=== PATIENT | female | born 2000 | race American Indian/Alaskan Native ===

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

== ENCOUNTER 2019-05-01 10:31 | Emergency (ER) | payer MEDICAID, OTHER ==
[2019-05-01 11:38] VITALS: BP 140/84
--- NOTE | 2019-05-01 11:38 | Event Note ---
ED Screening Note Date of service: 05/01/19 Time: 11:34 ED Screening Note: This is a 19 y.o. F. that presents to the ER with cough, chest pain, and congestion for 2-3 weeks. PMH asthma, ESRD Taken allergy and cold medication with no improvement of symptoms. LMP 03/25/2019, nexherve This initial assessment/diagnostic orders/clinical plan/treatment(s) is/are subject to change based on patients health status, clinical progression and re- assessment by fellow clinical providers in the ED. Further treatment and workup at subsequent clinical providers discretion. Patient/guardian urged not to elope from the ED as their condition may be serious if not clinically assessed and managed. Initial orders include: CXR
--- NOTE | 2019-05-01 12:23 | Emergency Department Report ---
- General Chief Complaint: Upper Respiratory Infection Stated Complaint: COUGHING/CHEST PAIN Time Seen by Provider: 05/01/19 11:34 Source: patient Mode of arrival: Ambulatory Limitations: No Limitations - History of Present Illness Initial Comments: 19-year-old female presents to ED with cough 2-3 weeks. Mother denies fever. States cough sounds productive. No relief with OTC meds. Reports patient has history of chronic kidney disease, seizures, MR. Complaint: cough -: week(s) (3) Severity: moderate Consistency: constant Improves With: nothing Worsens With: nothing Associated Symptoms: myalgias, cough, chest pain (with cough). denies: fever, chills, nausea, vomiting Treatments Prior to Arrival: "cold medicine" - Related Data Previous Rx's Medication Instructions Recorded Last Taken Type levETIRAcetam [Keppra TAB] 500 mg PO BID #60 tablet 06/09/17 Unknown Rx Benzonatate [Tessalon Perles] 100 mg PO Q8HR PRN #20 capsule 05/01/19 Unknown Rx Naproxen [Naprosyn] 500 mg PO BID #20 tablet 05/01/19 Unknown Rx predniSONE [Deltasone] 50 mg PO QDAY #5 tab 05/01/19 Unknown Rx Allergies Allergy/AdvReac Type Severity Reaction Status Date / Time No Known Allergies Allergy Verified 06/09/17 09:39 ED Review of Systems ROS: Stated complaint: COUGHING/CHEST PAIN Other details as noted in HPI Comment: All other systems reviewed and negative Constitutional: denies: chills, fever Respiratory: cough. denies: shortness of breath Musculoskeletal: myalgia ED Past Medical Hx - Past Medical History Previous Medical History?: Yes Hx Renal Disease: Yes (CKD) Hx Seizures: Yes Hx Asthma: Yes - Surgical History Past Surgical History?: No - Social History Smoking Status: Never Smoker Substance Use Type: None - Medications Home Medications: Home Medications Medication Instructions Recorded Confirmed Last Taken Type levETIRAcetam [Keppra TAB] 500 mg PO BID #60 tablet 06/09/17 Unknown Rx Benzonatate [Tessalon Perles] 100 mg PO Q8HR PRN #20 capsule 05/01/19 Unknown Rx Naproxen [Naprosyn] 500 mg PO BID #20 tablet 05/01/19 Unknown Rx predniSONE [Deltasone] 50 mg PO QDAY #5 tab 05/01/19 Unknown Rx ED Physical Exam - General Limitations: No Limitations General appearance: alert, in no apparent distress - Head Head exam: Present: atraumatic, normocephalic - Eye Eye exam: Present: normal appearance - ENT ENT exam: Present: mucous membranes moist - Neck Neck exam: Present: normal inspection - Respiratory Respiratory exam: Present: normal lung sounds bilaterally. Absent: respiratory distress - Cardiovascular Cardiovascular Exam: Present: regular rate, normal rhythm - GI/Abdominal GI/Abdominal exam: Absent: distended - Extremities Exam Extremities exam: Present: normal inspection - Neurological Exam Neurological exam: Present: alert, oriented X3 - Psychiatric Psychiatric exam: Present: normal affect, normal mood - Skin Skin exam: Present: warm, dry, intact ED Course Vital Signs 05/01/19 11:35 Temperature 98.4 F Pulse Rate 83 Respiratory 20 Rate Blood Pressure 140/84 O2 Sat by Pulse 98 Oximetry Critical care attestation.: If time is entered above; I have spent that time in minutes in the direct care of this critically ill patient, excluding procedure time. ED Disposition Clinical Impression: Acute bronchitis Disposition: DC-01 TO HOME OR SELFCARE Is pt being admited?: No Condition: Stable Instructions: Acute Bronchitis (ED) Referrals: ANDREW ARORA MD [Primary Care Provider] - 3-5 Days PRIMARY CAREMD [Referring] - 3-5 Days Time of Disposition: 13:17
--- NOTE | 2019-05-01 12:55 | XRay Report ---
CHEST 2 VIEWS INDICATION / CLINICAL INFORMATION: Cough. COMPARISON: None available. FINDINGS: SUPPORT DEVICES: None. HEART / MEDIASTINUM: The heart size and pulmonary vasculature are normal. LUNGS / PLEURA: No significant pulmonary or pleural abnormality. No pneumothorax. ADDITIONAL FINDINGS: No significant additional findings. IMPRESSION: No acute findings. Signer Name: Sebastian Harris MD Signed: 05/01/2019 12:50 PM Workstation Name: [id number]
== END 2019-05-01 13:39 | disposition home or self-care (01) ==
LOC: ED 10:31
DX: J20.9 Acute bronchitis, unspecified (principal); N18.9 Chronic kidney disease, unspecified; J45.909 Unspecified asthma, uncomplicated; Z79.899 Other long term (current) drug therapy
CPT/HCPCS: 71046

== ENCOUNTER 2020-01-25 21:35 | Emergency (ER) | payer MEDICAID ==
[2020-01-25 22:21] LABS: Bilirubin,Urine NEG (Negative); Blood,Urine NEG (Negative); Color,Urine Yellow (Yellow); Mucus,Urine FEW /HPF; Protein,Urine <15 mg/dL mg/dL (Negative)
[2020-01-25 22:24] LABS: HCG Qualitative,Urine Negative (Negative)
[2020-01-25 22:37] LABS: Basophils # (Auto) 0.1 K/mm3 (0.0-0.1); Basophils % (Auto) 0.5 % (0.0-1.8); Eosinophils % (Auto) 0.4 % (0.0-4.3); Hematocrit 42.3 % (30.3-42.9); Lymphocytes # (Auto) 2.6 K/mm3 (1.2-5.4); Lymphocytes % (Auto) 23.5 % (13.4-35.0); Mean Corpuscular HGB Conc 33 % (30-34); Mean Corpuscular Volume 87 fl (79-97); Monocytes # (Auto) 0.9 K/mm3 (0.0-0.8); Monocytes % (Auto) 8.3 % (0.0-7.3); Platelet Count 299 K/mm3 (140-440); Red Blood Count 4.89 M/mm3 (3.65-5.03); Red Cell Distribution Width 13.5 % (13.2-15.2)
[2020-01-25 22:49] LABS: Alanine Aminotransferase 16 units/L (7-56); Albumin 3.9 g/dL (3.9-5); BUN/Creatinine Ratio 9; Blood Urea Nitrogen 11 mg/dL (7-17); Calcium 9.1 mg/dL (8.4-10.2); Hemolysis Index 29
[2020-01-25] MEDS ORDERED: ONDANSETRON 4 MG/2 ML INJ IV ONE (23:18)
[2020-01-25] MEDS ORDERED: FAMOTIDINE 20 MG/2 ML INJ IV ONE (23:18)
[2020-01-25] MEDS ORDERED: DICYCLOMINE 20 MG/2 ML INJ IM ONE (23:19)
--- NOTE | 2020-01-26 00:58 | Ultrasound Report ---
LIMITED RUQ ABDOMINAL ULTRASOUND INDICATION: RUQ Pain. COMPARISON: No relevant prior imaging study available. FINDINGS: Pancreas: Visualized portions show no significant abnormality. Abdominal Aorta: Distal aorta is not well-seen. The remaining aorta appears normal in size. IVC: No s ignificant abnormality. Liver: The liver measures 15.2 cm in length. No significant abnormality. Normal hepatopedal blood fl ow in the main portal vein. Gallbladder: A single small gallstone was reportedly seen in the gallbladder neck, poorly demonstrate d on this exam. There is also no gallbladder wall thickening or distention. No pericholecystic fluid. The patient did reportedly have pain in the right upper quadrant during the exam. Bile ducts: No significant abnormality. Common bile duct measures 2 mm. Right kidney: No significant abnormality visualized.. Free fluid: None. Additional Findings: None. IMPRESSION: 1. Gallbladder findings as outlined above, not overly convincing for cholecystitis. Signer Name: Alok Navarro MD Signed: 01/26/2020 12:54 AM Workstation Name: [id number]
[2020-01-26] MEDS ORDERED: ONDANSETRON 4 MG ODT TAB PO ONE (01:48)
[2020-01-26] MEDS ORDERED: KETOROLAC 30 MG/1 ML INJ IV ONE (01:48)
--- NOTE | 2020-01-26 01:50 | Emergency Department Report ---
<KHALIDAJEANAANDREIA Hendrix - Last Filed: 01/26/20 02:18> ED N/V/D HPI - General Chief complaint: Nausea/Vomiting/Diarrhea Stated complaint: VOMITING Source: patient Mode of arrival: Ambulatory Limitations: No Limitations - History of Present Illness Initial comments: Patient is a nulliparous 19-year-old -Cymro female with history of bipolar disorder who presents to the ED with complaint of acute onset persistent nausea and vomiting and right upper quadrant abdominal pain that radiates to the epigastric area for the last 2 weeks worse in the last 2 days. Patient states that she has been taking cwrp-lum-crhxtll medications with no relief. Patient states that the pain and nausea and vomiting get worse with any meal intake. Patient denies vaginal bleeding, vaginal discharge, fever, chills, dysuria, urinary frequency and urgency, hematemesis, hematochezia, diarrhea, chest pain or shortness of breath, cough, sore throat, change in vision or syncope. MD complaint: nausea, vomiting, abdominal pain -: Sudden, week(s) (2) Description of Vomiting: food contents Associated Abdominal Pain: Yes (RUQ) Location: RUQ Radiation: none Severity: severe Pain Scale: 7 Quality: cramping, sharp Consistency: constant Improves with: none Worsens with: eating Associated Symptoms: denies other symptoms, loss of appetite, malaise, nausea /vomiting. denies: myalgias, chest pain, cough, diaphoresis, fever/chills, headaches, rash, dysuria, shortness of breath, syncope, weakness - Related Data Previous Rx's Medication Instructions Recorded Last Taken Type levETIRAcetam [Keppra TAB] 500 mg PO BID #60 tablet 06/09/17 Unknown Rx Benzonatate [Tessalon Perles] 100 mg PO Q8HR PRN #20 capsule 05/01/19 Unknown Rx Naproxen [Naprosyn] 500 mg PO BID #20 tablet 05/01/19 Unknown Rx predniSONE [Deltasone] 50 mg PO QDAY #5 tab 05/01/19 Unknown Rx Dicyclomine [Bentyl] 20 mg PO Q6H PRN #30 tablet 01/26/20 Unknown Rx Famotidine [Pepcid] 20 mg PO Q12H #30 tablet 01/26/20 Unknown Rx Ondansetron [Zofran Odt] 4 mg PO Q6HR PRN #20 tab.rapdis 01/26/20 Unknown Rx Allergies Allergy/AdvReac Type Severity Reaction Status Date / Time No Known Allergies Allergy Verified 06/09/17 09:39 ED Review of Systems Constitutional: denies: chills, fever Eyes: denies: eye pain, eye discharge, vision change ENT: denies: ear pain, throat pain Respiratory: denies: cough, shortness of breath, wheezing Cardiovascular: denies: chest pain, palpitations Endocrine: no symptoms reported Gastrointestinal: abdominal pain, nausea, vomiting. denies: diarrhea Genitourinary: denies: urgency, dysuria, discharge Musculoskeletal: denies: back pain, joint swelling, arthralgia Skin: denies: rash, lesions Neurological: denies: headache, weakness, paresthesias Psychiatric: denies: anxiety, depression Hematological/Lymphatic: denies: easy bleeding, easy bruising ED Past Medical Hx - Past Medical History Previous Medical History?: Yes Hx Renal Disease: Yes (CKD) Hx Seizures: Yes Hx Asthma: Yes - Surgical History Past Surgical History?: No - Social History Smoking Status: Never Smoker Substance Use Type: None - Medications Home Medications: Home Medications Medication Instructions Recorded Confirmed Last Taken Type levETIRAcetam [Keppra TAB] 500 mg PO BID #60 tablet 06/09/17 Unknown Rx Benzonatate [Tessalon Perles] 100 mg PO Q8HR PRN #20 capsule 05/01/19 Unknown Rx Naproxen [Naprosyn] 500 mg PO BID #20 tablet 05/01/19 Unknown Rx predniSONE [Deltasone] 50 mg PO QDAY #5 tab 05/01/19 Unknown Rx Dicyclomine [Bentyl] 20 mg PO Q6H PRN #30 tablet 01/26/20 Unknown Rx Famotidine [Pepcid] 20 mg PO Q12H #30 tablet 01/26/20 Unknown Rx Ondansetron [Zofran Odt] 4 mg PO Q6HR PRN #20 tab.rapdis 01/26/20 Unknown Rx ED Physical Exam - General Limitations: No Limitations General appearance: alert, in no apparent distress - Head Head exam: Present: atraumatic, normocephalic, normal inspection - Eye Eye exam: Present: normal appearance, PERRL, EOMI Pupils: Present: normal accommodation - ENT ENT exam: Present: normal exam, normal orophraynx, mucous membranes moist, TM's normal bilaterally, normal external ear exam - Neck Neck exam: Present: normal inspection, full ROM - Respiratory Respiratory exam: Present: normal lung sounds bilaterally. Absent: respiratory distress, wheezes, rales, chest wall tenderness, accessory muscle use, prolonged expiratory - Cardiovascular Cardiovascular Exam: Present: regular rate, normal rhythm, normal heart sounds. Absent: systolic murmur, diastolic murmur, rubs, gallop - GI/Abdominal GI/Abdominal exam: Present: soft, tenderness (Palpable right upper quadrant tenderness with positive Rainey sign), normal bowel sounds. Absent: rebound, hyperactive bowel sounds, hypoactive bowel sounds, mass - Extremities Exam Extremities exam: Present: normal inspection, full ROM, normal capillary refill - Back Exam Back exam: Present: normal inspection, full ROM. Absent: tenderness, CVA tenderness (R), muscle spasm - Neurological Exam Neurological exam: Present: alert, oriented X3, CN II-XII intact, normal gait, reflexes normal - Psychiatric Psychiatric exam: Present: normal affect, normal mood - Skin Skin exam: Present: warm, dry, intact, normal color. Absent: rash ED Medical Decision Making - Lab Data Result diagrams: 01/25/20 22:14 01/25/20 22:14 - Radiology Data Radiology results: report reviewed, image reviewed Findings [address] [address] Ultrasound Report Signed Patient: LYNN CHANDLER MR#: [id number] : 2000 Acct:[id number] Age/Sex: 19 / F ADM Date: 01/25/20 Loc: ED Attending Dr: Ordering Physician: MATA TABARES Date of Service: 01/25/20 Procedure(s): US abdomen limited Accession Number(s): [id number] cc: MATA TABARES LIMITED RUQ ABDOMINAL ULTRASOUND INDICATION: RUQ Pain. COMPARISON: No relevant prior imaging study available. FINDINGS: Pancreas: Visualized portions show no significant abnormality. Abdominal Aorta: Distal aorta is not well-seen. The remaining aorta appears normal in size. IVC: No significant abnormality. Liver: The liver measures 15.2 cm in length. No significant abnormality. Normal hepatopedal blood flow in the main portal vein. Gallbladder: A single small gallstone was reportedly seen in the gallbladder neck, poorly demonstrated on this exam. There is also no gallbladder wall thickening or distention. No pericholecystic fluid. The patient did reportedly have pain in the right upper quadrant during the exam. Bile ducts: No significant abnormality. Common bile duct measures 2 mm. Right kidney: No significant abnormality visualized.. Free fluid: None. Additional Findings: None. IMPRESSION: 1. Gallbladder findings as outlined above, not overly convincing for cholecystitis. Signer Name: Alok Navarro MD Signed: 01/26/2020 12:54 AM Workstation Name: [id number] Transcribed By: DEE Dictated By: Alok Navarro MD Electronically Authenticated By: Alok Navarro MD Signed Date/Time: 01/26/2053 DD/ TD/TT: - Medical Decision Making This is a nulliparous 19-year-old -Cymro female with history of bipola r disorder who presents to the ED with complaint of acute onset persistent nausea and vomiting and right upper quadrant abdominal pain that radiates to the epigastric area for the last 2 weeks worse in the last 2 days. Patient states that she has been taking anlw-npy-oekuxrb medications with no relief. Patient states that the pain and nausea and vomiting get worse with any meal intake. In the ED, patient is alert and oriented x3 and is not in distress. Patient was treated for pain and nausea and vomiting and also given antacids. Lab test results were reviewed and are all nonactionable including urinalysis. Gallbladder ultrasound shows a single small gallstone was reportedly seen in the gallbladder neck, poorly demonstrated on this exam. There is also no gallbladder wall thickening or distention. No pericholecystic fluid. The common bile ducts show no significant abnormality. Common bile duct measures 2 mm. On reevaluation, patient's pain is well controlled with medications. Patient has not had any nausea or vomiting in the ED after being treated for the same. Patient was discharged home on pain medications, antacids and antiemetics and patient was advised to follow-up with the general surgeon on-call Dr. Bui in the next 2 to 3 days for reevaluation and possible cholecystectomy. Patient was otherwise advised to return to the ED immediately if symptoms get worse. - Differential Diagnosis GERD; Gastroenteritis; Gastritis; Cholelithiasis; UTI; Cholecystitis ED Disposition Disposition: DC-01 TO HOME OR SELFCARE Is pt being admited?: No Does the pt Need Aspirin: No Condition: Stable Instructions: Cholelithiasis (ED), Acute Nausea and Vomiting (ED), Abdominal Pain (ED) Additional Instructions: Your lab test results are unremarkable but the ultrasound of the gallbladder shows gallstones in the gallbladder. Therefore take medication for pain, as well as medicine for nausea and vomiting and follow-up with the general surgeon on-call Dr. Bui in her office in 3 to 5 days for reevaluation. Contact Dr. Bui's office first thing in the morning on Sunday, January 26, 2020 to schedule a follow-up appointment for a possible removal of your gallbladder. Otherwise follow-up with your primary care physician in 5 to 7 days for reevaluation or return to the ED immediately if symptoms get worse. Prescriptions: Dicyclomine [Bentyl] 20 mg PO Q6H PRN #30 tablet PRN Reason: Pain , Severe (7-10) Famotidine [Pepcid] 20 mg PO Q12H #30 tablet Ondansetron [Zofran Odt] 4 mg PO Q6HR PRN #20 tab.rapdis PRN Reason: Nausea Referrals: PRIMARY CARE,MD [Primary Care Provider] - 3-5 Days Time of Disposition: 01:52 Print Language: HUNGARIAN <NAYANA BARROSO - Last Filed: 01/26/20 05:32> ED Review of Systems ROS: Stated complaint: VOMITING Other details as noted in HPI ED Course Vital Signs 01/25/20 01/26/20 01/26/20 21:40 02:05 02:07 Temperature 98.4 F 98.1 F Pulse Rate 98 H 86 Respiratory 18 20 18 Rate Blood Pressure 145/86 Blood Pressure 135/85 [Left] O2 Sat by Pulse 98 100 Oximetry ED Medical Decision Making - Lab Data Result diagrams: 01/25/20 22:14 01/25/20 22:14 Critical care attestation.: If time is entered above; I have spent that time in minutes in the direct care of this critically ill patient, excluding procedure time.
== END 2020-01-26 02:19 | disposition home or self-care (01) ==
LOC: ED 21:35
DX: R11.2 Nausea with vomiting, unspecified (principal); R10.11 Right upper quadrant pain; N18.9 Chronic kidney disease, unspecified; G40.909 Epilepsy, unspecified, not intractable, without status epilepticus; J45.909 Unspecified asthma, uncomplicated; Z79.899 Other long term (current) drug therapy
CPT/HCPCS: 36415; 76705; 80053; 81001; 81025; 85025; 96372; 96374; 96375; 99284; J0500; J1885; J2405; Q0162

== ENCOUNTER 2020-02-20 14:29 | Day surgery (SDC) | payer MEDICAID ==
[2020-02-17 09:55] LABS: Hematocrit 46.9 % (30.3-42.9); Hemoglobin 15.8 gm/dl (10.1-14.3); Mean Corpuscular HGB Conc 34 % (30-34); Mean Corpuscular Volume 86 fl (79-97); Platelet Count 318 K/mm3 (140-440); Red Blood Count 5.44 M/mm3 (3.65-5.03); Red Cell Distribution Width 13.8 % (13.2-15.2)
[2020-02-17 10:28] LABS: BUN/Creatinine Ratio 14; Blood Urea Nitrogen 17 mg/dL (7-17); Calcium 9.6 mg/dL (8.4-10.2); Hemolysis Index 56
--- NOTE | 2020-02-19 17:18 | Short Stay Summary ---
Short Stay Documentation Date of service: 02/20/20 - History H&P: obtained from office - Allergies and Medications Current Medications: Allergies No Known Allergies Allergy (Verified 06/09/17 09:39) Home Medications Medication Instructions Recorded Confirmed Last Taken Type levETIRAcetam [Keppra TAB] 500 mg PO BID #60 tablet 06/09/17 02/11/20 Unknown Rx Ondansetron [Zofran Odt] 4 mg PO Q6HR PRN #20 tab.rapdis 01/26/20 02/11/20 Unknown Rx Lisdexamfetamine Dimesylate 40 mg PO DAILY 02/07/20 02/07/20 Unknown History [Vyvanse] lisinopriL [Zestril TAB] 5 mg PO DAILY 02/07/20 02/07/20 Unknown History Albuterol Sulfate [Proventil Hfa] 2 puff IH PRN PRN 02/11/20 02/11/20 Unknown History - Physical exam General appearance: no acute distress Lungs: Normal air movement Neurological: Normal speech - Brief post op/procedure progress note Date of procedure: 02/20/20 (dictation:[id number]) Pre-op diagnosis: symptomatic cholelithiasis with obstruction Post-op diagnosis: same Procedure: lap km IVF 700cc EBL min Anesthesia: GETA Findings: mildly dilated GB. Intrahepatic Surgeon: DHAVAL DELVALLE Appliances Sample Maker: MARICHUY CASTAÑEDA Estimated blood loss: minimal Pathology: list (gallbladder) Specimen disposition: to lab Condition: stable - Hospital course Hospital course: uneventful - Disposition Condition at discharge: Stable Disposition: DC-01 TO HOME OR SELFCARE Short Stay Discharge Plan Activity: advance as tolerated Diet: regular Wound: open to air, keep clean and dry Special Instructions: no heavy lifting Additional Instructions: Post Operative Instructions Activity: no heavy lifting for next 1 week. May shower tomorrow. Pat dry the wound or wounds. Keep incision sites clean and dry After surgery, start with a light diet. Consider starting with liquids. If you do well, you can advance to a regular diet as you feel comfortable. Apply an ice pack to the wound or wounds for 10-20 minutes at a time. Do this at least 4-5 times a day. You can do it more if he would like. Pain Medication Schedule for the first 2 days after surgery: Gabapentin 300mg twice a day Tylenol 500mg four times a day (every 6 hours) After the first 2 days, then take alternating doses of ibuprofen and Tylenol as needed for pain. Take 600 mg of ibuprofen every 6 hours as needed. Take 500 mg of Tylenol every 6 hours as needed. You should alternate these 2 medicines. Make sure you take the ibuprofen with food. It is very important that you use the prescription narcotic pain medicine (hydrocodone) only for very severe pain. Do not take the narcotic medicine before you try using all the medications listed above. We will call you in a couple of days to see how youre doing. If you have any questions or concerns, always feel free to call the clinic ([phone]) at any time. WOUND:OPEN TO AIR, KEEP CLEAN AND DRY. REMOVED SCOPOLAMINE PATCH BEHIND RIGHT EAR IN 24-72 HOURS=USE GLOVES AND WASH HANDS. Follow up with: PRIMARY MD WILL [Primary Care Provider] - 7 Days DHAVAL DELVALLE MD [Staff Physician] - 14 Days Forms: Outpatient Surgery DC Inst. Prescriptions: Gabapentin 300 mg PO BID #4 capsule HYDROcodone/APAP 5-325 [Minong 5-325 mg TAB] 1 each PO Q6HR PRN #15 tablet PRN Reason: Pain , Severe (7-10)
--- NOTE | 2020-02-20 09:31 | Anesthesia Day of Surgery ---
Anesthesia Day of Surgery - Day of Surgery Patient Examined: Yes Patient H&P Reviewed: Yes Patient is NPO: Yes
--- NOTE | 2020-02-20 09:31 | Anesthesia Consultation ---
Anesthesia Consult and Med Hx Date of service: 02/20/20 - Airway Anesthetic Teeth Evaluation: Good ROM Head & Neck: Adequate Mental/Hyoid Distance: Adequate Mallampati Class: Class II Intubation Access Assessment: Probably Good - Pulmonary Exam CTA: Yes - Cardiac Exam Cardiac Exam: RRR - Pre-Operative Health Status ASA Pre-Surgery Classification: ASA3 Proposed Anesthetic Plan: General - Pulmonary Hx Asthma: Yes (last inhaler use 2 months ago) Hx Respiratory Symptoms: No Hx Sleep Apnea: No (PALMER PRE SCREEN LOW RISK) - Cardiovascular System Hx Hypertension: Yes Hx Heart Attack/AMI: No - Central Nervous System Hx Seizures: Yes (multiple petite mal seizures daily. Took keppra this morning) Hx Psychiatric Problems: Yes (depression, anxiety, bipolar d/o, ADHD) - Gastrointestinal Hx Gastroesophageal Reflux Disease: Yes - Endocrine Hx Renal Disease: Yes (last nephrology visit 07/2019, reports good renal function at that time. ) Hx End Stage Renal Disease: No Hx Liver Disease: No Hx Non-Insulin Dependent Diabetes: Yes (diet controlled) Hx Thyroid Disease: No - Other Systems Hx Obesity: Yes (BMI 34) - Additional Comments Anesthesia Medical History Comments: No prior GA. No FHx anesthetic complications.
--- NOTE | 2020-02-20 14:11 | Operative Report ---
PREOPERATIVE DIAGNOSIS: Symptomatic cholelithiasis with obstruction of the cystic duct. POSTOPERATIVE DIAGNOSIS: Symptomatic cholelithiasis with obstruction of the cystic duct. PROCEDURE: Laparoscopic cholecystectomy. ATTENDING PHYSICIAN: Stan Varela MD LOCKER ROOM SUPERVISOR: Dr. Bui ANESTHESIA: General. ESTIMATED BLOOD LOSS: Minimal. FLUIDS: 700 mL. FINDINGS: Mildly distended gallbladder that was intrahepatic. SPECIMENS: Gallbladder. DRAINS: None. COMPLICATIONS: None. DISPOSITION: Stable, transferred to Recovery Room. INDICATIONS: This is a 19-year-old female who presents to the office after having been seen in the Emergency Department for severe abdominal pain. The patient was found to have a dilated gallbladder by ultrasound with a stone in the neck of the gallbladder. The patient continued to have symptoms of pain and nausea. The patient is assessed to be in need for cholecystectomy. Procedure, risks, benefits were explained to the patient. Risks include but were not limited to infection, bleeding, pain, injury to surrounding structures, possible need for further procedures in the future. The patient understood and consented. OPERATIVE NOTE: The patient was brought to the operating room and placed on the table in supine position. After adequate general anesthesia was established, the patient was prepped and draped in the usual sterile fashion. SCDs were in place. Antibiotics have been given. Time-out was called. I placed a Veress needle in left upper quadrant at Capps's point. I was able to insufflate on the first attempt. Using Optiview technique, we placed a 5 mm port on the right side of the abdomen. We entered the peritoneal cavity safely. Examining the area underneath the Veress needle, there was no injury to the underlying structures. Veress needle was removed. We then proceeded to place the 12 mm port at the umbilicus. Area was anesthetized. Curvilinear incision was made. 2-0 PDS closing suture was placed with a Geo-Flash needle and then the port was inserted under direct vision. Two more 5 mm ports were placed along the right subcostal margin. We elevated the gallbladder. It was difficult to elevate due to the fact that was intrahepatic and slightly enlarged. We did a partial top down approach to help in mobilizing the gallbladder a little bit more. We dissected out the cystic duct. We could clearly see the cystic duct. It was obviously heading into the gallbladder. We could also see the common duct. The cystic duct was very short. Once we dissected out the cystic duct, we had a very small critical view, but as I could clearly see the common duct, we felt comfortable proceeding with dividing the cystic duct. Two clips were placed distally, 1 proximally. We usually will put 3, but as the cystic duct was so short, we felt this was the safest amount to put so as not to impinge upon the common duct. Cystic duct was divided sharply. Using the Harmonic scalpel, we removed the gallbladder from the bed. Cystic artery was divided with the Harmonic scalpel. During the top down approach, we had a small rent in the liver bed. Therefore, once the gallbladder was removed, we had a small amount of blood staining in the bed. We closely examined this area. We saw no evidence of any active bleeding. It appeared to be blunted and trickle down from the small rent. As a precaution, I placed Surgicel in the bed. Specimen was placed in EndoCatch bag. We desufflated the abdomen per the virus protocol and then removed the 12 mm port and the EndoCatch bag. The stay suture that we had placed was used to close the fascia. We had a good seal. The remaining ports were removed. Abdomen already been desufflated. Additional local was injected, 4-0 Monocryl subcuticular stitches were placed. Skin was cleaned and dried. Dermabond was placed. I examined the gallbladder on the back table. We clearly had divided the cystic duct. There were no other ductal structures. Everything looked very good. JOB# [id number] AMADOR/SIOBHAN QURESHI
[2020-02-20] MEDS: HYDROmorphone 1 MG/1 ML INJ IV PRN ×2 (14:15→14:35)
[~2020-02-20 14:29] MED LIST: ACETAMINOPHEN 500 MG TAB PO SCH; BUPIVACAINE/PF (0.5%) 5 MG/1 ML 30 ML VIAL INFILTRATI ONE; CELECOXIB 200 MG CAP PO NR; GABAPENTIN 300 MG CAP PO SCH; GLYCOPYRROLATE 0.4 MG/2 ML INJ ONE; HYDROmorphone 1 MG/1 ML INJ ONE; LACTATED RINGERS 1,000 ML IV SCH; LIDOCAINE 1%/EPINEPHRINE 1:100,000 VIAL (20 ML) INFILTRATI ONE; LIDOCAINE MPF (2%) 20 MG/1 ML VIAL 5 ML ONE; MIDAZOLAM 2 MG/2 ML INJ IV NR; NEOSTIGMINE 10MG/10 ML INJ MDV ONE; ONDANSETRON 4 MG/2 ML INJ ONE; ROCURONIUM 50 MG/5 ML INJ IV ONE; SCOPOLAMINE TRANSDERMAL PATCH 72 HR TD NR; SUCCINYLCHOLINE CHLORIDE 200 MG/10 ML INJ MDV ONE; WATER FOR IRRIG STERILE 1,500 ML BOTTLE IR ONE; ceFAZolin/Water 2 GM/20 ML 2 GM/20 ML SYRINGE IV NR; dexAMETHasone 20 MG/5 ML VIAL ONE; propofoL 200 MG/20 ML VIAL IV ONE
[2020-02-20 15:20] VITALS: BP 127/74
[2020-02-20] MEDS ORDERED: SCOPOLAMINE TRANSDERMAL PATCH 72 HR TD ONE (15:46)
--- NOTE | 2020-02-20 19:19 | Post Anesthesia Evaluation ---
- Post Anesthesia Evaluation Patient Participated: Yes Airway Patent: Yes Stable Respiratory Function: Yes Nausea/Vomiting: No Temp > 96.8F: Yes Pain Manageable: Yes Adequeate Hydration: Yes Anesthesia Complications: No
== END 2020-02-20 16:15 | disposition home or self-care (01) ==
LOC: OR 14:29
PROVIDERS: ATTEND Surgery
DX: K80.21 Calculus of gallbladder without cholecystitis with obstruction (principal); Z11.59 Encounter for screening for other viral diseases; I10 Essential (primary) hypertension; J45.909 Unspecified asthma, uncomplicated; K21.9 Gastro-esophageal reflux disease without esophagitis; E66.9 Obesity, unspecified; E11.9 Type 2 diabetes mellitus without complications; F31.9 Bipolar disorder, unspecified; F41.9 Anxiety disorder, unspecified; Z79.899 Other long term (current) drug therapy; Z68.34 Body mass index [BMI] 34.0-34.9, adult; Z98.890 Other specified postprocedural states; Z86.2 Personal history of diseases of the blood and blood-forming organs and certain disorders involving the immune mechanism
CPT/HCPCS: 36415; 47562; 80048; 82962; 84703; 85027; 88304; J0330; J0690; J1100; J1170; J2250; J2405; J2704; J2710; J7120; U0003

== ENCOUNTER 2020-06-30 20:42 | Emergency (ER) | payer MEDICAID ==
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
[2020-07-01] MEDS ORDERED: BUTALB/ACETAMINOPHEN/CAFFEINE TAB PO ONE (03:51)
[2020-07-01] MEDS ORDERED: ONDANSETRON 4 MG ODT TAB PO ONE (03:52)
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
[2020-07-01 04:46] VITALS: BP 127/82
== END 2020-07-01 05:15 | disposition home or self-care (01) ==
LOC: ED 20:42
DX: S00.03XA Contusion of scalp, initial encounter (principal); G44.319 Acute post-traumatic headache, not intractable; F07.81 Postconcussional syndrome; I10 Essential (primary) hypertension; E11.9 Type 2 diabetes mellitus without complications; K21.9 Gastro-esophageal reflux disease without esophagitis; J45.909 Unspecified asthma, uncomplicated; R56.9 Unspecified convulsions; Z79.899 Other long term (current) drug therapy; Z87.448 Personal history of other diseases of urinary system; W20.8XXA Other cause of strike by thrown, projected or falling object, initial encounter; Y93.89 Activity, other specified; Y92.89 Other specified places as the place of occurrence of the external cause; Y99.8 Other external cause status
CPT/HCPCS: 70450; 72125; Q0162

== ENCOUNTER 2020-08-21 15:25 | Emergency (ER) | payer MEDICAID ==
[2020-08-21 16:27] LABS: Basophils % (Auto) 0.4 % (0.0-1.8); Eosinophils # (Auto) 0.1 K/mm3 (0.0-0.4); Eosinophils % (Auto) 0.7 % (0.0-4.3); Hematocrit 44.3 % (30.3-42.9); Hemoglobin 15.1 gm/dl (10.1-14.3); Lymphocytes # (Auto) 2.8 K/mm3 (1.2-5.4); Lymphocytes % (Auto) 27.7 % (13.4-35.0); Mean Corpuscular HGB Conc 34 % (30-34); Mean Corpuscular Volume 87 fl (79-97); Monocytes # (Auto) 0.8 K/mm3 (0.0-0.8); Platelet Count 354 K/mm3 (140-440); Red Cell Distribution Width 13.5 % (13.2-15.2)
[2020-08-21 16:28] LABS: Bilirubin,Urine NEG (Negative); Blood,Urine SM (Negative); Color,Urine Yellow (Yellow); Mucus,Urine FEW /HPF; Protein,Urine <15 mg/dL mg/dL (Negative); Urobilinogen,Urine < 2.0 mg/dL (<2.0)
--- NOTE | 2020-08-21 17:09 | XRay Report ---
CHEST 2 VIEWS INDICATION / CLINICAL INFORMATION: cough. COMPARISON: 06/10/2020 FINDINGS: SUPPORT DEVICES: None. HEART / MEDIASTINUM: No significant abnormality. LUNGS / PLEURA: No significant pulmonary or pleural abnormality. No pneumothorax. ADDITIONAL FINDINGS: No significant additional findings. IMPRESSION: No significant abnormality or interval change from 06/10/2020 Signer Name: Salas Bhatt MD FACR Signed: 08/21/2020 5:05 PM Workstation Name: [id number]
[2020-08-21 17:50] LABS: Alanine Aminotransferase 18 units/L (7-56); BUN/Creatinine Ratio 8; Blood Urea Nitrogen 9 mg/dL (7-17); Calcium 9.7 mg/dL (8.4-10.2); Hemolysis Index 114
--- NOTE | 2020-08-21 18:17 | Emergency Department Report ---
<SP LUDWIG - Last Filed: 08/21/20 18:51> ED Abdominal Pain HPI - General Chief Complaint: Abdominal Pain Stated Complaint: VOMITING/COUGH Time Seen by Provider: 08/21/20 17:52 Source: patient Mode of arrival: Ambulatory Limitations: No Limitations - History of Present Illness Initial Comments: The patient was evaluated in the emergency department for symptoms described in the history of present illness. He/she was evaluated in the context of the global COVID-19 pandemic, which necessitated consideration that the patient might be at risk for infection with the virus that causes COVID-19. Institutional protocols and algorithms that pertain to the evaluation of patients at risk for COVID-19 are in a state of rapid change based on information released by regulatory bodies including the CDC and federal and state organizations. These policies and algorithms were followed during the patient's care in the emergency department. Please note that these policies, procedures and recommendations changed on a rapid basis. 20-year-old -[place] female presents to the emergency room complaining of cough, abdominal pain nausea and vomiting since yesterday. Patient reports that she has been able to drink tammie eric. Patient reports nausea vomiting denies any diarrhea no constipation. She reports that her pain is from the periumbilicus. Her last menstrual period was 08/10/2020. She denies any dysuria no vaginal bleeding no vaginal discharge. MD Complaint: abdominal pain - Related Data Home Medications Medication Instructions Recorded Confirmed Last Taken Lisdexamfetamine Dimesylate 40 mg PO DAILY 02/07/20 02/20/20 02/20/20 07:00 [Vyvanse] lisinopriL [Zestril TAB] 5 mg PO DAILY 02/07/20 02/20/20 02/20/20 07:00 Albuterol Sulfate [Proventil Hfa] 2 puff IH PRN PRN 02/11/20 02/20/20 12/18/19 08:00 Previous Rx's Medication Instructions Recorded Last Taken Type levETIRAcetam [Keppra TAB] 500 mg PO BID #60 tablet 06/09/17 02/20/20 07:00 Rx Gabapentin 300 mg PO BID #4 capsule 02/20/20 Unknown Rx HYDROcodone/APAP 5-325 [[place] 1 each PO Q6HR PRN #15 tablet 02/20/20 Unknown Rx 5-325 mg TAB] Butalb/Acetamin/Caff 50-325-40 1 - 2 tab PO Q6HR PRN #15 tab 07/01/20 Unknown Rx [Fioricet 50-325-40] Ondansetron [Zofran Odt] 4 mg PO Q6HR PRN #15 tab.rapdis 07/01/20 Unknown Rx Dicyclomine [Bentyl] 20 mg PO Q6H PRN #20 tablet 08/21/20 Unknown Rx Famotidine [Pepcid] 20 mg PO BID #30 tablet 08/21/20 Unknown Rx Ondansetron [Zofran Odt] 4 mg PO Q6HR PRN #20 tab.rapdis 08/21/20 Unknown Rx Allergies Allergy/AdvReac Type Severity Reaction Status Date / Time No Known Allergies Allergy Verified 08/21/20 15:47 ED Past Medical Hx - Past Medical History Hx Hypertension: Yes Hx Heart Attack/AMI: No Hx Diabetes: No Hx GERD: Yes Hx Liver Disease: No Hx Renal Disease: Yes Hx Sickle Cell Disease: No Hx Seizures: Yes Hx Asthma: Yes Hx Tuberculosis: No Hx HIV: No - Surgical History Hx Cholecystectomy: Yes - Social History Smoking Status: Never Smoker Substance Use Type: None - Medications Home Medications: Home Medications Medication Instructions Recorded Confirmed Last Taken Type levETIRAcetam [Keppra TAB] 500 mg PO BID #60 tablet 06/09/17 02/20/20 02/20/20 07:00 Rx Lisdexamfetamine Dimesylate 40 mg PO DAILY 02/07/20 02/20/20 02/20/20 07:00 History [Vyvanse] lisinopriL [Zestril TAB] 5 mg PO DAILY 02/07/20 02/20/20 02/20/20 07:00 History Albuterol Sulfate [Proventil Hfa] 2 puff IH PRN PRN 02/11/20 02/20/20 12/18/19 08:00 History Gabapentin 300 mg PO BID #4 capsule 02/20/20 Unknown Rx HYDROcodone/APAP 5-325 [[place] 1 each PO Q6HR PRN #15 tablet 02/20/20 Unknown Rx 5-325 mg TAB] Butalb/Acetamin/Caff 50-325-40 1 - 2 tab PO Q6HR PRN #15 tab 07/01/20 Unknown Rx [Fioricet 50-325-40] Ondansetron [Zofran Odt] 4 mg PO Q6HR PRN #15 tab.rapdis 07/01/20 Unknown Rx Dicyclomine [Bentyl] 20 mg PO Q6H PRN #20 tablet 08/21/20 Unknown Rx Famotidine [Pepcid] 20 mg PO BID #30 tablet 08/21/20 Unknown Rx Ondansetron [Zofran Odt] 4 mg PO Q6HR PRN #20 tab.rapdis 08/21/20 Unknown Rx ED Physical Exam - General Limitations: No Limitations General appearance: alert, in no apparent distress - Head Head exam: Present: atraumatic, normocephalic - Eye Eye exam: Present: normal appearance - ENT ENT exam: Present: mucous membranes moist - Neck Neck exam: Present: normal inspection - Respiratory Respiratory exam: Present: normal lung sounds bilaterally. Absent: respiratory distress - Cardiovascular Cardiovascular Exam: Present: regular rate - GI/Abdominal GI/Abdominal exam: Present: soft, tenderness (Periumbilicus). Absent: distended, guarding - Neurological Exam Neurological exam: Present: alert, oriented X3, normal gait - Psychiatric Psychiatric exam: Present: normal affect, normal mood - Skin Skin exam: Present: warm, dry, intact, normal color. Absent: rash ED Medical Decision Making - Lab Data Result diagrams: 08/21/20 15:59 08/21/20 15:59 - Radiology Data Radiology results: report reviewed [facility] [address] [place] [address] XRay Report Signed Patient: LYNN CHANDLER MR#: [id number] : 2000 Acct:[id number] Age/Sex: 20 / F ADM Date: 08/21/20 Loc: ED Attending Dr: Ordering Physician: WALDEMAR GABRIEL Date of Service: 08/21/20 Procedure(s): XR chest routine 2V Accession Number(s): [id number] cc: WALDEMAR GABRIEL Fluoro Time In Minutes: CHEST 2 VIEWS INDICATION / CLINICAL INFORMATION: cough. COMPARISON: 06/10/2020 FINDINGS: SUPPORT DEVICES: None. HEART / MEDIASTINUM: No significant abnormality. LUNGS / PLEURA: No significant pulmonary or pleural abnormality. No pneumothorax. ADDITIONAL FINDINGS: No significant additional findings. IMPRESSION: No significant abnormality or interval change from 06/10/2020 Signer Name: Salas Bhatt MD FACR Signed: 08/21/2020 5:05 PM Workstation Name: [id number] Transcribed By: MS Dictated By: Salas Bhatt MD Electronically Authenticated By: Salas Bhatt MD Signed Date/Time: 08/21/201704 DD/ 03 TD/TT: - Medical Decision Making 20-year-old -Syrian female presents to the emergency room complaining of cough, abdominal pain nausea and vomiting since yesterday. Patient reports that she has been able to drink tammie eric. Patient reports nausea vomiting denies any diarrhea no constipation. She reports that her pain is from the periumbilicus. Her last menstrual period was 08/10/2020. She denies any dysuria no vaginal bleeding no vaginal discharge. Labs are stable. CT with contrast has been ordered. ED Disposition Clinical Impression: Nausea and vomiting in adult patient, Viral gastroenteritis, Abdominal pain in female Disposition: - TO HOME OR SELFCARE Condition: Stable Instructions: Abdominal Pain (ED), Viral Gastroenteritis, Adult, [id number], Nausea and Vomiting, Adult, [id number], Viral Illness, Adult, Abdominal Pain, Adult Additional Instructions: All lab test results were reviewed and are all nonactionable. Abdomen pelvis CT scan without contrast showed no acute abnormalities. Therefore maintain a clear liquid diet for 12 to 24 hours, take medications as prescribed, drink plenty of fluids and follow-up with your primary care physician in 5 to 7 days for reevaluation. Return to the ED immediately if symptoms get worse. Prescriptions: Dicyclomine [Bentyl] 20 mg PO Q6H PRN #20 tablet PRN Reason: Abdominal pain Famotidine [Pepcid] 20 mg PO BID #30 tablet Ondansetron [Zofran Odt] 4 mg PO Q6HR PRN #20 tab.rapdis PRN Reason: nausea amd vomiting Referrals: [facility] [Outside] - 7-10 days Print Language: IRISH <ANDREIA TORRES - Last Filed: 08/21/20 23:17> ED Review of Systems ROS: Stated complaint: VOMITING/COUGH Other details as noted in HPI ED Course Vital Signs 08/21/20 15:51 Temperature 98.1 F Pulse Rate 98 H Respiratory 18 Rate Blood Pressure 129/87 O2 Sat by Pulse 99 Oximetry ED Medical Decision Making - Lab Data Result diagrams: 08/21/20 15:59 08/21/20 15:59 - Radiology Data Findings [facility] [address] [place] [address] Cat Scan Report Signed Patient: LYNN CHANDLER MR#: [id number] : 2000 Acct:[id number] Age/Sex: 20 / F ADM Date: 08/21/20 Loc: ED Attending Dr: Ordering Physician: MATA CHANG Date of Service: 08/21/20 Procedure(s): CT abdomen pelvis wo con Accession Number(s): [id number] cc: MATA CHANG CT ABDOMEN AND PELVIS WITHOUT CONTRAST INDICATION / CLINICAL INFORMATION: Periumbilicus pain and tenderness. TECHNIQUE: Axial CT images were obtained through the abdomen and pelvis without IV contrast. All CT scans at this location are performed using CT dose reduction for ALARA by means of automated exposure control. COMPARISON: None available. FINDINGS: LOWER CHEST: No significant abnormality. LIVER: No significant abnormality. GALLBLADDER: Surgically absent. BILE DUCTS: No significant abnormality. PANCREAS: No significant abnormality. SPLEEN: No significant abnormality. ADRENALS: No significant abnormality. RIGHT KIDNEY and URETER: No significant abnormality. LEFT KIDNEY and URETER: No significant abnormality. STOMACH and SMALL BOWEL: No significant abnormality. COLON: No significant abnormality. APPENDIX: No significant abnormality. PERITONEUM: No free fluid. No free air. No fluid collection. LYMPH NODES: No significant adenopathy. AORTA and ARTERIES: No significant abnormality. IVC and VEINS: No significant abnormality. URINARY BLADDER: No significant abnormality. REPRODUCTIVE ORGANS: No significant abnormality. ADDITIONAL FINDINGS: None. SKELETAL SYSTEM: No significant abnormality. IMPRESSION: 1. No acute process identified within the abdomen or pelvis to account for patient's abdominal pain Signer Name: Lisset Sanchez MD Signed: 08/21/2020 10:42 PM Workstation Name: [id number] Transcribed By: [facility] Dictated By: Lisset Sanchez MD Electronically Authenticated By: Lisset Sanchez MD Signed Date/Time: 08/21/202241 DD/ 37 TD/TT: - Medical Decision Making I assumed care of the patient from Ms. Waldemar Gabriel PA-C at shift change at 2200 hours. Patient had presented to the ED with acute onset persistent abdominal pain in the upper umbilical area with nausea and vomiting for 2 days. Lab test results were reviewed and are all nonactionable. Abdomen pelvis CT scan without contrast showed no acute abnormalities in the abdomen or pelvis. Patient was treated for pain in the ED and also given antiemetics and antacids. On reevaluation, patient's pain is well controlled medications. Patient is hemodynamically stable and was discharged home on medications for pain and antiemetics and antacids. Patient symptoms are likely due to viral gastroenteritis. Patient was advised to maintain a clear liquid diet for 12 to 24 hours, and take medications as prescribed and follow-up with her primary care physician in 5 to 7 days for reevaluation or return to the ED immediately if s ymptoms get worse. - Differential Diagnosis Gastroenteritis; GERD; UTI; appendicitis; ovarian cyst; pancreatitis Critical care attestation.: If time is entered above; I have spent that time in minutes in the direct care of this critically ill patient, excluding procedure time. ED Disposition Is pt being admited?: No Does the pt Need Aspirin: No Time of Disposition: 23:16
[2020-08-21] MEDS ORDERED: ONDANSETRON 4 MG/2 ML INJ IV ONE (20:39)
[2020-08-21] MEDS ORDERED: KETOROLAC 30 MG/1 ML INJ IV ONE (20:39)
[2020-08-21] MEDS ORDERED: SODIUM CHLORIDE 0.9% 1000 ML 1,000 ML IV ONE (20:40)
[2020-08-21] MEDS ORDERED: ONDANSETRON 4 MG ODT TAB PO ONE (22:37)
[2020-08-21] MEDS ORDERED: KETOROLAC 30 MG/1 ML INJ IM ONE (22:37)
[2020-08-21] MEDS ORDERED: FAMOTIDINE 20 MG TAB PO ONE (22:37)
--- NOTE | 2020-08-21 22:46 | Cat Scan Report ---
CT ABDOMEN AND PELVIS WITHOUT CONTRAST INDICATION / CLINICAL INFORMATION: Periumbilicus pain and tenderness. TECHNIQUE: Axial CT images were obtained through the abdomen and pelvis without IV contrast. All CT scans at [facility] are performed using CT dose reduction for ALARA by means of automated exposure control. COMPARISON: None available. FINDINGS: LOWER CHEST: No significant abnormality. LIVER: No significant abnormality. GALLBLADDER: Surgically absent. BILE DUCTS: No significant abnormality. PANCREAS: No significant abnormality. SPLEEN: No significant abnormality. ADRENALS: No significant abnormality. RIGHT KIDNEY and URETER: No significant abnormality. LEFT KIDNEY and URETER: No significant abnormality. STOMACH and SMALL BOWEL: No significant abnormality. COLON: No significant abnormality. APPENDIX: No significant abnormality. PERITONEUM: No free fluid. No free air. No fluid collection. LYMPH NODES: No significant adenopathy. AORTA and ARTERIES: No significant abnormality. IVC and VEINS: No significant abnormality. URINARY BLADDER: No significant abnormality. REPRODUCTIVE ORGANS: No significant abnormality. ADDITIONAL FINDINGS: None. SKELETAL SYSTEM: No significant abnormality. IMPRESSION: 1. No acute process identified within the abdomen or pelvis to account for patient's abdominal pain Signer Name: Lisset Sanchez MD Signed: 08/21/2020 10:42 PM Workstation Name: [id number]
[2020-08-22 00:44] VITALS: BP 126/82
== END 2020-08-21 23:44 | disposition home or self-care (01) ==
LOC: ED 15:25
DX: A08.4 Viral intestinal infection, unspecified (principal); R10.9 Unspecified abdominal pain; R11.2 Nausea with vomiting, unspecified; I10 Essential (primary) hypertension; K21.9 Gastro-esophageal reflux disease without esophagitis; R56.9 Unspecified convulsions; J45.909 Unspecified asthma, uncomplicated; Z90.49 Acquired absence of other specified parts of digestive tract; Z79.899 Other long term (current) drug therapy
CPT/HCPCS: 36415; 71046; 74176; 80053; 81001; 84703; 85025; Q0162

== ENCOUNTER 2020-10-14 06:01 | Emergency (ER) | payer MEDICAID ==
[2020-10-14 06:18] VITALS: BP 130/92
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
== END 2020-10-14 08:00 | disposition home or self-care (01) ==
LOC: ED 06:01
DX: S90.32XA Contusion of left foot, initial encounter (principal); I10 Essential (primary) hypertension; K21.9 Gastro-esophageal reflux disease without esophagitis; G40.909 Epilepsy, unspecified, not intractable, without status epilepticus; J45.909 Unspecified asthma, uncomplicated; Z90.49 Acquired absence of other specified parts of digestive tract; Z79.899 Other long term (current) drug therapy
CPT/HCPCS: 99283

== ENCOUNTER 2020-11-16 19:54 | Emergency (ER) | payer MEDICAID ==
--- NOTE | 2020-11-16 20:01 | Emergency Department Report ---
ED ENT HPI - General Stated complaint: THROAT PAIN/HARD TO SWALLOW Time Seen by Provider: 11/16/20 19:57 - History of Present Illness Initial comments: 20-year-old male female resents emerged department complaining of a 2 to 3-day history of progressively worsening of the odynophagia with some some dysphagia. Reports some fever sensations as well. No hemoptysis, hematemesis hematochezia. Symptoms are worse with eating and drinking and excessive talking. She reports no chest pain, no palpitations, no nausea, no no vomiting, no possibility for . MD complaint: sore throat -: days(s) (3) Location: throat Severity: moderate Quality: aching, dull Consistency: constant Worsens with: swallowing Associated Symptoms: sore throat, rhinorrhea. denies: discharge from ear - Related Data Home Medications Medication Instructions Recorded Confirmed Last Taken Lisdexamfetamine Dimesylate 40 mg PO DAILY 02/07/20 02/20/20 02/20/20 07:00 [Vyvanse] lisinopriL [Zestril TAB] 5 mg PO DAILY 02/07/20 02/20/20 02/20/20 07:00 Albuterol Sulfate [Proventil Hfa] 2 puff IH PRN PRN 02/11/20 02/20/20 12/18/19 08:00 Previous Rx's Medication Instructions Recorded Last Taken Type levETIRAcetam [Keppra TAB] 500 mg PO BID #60 tablet 06/09/17 02/20/20 07:00 Rx Gabapentin 300 mg PO BID #4 capsule 02/20/20 Unknown Rx HYDROcodone/APAP 5-325 [[place] 1 each PO Q6HR PRN #15 tablet 02/20/20 Unknown Rx 5-325 mg TAB] Butalb/Acetamin/Caff 50-325-40 1 - 2 tab PO Q6HR PRN #15 tab 07/01/20 Unknown Rx [Fioricet 50-325-40] Ondansetron [Zofran Odt] 4 mg PO Q6HR PRN #15 tab.rapdis 07/01/20 Unknown Rx Dicyclomine [Bentyl] 20 mg PO Q6H PRN #20 tablet 08/21/20 Unknown Rx Famotidine [Pepcid] 20 mg PO BID #30 tablet 08/21/20 Unknown Rx Ondansetron [Zofran Odt] 4 mg PO Q6HR PRN #20 tab.rapdis 08/21/20 Unknown Rx Naproxen [Naprosyn] 500 mg PO BID #20 tablet 10/14/20 Unknown Rx Amoxicillin [Amoxicillin 400 MG/5 500 mg PO Q8H #200 bottle 11/16/20 Unknown Rx ML] Lidocaine Viscous 2% 5 ml MM Q3H PRN #120 udc 11/16/20 Unknown Rx Allergies Allergy/AdvReac Type Severity Reaction Status Date / Time No Known Allergies Allergy Verified 08/21/20 15:47 ED Dental HPI - General Stated complaint: THROAT PAIN/HARD TO SWALLOW Time Seen by Provider: 11/16/20 19:57 - Related Data Home Medications Medication Instructions Recorded Confirmed Last Taken Lisdexamfetamine Dimesylate 40 mg PO DAILY 02/07/20 02/20/20 02/20/20 07:00 [Vyvanse] lisinopriL [Zestril TAB] 5 mg PO DAILY 02/07/20 02/20/20 02/20/20 07:00 Albuterol Sulfate [Proventil Hfa] 2 puff IH PRN PRN 02/11/20 02/20/20 12/18/19 08:00 Previous Rx's Medication Instructions Recorded Last Taken Type levETIRAcetam [Keppra TAB] 500 mg PO BID #60 tablet 06/09/17 02/20/20 07:00 Rx Gabapentin 300 mg PO BID #4 capsule 02/20/20 Unknown Rx HYDROcodone/APAP 5-325 [[place] 1 each PO Q6HR PRN #15 tablet 02/20/20 Unknown Rx 5-325 mg TAB] Butalb/Acetamin/Caff 50-325-40 1 - 2 tab PO Q6HR PRN #15 tab 07/01/20 Unknown Rx [Fioricet 50-325-40] Ondansetron [Zofran Odt] 4 mg PO Q6HR PRN #15 tab.rapdis 07/01/20 Unknown Rx Dicyclomine [Bentyl] 20 mg PO Q6H PRN #20 tablet 08/21/20 Unknown Rx Famotidine [Pepcid] 20 mg PO BID #30 tablet 08/21/20 Unknown Rx Ondansetron [Zofran Odt] 4 mg PO Q6HR PRN #20 tab.rapdis 08/21/20 Unknown Rx Naproxen [Naprosyn] 500 mg PO BID #20 tablet 10/14/20 Unknown Rx Amoxicillin [Amoxicillin 400 MG/5 500 mg PO Q8H #200 bottle 11/16/20 Unknown Rx ML] Lidocaine Viscous 2% 5 ml MM Q3H PRN #120 udc 11/16/20 Unknown Rx Allergies Allergy/AdvReac Type Severity Reaction Status Date / Time No Known Allergies Allergy Verified 08/21/20 15:47 ED Review of Systems ROS: Stated complaint: THROAT PAIN/HARD TO SWALLOW Other details as noted in HPI Comment: All other systems reviewed and negative ED Past Medical Hx - Past Medical History Hx Hypertension: Yes Hx Heart Attack/AMI: No Hx Diabetes: No Hx GERD: Yes Hx Liver Disease: No Hx Renal Disease: Yes (no dialysis) Hx Sickle Cell Disease: No Hx Seizures: Yes Hx Asthma: Yes Hx Tuberculosis: No Hx HIV: No - Surgical History Hx Cholecystectomy: Yes - Social History Smoking Status: Never Smoker Substance Use Type: None - Medications Home Medications: Home Medications Medication Instructions Recorded Confirmed Last Taken Type levETIRAcetam [Keppra TAB] 500 mg PO BID #60 tablet 06/09/17 02/20/20 02/20/20 07:00 Rx Lisdexamfetamine Dimesylate 40 mg PO DAILY 02/07/20 02/20/20 02/20/20 07:00 History [Vyvanse] lisinopriL [Zestril TAB] 5 mg PO DAILY 02/07/20 02/20/20 02/20/20 07:00 History Albuterol Sulfate [Proventil Hfa] 2 puff IH PRN PRN 02/11/20 02/20/20 12/18/19 08:00 History Gabapentin 300 mg PO BID #4 capsule 02/20/20 Unknown Rx HYDROcodone/APAP 5-325 [[place] 1 each PO Q6HR PRN #15 tablet 02/20/20 Unknown Rx 5-325 mg TAB] Butalb/Acetamin/Caff 50-325-40 1 - 2 tab PO Q6HR PRN #15 tab 07/01/20 Unknown Rx [Fioricet 50-325-40] Ondansetron [Zofran Odt] 4 mg PO Q6HR PRN #15 tab.rapdis 07/01/20 Unknown Rx Dicyclomine [Bentyl] 20 mg PO Q6H PRN #20 tablet 08/21/20 Unknown Rx Famotidine [Pepcid] 20 mg PO BID #30 tablet 08/21/20 Unknown Rx Ondansetron [Zofran Odt] 4 mg PO Q6HR PRN #20 tab.rapdis 08/21/20 Unknown Rx Naproxen [Naprosyn] 500 mg PO BID #20 tablet 10/14/20 Unknown Rx Amoxicillin [Amoxicillin 400 MG/5 500 mg PO Q8H #200 bottle 11/16/20 Unknown Rx ML] Lidocaine Viscous 2% 5 ml MM Q3H PRN #120 udc 11/16/20 Unknown Rx ED Physical Exam - General General appearance: alert, in no apparent distress - Head Head exam: Present: atraumatic, normocephalic - Eye Eye exam: Present: normal appearance - ENT ENT exam: Present: mucous membranes moist, TM's normal bilaterally, normal external ear exam, other (Pharynx is is erythematous with some exudate to the right side. Airway is patent tongue uvula is mid is midline. Nasal congestion bilaterally left is worse than right with some yellowish-green nasal discharge noted.) - Neck Neck exam: Present: normal inspection - Respiratory Respiratory exam: Present: normal lung sounds bilaterally. Absent: respiratory distress - Cardiovascular Cardiovascular Exam: Present: regular rate, normal rhythm. Absent: systolic murmur, diastolic murmur, rubs, gallop - GI/Abdominal GI/Abdominal exam: Present: soft, normal bowel sounds - Extremities Exam Extremities exam: Present: normal inspection - Back Exam Back exam: Present: normal inspection - Neurological Exam Neurological exam: Present: alert, oriented X3 - Psychiatric Psychiatric exam: Present: normal affect, normal mood - Skin Skin exam: Present: warm, dry, intact, normal color. Absent: rash ED Medical Decision Making - Medical Decision Making 20-year-old -[place] female with no history of any compromised nontoxic appearance patient is euvolemic with no trismus no airway compromise unable to tolerate p.o. given history and examination low suspicion for this presentation being caused by peritonsillar abscess, Denis, bacterial tracheitis, acute HIV, epiglottitis, retropharyngeal abscess. Critical care attestation.: If time is entered above; I have spent that time in minutes in the direct care of this critically ill patient, excluding procedure time. ED Disposition Clinical Impression: Pharyngitis Disposition: DC-01 TO HOME OR SELFCARE Is pt being admited?: No Does the pt Need Aspirin: No Condition: Stable Instructions: Pharyngitis, Sore Throat, [id number], Sore Throat Referrals: CM GARICA MD [Staff Physician] - 3-5 Days
== END 2020-11-16 21:23 | disposition home or self-care (01) ==
LOC: ED 19:54
DX: J02.9 Acute pharyngitis, unspecified (principal); I10 Essential (primary) hypertension; K21.9 Gastro-esophageal reflux disease without esophagitis; R56.9 Unspecified convulsions; J45.909 Unspecified asthma, uncomplicated; Z90.49 Acquired absence of other specified parts of digestive tract; Z79.2 Long term (current) use of antibiotics; Z79.899 Other long term (current) drug therapy
CPT/HCPCS: 99282

== ENCOUNTER 2020-12-21 08:46 | Emergency (ER) | payer MEDICAID ==
[2020-12-21] MEDS ORDERED: BUTALB/ACETAMINOPHEN/CAFFEINE TAB PO ONE (09:33)
[2020-12-21] MEDS ORDERED: PROMETHAZINE 25 MG TAB PO ONE (09:35)
--- NOTE | 2020-12-21 09:36 | Emergency Department Report ---
ED General Adult HPI - General Chief complaint: Headache Stated complaint: MIGRAINE/NAUSEA Time Seen by Provider: 12/21/20 09:32 Source: patient Mode of arrival: Ambulatory Limitations: No Limitations - History of Present Illness Initial comments: 20-year-old female with history of diabetes and asthma presents with chief complaint of headache. According to the patient she has noticed that she has had headaches nearly every day for the past 4 weeks. She states they are located in the temporal region bilaterally and occasionally radiate to the foreh ead. She denies any head injury, loss of consciousness, vomiting, sinus congestion or drainage, does have some mild photophobia and nausea. Denies fever, neck stiffness. She states that she has had similar headaches in the past however they have not been this frequent. Denies any other associated symptoms or complaints. Pain is moderate, no alleviating or exacerbating factors. - Related Data Home Medications Medication Instructions Recorded Confirmed Last Taken Lisdexamfetamine Dimesylate 40 mg PO DAILY 02/07/20 02/20/20 02/20/20 07:00 [Vyvanse] lisinopriL [Zestril TAB] 5 mg PO DAILY 02/07/20 02/20/20 02/20/20 07:00 Albuterol Sulfate [Proventil Hfa] 2 puff IH PRN PRN 02/11/20 02/20/20 12/18/19 08:00 Previous Rx's Medication Instructions Recorded Last Taken Type levETIRAcetam [Keppra TAB] 500 mg PO BID #60 tablet 06/09/17 02/20/20 07:00 Rx Gabapentin 300 mg PO BID #4 capsule 02/20/20 Unknown Rx Dicyclomine [Bentyl] 20 mg PO Q6H PRN #20 tablet 08/21/20 Unknown Rx Famotidine [Pepcid] 20 mg PO BID #30 tablet 08/21/20 Unknown Rx Insulin Glargine [Lantus VIAL] 40 units SUB-Q QHS #10 ml 12/01/20 Unknown Rx Insulin Regular, Human [HumuLIN R] 0 unit SQ AC #1 vial 12/01/20 Unknown Rx Blood Sugar Diagnostic [Freestyle 1 each MC QID #100 strip 12/21/20 Unknown Rx Lite Test Strip] Butalb/Acetamin/Caff 50-325-40 1 - 2 tab PO Q6HR PRN #15 tab 12/21/20 Unknown Rx [Fioricet 50-325-40] Ondansetron [Zofran ODT TAB] 4 mg PO Q6HR PRN #12 tab.rapdis 12/21/20 Unknown Rx Allergies Allergy/AdvReac Type Severity Reaction Status Date / Time No Known Allergies Allergy Verified 12/21/20 08:50 ED Review of Systems ROS: Stated complaint: MIGRAINE/NAUSEA Other details as noted in HPI Comment: All other systems reviewed and negative ED Past Medical Hx - Past Medical History Hx Hypertension: Yes Hx Heart Attack/AMI: No Hx Diabetes: Yes Hx GERD: Yes Hx Liver Disease: No Hx Renal Disease: Yes (no dialysis) Hx Sickle Cell Disease: No Hx Seizures: Yes Hx Asthma: Yes Hx Tuberculosis: No Hx HIV: No - Surgical History Hx Cholecystectomy: Yes - Social History Smoking Status: Never Smoker Substance Use Type: None - Medications Home Medications: Home Medications Medication Instructions Recorded Confirmed Last Taken Type levETIRAcetam [Keppra TAB] 500 mg PO BID #60 tablet 06/09/17 02/20/20 02/20/20 07:00 Rx Lisdexamfetamine Dimesylate 40 mg PO DAILY 02/07/20 02/20/20 02/20/20 07:00 History [Vyvanse] lisinopriL [Zestril TAB] 5 mg PO DAILY 02/07/20 02/20/20 02/20/20 07:00 History Albuterol Sulfate [Proventil Hfa] 2 puff IH PRN PRN 02/11/20 02/20/20 12/18/19 08:00 History Gabapentin 300 mg PO BID #4 capsule 02/20/20 Unknown Rx Dicyclomine [Bentyl] 20 mg PO Q6H PRN #20 tablet 08/21/20 Unknown Rx Famotidine [Pepcid] 20 mg PO BID #30 tablet 08/21/20 Unknown Rx Insulin Glargine [Lantus VIAL] 40 units SUB-Q QHS #10 ml 12/01/20 Unknown Rx Insulin Regular, Human [HumuLIN R] 0 unit SQ AC #1 vial 12/01/20 Unknown Rx Blood Sugar Diagnostic [Freestyle 1 each MC QID #100 strip 12/21/20 Unknown Rx Lite Test Strip] Butalb/Acetamin/Caff 50-325-40 1 - 2 tab PO Q6HR PRN #15 tab 12/21/20 Unknown Rx [Fioricet 50-325-40] Ondansetron [Zofran ODT TAB] 4 mg PO Q6HR PRN #12 tab.rapdis 12/21/20 Unknown Rx ED Physical Exam - General Limitations: No Limitations General appearance: alert, in no apparent distress - Head Head exam: Present: atraumatic, normocephalic - Eye Eye exam: Present: normal appearance - ENT ENT exam: Present: mucous membranes moist - Neck Neck exam: Present: normal inspection - Respiratory Respiratory exam: Present: normal lung sounds bilaterally. Absent: respiratory distress - Cardiovascular Cardiovascular Exam: Present: regular rate, normal rhythm. Absent: systolic murmur, diastolic murmur, rubs, gallop - GI/Abdominal GI/Abdominal exam: Present: soft, normal bowel sounds - Extremities Exam Extremities exam: Present: normal inspection - Back Exam Back exam: Present: normal inspection - Neurological Exam Neurological exam: Present: alert, oriented X3, CN II-XII intact, normal gait, reflexes normal. Absent: motor sensory deficit - Psychiatric Psychiatric exam: Present: normal affect, normal mood - Skin Skin exam: Present: warm, dry, intact, normal color. Absent: rash ED Course Vital Signs 12/21/20 08:50 Temperature 98.2 F Pulse Rate 97 H Respiratory 20 Rate Blood Pressure 132/82 O2 Sat by Pulse 98 Oximetry ED Medical Decision Making - Lab Data Result diagrams: 12/21/20 11:23 12/21/20 11:23 - Medical Decision Making Patient presenting with on and off headaches for the past 4 weeks becoming more frequent. Reports prior history of similar headaches but never this often. On my exam patient nontoxic, no distress, completely normal neurologic exam. Differential diagnoses includes tension headache, migraine, mass/hemorrhage considered much less likely. We will give Fioricet and Phenergan and then kumar ssess. She also notes that her glucose has been elevated at home and her meter does not seem to be working properly. We will check basic labs. Patient states she also needs a new prescription for testing strips and a monitor to monitor her glucose at home. Labs here show hyperglycemia but no dwayne ctrolyte change, no ketoacidosis.. She takes Lantus every day at bedtime. Advised to continue this, write readings down at home for the next few days and then follow-up with primary care for further change. Headache improved with Fioricet. Will prescribe same for home, referred to neurology outpatient. Not feel that CT imaging is necessary today given normal neurologic exam. - Differential Diagnosis Tension headache, migraine, mass/hemorrhage considered less likely Critical care attestation.: If time is entered above; I have spent that time in minutes in the direct care of this critically ill patient, excluding procedure time. ED Disposition Clinical Impression: Hyperglycemia Headache Qualifiers: Headache type: unspecified Headache chronicity pattern: acute headache Intractability: not intractable Qualified Code(s): R51.9 - Headache, unspecified Disposition: TO HOME OR SELFCARE Is pt being admited?: No Condition: Good Instructions: Tension Headache, Adult Prescriptions: Butalb/Acetamin/Caff 50-325-40 [Fioricet 50-325-40] 1 - 2 tab PO Q6HR PRN #15 tab PRN Reason: Headache Blood Sugar Diagnostic [Freestyle Lite Test Strip] 1 each MC QID #100 strip Ondansetron [Zofran ODT TAB] 4 mg PO Q6HR PRN #12 tab.rapdis PRN Reason: Nausea Referrals: AMRIT WILLIAMSON MD [Referring] - 3-5 Days Time of Disposition: 11:02
[2020-12-21 11:42] LABS: Basophils % (Auto) 0.4 % (0.0-1.8); Eosinophils % (Auto) 0.4 % (0.0-4.3); Hematocrit 41.7 % (30.3-42.9); Hemoglobin 13.9 gm/dl (10.1-14.3); Lymphocytes # (Auto) 2.6 K/mm3 (1.2-5.4); Lymphocytes % (Auto) 36.1 % (13.4-35.0); Mean Corpuscular HGB Conc 33 % (30-34); Mean Corpuscular Volume 86 fl (79-97); Monocytes # (Auto) 0.5 K/mm3 (0.0-0.8); Monocytes % (Auto) 7.1 % (0.0-7.3); Platelet Count 238 K/mm3 (140-440); Red Blood Count 4.82 M/mm3 (3.65-5.03); Red Cell Distribution Width 14.4 % (13.2-15.2)
[2020-12-21 12:01] LABS: BUN/Creatinine Ratio 11; Blood Urea Nitrogen 11 mg/dL (7-17); Calcium 8.9 mg/dL (8.4-10.2); Hemolysis Index 42
[2020-12-21 12:44] VITALS: BP 135/83
== END 2020-12-21 12:44 | disposition home or self-care (01) ==
LOC: ED 08:46
DX: E11.65 Type 2 diabetes mellitus with hyperglycemia (principal); R51.9 Headache, unspecified; I10 Essential (primary) hypertension; K21.9 Gastro-esophageal reflux disease without esophagitis; J45.909 Unspecified asthma, uncomplicated; G40.909 Epilepsy, unspecified, not intractable, without status epilepticus; Z90.49 Acquired absence of other specified parts of digestive tract; Z79.899 Other long term (current) drug therapy
CPT/HCPCS: 36415; 80048; 82962; 84703; 85025; 99283; Q0169

== ENCOUNTER 2021-01-08 16:27 | Emergency (ER) | payer MEDICAID ==
--- NOTE | 2021-01-08 17:07 | Event Note ---
ED Screening Note Date of service: 01/08/21 Time: 17:05 ED Screening Note: Pt c/o sudden onset od N/V x last night Also admits to lower abdominal pain x 2weeks, suddenly worsening x last night hx of cholescystectomy, DM, renal dz, HTN denies hematemesis/coffeeground emesis or diarrhea This initial assessment/diagnostic orders/clinical plan/treatment(s) is/are subject to change based on patients health status, clinical progression and re- assessment by fellow clinical providers in the ED. Further treatment and workup at subsequent clinical providers discretion. Patient/guardian urged not to elope from the ED as their condition may be serious if not clinically assessed and managed. Initial orders include: labs
[2021-01-08 18:07] LABS: Basophils % (Auto) 0.2 % (0.0-1.8); Eosinophils # (Auto) 0.1 K/mm3 (0.0-0.4); Eosinophils % (Auto) 0.5 % (0.0-4.3); Hematocrit 43.6 % (30.3-42.9); Hemoglobin 15.1 gm/dl (10.1-14.3); Lymphocytes # (Auto) 3.3 K/mm3 (1.2-5.4); Lymphocytes % (Auto) 34.9 % (13.4-35.0); Mean Corpuscular HGB Conc 35 % (30-34); Mean Corpuscular Volume 88 fl (79-97); Monocytes # (Auto) 0.5 K/mm3 (0.0-0.8); Monocytes % (Auto) 5.4 % (0.0-7.3); Platelet Count 275 K/mm3 (140-440); Red Blood Count 4.97 M/mm3 (3.65-5.03); Red Cell Distribution Width 13.8 % (13.2-15.2)
[2021-01-08 18:09] LABS: Alanine Aminotransferase 31 units/L (7-56); Albumin 3.9 g/dL (3.9-5); BUN/Creatinine Ratio 11; Blood Urea Nitrogen 10 mg/dL (7-17); Calcium 9.3 mg/dL (8.4-10.2); Hemolysis Index 17
[2021-01-08 18:33] LABS: Bilirubin,Urine NEG (Negative); Blood,Urine NEG (Negative); Color,Urine Yellow (Yellow); Mucus,Urine FEW /HPF; Protein,Urine <15 mg/dL mg/dL (Negative); Urobilinogen,Urine < 2.0 mg/dL (<2.0)
--- NOTE | 2021-01-08 20:27 | Emergency Department Report ---
ED General Adult HPI - General Chief complaint: Nausea/Vomiting/Diarrhea Stated complaint: CRAMPS Time Seen by Provider: 01/08/21 17:04 Source: patient Mode of arrival: Ambulatory Limitations: No Limitations - History of Present Illness Initial comments: Patient is a 20-year-old female presents emergency room with complaints of intermittent nausea vomiting for 3 weeks. Patient states she typically experiences it after she eats or when she eats too much. She states that she has generalized abdominal cramping. She denies any fever, diarrhea, urinary symptoms, abnormal vaginal discharge, hematochezia, hematemesis, melena. She is still having normal bowel movements. Past medical history of CKD, IDDM, seizures, asthma, GERD. - Related Data Home Medications Medication Instructions Recorded Confirmed Last Taken Lisdexamfetamine Dimesylate 40 mg PO DAILY 02/07/20 02/20/20 02/20/20 07:00 [Vyvanse] lisinopriL [Zestril TAB] 5 mg PO DAILY 02/07/20 02/20/20 02/20/20 07:00 Albuterol Sulfate [Proventil Hfa] 2 puff IH PRN PRN 02/11/20 02/20/20 12/18/19 08:00 Previous Rx's Medication Instructions Recorded Last Taken Type levETIRAcetam [Keppra TAB] 500 mg PO BID #60 tablet 06/09/17 02/20/20 07:00 Rx Gabapentin 300 mg PO BID #4 capsule 02/20/20 Unknown Rx Dicyclomine [Bentyl] 20 mg PO Q6H PRN #20 tablet 08/21/20 Unknown Rx Famotidine [Pepcid] 20 mg PO BID #30 tablet 08/21/20 Unknown Rx Insulin Glargine [Lantus VIAL] 40 units SUB-Q QHS #10 ml 12/01/20 Unknown Rx Insulin Regular, Human [HumuLIN R] 0 unit SQ AC #1 vial 12/01/20 Unknown Rx Blood Sugar Diagnostic [Freestyle 1 each MC QID #100 strip 12/21/20 Unknown Rx Lite Test Strip] Butalb/Acetamin/Caff 50-325-40 1 - 2 tab PO Q6HR PRN #15 tab 12/21/20 Unknown Rx [Fioricet 50-325-40] Ondansetron [Zofran ODT TAB] 4 mg PO Q6HR PRN #12 tab.rapdis 12/21/20 Unknown Rx Famotidine [Pepcid] 40 mg PO QHS #14 tablet 01/08/21 Unknown Rx Ondansetron [Zofran Odt] 4 mg PO Q8HR PRN #12 tab.rapdis 01/08/21 Unknown Rx Sucralfate [Carafate] 1 gm PO ACHS 7 Days #21 tablet 01/08/21 Unknown Rx Allergies Allergy/AdvReac Type Severity Reaction Status Date / Time No Known Allergies Allergy Verified 12/21/20 08:50 ED Review of Systems ROS: Stated complaint: CRAMPS Other details as noted in HPI Comment: All other systems reviewed and negative ED Past Medical Hx - Past Medical History Previous Medical History?: Yes Hx Hypertension: Yes Hx Heart Attack/AMI: No Hx Diabetes: Yes Hx GERD: Yes Hx Liver Disease: No Hx Renal Disease: Yes (no dialysis) Hx Sickle Cell Disease: No Hx Seizures: Yes Hx Asthma: Yes Hx Tuberculosis: No Hx HIV: No - Surgical History Past Surgical History?: Yes Hx Cholecystectomy: Yes - Social History Smoking Status: Never Smoker Substance Use Type: None - Medications Home Medications: Home Medications Medication Instructions Recorded Confirmed Last Taken Type levETIRAcetam [Keppra TAB] 500 mg PO BID #60 tablet 06/09/17 02/20/20 02/20/20 07:00 Rx Lisdexamfetamine Dimesylate 40 mg PO DAILY 02/07/20 02/20/20 02/20/20 07:00 History [Vyvanse] lisinopriL [Zestril TAB] 5 mg PO DAILY 02/07/20 02/20/20 02/20/20 07:00 History Albuterol Sulfate [Proventil Hfa] 2 puff IH PRN PRN 02/11/20 02/20/20 12/18/19 08:00 History Gabapentin 300 mg PO BID #4 capsule 02/20/20 Unknown Rx Dicyclomine [Bentyl] 20 mg PO Q6H PRN #20 tablet 08/21/20 Unknown Rx Famotidine [Pepcid] 20 mg PO BID #30 tablet 08/21/20 Unknown Rx Insulin Glargine [Lantus VIAL] 40 units SUB-Q QHS #10 ml 12/01/20 Unknown Rx Insulin Regular, Human [HumuLIN R] 0 unit SQ AC #1 vial 12/01/20 Unknown Rx Blood Sugar Diagnostic [Freestyle 1 each MC QID #100 strip 12/21/20 Unknown Rx Lite Test Strip] Butalb/Acetamin/Caff 50-325-40 1 - 2 tab PO Q6HR PRN #15 tab 12/21/20 Unknown Rx [Fioricet 50-325-40] Ondansetron [Zofran ODT TAB] 4 mg PO Q6HR PRN #12 tab.rapdis 12/21/20 Unknown Rx Famotidine [Pepcid] 40 mg PO QHS #14 tablet 01/08/21 Unknown Rx Ondansetron [Zofran Odt] 4 mg PO Q8HR PRN #12 tab.rapdis 01/08/21 Unknown Rx Sucralfate [Carafate] 1 gm PO ACHS 7 Days #21 tablet 01/08/21 Unknown Rx ED Physical Exam - General Limitations: No Limitations General appearance: alert, in no apparent distress - Head Head exam: Present: atraumatic, normocephalic - Eye Eye exam: Present: normal appearance - ENT ENT exam: Present: mucous membranes moist - Respiratory Respiratory exam: Present: normal lung sounds bilaterally. Absent: respiratory distress, wheezes, rales, rhonchi, stridor, chest wall tenderness, accessory muscle use, decreased breath sounds, prolonged expiratory - Cardiovascular Cardiovascular Exam: Present: regular rate, normal rhythm, normal heart sounds. Absent: systolic murmur, diastolic murmur, rubs, gallop - GI/Abdominal GI/Abdominal exam: Present: soft, normal bowel sounds. Absent: distended, tenderness, guarding, rebound, rigid - Neurological Exam Neurological exam: Present: alert, oriented X3 - Psychiatric Psychiatric exam: Present: normal affect, normal mood - Skin Skin exam: Present: warm, dry, intact ED Course Vital Signs 01/08/21 01/08/21 16:48 21:29 Temperature 98.3 F Pulse Rate 104 H 98 H Respiratory 18 18 Rate Blood Pressure 120/76 Blood Pressure 123/81 [Left] O2 Sat by Pulse 96 99 Oximetry ED Medical Decision Making - Lab Data Result diagrams: 01/08/21 17:15 01/08/21 17:15 Lab Results 01/08/21 01/08/21 01/08/21 Range/Units 16:52 17:15 17:15 WBC 9.5 (4.5-11.0) K/mm3 RBC 4.97 (3.65-5.03) M/mm3 Hgb 15.1 H (10.1-14.3) gm/dl Hct 43.6 H (30.3-42.9) % MCV 88 (79-97) fl MCH 30 (28-32) pg MCHC 35 H (30-34) % RDW 13.8 (13.2-15.2) % Plt Count 275 (140-440) K/mm3 Lymph % (Auto) 34.9 (13.4-35.0) % [place] % (Auto) 5.4 (0.0-7.3) % Eos % (Auto) 0.5 (0.0-4.3) % Baso % (Auto) 0.2 (0.0-1.8) % Lymph # (Auto) 3.3 (1.2-5.4) K/mm3 [place] # (Auto) 0.5 (0.0-0.8) K/mm3 Eos # (Auto) 0.1 (0.0-0.4) K/mm3 Baso # (Auto) 0.0 (0.0-0.1) K/mm3 Seg Neutrophils % 59.0 (40.0-70.0) % Seg Neutrophils # 5.6 (1.8-7.7) K/mm3 Sodium 136 L (137-145) mmol/L Potassium 3.9 (3.6-5.0) mmol/L Chloride 101.1 (98-107) mmol/L Carbon Dioxide 26 (22-30) mmol/L Anion Gap 13 mmol/L BUN 10 (7-17) mg/dL Creatinine 0.9 (0.6-1.2) mg/dL Estimated GFR > 60 ml/min BUN/Creatinine Ratio 11 % Glucose 179 H (65-100) mg/dL POC Glucose 186 H (70-105) mg/dL Calcium 9.3 (8.4-10.2) mg/dL Total Bilirubin < 0.20 (0.1-1.2) mg/dL AST 19 (5-40) units/L ALT 31 (7-56) units/L Alkaline Phosphatase 104 (35-129) units/L Total Protein 6.7 (6.3-8.2) g/dL Albumin 3.9 (3.9-5) g/dL Albumin/Globulin Ratio 1.4 % Lipase 38 (13-60) units/L HCG, Quant (0-4) mIU/mL Urine Color (Yellow) Urine Turbidity (Clear) Urine pH (5.0-7.0) Ur Specific Only (1.003-1.030) Urine Protein (Negative) mg/dL Urine Glucose (UA) (Negative) mg/dL Urine Ketones (Negative) mg/dL Urine Blood (Negative) Urine Nitrite (Negative) Urine Bilirubin (Negative) Urine Urobilinogen (<2.0) mg/dL Ur Leukocyte Esterase (Negative) Urine WBC (Auto) (0.0-6.0) /HPF Urine RBC (Auto) (0.0-6.0) /HPF U Epithel Cells (Auto) (0-13.0) /HPF Urine Mucus /HPF 01/08/21 01/08/21 Range/Units 17:15 Unknown WBC (4.5-11.0) K/mm3 RBC (3.65-5.03) M/mm3 Hgb (10.1-14.3) gm/dl Hct (30.3-42.9) % MCV (79-97) fl MCH (28-32) pg MCHC (30-34) % RDW (13.2-15.2) % Plt Count (140-440) K/mm3 Lymph % (Auto) (13.4-35.0) % [place] % (Auto) (0.0-7.3) % Eos % (Auto) (0.0-4.3) % Baso % (Auto) (0.0-1.8) % Lymph # (Auto) (1.2-5.4) K/mm3 [place] # (Auto) (0.0-0.8) K/mm3 Eos # (Auto) (0.0-0.4) K/mm3 Baso # (Auto) (0.0-0.1) K/mm3 Seg Neutrophils % (40.0-70.0) % Seg Neutrophils # (1.8-7.7) K/mm3 Sodium (137-145) mmol/L Potassium (3.6-5.0) mmol/L Chloride (98-107) mmol/L Carbon Dioxide (22-30) mmol/L Anion Gap mmol/L BUN (7-17) mg/dL Creatinine (0.6-1.2) mg/dL Estimated GFR ml/min BUN/Creatinine Ratio % Glucose (65-100) mg/dL POC Glucose (70-105) mg/dL Calcium (8.4-10.2) mg/dL Total Bilirubin (0.1-1.2) mg/dL AST (5-40) units/L ALT (7-56) units/L Alkaline Phosphatase (35-129) units/L Total Protein (6.3-8.2) g/dL Albumin (3.9-5) g/dL Albumin/Globulin Ratio % Lipase (13-60) units/L HCG, Quant < 2 (0-4) mIU/mL Urine Color Yellow (Yellow) Urine Turbidity Clear (Clear) Urine pH 6.0 (5.0-7.0) Ur Specific Only 1.014 (1.003-1.030) Urine Protein <15 mg/dl (Negative) mg/dL Urine Glucose (UA) 150 (Negative) mg/dL Urine Ketones Neg (Negative) mg/dL Urine Blood Neg (Negative) Urine Nitrite Neg (Negative) Urine Bilirubin Neg (Negative) Urine Urobilinogen < 2.0 (<2.0) mg/dL Ur Leukocyte Esterase Tr (Negative) Urine WBC (Auto) 3.0 (0.0-6.0) /HPF Urine RBC (Auto) 2.0 (0.0-6.0) /HPF U Epithel Cells (Auto) 4.0 (0-13.0) /HPF Urine Mucus Few /HPF Vital Signs 01/08/21 01/08/21 16:48 21:29 Temperature 98.3 F Pulse Rate 104 H 98 H Respiratory 18 18 Rate Blood Pressure 120/76 Blood Pressure 123/81 [Left] O2 Sat by Pulse 96 99 Oximetry - Medical Decision Making Patient is a 20-year-old female presents emergency room with complaints of intermittent nausea vomiting for 3 weeks. Patient states she typically experiences it after she eats or when she eats too much. She states that she has generalized abdominal cramping. She denies any fever, diarrhea, urinary symptoms, abnormal vaginal discharge, hematochezia, hematemesis, melena. She is still having normal bowel movements. Past medical history of CKD, IDDM, seizures, asthma, GERD. Initial vitals with mildly elevated blood pressure which improved upon repeat. No significant abdominal tenderness on exam, no guarding, no rebound, no rigidity, normal bowel sounds, no peritoneal signs. Labs with mildly elevated glucose, she has history of diabetes and uses insulin, otherwise labs are stable. No leukocytosis. Symptoms appear most consistent with peptic ulcer disease versus GERD. Discussed the importance of GI follow-up with patient. Discussed primary care follow-up. Discussed the importance of being reexamined within the next 3 days. Discussed very strict return precautions in detail with patient. Patient given prescription for Zofran, Pepcid, Carafate. Advised patient Please take medication as prescribed. Increase your water intake. Follow-up with your primary care doctor. Follow-up with a GI doctor. You need to be reexamined within the next 3 days. Return to emergency room immediately for any new or worsening symptoms including but not limited to worsening pain, unable to tolerate by mouth intake, blood or pus in your stool or vomit, unable to have a bowel movement or pass gas, etc. Critical care attestation.: If time is entered above; I have spent that time in minutes in the direct care of this critically ill patient, excluding procedure time. ED Disposition Clinical Impression: Postprandial vomiting, Abdominal cramping Disposition: DC-01 TO HOME OR SELFCARE Is pt being admited?: No Does the pt Need Aspirin: No Condition: Stable Instructions: Peptic Ulcer, [id number], Food Choices for Gastroesophageal Reflux Disease, Adult, Nausea and Vomiting, Adult, [id number] Additional Instructions: Please take medication as prescribed. Increase your water intake. Follow-up with your primary care doctor. Follow-up with a GI doctor. You need to be reexamined within the next 3 days. Return to emergency room immediately for any new or worsening symptoms including but not limited to worsening pain, unable to tolerate by mouth intake, blood or pus in your stool or vomit, unable to have a bowel movement or pass gas, etc. Prescriptions: Famotidine [Pepcid] 40 mg PO QHS #14 tablet Sucralfate [Carafate] 1 gm PO ACHS 7 Days #21 tablet Ondansetron [Zofran Odt] 4 mg PO Q8HR PRN #12 tab.rapdis PRN Reason: nausea/vomiting Referrals: LONDON RODRIGUEZ MD [Primary Care Provider] - 2-3 Days [facility] [Provider Group] - 2-3 Days Time of Disposition: 20:30 Print Language: MAORI
[2021-01-08 21:30] VITALS: BP 123/81
== END 2021-01-08 21:30 | disposition home or self-care (01) ==
LOC: ED 16:27
DX: R11.10 Vomiting, unspecified (principal); R10.9 Unspecified abdominal pain; I10 Essential (primary) hypertension; E11.9 Type 2 diabetes mellitus without complications; K21.9 Gastro-esophageal reflux disease without esophagitis; R56.9 Unspecified convulsions; J45.909 Unspecified asthma, uncomplicated; Z90.49 Acquired absence of other specified parts of digestive tract; Z79.4 Long term (current) use of insulin; Z79.899 Other long term (current) drug therapy
CPT/HCPCS: 36415; 80053; 81001; 82962; 83690; 84702; 85025

== ENCOUNTER 2021-01-12 15:23 | Emergency (ER) | payer MEDICAID ==
[2021-01-12 15:38] VITALS: BP 132/93
[2021-01-12 15:59] LABS: Bacteria,Urine 1+ /HPF (Negative); Bilirubin,Urine NEG (Negative); Blood,Urine NEG (Negative); Color,Urine Yellow (Yellow); Mucus,Urine FEW /HPF; Protein,Urine <15 mg/dL mg/dL (Negative); Urobilinogen,Urine < 2.0 mg/dL (<2.0)
[2021-01-12 16:49] LABS: Basophils % (Auto) 0.2 % (0.0-1.8); Eosinophils % (Auto) 0.4 % (0.0-4.3); Hematocrit 45.4 % (30.3-42.9); Hemoglobin 15.3 gm/dl (10.1-14.3); Lymphocytes # (Auto) 2.2 K/mm3 (1.2-5.4); Lymphocytes % (Auto) 25.5 % (13.4-35.0); Mean Corpuscular HGB Conc 34 % (30-34); Mean Corpuscular Volume 89 fl (79-97); Monocytes # (Auto) 0.5 K/mm3 (0.0-0.8); Monocytes % (Auto) 5.4 % (0.0-7.3); Platelet Count 236 K/mm3 (140-440); Red Blood Count 5.09 M/mm3 (3.65-5.03); Red Cell Distribution Width 13.6 % (13.2-15.2)
--- NOTE | 2021-01-12 16:52 | Event Note ---
ED Screening Note Date of service: 01/12/21 Time: 16:49 ED Screening Note: 20 y/o female pt w/ hx of cholecystectomy, chronic kidney disease, diabetes, and intellectual disability (per mother) presents to the emergency department with complaints of abdominal painf for five days. Pt was evaluated in the ED last week and treated symptomatically for suspected peptic ulcer disease. She was evaluated by her PCP earlier today, who sent her to the emergency department for further evaluation. Tachycardic in triage. General: Awake, appropriately interactive, no acute distress. Neck: Supple. Full range of motion intact. Cardiovascular: Normal peripheral perfusion. Pulmonary: No respiratory distress. Patient is speaking normally without use of accessory muscles. Abdomen: Diffuse abdominal tenderness, most pronounced along the right lower quadrant. No guarding, rigidity, or rebound. Skin: No apparent rashes or lesions. Neurological: No facial asymmetry. Speech is clear. Follows commands. Patient is alert and oriented. Musculoskeletal: Moves all four extremities spontaneously with normal range of motion. Psych: Cooperative. Appropriate mood and affect. Spoke with Dr. Castellanos, primary care provider, who examined the patient in his office earlier today. On his examination, the patient's abdomen was reportedly very distended and she was only able to tolerate superficial palpation along the right lower quadrant. He states he has gotten to know this patient well in his practice and she has never complained of pain like this before. Concern for appendicitis prompted him to send her to the emergency department for further evaluation, to include CT scan of the abdomen/pelvis. I have greeted and performed a focused rapid initial assessment of this patient. A comprehensive ED assessment and evaluation of the patient, analysis of all test results, and completion of the medical decision-making process will be conducted by additional ED providers. This initial assessment/diagnostic orders/clinical plan/treatment(s) is/are subject to change based on patients health status, clinical progression and re-assessment. Further treatment and workup at subsequent clinical provider's discretion. Patient/guardian urged not to elope from the ED as their condition may be serious if not clinically assessed and managed.
[2021-01-12 17:12] LABS: Alanine Aminotransferase 16 units/L (7-56); Albumin 4.3 g/dL (3.9-5); BUN/Creatinine Ratio 11; Blood Urea Nitrogen 11 mg/dL (7-17); Calcium 9.5 mg/dL (8.4-10.2); Hemolysis Index 19
[2021-01-12] MEDS ORDERED: MORPHINE 4 MG/1 ML INJ IV ONE (19:42)
[2021-01-12] MEDS ORDERED: ONDANSETRON 4 MG/2 ML INJ IV ONE (19:42)
[2021-01-12] MEDS ORDERED: SODIUM CHLORIDE 0.9% 1000 ML 1,000 ML IV ONE (19:42)
--- NOTE | 2021-01-12 21:22 | Emergency Department Report ---
ED General Adult HPI - General Chief complaint: Abdominal Pain Stated complaint: ABD PAIN Time Seen by Provider: 01/12/21 19:42 Source: patient, family Mode of arrival: Ambulatory Limitations: No Limitations - History of Present Illness Initial comments: 20 y/o female pt w/ hx of cholecystectomy, chronic kidney disease, diabetes, and intellectual disability (per mother) presents to the emergency department with complaints of abdominal pain with associated nausea, vomiting, and diarrhea for five days. Pt was evaluated in the ED last week and treated symptomatically for suspected peptic ulcer disease. She was evaluated by her PCP earlier today, who sent her to the emergency department for further evaluation. Mother states patient has had recurrent abdominal pain throughout her lifetime, but she has never experienced pain like this until last week. Denies fever, chills, nausea, vomiting, diarrhea, constipation, rectal bleeding, vaginal bleeding, vaginal discharge. Denies all other complaints at this time. Severity scale (0 -10): 4 - Related Data Home Medications Medication Instructions Recorded Confirmed Last Taken Lisdexamfetamine Dimesylate 40 mg PO DAILY 02/07/20 02/20/20 02/20/20 07:00 [Vyvanse] lisinopriL [Zestril TAB] 5 mg PO DAILY 02/07/20 02/20/20 02/20/20 07:00 Albuterol Sulfate [Proventil Hfa] 2 puff IH PRN PRN 02/11/20 02/20/20 12/18/19 08:00 Previous Rx's Medication Instructions Recorded Last Taken Type levETIRAcetam [Keppra TAB] 500 mg PO BID #60 tablet 06/09/17 02/20/20 07:00 Rx Gabapentin 300 mg PO BID #4 capsule 02/20/20 Unknown Rx Dicyclomine [Bentyl] 20 mg PO Q6H PRN #20 tablet 08/21/20 Unknown Rx Famotidine [Pepcid] 20 mg PO BID #30 tablet 08/21/20 Unknown Rx Insulin Glargine [Lantus VIAL] 40 units SUB-Q QHS #10 ml 12/01/20 Unknown Rx Insulin Regular, Human [HumuLIN R] 0 unit SQ AC #1 vial 12/01/20 Unknown Rx Blood Sugar Diagnostic [Freestyle 1 each MC QID #100 strip 12/21/20 Unknown Rx Lite Test Strip] Butalb/Acetamin/Caff 50-325-40 1 - 2 tab PO Q6HR PRN #15 tab 12/21/20 Unknown Rx [Fioricet 50-325-40] Ondansetron [Zofran ODT TAB] 4 mg PO Q6HR PRN #12 tab.rapdis 12/21/20 Unknown Rx Famotidine [Pepcid] 40 mg PO QHS #14 tablet 01/08/21 Unknown Rx Ondansetron [Zofran Odt] 4 mg PO Q8HR PRN #12 tab.rapdis 01/08/21 Unknown Rx Sucralfate [Carafate] 1 gm PO ACHS 7 Days #21 tablet 01/08/21 Unknown Rx Dicyclomine [Bentyl] 20 mg PO QID #30 bottle 01/12/21 Unknown Rx Metoclopramide [Reglan] 10 mg PO TID #30 tab 01/12/21 Unknown Rx Sulfamethoxazole/Trimethoprim 1 each PO BID 5 Days tablet 01/12/21 Unknown Rx [Bactrim DS TAB] Allergies Allergy/AdvReac Type Severity Reaction Status Date / Time No Known Allergies Allergy Verified 01/12/21 15:37 ED Review of Systems ROS: Stated complaint: ABD PAIN Other details as noted in HPI Other: GENERAL: Negative for fever, chills, weight change, anorexia, fatigue. ENT: Negative for ear pain, difficulty hearing, sore throat, nasal congestion, epistaxis. CARDIOVASCULAR: Negative for chest pain, palpitations, lower extremity swelling. PULMONARY: Negative for cough, dyspnea, wheezing, orthopnea, cyanosis. GASTROINTESTINAL: Positive for abdominal pain, nausea, vomiting, diarrhea. MUSCULOSKELETAL: Negative for joint pain, joint swelling, myalgias, back pain, neck pain. NEUROLOGICAL: Negative for headache, seizure, syncope, paresthesias, weakness. INTEGUMENTARY: Negative for erythema, rash, diaphoresis, laceration, ecchymosis. HEMATOLOGICAL: Negative for hemoptysis, hematemesis, hematochezia, hematuria. PSYCHIATRIC: Negative for hallucinations, suicidal ideation, homicidal ideation, anxiety, depression. ED Past Medical Hx - Past Medical History Hx Hypertension: Yes Hx Heart Attack/AMI: No Hx Diabetes: Yes Hx GERD: Yes Hx Liver Disease: No Hx Renal Disease: Yes (no dialysis) Hx Sickle Cell Disease: No Hx Seizures: Yes Hx Asthma: Yes Hx Tuberculosis: No Hx HIV: No - Surgical History Hx Cholecystectomy: Yes - Social History Smoking Status: Never Smoker Substance Use Type: None - Medications Home Medications: Home Medications Medication Instructions Recorded Confirmed Last Taken Type levETIRAcetam [Keppra TAB] 500 mg PO BID #60 tablet 06/09/17 02/20/20 02/20/20 07:00 Rx Lisdexamfetamine Dimesylate 40 mg PO DAILY 02/07/20 02/20/20 02/20/20 07:00 History [Vyvanse] lisinopriL [Zestril TAB] 5 mg PO DAILY 02/07/20 02/20/20 02/20/20 07:00 History Albuterol Sulfate [Proventil Hfa] 2 puff IH PRN PRN 02/11/20 02/20/20 12/18/19 08:00 History Gabapentin 300 mg PO BID #4 capsule 02/20/20 Unknown Rx Dicyclomine [Bentyl] 20 mg PO Q6H PRN #20 tablet 08/21/20 Unknown Rx Famotidine [Pepcid] 20 mg PO BID #30 tablet 08/21/20 Unknown Rx Insulin Glargine [Lantus VIAL] 40 units SUB-Q QHS #10 ml 12/01/20 Unknown Rx Insulin Regular, Human [HumuLIN R] 0 unit SQ AC #1 vial 12/01/20 Unknown Rx Blood Sugar Diagnostic [Freestyle 1 each MC QID #100 strip 12/21/20 Unknown Rx Lite Test Strip] Butalb/Acetamin/Caff 50-325-40 1 - 2 tab PO Q6HR PRN #15 tab 12/21/20 Unknown Rx [Fioricet 50-325-40] Ondansetron [Zofran ODT TAB] 4 mg PO Q6HR PRN #12 tab.rapdis 12/21/20 Unknown Rx Famotidine [Pepcid] 40 mg PO QHS #14 tablet 01/08/21 Unknown Rx Ondansetron [Zofran Odt] 4 mg PO Q8HR PRN #12 tab.rapdis 01/08/21 Unknown Rx Sucralfate [Carafate] 1 gm PO ACHS 7 Days #21 tablet 01/08/21 Unknown Rx Dicyclomine [Bentyl] 20 mg PO QID #30 bottle 01/12/21 Unknown Rx Metoclopramide [Reglan] 10 mg PO TID #30 tab 01/12/21 Unknown Rx Sulfamethoxazole/Trimethoprim 1 each PO BID 5 Days tablet 01/12/21 Unknown Rx [Bactrim DS TAB] ED Physical Exam - General Limitations: No Limitations - Other Other exam information: General: Awake and alert. No acute distress. Head: Atraumatic, normocephalic. Eyes: EOMI. Pupils are equal and round. Normal sclera and conjunctiva. ENT: Oral mucosa is moist. Normal pharyngeal exam. Neck: Supple. No lymphadenopathy. Pulmonary: No respiratory distress. Clear to auscultation bilaterally. Cardiac: Tachycardic. Pulses are palpable and equal bilaterally. No lower extremity cyanosis or edema. Skin: Warm and dry. No rashes. Abdomen: Diffuse abdominal tenderness, most pronounced along the right lower quadrant. No guarding, rigidity, or rebound. Bowel sounds present. Back: Normal alignment. No CVA tenderness. Extremities: Symmetrical. Full range of motion intact. Neurological: Alert and oriented, appropriately interactive, no focal deficits. Psych: Cooperative. Appropriate mood and affect. Speech is evenly metered. Th oughts are logically construed. ED Course Vital Signs 01/12/21 15:35 Temperature 99.1 F Pulse Rate 113 H Respiratory 20 Rate Blood Pressure 132/93 O2 Sat by Pulse 100 Oximetry ED Medical Decision Making - Lab Data Result diagrams: 01/12/21 16:04 01/12/21 16:04 - Radiology Data [facility] [address] [place] [address] Cat Scan Report Signed Patient: LYNN CHANDLER MR#: [id number] : 2000 Acct:[id number] Age/Sex: 20 / F ADM Date: 01/12/21 Loc: ED Attending Dr: Ordering Physician: MATA HUERTA Date of Service: 01/12/21 Procedure(s): CT abdomen pelvis w con Accession Number(s): [id number] cc: MATA HUERTA CT ABDOMEN AND PELVIS WITH CONTRAST INDICATION / CLINICAL INFORMATION: RLQ abdominal pain. TECHNIQUE: Axial CT images were obtained through the abdomen and pelvis after IV contrast. All CT scans at this location are performed using CT dose reduction for ALARA by means of automated exposure control. COMPARISON: 11/29/2020 FINDINGS: LOWER CHEST: No significant abnormality. LIVER: No significant abnormality. GALLBLADDER: Prior cholecystectomy BILE DUCTS: No significant abnormality. PANCREAS: No significant abnormality. SPLEEN: No significant abnormality. ADRENALS: No significant abnormality. RIGHT KIDNEY / URETER: No significant abnormality. LEFT KIDNEY / URETER: No significant abnormality. STOMACH / SMALL BOWEL: Interval development of fluid-filled distention of small bowel loops. Additionally there is mild mural thickening involving small bowel loops predominantly within the central and right lower quadrant abdomen. There is minimal perienteric fat stranding. No definite evidence of mechanical bowel obstruction. COLON: Mild diverticulosis without diverticulitis. APPENDIX: No significant abnormality. PERITONEUM: No free fluid. No free air. No fluid collection. LYMPH NODES: No significant adenopathy. AORTA / ARTERIES: No significant abnormality. IVC / VEINS: No significant abnormality. URINARY BLADDER: No significant abnormality. REPRODUCTIVE ORGANS: Physiologic changes are noted of the uterus with left cor pus luteal cyst measuring 1.9 cm. ADDITIONAL FINDINGS: None. SKELETAL SYSTEM: Unchanged from prior exam. No aggressive osseous lesions. IMPRESSION: 1. Interval development of mild fluid-filled distention of small bowel loops with mural thickening predominantly in the mid and right lower quadrant abdomen, likely represents mild enteritis. 2. The appendix is unremarkable. 3. Mild physiologic changes are noted of the uterus and ovaries. Signer Name: Steven Troncoso MD Signed: 01/12/2021 9:24 PM Workstation Name: [id number] Transcribed By: Dictated By: STEVEN TRONCOSO Electronically Authenticated By: STEVEN TRONCOSO Signed Date/Time: 01/12/212123 DD/DT: - Medical Decision Making Differential diagnosis including but not limited to: appendicitis, cholecystitis, cholelithiasis, pyelonephritis, nephrolithiasis, urinary tract infection, bowel obstruction, bowel perforation, volvulus, , ovarian cyst/torsion, diabetic ketoacidosis Case was discussed with Dr. Castellanos, primary care provider, who examined the patient in his office earlier today. On his examination, the patient's abdomen was reportedly only able to tolerate superficial palpation along the right lower quadrant. He states he has gotten to know this patient well in his practice and she has never complained of pain like this before. Concern for appendicitis prompted him to send her to the emergency department for further evaluation. On re-evaluation, patient is stable and symptoms have improved. Tachycardia resolved after IV fluids and analgesia. Repeat abdominal exam is benign. No further vomiting in the emergency department. Labs show mild hypomagnesemia, likely attributable to patient's reported history of diarrhea. test is negative. Urinalysis shows (+) leukocyte esterase/WBC and 1+ bacteria in the setting of increased urinary frequency; will begin short course of Bactrim for uncomplicated UTI. CT of the abdomen/pelvis shows mild fluid-filled distention of small bowel loops and mural thickening, predominantly in the middle/right lower quadrant; which correlates clinically with patient's abdominal tenderness. Findings suggestive of mild enteritis. Left ovarian cyst incidentally noted. Appendix is normal. No clinical indication for further diagnostic work- up/surgical intervention. Patient will be discharged home with antiemetics, antispasmodics, and antibiotics. Emphasized the importance of following up with primary care provider this week regarding these findings. Patient and mother expressed understanding and are agreeable to plan of care. Strict return precautions provided. Repeat exam is unremarkable and benign. History, exam, diagnostic testing, and current condition do not suggest worrisome pathology to warrant further testing, continued ED treatment, admission, or surgical evaluation at this point. Given the low probability of a significant medical illness, it would be more likely to result in harm than benefit to perform further testing at this stage. Discussed findings, presumptive diagnosis, need for follow-up and specific signs/symptoms that should prompt immediate return to the emergency department. Instructions we re explained in detail to the patient in addition to giving written discharge information. Patient expressed understanding and was given the opportunity to ask questions, all of which were satisfactorily answered prior to discharge home. Critical care attestation.: If time is entered above; I have spent that time in minutes in the direct care of this critically ill patient, excluding procedure time. ED Disposition Clinical Impression: Left ovarian cyst, Nonspecific abdominal pain Urinary tract infection Qualifiers: Urinary tract infection type: acute cystitis Hematuria presence: without hematuria Qualified Code(s): N30.00 - Acute cystitis without hematuria Disposition: TO HOME OR SELFCARE Is pt being admited?: No Does the pt Need Aspirin: No Condition: Stable Instructions: Abdominal Pain, Adult, Urinary Tract Infection, Adult, Abdominal Pain (ED) Additional Instructions: Take Tylenol every 4 hours and Motrin every 8 hours as needed for pain. Take Reglan as directed for nausea/vomiting. Take Bentyl as directed for intestinal cramps. Take Bactrim with food as directed. Increase your dietary intake of probiotic rich foods while taking this medicine. Rest. Drink plenty of fluids. Gradually advance diet slowly as tolerated. Follow-up with Dr. Castellanos, primary care provider, this week. Call tomorrow to schedule an appointment. Return to the emergency department immediately for new or worsening symptoms. Prescriptions: Sulfamethoxazole/Trimethoprim [Bactrim DS TAB] 1 each PO BID 5 Days tablet Dicyclomine [Bentyl] 20 mg PO QID #30 bottle Metoclopramide [Reglan] 10 mg PO TID #30 tab Referrals: LONDON CASTELLANOS MD [Staff Physician] - 3-5 Days Time of Disposition: 21:47
--- NOTE | 2021-01-12 21:28 | Cat Scan Report ---
CT ABDOMEN AND PELVIS WITH CONTRAST INDICATION / CLINICAL INFORMATION: RLQ abdominal pain. TECHNIQUE: Axial CT images were obtained through the abdomen and pelvis after IV contrast. All CT scans at this location are performed using CT dose reduction for ALARA by means of automated exposure control. COMPARISON: 11/29/2020 FINDINGS: LOWER CHEST: No significant abnormality. LIVER: No significant abnormality. GALLBLADDER: Prior cholecystectomy BILE DUCTS: No significant abnormality. PANCREAS: No significant abnormality. SPLEEN: No significant abnormality. ADRENALS: No significant abnormality. RIGHT KIDNEY / URETER: No significant abnormality. LEFT KIDNEY / URETER: No significant abnormality. STOMACH / SMALL BOWEL: Interval development of fluid-filled distention of small bowel loops. Addition ally there is mild mural thickening involving small bowel loops predominantly within the central and right lower quadrant abdomen. There is minimal perienteric fat stranding. No definite evidence of mec hanical bowel obstruction. COLON: Mild diverticulosis without diverticulitis. APPENDIX: No significant abnormality. PERITONEUM: No free fluid. No free air. No fluid collection. LYMPH NODES: No significant adenopathy. AORTA / ARTERIES: No significant abnormality. IVC / VEINS: No significant abnormality. URINARY BLADDER: No significant abnormality. REPRODUCTIVE ORGANS: Physiologic changes are noted of the uterus with left corpus luteal cyst measuri ng 1.9 cm. ADDITIONAL FINDINGS: None. SKELETAL SYSTEM: Unchanged from prior exam. No aggressive osseous lesions. IMPRESSION: 1. Interval development of mild fluid-filled distention of small bowel loops with mural thickening pr edominantly in the mid and right lower quadrant abdomen, likely represents mild enteritis. 2. The appendix is unremarkable. 3. Mild physiologic changes are noted of the uterus and ovaries. Signer Name: Steven De Souza MD Signed: 01/12/2021 9:24 PM Workstation Name: [id number]
== END 2021-01-12 22:57 | disposition home or self-care (01) ==
LOC: ED 15:23
DX: N39.0 Urinary tract infection, site not specified (principal); N83.202 Unspecified ovarian cyst, left side; R10.9 Unspecified abdominal pain; I12.9 Hypertensive chronic kidney disease with stage 1 through stage 4 chronic kidney disease, or unspecified chronic kidney disease; E11.22 Type 2 diabetes mellitus with diabetic chronic kidney disease; N18.9 Chronic kidney disease, unspecified; K21.9 Gastro-esophageal reflux disease without esophagitis; J45.909 Unspecified asthma, uncomplicated; Z79.899 Other long term (current) drug therapy; Z90.49 Acquired absence of other specified parts of digestive tract; Z86.69 Personal history of other diseases of the nervous system and sense organs
CPT/HCPCS: 36415; 74177; 80053; 81001; 83690; 83735; 84703; 85025; 96361; 96374; 96375; 99284; J2270; J2405; J7030; Q9967

== ENCOUNTER 2021-05-01 13:38 | Inpatient (IN) | payer MEDICAID ==
--- NOTE | 2021-05-01 15:27 | XRay Report ---
XR chest routine 2V INDICATION / CLINICAL INFORMATION: cough, tachy, SOB, PUI. COMPARISON: 08/21/2020 FINDINGS: SUPPORT DEVICES: None. HEART /PULMONARY VASCULATURE: No significant abnormality. LUNGS / PLEURA: No significant pulmonary or pleural abnormality. No pneumothorax. ADDITIONAL FINDINGS: No significant additional findings. IMPRESSION: 1. No acute findings. Signer Name: Mario Keen MD Signed: 05/01/2021 3:23 PM Workstation Name: [id number]
--- NOTE | 2021-05-01 15:28 | Event Note ---
ED Screening Note Date of service: 05/01/21 Time: 15:26 ED Screening Note: 21-year-old female with past medical history of type 2 diabetes, hypertension and asthma presents to the ER today with complaints of cold-like symptoms. She reports cough, shortness of breath, headache body aches and mild sore throat. Patient states that her symptoms started last week Monday. She states that she went to [facility] last Monday. They did a Covid 19 test and it was negative. She states that they checked her sugar but she did not have a chest x-ray done. Patient states that she still does not feel any better, is requesting another COVID-19 test be done. Patient blood pressure noted to be elevated in triage, she admits that she has not taken her blood pressure medication today. This initial assessment/diagnostic orders/clinical plan/treatment(s) is/are subject to change based on patients health status, clinical progression and re- assessment by fellow clinical providers in the ED. Further treatment and workup at subsequent clinical providers discretion. Patient/guardian urged not to elope from the ED as their condition may be serious if not clinically assessed and managed. Initial orders include: Labs including chest x-ray
--- NOTE | 2021-05-01 15:35 | Emergency Department Report ---
<ASAD MARTÍNEZ - Last Filed: 05/01/21 18:41> ED General Adult HPI - General Chief complaint: Dyspnea/Respdistress Stated complaint: COVID SX/HEADACHES/BODYACHES/VOMIT Time Seen by Provider: 05/01/21 15:33 Source: patient Mode of arrival: Ambulatory Limitations: No Limitations - History of Present Illness Initial comments: 21-year-old female with past medical history of type 2 diabetes, hypertension and asthma presents to the ER today with complaints of cold-like symptoms. She reports cough, shortness of breath, headache body aches and mild sore throat. Patient states that her symptoms started last week Monday. She states that she went to [facility] last Monday. They did a Covid 19 test and it was negative. She states that they checked her sugar but she did not have a chest x-ray done. Patient states that she still does not feel any better, is requesting another COVID-19 test be done. Patient blood pressure noted to be elevated in triage, she admits that she has not taken her blood pressure medication today. Patient denies any hemoptysis, leg pain/swelling, recent long travel, history of DVT/PE/cancer, but does admit to being on control. She reports her blood sugar is running about 200 at home and states she is compliant with her insulin Worsens with: movement - Related Data Home Medications Medication Instructions Recorded Confirmed Last Taken Lisdexamfetamine Dimesylate 40 mg PO DAILY 02/07/20 02/20/20 02/20/20 07:00 [Vyvanse] lisinopriL [Zestril TAB] 5 mg PO DAILY 02/07/20 02/20/20 02/20/20 07:00 Albuterol Sulfate [Proventil Hfa] 2 puff IH PRN PRN 02/11/20 02/20/20 12/18/19 08:00 Previous Rx's Medication Instructions Recorded Last Taken Type levETIRAcetam [Keppra TAB] 500 mg PO BID #60 tablet 06/09/17 02/20/20 07:00 Rx Gabapentin 300 mg PO BID #4 capsule 02/20/20 Unknown Rx Dicyclomine [Bentyl] 20 mg PO Q6H PRN #20 tablet 08/21/20 Unknown Rx Famotidine [Pepcid] 20 mg PO BID #30 tablet 08/21/20 Unknown Rx Insulin Glargine [Lantus VIAL] 40 units SUB-Q QHS #10 ml 12/01/20 Unknown Rx Insulin Regular, Human [HumuLIN R] 0 unit SQ AC #1 vial 12/01/20 Unknown Rx Blood Sugar Diagnostic [Freestyle 1 each MC QID #100 strip 12/21/20 Unknown Rx Lite Test Strip] Butalb/Acetamin/Caff 50-325-40 1 - 2 tab PO Q6HR PRN #15 tab 12/21/20 Unknown Rx [Fioricet 50-325-40] Ondansetron [Zofran ODT TAB] 4 mg PO Q6HR PRN #12 tab.rapdis 12/21/20 Unknown Rx Famotidine [Pepcid] 40 mg PO QHS #14 tablet 01/08/21 Unknown Rx Ondansetron [Zofran Odt] 4 mg PO Q8HR PRN #12 tab.rapdis 01/08/21 Unknown Rx Sucralfate [Carafate] 1 gm PO ACHS 7 Days #21 tablet 01/08/21 Unknown Rx Dicyclomine [Bentyl] 20 mg PO QID #30 bottle 01/12/21 Unknown Rx Metoclopramide [Reglan] 10 mg PO TID #30 tab 01/12/21 Unknown Rx Sulfamethoxazole/Trimethoprim 1 each PO BID 5 Days tablet 01/12/21 Unknown Rx [Bactrim DS TAB] Allergies Allergy/AdvReac Type Severity Reaction Status Date / Time No Known Allergies Allergy Verified 01/12/21 15:37 ED Review of Systems Constitutional: chills, fever, malaise, weakness ENT: throat pain Respiratory: cough, shortness of breath, SOB with exertion Cardiovascular: chest pain. denies: palpitations, edema, syncope Gastrointestinal: nausea. denies: abdominal pain, vomiting Musculoskeletal: denies: back pain Skin: denies: rash, lesions Neurological: denies: headache ED Past Medical Hx - Past Medical History Previous Medical History?: Yes Hx Hypertension: Yes Hx Heart Attack/AMI: No Hx Diabetes: Yes Hx GERD: Yes Hx Liver Disease: No Hx Renal Disease: Yes (no dialysis) Hx Sickle Cell Disease: No Hx Seizures: Yes Hx Asthma: Yes Hx Tuberculosis: No Hx HIV: No - Surgical History Past Surgical History?: Yes Hx Cholecystectomy: Yes - Social History Smoking Status: Never Smoker Substance Use Type: None - Medications Home Medications: Home Medications Medication Instructions Recorded Confirmed Last Taken Type levETIRAcetam [Keppra TAB] 500 mg PO BID #60 tablet 06/09/17 02/20/20 02/20/20 07:00 Rx Lisdexamfetamine Dimesylate 40 mg PO DAILY 02/07/20 02/20/20 02/20/20 07:00 History [Vyvanse] lisinopriL [Zestril TAB] 5 mg PO DAILY 02/07/20 02/20/20 02/20/20 07:00 History Albuterol Sulfate [Proventil Hfa] 2 puff IH PRN PRN 02/11/20 02/20/20 12/18/19 08:00 History Gabapentin 300 mg PO BID #4 capsule 02/20/20 Unknown Rx Dicyclomine [Bentyl] 20 mg PO Q6H PRN #20 tablet 08/21/20 Unknown Rx Famotidine [Pepcid] 20 mg PO BID #30 tablet 08/21/20 Unknown Rx Insulin Glargine [Lantus VIAL] 40 units SUB-Q QHS #10 ml 12/01/20 Unknown Rx Insulin Regular, Human [HumuLIN R] 0 unit SQ AC #1 vial 12/01/20 Unknown Rx Blood Sugar Diagnostic [Freestyle 1 each MC QID #100 strip 12/21/20 Unknown Rx Lite Test Strip] Butalb/Acetamin/Caff 50-325-40 1 - 2 tab PO Q6HR PRN #15 tab 12/21/20 Unknown Rx [Fioricet 50-325-40] Ondansetron [Zofran ODT TAB] 4 mg PO Q6HR PRN #12 tab.rapdis 12/21/20 Unknown Rx Famotidine [Pepcid] 40 mg PO QHS #14 tablet 01/08/21 Unknown Rx Ondansetron [Zofran Odt] 4 mg PO Q8HR PRN #12 tab.rapdis 01/08/21 Unknown Rx Sucralfate [Carafate] 1 gm PO ACHS 7 Days #21 tablet 01/08/21 Unknown Rx Dicyclomine [Bentyl] 20 mg PO QID #30 bottle 01/12/21 Unknown Rx Metoclopramide [Reglan] 10 mg PO TID #30 tab 01/12/21 Unknown Rx Sulfamethoxazole/Trimethoprim 1 each PO BID 5 Days tablet 01/12/21 Unknown Rx [Bactrim DS TAB] ED Physical Exam - General Limitations: No Limitations General appearance: alert, in no apparent distress, obese - Head Head exam: Present: atraumatic, normocephalic - Eye Eye exam: Present: normal appearance. Absent: scleral icterus - ENT ENT exam: Present: normal exam, normal orophraynx - Neck Neck exam: Present: normal inspection - Respiratory Respiratory exam: Present: normal lung sounds bilaterally. Absent: respiratory distress - Cardiovascular Cardiovascular Exam: Present: normal rhythm, tachycardia. Absent: systolic murmur, diastolic murmur, rubs, gallop - GI/Abdominal GI/Abdominal exam: Present: soft. Absent: distended, tenderness - Neurological Exam Neurological exam: Present: alert, oriented X3, normal gait - Psychiatric Psychiatric exam: Present: normal affect, normal mood - Skin Skin exam: Present: warm, dry, intact, normal color. Absent: rash, cyanosis, diaphoretic ED Medical Decision Making - Lab Data Result diagrams: 05/01/21 15:31 05/01/21 15:31 Lab Results 05/01/21 05/01/21 05/01/21 Range/Units 15:31 15:31 15:31 WBC 6.2 (4.5-11.0) K/mm3 RBC 5.84 H (3.65-5.03) M/mm3 Hgb 17.5 H (10.1-14.3) gm/dl Hct 51.3 H (30.3-42.9) % MCV 88 (79-97) fl MCH 30 (28-32) pg MCHC 34 (30-34) % RDW 13.3 (13.2-15.2) % Plt Count 221 (140-440) K/mm3 Lymph % (Auto) 30.4 (13.4-35.0) % [place] % (Auto) 9.9 H (0.0-7.3) % Eos % (Auto) 0.0 (0.0-4.3) % Baso % (Auto) 1.6 (0.0-1.8) % Lymph # (Auto) 1.9 (1.2-5.4) K/mm3 [place] # (Auto) 0.6 (0.0-0.8) K/mm3 Eos # (Auto) 0.0 (0.0-0.4) K/mm3 Baso # (Auto) 0.1 (0.0-0.1) K/mm3 Seg Neutrophils % 58.1 (40.0-70.0) % Seg Neutrophils # 3.6 (1.8-7.7) K/mm3 D-Dimer (0-234) ng/mlDDU VBG pH (7.320-7.420) Sodium 132 L (137-145) mmol/L Potassium 4.4 (3.6-5.0) mmol/L Chloride 93.4 L (98-107) mmol/L Carbon Dioxide 16 L (22-30) mmol/L Anion Gap 27 mmol/L BUN 14 (7-17) mg/dL Creatinine 1.2 (0.6-1.2) mg/dL Estimated GFR > 60 ml/min BUN/Creatinine Ratio 12 % Glucose 459 H (65-100) mg/dL Calcium 9.6 (8.4-10.2) mg/dL Total Bilirubin 0.20 (0.1-1.2) mg/dL AST 29 (5-40) units/L ALT 23 (7-56) units/L Alkaline Phosphatase 134 H (35-129) units/L Total Protein 7.5 (6.3-8.2) g/dL Albumin 4.4 (3.9-5) g/dL Albumin/Globulin Ratio 1.4 % HCG, Qual Negative (Negative) Urine Color (Yellow) Urine Turbidity (Clear) Urine pH (5.0-7.0) Ur Specific [place] (1.003-1.030) Urine Protein (Negative) mg/dL Urine Glucose (UA) (Negative) mg/dL Urine Ketones (Negative) mg/dL Urine Blood (Negative) Urine Nitrite (Negative) Urine Bilirubin (Negative) Urine Urobilinogen (<2.0) mg/dL Ur Leukocyte Esterase (Negative) Urine WBC (Auto) (0.0-6.0) /HPF Urine RBC (Auto) (0.0-6.0) /HPF U Epithel Cells (Auto) (0-13.0) /HPF 05/01/21 05/01/21 05/01/21 Range/Units 16:51 16:52 18:19 WBC (4.5-11.0) K/mm3 RBC (3.65-5.03) M/mm3 Hgb (10.1-14.3) gm/dl Hct (30.3-42.9) % MCV (79-97) fl MCH (28-32) pg MCHC (30-34) % RDW (13.2-15.2) % Plt Count (140-440) K/mm3 Lymph % (Auto) (13.4-35.0) % [place] % (Auto) (0.0-7.3) % Eos % (Auto) (0.0-4.3) % Baso % (Auto) (0.0-1.8) % Lymph # (Auto) (1.2-5.4) K/mm3 [place] # (Auto) (0.0-0.8) K/mm3 Eos # (Auto) (0.0-0.4) K/mm3 Baso # (Auto) (0.0-0.1) K/mm3 Seg Neutrophils % (40.0-70.0) % Seg Neutrophils # (1.8-7.7) K/mm3 D-Dimer < 135.00 (0-234) ng/mlDDU VBG pH 7.310 L (7.320-7.420) Sodium (137-145) mmol/L Potassium (3.6-5.0) mmol/L Chloride (98-107) mmol/L Carbon Dioxide (22-30) mmol/L Anion Gap mmol/L BUN (7-17) mg/dL Creatinine (0.6-1.2) mg/dL Estimated GFR ml/min BUN/Creatinine Ratio % Glucose (65-100) mg/dL Calcium (8.4-10.2) mg/dL Total Bilirubin (0.1-1.2) mg/dL AST (5-40) units/L ALT (7-56) units/L Alkaline Phosphatase (35-129) units/L Total Protein (6.3-8.2) g/dL Albumin (3.9-5) g/dL Albumin/Globulin Ratio % HCG, Qual (Negative) Urine Color Straw (Yellow) Urine Turbidity Clear (Clear) Urine pH 5.0 (5.0-7.0) Ur Specific [place] 1.025 (1.003-1.030) Urine Protein <15 mg/dl (Negative) mg/dL Urine Glucose (UA) >=500 (Negative) mg/dL Urine Ketones 20 (Negative) mg/dL Urine Blood Lg (Negative) Urine Nitrite Neg (Negative) Urine Bilirubin Neg (Negative) Urine Urobilinogen < 2.0 (<2.0) mg/dL Ur Leukocyte Esterase Neg (Negative) Urine WBC (Auto) 10.0 H (0.0-6.0) /HPF Urine RBC (Auto) 5.0 (0.0-6.0) /HPF U Epithel Cells (Auto) 1.0 (0-13.0) /HPF - Radiology Data Radiology results: report reviewed XR chest routine 2V INDICATION / CLINICAL INFORMATION: cough, tachy, SOB, PUI. COMPARISON: 08/21/2020 FINDINGS: SUPPORT DEVICES: None. HEART /PULMONARY VASCULATURE: No significant abnormality. LUNGS / PLEURA: No significant pulmonary or pleural abnormality. No pneumothorax. ADDITIONAL FINDINGS: No significant additional findings. IMPRESSION: 1. No acute findings. - Medical Decision Making 21-year-old female with past medical history of type 2 diabetes, hypertension and asthma presents to the ER today with complaints of cold-like symptoms. She reports cough, shortness of breath, headache body aches and mild sore throat. Patient states that her symptoms started last week Monday. She states that she went to [facility] last Monday. They did a Covid 19 test and it was negative. She states that they checked her sugar but she did not have a chest x-ray done. Patient states that she still does not feel any better, is requesting another COVID-19 test be done. Patient blood pressure noted to be elevated in triage, she admits that she has not taken her blood pressure medication today. Patient denies any hemoptysis, leg pain/swelling, recent long travel, history of DVT/PE/cancer, but does admit to being on control. She reports her blood sugar is running about 200 at home and states she is compliant with her insulin No white count noted on CBC. Glucose noted to be 459 with a anion gap of 27. Venous pH ordered along with 11 units IV insulin and 2 L of fluids. Ambulatory pulse ox performed by this provider and noted to drop to 72% on room air x 2 with patient feeling extremely short of breath. Dimer is negative. Chest x-ray is negative. UA shows 10 WBCs. Venous pH mildly decreased at 7.31. Discussed patient with Dr. Andino, hospital medicine-agrees with admission for hypoxia and mild DKA. ED Disposition Clinical Impression: Hypoxia, DKA (diabetic ketoacidoses), Dyspnea Disposition: ADMITTED INPATIENT Is pt being admited?: Yes Does the pt Need Aspirin: No Condition: Serious Instructions: Diabetic Ketoacidosis (ED) Referrals: PRIMARY CARE, [Primary Care Provider] - 3-5 Days <CRISSY HERNANDES - Last Filed: 05/01/21 18:57> ED Review of Systems ROS: Stated complaint: COVID SX/HEADACHES/BODYACHES/VOMIT Other details as noted in HPI ED Course Vital Signs 05/01/21 05/01/21 14:23 18:45 Temperature 97.5 F L 98.3 F Pulse Rate 117 H 111 H Respiratory 20 18 Rate Blood Pressure 173/113 138/94 [Right] O2 Sat by Pulse 100 98 Oximetry ED Medical Decision Making - Lab Data Result diagrams: 05/01/21 15:31 05/01/21 15:31 - Medical Decision Making I saw the patient in conjunction with MATA Medeiros. The patient presents with some cold-like symptoms. She is not vaccinated against COVID-19 although she did have a recent negative Covid test. We appear to be dealing with 2 different issues. Patient has a blood sugar of about 460 with an elevated anion gap of 27. There is some mild venous acidosis of about 7.1. The patient may be in early DKA. She is being treated with IV insulin and IV fluid, but is not yet on an insulin drip. Secondly, the patient was found to have increased work of breathing with any exertion. Asad personally tested the patient walking around with a pulse oximeter and she went down into the 70s after walking for only about 20 to 30 seconds. The patient goes back up when at rest. Chest x-ray did not show any pneumonia. D-dimer level is negative and the patient denies any risk factors for thromboembolic disease. However, the patient is not oxygen dependent at home and therefore the patient will require admission for this hypoxia. I also saw this patient walking in the emergency department and she does have increased work of breathing. Critical Care Time: No Critical care attestation.: If time is entered above; I have spent that time in minutes in the direct care of this critically ill patient, excluding procedure time. ED Disposition Is pt being admited?: Yes Time of Disposition: 18:57
[2021-05-01 16:09] LABS: Basophils # (Auto) 0.1 K/mm3 (0.0-0.1); Basophils % (Auto) 1.6 % (0.0-1.8); Hematocrit 51.3 % (30.3-42.9); Hemoglobin 17.5 gm/dl (10.1-14.3); Lymphocytes # (Auto) 1.9 K/mm3 (1.2-5.4); Lymphocytes % (Auto) 30.4 % (13.4-35.0); Mean Corpuscular HGB Conc 34 % (30-34); Mean Corpuscular Volume 88 fl (79-97); Monocytes # (Auto) 0.6 K/mm3 (0.0-0.8); Monocytes % (Auto) 9.9 % (0.0-7.3); Platelet Count 221 K/mm3 (140-440); Red Blood Count 5.84 M/mm3 (3.65-5.03); Red Cell Distribution Width 13.3 % (13.2-15.2)
[2021-05-01 16:38] LABS: Alanine Aminotransferase 23 units/L (7-56); Albumin 4.4 g/dL (3.9-5); BUN/Creatinine Ratio 12; Blood Urea Nitrogen 14 mg/dL (7-17); Calcium 9.6 mg/dL (8.4-10.2); Hemolysis Index 19
[2021-05-01 17:13] LABS: Bilirubin,Urine NEG (Negative); Blood,Urine LG (Negative); Color,Urine Straw (Yellow); Protein,Urine <15 mg/dL mg/dL (Negative); Urobilinogen,Urine < 2.0 mg/dL (<2.0)
[2021-05-01] MEDS ORDERED: SODIUM CHLORIDE 0.9% 1000 ML 1,000 ML IV ONE (17:28)
[2021-05-01] MEDS ORDERED: INSULIN REGULAR, HUMAN 100 UNITS/1 ML IV ONE (17:40)
[2021-05-01 19:50] LABS: C-Reactive Protein 1.9 mg/dL (0.00-1.30)
[2021-05-01] MEDS ORDERED: ONDANSETRON 4 MG/2 ML INJ IV PRN (20:52)
[2021-05-01] MEDS ORDERED: oxyCODONE /ACETAMINOPHEN 5-325MG TAB PO PRN (20:53)
[2021-05-01] MEDS ORDERED: METOCLOPRAMIDE 10 MG/2 ML INJ IV PRN (20:53)
[2021-05-01] MEDS ORDERED: HYDROmorphone 1 MG/1 ML INJ IV PRN (20:53)
[2021-05-01] MEDS ORDERED: SODIUM CHLORIDE 0.9% 1000 ML 1,000 ML IV SCH (21:00)
[2021-05-01] MEDS: ENOXAPARIN 40 MG/0.4 ML INJ SUB-Q SCH (21:26)
[2021-05-01] MEDS: cefTRIAXone/NS 2 GM/100 ML 2 GM/100 ML BAG IV SCH (21:37)
[2021-05-01] MEDS: dexAMETHasone 4 MG/ML VIAL IV SCH (21:49)
[2021-05-01] MEDS: FAMOTIDINE 20 MG TAB PO SCH (21:49)
[2021-05-01] MEDS ORDERED: AZITHROMYCIN/NS 500 MG/250 ML 500 MG/250 ML BAG IV SCH (22:00)
[2021-05-02] MEDS: ACETAMINOPHEN 325 MG TAB PO PRN ×2 (04:06→08:46)
--- NOTE | 2021-05-02 07:19 | History and Physical Report ---
History of Present Illness Date of examination: 05/01/21 Date of admission: 05/01/21 20:33 Chief complaint: Shortness of breath and generalized weakness for 1 week. Recent Covid tests was negative. History of present illness: 11-year-old -[place] female with multiple medical problems including diabetes, hypertension and asthma comes in for cold-like symptoms and shortness of breath, headache and body aches and mild sore throat since last Monday which is 4 days ago. She went to [facility] last Monday. After apparently COVID- 19 test was done and was negative. Patient states that her symptoms are persistent and not feeling better. Patient is requesting another COVID-19 test to be done. Patient blood pressure was elevated in the triage area and blood sugar was also elevated. Shortness of breath on minimal exertion. Generalized body aches present. Unvaccinated. - Past Medical History --Previous Medical History?: Yes --Hypertension: Yes --Diabetes: Yes --GERD: Yes --Renal Disease: Yes --Seizures: Yes --Asthma: Yes - Surgical History Past Surgical History?: Yes --Cholecystectomy: Yes - Social History Smoking Status: Never Smoker Substance Use Type: None Family history Htn Review of Systems Constitutional: chills, fever, malaise, weakness ENT: throat pain Respiratory: cough, shortness of breath, SOB with exertion Cardiovascular: chest pain. denies: palpitations, edema, syncope Gastrointestinal: nausea. denies: abdominal pain, vomiting Musculoskeletal: denies: back pain Skin: denies: rash, lesions Neurological: denies: headache Medications and Allergies Allergies Allergy/AdvReac Type Severity Reaction Status Date / Time No Known Allergies Allergy Verified 05/02/21 12:51 Home Medications Medication Instructions Recorded Confirmed Last Taken Type levETIRAcetam [Keppra TAB] 500 mg PO BID #60 tablet 06/09/17 02/20/20 02/20/20 07:00 Rx Lisdexamfetamine Dimesylate 40 mg PO DAILY 02/07/20 02/20/20 02/20/20 07:00 History [Vyvanse] lisinopriL [Zestril TAB] 5 mg PO DAILY 02/07/20 02/20/20 02/20/20 07:00 History Albuterol Sulfate [Proventil Hfa] 2 puff IH PRN PRN 02/11/20 02/20/20 12/18/19 08:00 History Gabapentin 300 mg PO BID #4 capsule 02/20/20 Unknown Rx Dicyclomine [Bentyl] 20 mg PO Q6H PRN #20 tablet 08/21/20 Unknown Rx Famotidine [Pepcid] 20 mg PO BID #30 tablet 08/21/20 Unknown Rx Insulin Glargine [Lantus VIAL] 40 units SUB-Q QHS #10 ml 12/01/20 Unknown Rx Insulin Regular, Human [HumuLIN R] 0 unit SQ AC #1 vial 12/01/20 Unknown Rx Blood Sugar Diagnostic [Freestyle 1 each MC QID #100 strip 12/21/20 Unknown Rx Lite Test Strip] Butalb/Acetamin/Caff 50-325-40 1 - 2 tab PO Q6HR PRN #15 tab 12/21/20 Unknown Rx [Fioricet 50-325-40] Ondansetron [Zofran ODT TAB] 4 mg PO Q6HR PRN #12 tab.rapdis 12/21/20 Unknown Rx Famotidine [Pepcid] 40 mg PO QHS #14 tablet 01/08/21 Unknown Rx Ondansetron [Zofran Odt] 4 mg PO Q8HR PRN #12 tab.rapdis 01/08/21 Unknown Rx Sucralfate [Carafate] 1 gm PO ACHS 7 Days #21 tablet 01/08/21 Unknown Rx Dicyclomine [Bentyl] 20 mg PO QID #30 bottle 01/12/21 Unknown Rx Metoclopramide [Reglan] 10 mg PO TID #30 tab 01/12/21 Unknown Rx Sulfamethoxazole/Trimethoprim 1 each PO BID 5 Days tablet 01/12/21 Unknown Rx [Bactrim DS TAB] Active Meds: Active Medications Acetaminophen (Acetaminophen 325 Mg Tab) 650 mg PO Q4H PRN PRN Reason: Pain MILD(1-3)/Fever >100.5/[facility] Last Admin: 05/02/21 04:06 Dose: 650 mg Documented by: Dexamethasone (Dexamethasone 4 Mg/Ml Vial) 8 mg IV Q24H [facility] Last Admin: 05/01/21 21:49 Dose: 8 mg Documented by: Enoxaparin Sodium (Enoxaparin 40 Mg/0.4 Ml Inj) 40 mg SUB-Q QDAY [facility] Last Admin: 05/01/21 21:26 Dose: 40 mg Documented by: Famotidine (Famotidine 20 Mg Tab) 20 mg PO BID [facility] Last Admin: 05/01/21 21:49 Dose: 20 mg Documented by: Hydromorphone HCl (Hydromorphone 1 Mg/1 Ml Inj) 0.5 mg IV Q3H PRN PRN Reason: Pain , Severe (7-10) Azithromycin (Zithromax/Ns) 500 mg in 250 mls @ 250 mls/hr IV Q24H [facility] Last Admin: 05/01/21 21:52 Dose: 250 mls/hr Documented by: Ceftriaxone Sodium (Rocephin/Ns 2 Gm/100 Ml) 2 gm in 100 mls @ 200 mls/hr IV Q24HR [facility]; Protocol Last Admin: 05/01/21 21:37 Dose: 200 mls/hr Documented by: Metoclopramide HCl (Metoclopramide 10 Mg/2 Ml Inj) 10 mg IV Q6H PRN PRN Reason: Nausea And Vomiting Ondansetron HCl (Ondansetron 4 Mg/2 Ml Inj) 4 mg IV Q8H PRN PRN Reason: Nausea And Vomiting Oxycodone/Acetaminophen (Oxycodone /Acetaminophen 5-325mg Tab) 1 tab PO Q6H PRN PRN Reason: Pain, Moderate (4-6) Sodium Chloride (Sodium Chloride 0.9% 10 Ml Flush Syringe) 10 ml IV BID [facility] Last Admin: 05/01/21 21:50 Dose: 10 ml Documented by: Sodium Chloride (Sodium Chloride 0.9% 10 Ml Flush Syringe) 10 ml IV PRN PRN PRN Reason: LINE FLUSH Exam - Constitutional Vitals: Temp Pulse Resp BP Pulse Ox 98.3 F 86 16 122/79 100 05/01/21 18:45 05/02/21 06:15 05/02/21 06:15 05/02/21 06:15 05/02/21 06:15 General appearance: Present: mild distress, well-nourished - EENT Eyes: Present: PERRL ENT: hearing intact, clear oral mucosa - Neck Neck: Present: supple, normal ROM - Respiratory Respiratory effort: normal Respiratory: bilateral: CTA - Cardiovascular Heart rate: 78 Rhythm: regular Heart Sounds: Present: S1 & S2. Absent: rub, click - Extremities Extremities: pulses symmetrical, No edema Peripheral Pulses: within normal limits - Abdominal General gastrointestinal: Present: soft, non-tender, non-distended, normal bowel sounds Female genitourinary: Present: normal - Integumentary Integumentary: Present: clear, warm, dry - Musculoskeletal Musculoskeletal: gait normal, strength equal bilaterally - Psychiatric Psychiatric: appropriate mood/affect, intact judgment & insight - Neurologic Neurologic: CNII-XII intact, moves all extremities - Allied Health Allied health notes reviewed: nursing, case management Results - Labs CBC & Chem 7: 05/02/21 06:32 05/02/21 06:32 Labs: Laboratory Last Values WBC 6.2 K/mm3 (4.5-11.0) 05/01/21 15:31 RBC 5.84 M/mm3 (3.65-5.03) H 05/01/21 15:31 Hgb 17.5 gm/dl (10.1-14.3) H 05/01/21 15:31 Hct 51.3 % (30.3-42.9) H 05/01/21 15:31 MCV 88 fl (79-97) 05/01/21 15:31 MCH 30 pg (28-32) 05/01/21 15:31 MCHC 34 % (30-34) 05/01/21 15:31 RDW 13.3 % (13.2-15.2) 05/01/21 15:31 Plt Count 221 K/mm3 (140-440) 05/01/21 15:31 Lymph % (Auto) 30.4 % (13.4-35.0) 05/01/21 15:31 [place] % (Auto) 9.9 % (0.0-7.3) H 05/01/21 15:31 Eos % (Auto) 0.0 % (0.0-4.3) 05/01/21 15:31 Baso % (Auto) 1.6 % (0.0-1.8) 05/01/21 15:31 Lymph # (Auto) 1.9 K/mm3 (1.2-5.4) 05/01/21 15:31 [place] # (Auto) 0.6 K/mm3 (0.0-0.8) 05/01/21 15:31 Eos # (Auto) 0.0 K/mm3 (0.0-0.4) 05/01/21 15:31 Baso # (Auto) 0.1 K/mm3 (0.0-0.1) 05/01/21 15:31 Seg Neutrophils % 58.1 % (40.0-70.0) 05/01/21 15:31 Seg Neutrophils # 3.6 K/mm3 (1.8-7.7) 05/01/21 15:31 D-Dimer < 135.00 ng/mlDDU (0-234) 05/01/21 16:52 VBG pH 7.310 (7.320-7.420) L 05/01/21 18:19 Sodium 132 mmol/L (137-145) L 05/01/21 15:31 Potassium 4.4 mmol/L (3.6-5.0) 05/01/21 15:31 Chloride 93.4 mmol/L (98-107) L 05/01/21 15:31 Carbon Dioxide 16 mmol/L (22-30) L 05/01/21 15:31 Anion Gap 27 mmol/L 05/01/21 15:31 BUN 14 mg/dL (7-17) 05/01/21 15:31 Creatinine 1.2 mg/dL (0.6-1.2) 05/01/21 15:31 Estimated GFR > 60 ml/min 05/01/21 15:31 BUN/Creatinine Ratio 12 % 05/01/21 15:31 Glucose 204 mg/dL (65-100) H 05/01/21 18:55 POC Glucose 235 mg/dL (70-105) H 05/01/21 21:27 Calcium 9.6 mg/dL (8.4-10.2) 05/01/21 15:31 Ferritin 265.6 ng/mL (10.0-200.0) H 05/01/21 18:55 Total Bilirubin 0.20 mg/dL (0.1-1.2) 05/01/21 15:31 AST 29 units/L (5-40) 05/01/21 15:31 ALT 23 units/L (7-56) 05/01/21 15:31 Alkaline Phosphatase 134 units/L (35-129) H 05/01/21 15:31 Lactate Dehydrogenase 1573 units/L (91-180) H 05/01/21 18:55 C-Reactive Protein 1.90 mg/dL (0.00-1.30) H 05/01/21 18:55 Total Protein 7.5 g/dL (6.3-8.2) 05/01/21 15:31 Albumin 4.4 g/dL (3.9-5) 05/01/21 15:31 Albumin/Globulin Ratio 1.4 % 05/01/21 15:31 HCG, Qual Negative (Negative) 05/01/21 15:31 Urine Color Straw (Yellow) 05/01/21 16:51 Urine Turbidity Clear (Clear) 05/01/21 16:51 Urine pH 5.0 (5.0-7.0) 05/01/21 16:51 Ur Specific [place] 1.025 (1.003-1.030) 05/01/21 16:51 Urine Protein <15 mg/dl mg/dL (Negative) 05/01/21 16:51 Urine Glucose (UA) >=500 mg/dL (Negative) 05/01/21 16:51 Urine Ketones 20 mg/dL (Negative) 05/01/21 16:51 Urine Blood Lg (Negative) 05/01/21 16:51 Urine Nitrite Neg (Negative) 05/01/21 16:51 Urine Bilirubin Neg (Negative) 05/01/21 16:51 Urine Urobilinogen < 2.0 mg/dL (<2.0) 05/01/21 16:51 Ur Leukocyte Esterase Neg (Negative) 05/01/21 16:51 Urine WBC (Auto) 10.0 /HPF (0.0-6.0) H 05/01/21 16:51 Urine RBC (Auto) 5.0 /HPF (0.0-6.0) 05/01/21 16:51 U Epithel Cells (Auto) 1.0 /HPF (0-13.0) 05/01/21 16:51 - Imaging and Cardiology Chest x-ray: report reviewed Imaging and Cardiology: Chest x-ray No acute findings Assessment and Plan Assessment and plan: The high probability OF a clinically significant sudden or life-threatening deterioration of the cardiorespiratory system and endocrine system required my full and direct attention, intervention and postoperative management. The aggregate critical care time was 32 minutes. The time is in addition to time spent performing reported procedures but includes the followin: Data review and interpretation 2: Patient assessment and monitoring of vital signs 3: Documentation 4:: Medication orders and management Advance Directives: Yes (Full code) VTE prophylaxis?: Chemical Plan of care discussed with patient/family: Yes - Patient Problems (1) Acute respiratory failure with hypoxia Current Visit: Yes Status: Acute Plan to address problem: Patient on 3 L of nasal cannula oxygen No infiltrates on the x-ray Possibly secondary to mild DKA (2) DKA (diabetic ketoacidoses) Current Visit: Yes Status: Acute Qualifiers: Diabetes mellitus type: type 1 Plan to address problem: Treat DKA with IV insulin followed by frequent Accu-Cheks Admission to ICU (3) Person under investigation for COVID-19 Current Visit: Yes Status: Acute Plan to address problem: Coronavirus PCR in AM (4) Metabolic acidosis Current Visit: Yes Status: Acute Plan to address problem: Mild (5) UTI (urinary tract infection) Current Visit: Yes Status: Acute Qualifiers: Urinary tract infection type: acute cystitis Plan to address problem: On IV ceftriaxone (6) Hypertension Current Visit: Yes Status: Chronic Qualifiers: Hypertension type: primary hypertension Qualified Code(s): I10 - Essential (primary) hypertension Plan to address problem: Continue antihypertensives (7) Polycythemia due to fall in plasma volume Current Visit: Yes Status: Acute Plan to address problem: IV fluids for now (8) Hyponatremia Current Visit: Yes Status: Acute Plan to address problem: Pseudohyponatremia secondary to high blood glucose levels Should correct with correction of blood glucose levels (9) DVT prophylaxis Current Visit: Yes Status: Acute Plan to address problem: On heparin GI prophylaxis
[2021-05-02 07:27] LABS: Basophils % (Auto) 0.2 % (0.0-1.8); Hemoglobin 16.5 gm/dl (10.1-14.3); Lymphocytes # (Auto) 1.4 K/mm3 (1.2-5.4); Lymphocytes % (Auto) 23.5 % (13.4-35.0); Mean Corpuscular HGB Conc 34 % (30-34); Mean Corpuscular Volume 90 fl (79-97); Monocytes # (Auto) 0.2 K/mm3 (0.0-0.8); Monocytes % (Auto) 3.1 % (0.0-7.3); Platelet Count 191 K/mm3 (140-440); Red Blood Count 5.45 M/mm3 (3.65-5.03); Red Cell Distribution Width 13.6 % (13.2-15.2)
[2021-05-02] MEDS ORDERED: ALBUTEROL 8.5 GM MDI INHALATION IH PRN (07:28)
[2021-05-02] MEDS ORDERED: ONDANSETRON 4 MG ODT TAB PO PRN ×2 (07:28→08:00)
[2021-05-02 07:49] LABS: Alanine Aminotransferase 21 units/L (7-56); Albumin 4.4 g/dL (3.9-5); BUN/Creatinine Ratio 13; Blood Urea Nitrogen 17 mg/dL (7-17); Calcium 8.4 mg/dL (8.4-10.2); Hemolysis Index 17
[2021-05-02] MEDS ORDERED: BUTALB/ACETAMINOPHEN/CAFFEINE TAB PO PRN (08:00)
[2021-05-02] MEDS ORDERED: INSULIN REGULAR, HUMAN 100 UNITS/1 ML IV ONE (08:44)
[2021-05-02] MEDS: SUCRALFATE 1 GM TAB PO SCH ×4 (08:47→22:29)
[2021-05-02] MEDS: METOCLOPRAMIDE 10 MG TAB PO SCH ×3 (08:47→21:02)
[2021-05-02] MEDS ORDERED: DEXTROSE 50% IN WATER (25GM) 50 ML SYRINGE IV PRN (08:48)
[2021-05-02] MEDS ORDERED: INSULIN REGULAR, HUMAN 100 UNITS/1 ML SUB-Q ONE (08:54)
[2021-05-02] MEDS: levETIRAcetam 500 MG TAB PO SCH ×2 (09:41→21:53)
[2021-05-02] MEDS: FAMOTIDINE 20 MG TAB PO SCH ×2 (09:41→21:54)
[2021-05-02] MEDS: GABAPENTIN 300 MG CAP PO SCH ×2 (09:41→21:53)
[2021-05-02] MEDS: LISINOPRIL 5 MG TAB PO SCH (09:41)
[2021-05-02] MEDS: ENOXAPARIN 40 MG/0.4 ML INJ SUB-Q SCH (09:42)
[2021-05-02] MEDS: DICYCLOMINE 10 MG/5 ML ORAL LIQD PO SCH ×4 (09:42→21:54)
[2021-05-02] MEDS: INSULIN LISPRO 100 UNIT/ML SUB-Q SCH ×4 (09:43→22:05)
[2021-05-02] MEDS: cefTRIAXone/NS 2 GM/100 ML 2 GM/100 ML BAG IV SCH (11:11)
[2021-05-02] MEDS: LISDEXAMFETAMINE DIMESYLATE 40 MG PO SCH (11:20)
--- NOTE | 2021-05-02 11:49 | Consultation ---
History of Present Illness - History of Present Illness 21-year-old female with history of diabetes, hypertension, asthma, obesity adm itted secondary to 4-day history of sore throat, headache, cough, generalized malaise and shortness of breath. Patient tested negative for COVID-19 on 04/28/2021. Patient did not receive COVID-19 vaccine. Vital signs admission are normal. Patient is not hypoxic, currently on room air. Chest x-ray without any infiltrates. Review of Systems: reviewed ED and H&P notes. Review of system deferred to minimize COVID-19 transmission. Medications and Allergies Allergies Allergy/AdvReac Type Severity Reaction Status Date / Time No Known Allergies Allergy Verified 01/12/21 15:37 Home Medications Medication Instructions Recorded Confirmed Last Taken Type levETIRAcetam [Keppra TAB] 500 mg PO BID #60 tablet 06/09/17 02/20/20 02/20/20 07:00 Rx Lisdexamfetamine Dimesylate 40 mg PO DAILY 02/07/20 02/20/20 02/20/20 07:00 History [Vyvanse] lisinopriL [Zestril TAB] 5 mg PO DAILY 02/07/20 02/20/20 02/20/20 07:00 History Albuterol Sulfate [Proventil Hfa] 2 puff IH PRN PRN 02/11/20 02/20/20 12/18/19 08:00 History Gabapentin 300 mg PO BID #4 capsule 02/20/20 Unknown Rx Dicyclomine [Bentyl] 20 mg PO Q6H PRN #20 tablet 08/21/20 Unknown Rx Famotidine [Pepcid] 20 mg PO BID #30 tablet 08/21/20 Unknown Rx Insulin Glargine [Lantus VIAL] 40 units SUB-Q QHS #10 ml 12/01/20 Unknown Rx Insulin Regular, Human [HumuLIN R] 0 unit SQ AC #1 vial 12/01/20 Unknown Rx Blood Sugar Diagnostic [Freestyle 1 each MC QID #100 strip 12/21/20 Unknown Rx Lite Test Strip] Butalb/Acetamin/Caff 50-325-40 1 - 2 tab PO Q6HR PRN #15 tab 12/21/20 Unknown Rx [Fioricet 50-325-40] Ondansetron [Zofran ODT TAB] 4 mg PO Q6HR PRN #12 tab.rapdis 12/21/20 Unknown Rx Famotidine [Pepcid] 40 mg PO QHS #14 tablet 01/08/21 Unknown Rx Ondansetron [Zofran Odt] 4 mg PO Q8HR PRN #12 tab.rapdis 01/08/21 Unknown Rx Sucralfate [Carafate] 1 gm PO ACHS 7 Days #21 tablet 01/08/21 Unknown Rx Dicyclomine [Bentyl] 20 mg PO QID #30 bottle 01/12/21 Unknown Rx Metoclopramide [Reglan] 10 mg PO TID #30 tab 01/12/21 Unknown Rx Sulfamethoxazole/Trimethoprim 1 each PO BID 5 Days tablet 01/12/21 Unknown Rx [Bactrim DS TAB] Active Meds: Active Medications Acetaminophen (Acetaminophen 325 Mg Tab) 650 mg PO Q4H PRN PRN Reason: Pain MILD(1-3)/Fever >100.5/[place] Last Admin: 05/02/21 08:46 Dose: 650 mg Documented by: Acetaminophen/Butalbital/Caffeine (Butalb/Acetaminophen/Caffeine Tab) 1 tab PO Q6HR PRN PRN Reason: Headache Albuterol (Albuterol 8.5 Gm Mdi Inhalation) 2 puff IH PRN PRN PRN Reason: Shortness Of Breath Dexamethasone (Dexamethasone 4 Mg/Ml Vial) 8 mg IV Q24H [facility] Last Admin: 05/01/21 21:49 Dose: 8 mg Documented by: Dextrose (Dextrose 50% In Water (25gm) 50 Ml Syringe) 50 ml IV Q30MIN PRN; Protocol PRN Reason: Hypoglycemia Dicyclomine HCl (Dicyclomine 10 Mg/5 Ml Oral Liqd) 20 mg PO QID [facility] Last Admin: 05/02/21 09:42 Dose: 20 mg Documented by: Enoxaparin Sodium (Enoxaparin 40 Mg/0.4 Ml Inj) 40 mg SUB-Q QDAY [facility] Last Admin: 05/02/21 09:42 Dose: 40 mg Documented by: Famotidine (Famotidine 20 Mg Tab) 20 mg PO BID [facility] Last Admin: 05/02/21 09:41 Dose: 20 mg Documented by: Gabapentin (Gabapentin 300 Mg Cap) 300 mg PO BID [facility] Last Admin: 05/02/21 09:41 Dose: 300 mg Documented by: Hydromorphone HCl (Hydromorphone 1 Mg/1 Ml Inj) 0.5 mg IV Q3H PRN PRN Reason: Pain , Severe (7-10) Azithromycin (Zithromax/Ns) 500 mg in 250 mls @ 250 mls/hr IV Q24H [facility] Last Admin: 05/01/21 21:52 Dose: 250 mls/hr Documented by: Ceftriaxone Sodium (Rocephin/Ns 2 Gm/100 Ml) 2 gm in 100 mls @ 200 mls/hr IV Q24HR [facility]; Protocol Last Admin: 05/02/21 11:11 Dose: 200 mls/hr Documented by: Insulin Glargine (Insulin Glargine 100 Units/Ml) 40 units SUB-Q QHS [facility] Insulin Human Lispro (Insulin Lispro 100 Unit/Ml) 0 unit SUB-Q Q4HR [facility]; Protocol Last Admin: 05/02/21 09:43 Dose: 10 unit Documented by: Levetiracetam (Levetiracetam 500 Mg Tab) 500 mg PO BID [facility] Last Admin: 05/02/21 09:41 Dose: 500 mg Documented by: Lisinopril (Lisinopril 5 Mg Tab) 5 mg PO DAILY [facility] Last Admin: 05/02/21 09:41 Dose: 5 mg Documented by: Metoclopramide HCl (Metoclopramide 10 Mg Tab) 10 mg PO TID [facility] Last Admin: 05/02/21 08:47 Dose: 10 mg Documented by: Miscellaneous Medication (Lisdexamfetamine Dimesylate [Vyvanse]) 40 mg PO DAILY [facility] Last Admin: 05/02/21 11:20 Dose: Not Given Documented by: Ondansetron HCl (Ondansetron 4 Mg Odt Tab) 4 mg PO Q8HR PRN PRN Reason: nausea/vomiting Oxycodone/Acetaminophen (Oxycodone /Acetaminophen 5-325mg Tab) 1 tab PO Q6H PRN PRN Reason: Pain, Moderate (4-6) Sodium Chloride (Sodium Chloride 0.9% 10 Ml Flush Syringe) 10 ml IV BID [facility] Last Admin: 05/02/21 09:44 Dose: 10 ml Documented by: Sodium Chloride (Sodium Chloride 0.9% 10 Ml Flush Syringe) 10 ml IV PRN PRN PRN Reason: LINE FLUSH Sucralfate (Sucralfate 1 Gm Tab) 1 gm PO ACHS [facility] Last Admin: 05/02/21 08:47 Dose: 1 gm Documented by: Physical Examination - Physical Exam Narrative exam: Physical exam deferred to minimize COVID-19 transmission during pandemic. ER and internal medicine physical examination notes reviewed. - Constitutional Vitals: Vital Signs Temp Pulse Resp BP Pulse Ox 98.3 F 90 19 127/81 99 05/01/21 18:45 05/02/21 09:41 05/02/21 08:01 05/02/21 09:41 05/02/21 08:01 Temperature -Last 24 Hours Temperature 98.3 F Temperature 97.5 F Results - Labs CBC & Chem 7: 05/02/21 06:32 05/02/21 06:32 Labs: Abnormal lab results 05/01/21 05/01/21 05/01/21 Range/Units 15:31 15:31 16:51 RBC 5.84 H (3.65-5.03) M/mm3 Hgb 17.5 H (10.1-14.3) gm/dl Hct 51.3 H (30.3-42.9) % [place] % (Auto) 9.9 H (0.0-7.3) % Seg Neutrophils % (40.0-70.0) % VBG pH (7.320-7.420) Sodium 132 L (137-145) mmol/L Potassium (3.6-5.0) mmol/L Chloride 93.4 L (98-107) mmol/L Carbon Dioxide 16 L (22-30) mmol/L Creatinine (0.6-1.2) mg/dL Glucose 459 H (65-100) mg/dL POC Glucose (70-105) mg/dL Ferritin (10.0-200.0) ng/mL Alkaline Phosphatase 134 H (35-129) units/L Lactate Dehydrogenase (91-180) units/L C-Reactive Protein (0.00-1.30) mg/dL Urine WBC (Auto) 10.0 H (0.0-6.0) /HPF 05/01/21 05/01/21 05/01/21 Range/Units 18:19 18:55 18:55 RBC (3.65-5.03) M/mm3 Hgb (10.1-14.3) gm/dl Hct (30.3-42.9) % [place] % (Auto) (0.0-7.3) % Seg Neutrophils % (40.0-70.0) % VBG pH 7.310 L (7.320-7.420) Sodium (137-145) mmol/L Potassium (3.6-5.0) mmol/L Chloride (98-107) mmol/L Carbon Dioxide (22-30) mmol/L Creatinine (0.6-1.2) mg/dL Glucose 204 H (65-100) mg/dL POC Glucose (70-105) mg/dL Ferritin 265.6 H (10.0-200.0) ng/mL Alkaline Phosphatase (35-129) units/L Lactate Dehydrogenase 1573 H (91-180) units/L C-Reactive Protein 1.90 H (0.00-1.30) mg/dL Urine WBC (Auto) (0.0-6.0) /HPF 05/01/21 05/01/21 05/02/21 Range/Units 19:30 21:27 06:32 RBC 5.45 H (3.65-5.03) M/mm3 Hgb 16.5 H (10.1-14.3) gm/dl Hct 49.0 H (30.3-42.9) % [place] % (Auto) (0.0-7.3) % Seg Neutrophils % 73.2 H (40.0-70.0) % VBG pH (7.320-7.420) Sodium (137-145) mmol/L Potassium (3.6-5.0) mmol/L Chloride (98-107) mmol/L Carbon Dioxide (22-30) mmol/L Creatinine (0.6-1.2) mg/dL Glucose (65-100) mg/dL POC Glucose 358 H 235 H (70-105) mg/dL Ferritin (10.0-200.0) ng/mL Alkaline Phosphatase (35-129) units/L Lactate Dehydrogenase (91-180) units/L C-Reactive Protein (0.00-1.30) mg/dL Urine WBC (Auto) (0.0-6.0) /HPF 05/02/21 05/02/21 Range/Units 06:32 08:51 RBC (3.65-5.03) M/mm3 Hgb (10.1-14.3) gm/dl Hct (30.3-42.9) % [place] % (Auto) (0.0-7.3) % Seg Neutrophils % (40.0-70.0) % VBG pH (7.320-7.420) Sodium 136 L (137-145) mmol/L Potassium 5.7 H D (3.6-5.0) mmol/L Chloride (98-107) mmol/L Carbon Dioxide 12 L (22-30) mmol/L Creatinine 1.3 H (0.6-1.2) mg/dL Glucose 435 H (65-100) mg/dL POC Glucose 394 H (70-105) mg/dL Ferritin (10.0-200.0) ng/mL Alkaline Phosphatase (35-129) units/L Lactate Dehydrogenase (91-180) units/L C-Reactive Protein (0.00-1.30) mg/dL Urine WBC (Auto) (0.0-6.0) /HPF Assessment and Plan Cultures: Urine culture pending SARS CoV2 PCR pending Assessment: 21-year-old female with history of diabetes, hypertension, asthma, obesity admitted secondary to 4-day history of sore throat, headache, cough, generalized malaise and shortness of breath: #Presumed COVID-19 infection: Chest x-ray with no infiltrates. Patient with clinical symptoms of COVID-19, unvaccinated. Patient is not hypoxic. Currently on room air. CRP and ferritin mildly elevated. Procalcitonin is low. Patient tested negative for COVID-19 on 04/28/2021. #Mild UTI #Diabetes mellitus: Poorly controlled. Recommendations: -Follow-up SARS-CoV-2 PCR results -No indication for dexamethasone or remdesivir as patient is not hypoxic -Monitor inflammatory markers - ferritin, Ddimer, CRP, LDH -Continue anticoagulation per System Protocol -Continue ceftriaxone total 3 days for UTI -Follow-up urine culture -If patient becomes hypoxic okay to start dexamethasone and remdesivir -Tight glycemic control All laboratory, cultures and imaging were reviewed. Will follow Danielle Leyva MD Infectious Diseases [employer] In[employer] [facility] M [phone]
--- NOTE | 2021-05-02 19:53 | Progress Note ---
Assessment and Plan The high probability OF a clinically significant sudden or life-threatening deterioration of the cardiorespiratory system and endocrine system required my full and direct attention, intervention and postoperative management. The aggregate critical care time was 32 minutes. The time is in addition to time spent performing reported procedures but includes the followin: Data review and interpretation 2: Patient assessment and monitoring of vital signs 3: Documentation 4:: Medication orders and management - Patient Problems (1) Acute respiratory failure with hypoxia Current Visit: Yes Status: Acute Plan to address problem: Patient on 3 L of nasal cannula oxygen No infiltrates on the x-ray Possibly secondary to mild DKA (2) DKA (diabetic ketoacidoses) Current Visit: Yes Status: Acute Qualifiers: Diabetes mellitus type: type 1 Plan to address problem: Treat DKA with IV insulin followed by frequent Accu-Cheks Admission to ICU (3) Person under investigation for COVID-19 Current Visit: Yes Status: Acute Plan to address problem: Coronavirus PCR in AM (4) Metabolic acidosis Current Visit: Yes Status: Acute Plan to address problem: Mild (5) UTI (urinary tract infection) Current Visit: Yes Status: Acute Qualifiers: Urinary tract infection type: acute cystitis Plan to address problem: On IV ceftriaxone (6) Hypertension Current Visit: Yes Status: Chronic Qualifiers: Hypertension type: primary hypertension Qualified Code(s): I10 - Essential (primary) hypertension Plan to address problem: Continue antihypertensives (7) Polycythemia due to fall in plasma volume Current Visit: Yes Status: Acute Plan to address problem: IV fluids for now (8) Hyponatremia Current Visit: Yes Status: Acute Plan to address problem: Pseudohyponatremia secondary to high blood glucose levels Should correct with correction of blood glucose levels (9) DVT prophylaxis Current Visit: Yes Status: Acute Plan to address problem: On heparin GI prophylaxis Subjective Date of service: 05/02/21 Objective - Constitutional Vitals: Vital Signs - 12hr 05/02/21 05/02/21 05/02/21 08:01 09:01 09:41 Pulse Rate 81 80 90 Respiratory 19 17 Rate Blood Pressure 127/83 127/81 127/81 O2 Sat by Pulse 99 99 Oximetry 05/02/21 05/02/21 05/02/21 10:01 12:01 13:01 Pulse Rate 85 98 H 85 Respiratory 17 17 17 Rate Blood Pressure 145/87 150/97 125/87 O2 Sat by Pulse 100 100 100 Oximetry 05/02/21 05/02/21 14:01 15:01 Pulse Rate 89 87 Respiratory 13 20 Rate Blood Pressure 134/89 127/83 O2 Sat by Pulse 100 99 Oximetry - Labs CBC & Chem 7: 05/02/21 06:32 05/02/21 06:32 Labs: Abnormal lab results 05/01/21 05/01/21 05/01/21 Range/Units 10:47 18:55 18:55 RBC (3.65-5.03) M/mm3 Hgb (10.1-14.3) gm/dl Hct (30.3-42.9) % Seg Neutrophils % (40.0-70.0) % Sodium (137-145) mmol/L Potassium (3.6-5.0) mmol/L Carbon Dioxide (22-30) mmol/L Creatinine (0.6-1.2) mg/dL Glucose 204 H (65-100) mg/dL POC Glucose (70-105) mg/dL Ferritin 265.6 H (10.0-200.0) ng/mL Lactate Dehydrogenase 1573 H (91-180) units/L C-Reactive Protein 1.90 H (0.00-1.30) mg/dL Coronavirus (PCR) Positive A (Negative) 05/01/21 05/02/21 05/02/21 Range/Units 21:27 06:32 06:32 RBC 5.45 H (3.65-5.03) M/mm3 Hgb 16.5 H (10.1-14.3) gm/dl Hct 49.0 H (30.3-42.9) % Seg Neutrophils % 73.2 H (40.0-70.0) % Sodium 136 L (137-145) mmol/L Potassium 5.7 H D (3.6-5.0) mmol/L Carbon Dioxide 12 L (22-30) mmol/L Creatinine 1.3 H (0.6-1.2) mg/dL Glucose 435 H (65-100) mg/dL POC Glucose 235 H (70-105) mg/dL Ferritin (10.0-200.0) ng/mL Lactate Dehydrogenase (91-180) units/L C-Reactive Protein (0.00-1.30) mg/dL Coronavirus (PCR) (Negative) 05/02/21 05/02/21 05/02/21 Range/Units 08:51 15:18 17:45 RBC (3.65-5.03) M/mm3 Hgb (10.1-14.3) gm/dl Hct (30.3-42.9) % Seg Neutrophils % (40.0-70.0) % Sodium (137-145) mmol/L Potassium (3.6-5.0) mmol/L Carbon Dioxide (22-30) mmol/L Creatinine (0.6-1.2) mg/dL Glucose (65-100) mg/dL POC Glucose 394 H 258 H 256 H (70-105) mg/dL Ferritin (10.0-200.0) ng/mL Lactate Dehydrogenase (91-180) units/L C-Reactive Protein (0.00-1.30) mg/dL Coronavirus (PCR) (Negative)
[2021-05-02] MEDS ORDERED: CALCIUM GLUCONATE 2,000 MG in SODIUM CHLORIDE 0.9% 100 ML IV ONE (20:30)
[2021-05-02] MEDS: dexAMETHasone 4 MG/ML VIAL IV SCH (21:55)
[2021-05-02] MEDS: INSULIN GLARGINE 100 UNITS/ML SUB-Q SCH (22:00)
[2021-05-03] MEDS: INSULIN LISPRO 100 UNIT/ML SUB-Q SCH ×5 (01:53→23:38)
[2021-05-03 06:42] LABS: Alanine Aminotransferase 18 units/L (7-56); Albumin 4.5 g/dL (3.9-5); BUN/Creatinine Ratio 16; Blood Urea Nitrogen 14 mg/dL (7-17); Calcium 9.7 mg/dL (8.4-10.2); Hemolysis Index 91
[2021-05-03] MEDS: FAMOTIDINE 20 MG TAB PO SCH ×3 (08:14→23:40)
[2021-05-03] MEDS: METOCLOPRAMIDE 10 MG TAB PO SCH ×2 (08:20→21:22)
[2021-05-03] MEDS: GABAPENTIN 300 MG CAP PO SCH ×2 (10:33→23:40)
[2021-05-03] MEDS: levETIRAcetam 500 MG TAB PO SCH ×2 (10:34→23:40)
[2021-05-03] MEDS: DICYCLOMINE 10 MG/5 ML ORAL LIQD PO SCH ×4 (10:34→23:41)
[2021-05-03] MEDS: cefTRIAXone/NS 2 GM/100 ML 2 GM/100 ML BAG IV SCH (12:41)
[2021-05-03] MEDS: LISINOPRIL 5 MG TAB PO SCH (12:57)
[2021-05-03] MEDS: ENOXAPARIN 40 MG/0.4 ML INJ SUB-Q SCH (13:43)
[2021-05-03] MEDS: SUCRALFATE 1 GM TAB PO SCH ×3 (13:58→23:40)
[2021-05-03] MEDS: LISDEXAMFETAMINE DIMESYLATE 40 MG PO SCH (15:45)
--- NOTE | 2021-05-03 16:12 | Progress Note ---
Assessment and Plan Cultures: COVID-19 PCR: Positive 05/01/2021 urine culture: mixed growth A/P: 21-year-old female with history of diabetes, hypertension, asthma, obesity admitted secondary to 4-day history of sore throat, headache, cough, generalized malaise and shortness of breath: #COVID-19 infection: Chest x-ray with no infiltrates. Patient with clinical symptoms of COVID-19, unvaccinated. Patient is not hypoxic. Currently on room air. CRP and ferritin mildly elevated. Procalcitonin is low. Patient tested negative for COVID-19 on 04/28/2021. #Diabetes mellitus: Poorly controlled. Recommendations: -Ceftriaxone discontinued -no indication for steroids/remdesivir at this time due to lack of hypoxia -If patient becomes hypoxic can start dexamethasone and remdesivir -discharge planning, ambulatory sats Will sign off. Please call with questions. Manjit Culp MD, FACP [facility] O: [phone] F: [phone] Subjective Date of service: 05/03/21 Interval history: Afebrile. Per chart review, does not appear patient has been requiring oxygen. Objective - Exam Narrative Exam: Physical Exam (reviewed in chart to minimize risk of transmission) Constitutional: deferred Head, Ears, Nose: deferred Eyes: deferred Neck: deferred Oral: deferred Cardiovascular: deferred Respiratory: deferred GI: deferred Musculoskeletal: deferred Skin: deferred Hem/Lymphatic: deferred Psych: deferred Neurological: deferred - Constitutional Vitals: Vital Signs Temp Pulse Resp BP Pulse Ox 98.1 F 102 H 20 134/78 97 05/02/21 22:10 05/03/21 12:57 05/03/21 05:31 05/03/21 12:57 05/03/21 05:31 Temperature -Last 24 Hours Temperature 98.1 F - Labs CBC & Chem 7: 05/02/21 06:32 05/03/21 06:03 Labs: Abnormal lab results 05/02/21 05/02/21 05/03/21 Range/Units 17:45 21:45 01:14 Sodium (137-145) mmol/L Potassium (3.6-5.0) mmol/L Carbon Dioxide (22-30) mmol/L Glucose (65-100) mg/dL POC Glucose 256 H 237 H 233 H (70-105) mg/dL 05/03/21 05/03/21 Range/Units 05:35 06:03 Sodium 134 L (137-145) mmol/L Potassium 5.6 H (3.6-5.0) mmol/L Carbon Dioxide 16 L (22-30) mmol/L Glucose 297 H (65-100) mg/dL POC Glucose 281 H (70-105) mg/dL
[2021-05-03] MEDS ORDERED: MORPHINE 2 MG/1 ML INJ IV ONE (19:32)
[2021-05-03] MEDS: INSULIN GLARGINE 100 UNITS/ML SUB-Q SCH (23:38)
[2021-05-04] MEDS: ACETAMINOPHEN 325 MG TAB PO PRN (00:02)
[2021-05-04] MEDS: INSULIN LISPRO 100 UNIT/ML SUB-Q SCH ×4 (02:43→16:30)
[2021-05-04] MEDS: SUCRALFATE 1 GM TAB PO SCH ×4 (08:24→21:17)
[2021-05-04] MEDS: METOCLOPRAMIDE 10 MG TAB PO SCH ×3 (08:24→21:15)
--- NOTE | 2021-05-04 09:03 | Progress Note ---
Assessment and Plan Assessment and plan: -- Acute respiratory failure with hypoxia Current Visit: Yes Status: Acute Plan to address problem: Patient on 3 L of nasal cannula oxygen No infiltrates on the x-ray Possibly secondary to mild DKA --DKA (diabetic ketoacidoses) Current Visit: Yes Status: Acute Resolved, Lantus 40 units nightly, increase to 44 units nightly A1c 12.7, diabetic education, nutrition education Home health nurse at discharge -- Person under investigation for COVID-19 Current Visit: Yes Status: Acute Coronavirus PCR positive Follow inflammatory markers No hypoxia, no steroid, no remdesivir Check resting room air, 6-minute walk test Prior to discharge -- Metabolic acidosis Current Visit: Yes Status: Acute Mild, gentle hydration --UTI (urinary tract infection) Current Visit: Yes Status: Acute On IV ceftriaxone, follow cultures --Hypertension Current Visit: Yes Status: Chronic Continue antihypertensives --Polycythemia due to fall in plasma volume Current Visit: Yes Status: Acute IV fluids for now -- Hyponatremia Current Visit: Yes Status: Acute Pseudohyponatremia secondary to high blood glucose levels Should correct with correction of blood glucose levels --DVT prophylaxis Current Visit: Yes Status: Acute On heparin GI prophylaxis We will closely monitor the patient and adjust management as needed Plan of care reviewed with the patient and her nurse Possible discharge tomorrow if stable History Interval history: I seen and examined the patient at the bedside Strict isolation precautions, PPE protocols followed per COVID-19 guidelines Patient's chart and medications reviewed Patient is obese in mild distress Vital signs noted Hospitalist Physical - Constitutional Vitals: Temp Pulse Resp BP Pulse Ox 97.9 F 102 H 18 113/64 100 05/04/21 05:50 05/04/21 05:50 05/04/21 05:50 05/04/21 05:50 05/04/21 05:50 General appearance: Present: mild distress, well-nourished, obese - EENT Eyes: Present: PERRL, EOM intact - Neck Neck: Present: supple, normal ROM - Respiratory Respiratory effort: normal Respiratory: bilateral: diminished, rhonchi, negative: rales, wheezing - Cardiovascular Rhythm: regular Heart Sounds: Present: S1 & S2 - Extremities Extremities: no ischemia, No edema - Abdominal General gastrointestinal: soft, non-tender, non-distended, normal bowel sounds - Integumentary Integumentary: Present: clear, warm - Psychiatric Psychiatric: appropriate mood/affect, cooperative - Neurologic Neurologic: CNII-XII intact, moves all extremities Results - Labs CBC & Chem 7: 05/02/21 06:32 05/04/21 11:08 Labs: Laboratory Last Values WBC 6.0 K/mm3 (4.5-11.0) 05/02/21 06:32 RBC 5.45 M/mm3 (3.65-5.03) H 05/02/21 06:32 Hgb 16.5 gm/dl (10.1-14.3) H 05/02/21 06:32 Hct 49.0 % (30.3-42.9) H 05/02/21 06:32 MCV 90 fl (79-97) 05/02/21 06:32 MCH 30 pg (28-32) 05/02/21 06:32 MCHC 34 % (30-34) 05/02/21 06:32 RDW 13.6 % (13.2-15.2) 05/02/21 06:32 Plt Count 191 K/mm3 (140-440) 05/02/21 06:32 Lymph % (Auto) 23.5 % (13.4-35.0) 05/02/21 06:32 [place] % (Auto) 3.1 % (0.0-7.3) 05/02/21 06:32 Eos % (Auto) 0.0 % (0.0-4.3) 05/02/21 06:32 Baso % (Auto) 0.2 % (0.0-1.8) 05/02/21 06:32 Lymph # (Auto) 1.4 K/mm3 (1.2-5.4) 05/02/21 06:32 [place] # (Auto) 0.2 K/mm3 (0.0-0.8) 05/02/21 06:32 Eos # (Auto) 0.0 K/mm3 (0.0-0.4) 05/02/21 06:32 Baso # (Auto) 0.0 K/mm3 (0.0-0.1) 05/02/21 06:32 Seg Neutrophils % 73.2 % (40.0-70.0) H 05/02/21 06:32 Seg Neutrophils # 4.4 K/mm3 (1.8-7.7) 05/02/21 06:32 D-Dimer < 135.00 ng/mlDDU (0-234) 05/01/21 16:52 VBG pH 7.310 (7.320-7.420) L 05/01/21 18:19 Sodium 134 mmol/L (137-145) L 05/03/21 06:03 Potassium 5.6 mmol/L (3.6-5.0) H 05/03/21 06:03 Chloride 99.7 mmol/L (98-107) 05/03/21 06:03 Carbon Dioxide 16 mmol/L (22-30) L 05/03/21 06:03 Anion Gap 24 mmol/L 05/03/21 06:03 BUN 14 mg/dL (7-17) 05/03/21 06:03 Creatinine 0.9 mg/dL (0.6-1.2) 05/03/21 06:03 Estimated GFR > 60 ml/min 05/03/21 06:03 BUN/Creatinine Ratio 16 % 05/03/21 06:03 Glucose 297 mg/dL (65-100) H 05/03/21 06:03 POC Glucose 277 mg/dL (70-105) H 05/04/21 05:48 Calcium 9.7 mg/dL (8.4-10.2) D 05/03/21 06:03 Ferritin 265.6 ng/mL (10.0-200.0) H 05/01/21 18:55 Total Bilirubin 0.30 mg/dL (0.1-1.2) 05/03/21 06:03 AST 21 units/L (5-40) 05/03/21 06:03 ALT 18 units/L (7-56) 05/03/21 06:03 Alkaline Phosphatase 98 units/L (35-129) 05/03/21 06:03 Lactate Dehydrogenase 1573 units/L (91-180) H 05/01/21 18:55 C-Reactive Protein 1.90 mg/dL (0.00-1.30) H 05/01/21 18:55 Total Protein 7.0 g/dL (6.3-8.2) 05/03/21 06:03 Albumin 4.5 g/dL (3.9-5) 05/03/21 06:03 Albumin/Globulin Ratio 1.8 % 05/03/21 06:03 Procalcitonin 0.05 ng/mL (<0.15) 05/01/21 18:55 HCG, Qual Negative (Negative) 05/01/21 15:31 Urine Color Straw (Yellow) 05/01/21 16:51 Urine Turbidity Clear (Clear) 05/01/21 16:51 Urine pH 5.0 (5.0-7.0) 05/01/21 16:51 Ur Specific [place] 1.025 (1.003-1.030) 05/01/21 16:51 Urine Protein <15 mg/dl mg/dL (Negative) 05/01/21 16:51 Urine Glucose (UA) >=500 mg/dL (Negative) 05/01/21 16:51 Urine Ketones 20 mg/dL (Negative) 05/01/21 16:51 Urine Blood Lg (Negative) 05/01/21 16:51 Urine Nitrite Neg (Negative) 05/01/21 16:51 Urine Bilirubin Neg (Negative) 05/01/21 16:51 Urine Urobilinogen < 2.0 mg/dL (<2.0) 05/01/21 16:51 Ur Leukocyte Esterase Neg (Negative) 05/01/21 16:51 Urine WBC (Auto) 10.0 /HPF (0.0-6.0) H 05/01/21 16:51 Urine RBC (Auto) 5.0 /HPF (0.0-6.0) 05/01/21 16:51 U Epithel Cells (Auto) 1.0 /HPF (0-13.0) 05/01/21 16:51 Coronavirus (PCR) Positive (Negative) A 05/01/21 10:47 Microbiology: Microbiology 05/01/21 16:51 Urine,Clean Catch Urine Culture - Final Chavez/IV: Voiding Method Toilet Active Medications - Current Medications Current Medications: Generic Name Dose Route Start Last Admin Trade Name Freq PRN Reason Stop Dose Admin Acetaminophen 650 mg 05/01/21 20:52 05/04/21 00:02 Acetaminophen 325 Mg Tab PO 650 mg Q4H PRN Administration Pain MILD(1-3)/Fever >100.5/[place] Acetaminophen/Butalbital/Caffeine 1 tab 05/02/21 08:00 Butalb/Acetaminophen/Caffeine Tab PO Q6HR PRN Headache Albuterol 2 puff 05/02/21 07:28 Albuterol 8.5 Gm Mdi Inhalation IH PRN PRN Shortness Of Breath Dextrose 50 ml 05/02/21 08:48 Dextrose 50% In Water (25gm) 50 Ml Syringe IV Q30MIN PRN Hypoglycemia Protocol Dicyclomine HCl 20 mg 05/02/21 10:00 05/03/21 23:41 Dicyclomine 10 Mg/5 Ml Oral Liqd PO 20 mg QID DANIEL Administration Enoxaparin Sodium 40 mg 05/01/21 21:00 05/03/21 13:43 Enoxaparin 40 Mg/0.4 Ml Inj SUB-Q 40 mg QDAY DANIEL Administration Famotidine 20 mg 05/01/21 22:00 05/03/21 23:40 Famotidine 20 Mg Tab PO 20 mg BID DANIEL Administration Gabapentin 300 mg 05/02/21 10:00 05/03/21 23:40 Gabapentin 300 Mg Cap PO 300 mg BID DANIEL Administration Hydromorphone HCl 0.5 mg 05/01/21 20:53 Hydromorphone 1 Mg/1 Ml Inj IV Q3H PRN Pain , Severe (7-10) Insulin Glargine 40 units 05/02/21 22:00 05/03/21 23:38 Insulin Glargine 100 Units/Ml SUB-Q 40 units QHS ADNIEL Administration Insulin Human Lispro 0 unit 05/02/21 10:00 05/04/21 06:57 Insulin Lispro 100 Unit/Ml SUB-Q 6 unit Q4HR DANIEL Administration Protocol Levetiracetam 500 mg 05/02/21 10:00 05/03/21 23:40 Levetiracetam 500 Mg Tab PO 500 mg BID DANIEL Administration Lisinopril 5 mg 05/02/21 10:00 05/03/21 12:57 Lisinopril 5 Mg Tab PO Not Given DAILY DANIEL Metoclopramide HCl 10 mg 05/02/21 08:00 05/04/21 08:24 Metoclopramide 10 Mg Tab PO 10 mg TID DANIEL Administration Miscellaneous Medication 40 mg 05/02/21 10:00 05/03/21 15:45 Lisdexamfetamine Dimesylate [Vyvanse] PO Not Given DAILY [facility] Ondansetron HCl 4 mg 05/02/21 08:00 Ondansetron 4 Mg Odt Tab PO Q8HR PRN nausea/vomiting Oxycodone/Acetaminophen 1 tab 05/01/21 20:53 Oxycodone /Acetaminophen 5-325mg Tab PO Q6H PRN Pain, Moderate (4-6) Sodium Chloride 10 ml 05/01/21 22:00 05/03/21 23:42 Sodium Chloride 0.9% 10 Ml Flush Syringe IV 10 ml BID DANIEL Administration Sodium Chloride 10 ml 05/01/21 20:52 Sodium Chloride 0.9% 10 Ml Flush Syringe IV PRN PRN LINE FLUSH Sucralfate 1 gm 05/02/21 08:00 05/04/21 08:24 Sucralfate 1 Gm Tab PO 1 gm ACHS DANIEL Administration Nutrition/Malnutrition Assess - Dietary Evaluation Nutrition/Malnutrition Findings: Nutrition Notes Start: 05/02/21 11:38 Freq: Status: Active Protocol: Document 05/02/21 11:38 LUCI (Rec: 05/02/21 11:40 LUCI [id number]) Nutrition Notes Need for Assessment generated from: MD Order,Education Initial or Follow up Brief Note Subjective/Other Information RD consulted for diet education. Pt received diet education from RD for CHO- controlled diet during previous admission (11/30/20). Pt in ED at this time. Nutrition Intervention Follow-Up By: 05/05/21 Additional Comments F/U: transfer to medical floor , COVID-19 status, need for additional diet education
[2021-05-04 11:45] LABS: BUN/Creatinine Ratio 16; Blood Urea Nitrogen 14 mg/dL (7-17); Calcium 9.2 mg/dL (8.4-10.2); Hemolysis Index 20
[2021-05-04] MEDS: DICYCLOMINE 10 MG/5 ML ORAL LIQD PO SCH (12:27)
[2021-05-04] MEDS: FAMOTIDINE 20 MG TAB PO SCH ×2 (12:29→21:18)
[2021-05-04] MEDS: ENOXAPARIN 40 MG/0.4 ML INJ SUB-Q SCH (12:29)
[2021-05-04] MEDS: levETIRAcetam 500 MG TAB PO SCH ×2 (12:30→21:18)
[2021-05-04] MEDS: GABAPENTIN 300 MG CAP PO SCH ×2 (12:30→21:17)
[2021-05-04] MEDS: LISINOPRIL 5 MG TAB PO SCH (12:30)
[2021-05-04] MEDS: DICYCLOMINE 20 MG TAB PO SCH ×3 (17:45→21:16)
[2021-05-04] MEDS: POTASSIUM CHLORIDE ER 20 MEQ TAB PO SCH ×2 (17:50→21:15)
[2021-05-04] MEDS ORDERED: INSULIN GLARGINE 100 UNITS/ML SUB-Q SCH (22:00)
[2021-05-05] MEDS: INSULIN LISPRO 100 UNIT/ML SUB-Q SCH ×3 (00:09→12:31)
[2021-05-05 05:44] VITALS: BP 111/45
[2021-05-05] MEDS: METOCLOPRAMIDE 10 MG TAB PO SCH ×2 (08:41→15:27)
[2021-05-05] MEDS: SUCRALFATE 1 GM TAB PO SCH ×2 (08:41→12:34)
--- NOTE | 2021-05-05 09:41 | Discharge Summary ---
Providers - Providers Date of Admission: 05/01/21 20:33 Date of discharge: 05/05/21 Attending physician: IONA WHITFIELD 05/01/21 20:53 Consult to Physician [CONS] Routine Comment: Consulting Provider: ED YOUNG Physician Instructions: Reason For Exam: Covid Primary care physician: STENCIL CUTTER Hospitalization Reason for admission: Shortness of breath/PUI/later positive for COVID-19 Condition: Fair Pertinent studies: Chest x-ray; no acute abnormality [place] PCR test; positive COVID-19 Hospital course: 21-year-old obese -[place]onegas[place] female with multiple medical problems including diabetes, hypertension and asthma comes in for cold-like symptoms and shortness of breath, headache and body aches and mild sore throat a few days duration, patient reports her COVID-19 test was negative recently Patient was unvaccinated, wanted to be tested for Covid, admitted placed in isolation [place] PCR test was positive, patient was managed appropriately per COVID-19 protocols and guidelines, ID evaluated the patient medications optimized Patient was also noted to have diabetic ketoacidosis with very high blood sugars, initiated DKA pathway blood pressure sugars brought to reasonable control Patient symptoms significantly improved, patient is saturating room air oxygen, no hypoxia no home O2 requirements Today patient is comfortable no new complaints vital signs stable physical examination prior to discharge no new changes and stable Stable at discharge Advised to follow primary care physician, ID per schedule Patient received diabetic education nutrition education CM has set up home health services -- Acute respiratory failure with hypoxia Current Visit: Yes Status: Acute Plan to address problem: Patient on 3 L of nasal cannula oxygen No infiltrates on the x-ray Possibly secondary to mild DKA --DKA (diabetic ketoacidoses) Current Visit: Yes Status: Acute Resolved, Lantus 40 units nightly, increase to 44 units nightly A1c 12.7, diabetic education, nutrition education Home health nurse at discharge --Positive COVID-19 infection Current Visit: Yes Status: Acute Coronavirus PCR positive Follow inflammatory markers No hypoxia, no steroid, no remdesivir Check resting room air, 6-minute walk test Prior to discharge -- Metabolic acidosis Current Visit: Yes Status: Acute Mild, gentle hydration --UTI (urinary tract infection) Current Visit: Yes Status: Acute On IV ceftriaxone, follow cultures --Hypertension Current Visit: Yes Status: Chronic Continue antihypertensives --Dehydration Current Visit: Yes Status: Acute Resolved received IV fluids -- Hyponatremia Current Visit: Yes Status: Acute Pseudohyponatremia secondary to high blood glucose levels Should correct with correction of blood glucose levels. Need weight reduction and medically stable. --obesity; BMI 35.4 Cleared by consultants, stable at discharge Disposition: 06 HOME HEALTH CARE SERVICE Final Discharge Diagnosis (Prints w/discharge instructions): Diabetic ketoacidosis/resolved. Type 2 diabetes mellitus. Acute hypoxic respiratory failure/improved. Positive COVID-19 test. Metabolic acidosis. Possible UTI. Hypertension. dehydration/resolved. Hyponatremia; improved Time spent for discharge: 35 min Core Measure Documentation - Palliative Care Palliative Care/ Comfort Measures: Not Applicable - Core Measures Any of the following diagnoses?: none Exam - Constitutional Vitals: Temp Pulse Resp BP Pulse Ox 99.0 F 101 H 20 111/45 100 05/05/21 05:31 05/05/21 05:31 05/05/21 05:31 05/05/21 05:31 05/05/21 05:31 General appearance: Present: no acute distress, well-nourished, obese - EENT Eyes: Present: PERRL, EOM intact - Neck Neck: Present: supple, normal ROM - Respiratory Respiratory effort: normal Respiratory: bilateral: diminished, rales, negative: rhonchi, wheezing - Cardiovascular Rhythm: regular Heart Sounds: Present: S1 & S2 - Extremities Extremities: no ischemia, No edema - Abdominal General gastrointestinal: Present: soft, non-tender, non-distended, normal bowel sounds - Integumentary Integumentary: Present: clear, warm - Musculoskeletal Musculoskeletal: strength equal bilaterally, generalized weakness - Psychiatric Psychiatric: appropriate mood/affect, cooperative - Neurologic Neurologic: CNII-XII intact, moves all extremities Plan Activity: no restrictions, advance as tolerated, fall precautions Diet: diabetic Additional Instructions: Strictly follow COVID-19 isolation precautions /PPE protocols /masking /safe social distancing /prone positioning per COVID-19 guidelines as instructed by discharge nurse. advised diet modification, Lifestyle changes. Exercises as tolerated and weight reduction when you are medically stable. Adjust insulin depending on your blood sugars. Avoid hypoglycemia[low blood sugars]. If you have worsening symptoms contact MD or go to the nearest emergency room as needed Follow up with: PRIMARY CARE,MD [Primary Care Provider] - 3-5 Days Prescriptions: RX: Dicyclomine [Bentyl] 20 mg PO Q6H PRN #20 tablet PRN Reason: Abdominal pain RX: Sucralfate [Carafate] 1 gm PO ACHS 7 Days #21 tablet RX: Butalb/Acetamin/Caff 50-325-40 [Fioricet 50-325-40] 1 - 2 tab PO Q6HR PRN #15 tab PRN Reason: Headache RX: Blood Sugar Diagnostic [Freestyle Lite Test Strip] 1 each MC QID #100 strip RX: Gabapentin 300 mg PO BID #20 capsule RX: Insulin Regular, Human [HumuLIN R] 0 unit SQ AC #1 vial RX: levETIRAcetam [Keppra TAB] 500 mg PO BID #60 tablet RX: Insulin Glargine [Lantus VIAL] 44 units SUB-Q QHS #2 vial RX: Famotidine [Pepcid] 20 mg PO BID #30 tablet RX: Albuterol Mdi (or & Nicu Only) [ProAir HFA Inhaler] 2 puff IH QID PRN #1 inha PRN Reason: Shortness Of Breath RX: lisinopriL [Zestril TAB] 5 mg PO DAILY #30 RX: Ondansetron [Zofran ODT TAB] 4 mg PO Q8HR PRN #12 tab.rapdis PRN Reason: nausea/vomiting
[2021-05-05] MEDS: ENOXAPARIN 40 MG/0.4 ML INJ SUB-Q SCH (10:26)
[2021-05-05] MEDS: GABAPENTIN 300 MG CAP PO SCH (10:26)
[2021-05-05] MEDS: DICYCLOMINE 20 MG TAB PO SCH ×2 (10:27→15:29)
[2021-05-05] MEDS: FAMOTIDINE 20 MG TAB PO SCH (10:27)
[2021-05-05] MEDS: levETIRAcetam 500 MG TAB PO SCH (10:27)
[2021-05-05] MEDS: LISINOPRIL 5 MG TAB PO SCH (10:27)
== END 2021-05-05 16:07 | disposition home health service (06) | DRG 177 ==
LOC: ED 13:38 → 3A 20:33
PROVIDERS: ADMIT Internal Medicine; ATTEND Internal Medicine
DX: U07.1 COVID-19 (principal); E11.10 Type 2 diabetes mellitus with ketoacidosis without coma; J96.01 Acute respiratory failure with hypoxia; I10 Essential (primary) hypertension; E87.1 Hypo-osmolality and hyponatremia; D75.1 Secondary polycythemia; E66.9 Obesity, unspecified; Z68.35 Body mass index [BMI] 35.0-35.9, adult; J45.909 Unspecified asthma, uncomplicated; Z79.4 Long term (current) use of insulin; Z79.899 Other long term (current) drug therapy; K21.9 Gastro-esophageal reflux disease without esophagitis; Z90.49 Acquired absence of other specified parts of digestive tract; N30.00 Acute cystitis without hematuria; E86.0 Dehydration
CPT/HCPCS: 36415; 71046; 80048; 80053; 81001; 82728; 82805; 82947; 82962; 83615; 84145; 84703; 85025; 85379; 86140; 87086; G0378; J0456; J0610; J0696; J1100; J1650; J1815; J7030; U0003

== ENCOUNTER 2021-06-04 08:25 | Emergency (ER) | payer MEDICAID ==
[2021-06-04] MEDS ORDERED: SODIUM CHLORIDE 0.9% 1000 ML 1,000 ML IV ONE (09:32)
[2021-06-04] MEDS ORDERED: ONDANSETRON 4 MG/2 ML INJ IV ONE (09:32)
--- NOTE | 2021-06-04 09:43 | Event Note ---
ED Screening Note Date of service: 06/04/21 Time: 09:33 ED Screening Note: 21-year-old -Malian female presents to the emergency room complaining of nausea and vomiting last this morning. She complains of a headache since Monday has been taking Tylenol with no relief. She is not vaccinated. She reports she had Covid last month. She also complains of right lower quadrant pain. She is a diabetic insulin blood sugars been running in the mid 200s. Her primary care provider is Dr. Tanisha Jewell. Last menstrual period was 05/28/2021. She is 0. General appears to be uncomfortable Lungs clear to auscultation Cardiac tachycardic Abdomen soft right lower quadrant tenderness This initial assessment/diagnostic orders/clinical plan/treatment(s) is/are subject to change based on patients health status, clinical progression and re- assessment by fellow clinical providers in the ED. Further treatment and workup at subsequent clinical providers discretion. Patient/guardian urged not to elope from the ED as their condition may be serious if not clinically assessed and managed. Initial orders include: CBC CMP urinalysis urine test and lipase.
[2021-06-04 10:41] LABS: Basophils % (Auto) 0.4 % (0.0-1.8); Eosinophils % (Auto) 0.4 % (0.0-4.3); Hematocrit 45.8 % (30.3-42.9); Hemoglobin 15.2 gm/dl (10.1-14.3); Lymphocytes % (Auto) 23.2 % (13.4-35.0); Mean Corpuscular HGB Conc 33 % (30-34); Mean Corpuscular Volume 89 fl (79-97); Monocytes # (Auto) 0.6 K/mm3 (0.0-0.8); Monocytes % (Auto) 6.5 % (0.0-7.3); Platelet Count 294 K/mm3 (140-440); Red Blood Count 5.13 M/mm3 (3.65-5.03); Red Cell Distribution Width 14.1 % (13.2-15.2)
[2021-06-04] MEDS ORDERED: KETOROLAC 30 MG/1 ML INJ IV ONE (10:45)
[2021-06-04] MEDS ORDERED: ACETAMINOPHEN 500 MG TAB PO ONE (10:45)
--- NOTE | 2021-06-04 10:45 | Emergency Department Report ---
ED Headache HPI - General Chief Complaint: Nausea/Vomiting/Diarrhea Stated Complaint: SEVERE HEADACHE/VOMITING Time Seen by Provider: 06/04/21 10:14 - History of Present Illness Initial Comments: Chief complaint: "I have a migraine headache. I have had stomach pain for like forever." History: This is a 21-year-old female with history of insulin-dependent diabetes, migraine headache, ADHD, CKD who presents with migraine headache since Monday. She has moderately severe pounding bitemporal headache with photophobia. She denies visual disturbance. She denies fever or neck pain. She has migraine headaches every few months. Her PCP Dr. Castro diagnosed with her migraine headaches in December. Patient has had chronic abdominal pain for several years. She recently was evaluated in outpatient setting by GI specialist. GI specialist has ordered CT of the abdomen pelvis. She has not obtained the study yet. She states she has pain near her "appendix" in the right lower quadrant. She does not have a diagnosis for her chronic abdominal pain. Patient did not present for evaluation of abdominal pain. She realized that she had pain after physical exam by provider in triage. Pain of right lower quadrant only present with palpation. No radiation. Mild sharp in nature. I have reviewed electronic medical record patient has had 2 CT scans of the abdomen pelvis this year in December and November. She also had another study CT scan abdomen pelvis August 2020. She has had [address] scans of the abdomen pelv is within the past 9 months. Medications Vyvanse 40 mg once a day Trileptal 600 mg twice a day Insulin Metformin 500 mg Amitriptyline 25 mg Timing/Duration: other (3 days of headache) Quality: moderate Head Injury Location: temporal (Bitemporal) Recent Head Trauma: occasional headaches Modifying Factors: improves with: exposure to light Associated Symptoms: other (Nausea) Allergies/Adverse Reactions: Allergies No Known Allergies Allergy (Verified 05/02/21 12:51) Home Medications: Ambulatory Orders Lisdexamfetamine Dimesylate [Vyvanse] 40 mg PO DAILY 02/07/20 Albuterol Mdi (or & Nicu Only) [ProAir HFA Inhaler] 2 puff IH QID PRN #1 inha 05/05/21 Blood Sugar Diagnostic [Freestyle Lite Test Strip] 1 each MC QID #100 strip 08/18/21 Butalb/Acetamin/Caff 50-325-40 [Fioricet 50-325-40] 1 - 2 tab PO Q6HR PRN #15 tab 05/05/21 Dicyclomine [Bentyl] 20 mg PO Q6H PRN #20 tablet 05/05/21 Famotidine [Pepcid] 20 mg PO BID #30 tablet 05/05/21 Gabapentin 300 mg PO BID #20 capsule 05/05/21 Insulin Glargine [Lantus VIAL] 44 units SUB-Q QHS #2 vial 05/05/21 Insulin Regular, Human [HumuLIN R] 0 unit SQ AC #1 vial 05/05/21 Ondansetron [Zofran ODT TAB] 4 mg PO Q8HR PRN #12 tab.rapdis 05/05/21 Sucralfate [Carafate] 1 gm PO ACHS 7 Days #21 tablet 05/05/21 levETIRAcetam [Keppra TAB] 500 mg PO BID #60 tablet 05/05/21 lisinopriL [Zestril TAB] 5 mg PO DAILY #30 05/05/21 Ondansetron [Zofran Odt] 4 mg PO Q8HR PRN #20 tab.rapdis 06/04/21 ED Review of Systems ROS: Stated complaint: SEVERE HEADACHE/VOMITING Other details as noted in HPI Comment: All other systems reviewed and negative Constitutional: denies: chills, fever, malaise ENT: denies: ear pain Respiratory: denies: cough, shortness of breath Cardiovascular: denies: chest pain Endocrine: denies: excessive sweating, flushing Gastrointestinal: abdominal pain, nausea. denies: diarrhea Neurological: headache. denies: weakness, numbness, paresthesias, confusion, abnormal gait, vertigo ED Past Medical Hx - Past Medical History Previous Medical History?: Yes Hx Hypertension: Yes Hx Heart Attack/AMI: No Hx Diabetes: Yes Hx GERD: Yes Hx Liver Disease: No Hx Renal Disease: Yes (no dialysis) Hx Sickle Cell Disease: No Hx Seizures: Yes Hx Asthma: Yes Hx COPD: No Hx Tuberculosis: No Hx HIV: No - Surgical History Past Surgical History?: Yes Hx Cholecystectomy: Yes - Family History Family history: diabetes, hypertension - Social History Smoking Status: Never Smoker Substance Use Type: None Other Social History: Patient is currently employed at [employer], she lives with her brother and mother - Medications Home Medications: Home Medications Medication Instructions Recorded Confirmed Last Taken Type Lisdexamfetamine Dimesylate 40 mg PO DAILY 02/07/20 02/20/20 02/20/20 07:00 History [Mauricio] Albuterol Mdi (or & Nicu Only) 2 puff IH QID PRN #1 inha 05/05/21 Unknown Rx [ProAir HFA Inhaler] Blood Sugar Diagnostic [Freestyle 1 each MC QID #100 strip 05/05/21 Unknown Rx Lite Test Strip] Butalb/Acetamin/Caff 50-325-40 1 - 2 tab PO Q6HR PRN #15 tab 05/05/21 Unknown Rx [Fioricet 50-325-40] Dicyclomine [Bentyl] 20 mg PO Q6H PRN #20 tablet 05/05/21 Unknown Rx Famotidine [Pepcid] 20 mg PO BID #30 tablet 05/05/21 Unknown Rx Gabapentin 300 mg PO BID #20 capsule 05/05/21 Unknown Rx Insulin Glargine [Lantus VIAL] 44 units SUB-Q QHS #2 vial 05/05/21 Unknown Rx Insulin Regular, Human [HumuLIN R] 0 unit SQ AC #1 vial 05/05/21 Unknown Rx Ondansetron [Zofran ODT TAB] 4 mg PO Q8HR PRN #12 tab.rapdis 05/05/21 Unknown Rx Sucralfate [Carafate] 1 gm PO ACHS 7 Days #21 tablet 05/05/21 Unknown Rx levETIRAcetam [Keppra TAB] 500 mg PO BID #60 tablet 05/05/21 Unknown Rx lisinopriL [Zestril TAB] 5 mg PO DAILY #30 05/05/21 Unknown Rx Ondansetron [Zofran Odt] 4 mg PO Q8HR PRN #20 tab.rapdis 06/04/21 Unknown Rx ED Physical Exam - General Limitations: No Limitations General appearance: alert, in no apparent distress, other (Well-appearing, comfortable, smiling, talkative) - Head Head exam: Present: atraumatic, normocephalic - Eye Eye exam: Present: normal appearance - ENT ENT exam: Present: mucous membranes moist - Neck Neck exam: Present: normal inspection, full ROM. Absent: tenderness, meningismus - Respiratory Respiratory exam: Present: normal lung sounds bilaterally. Absent: respiratory distress, wheezes, rales, rhonchi, stridor - Cardiovascular Cardiovascular Exam: Present: regular rate, normal rhythm, normal heart sounds. Absent: systolic murmur, diastolic murmur, rubs, gallop - GI/Abdominal GI/Abdominal exam: Present: soft, normal bowel sounds - Extremities Exam Extremities exam: Present: normal inspection - Neurological Exam Neurological exam: Present: alert, oriented X3 - Psychiatric Psychiatric exam: Present: normal affect, normal mood - Skin Skin exam: Present: warm, dry, intact, normal color. Absent: rash ED Course Vital Signs 06/04/21 06/04/21 08:28 10:48 Temperature 97.4 F L Pulse Rate 109 H Respiratory 16 Rate Blood Pressure 141/92 [Left] O2 Sat by Pulse 98 96 Oximetry ED Medical Decision Making - Lab Data Result diagrams: 06/04/21 10:00 06/04/21 10:00 - Radiology Data Radiology results: report reviewed Patient Name: LYNN CHANDLER Gender: Female Date of : 2000 Referring Provider: JAYSON HENRY Organization: [facility] Accession Number: [id number] Requested Date: June 04, 2021 : Report Status: Final Requested Procedure: 1 Procedure Description: CT abdomen pelvis w con Modality: CT Findings Reporting MD: Sebastian Harris Dictation Time: June 04, 2021 11:53 Human Resources Technician: Not available [employer] Date: CT OF THE ABDOMEN AND PELVIS WITH INTRAVENOUS CONTRAST INDICATION / CLINICAL INFORMATION: Right lower quadrant pain and tenderness. TECHNIQUE: The patient received 100 cc Omnipaque [address] scans at this location are performed using CT dose reduction for ALARA by means of automated exposure control. COMPARISON: 01/12/21. FINDINGS: ABDOMEN: The gallbladder is surgically absent. The liver, spleen, bile ducts, pancreas, adrenal glands, kidneys and bowel demonstrate no significant abnormality. No adenopathy is present. The lung bases are clear. PELVIS: The distal ureters and urinary bladder are normal. There is a 2 cm simple follicular cyst in the left ovary. The uterus and right ovary are normal. No free fluid is present. A normal appendix is seen and there is no evidence of diverticulitis. I do not identify a hernia. No acute osseous abnormality is present. IMPRESSION: No acute abnormality is identified. There is no CT evidence of acute appendicitis. Signer Name: Sebastian Harris MD Signed: 06/04/2021 11:53 AM Workstation Name: [id number] - Medical Decision Making 1. Recurrent migraine headache: Headache is typical for patient, no indication of meningitis or intracranial hemorrhage. No visual disturbance or neurological symptoms/deficit to suggest pseudotumor cerebri. Will defer to PCP management. Migraine headache diagnosed [address] Green 2. Patient received relief with IV fluid normal saline bolus IV ketorolac IV Zofran p.o. Tylenol No red flags such as sudden onset, atypical nature, fever, neurological symptoms. 2. Chronic abdominal pain: Differential diagnosis include inflammatory bowel disease, IBS, diabetic gastroparesis. Patient understands the harm of o verexposure radiation with CT imaging. CT abdomen pelvis ordered today with the findings of right lower quadrant producible tenderness. CT abdomen pelvis ruled out appendicitis or acute inflammatory obstructive process. 3. Acute hyperglycemia due to diabetes mellitus: Patient received normal saline to address migraine headache. And relative volume deficit. Recommended compliance with insulin therapy at home. Critical care attestation.: If time is entered above; I have spent that time in minutes in the direct care of this critically ill patient, excluding procedure time. ED Disposition Clinical Impression: Hyperglycemia due to type 2 diabetes mellitus, Migraine headache, Recurrent abdominal pain Disposition: 01 HOME / SELF CARE / HOMELESS Is pt being admited?: No Does the pt Need Aspirin: No Condition: Stable Instructions: Diabetes Mellitus Type 2 in Adults (ED), Recurrent Migraine Head ache, [id number], Abdominal Pain, Adult, Insulin Treatment for Diabetes Mellitus Prescriptions: Ondansetron [Zofran Odt] 4 mg PO Q8HR PRN #20 tab.rapdis PRN Reason: Nausea Referrals: LONDON RODRIGUEZ MD [Staff Physician] - 3-5 Days
[2021-06-04 10:59] LABS: Alanine Aminotransferase 14 units/L (7-56); Albumin 4.2 g/dL (3.9-5); BUN/Creatinine Ratio 16; Blood Urea Nitrogen 14 mg/dL (7-17); Calcium 10.4 mg/dL (8.4-10.2); Hemolysis Index 104
[2021-06-04 11:25] LABS: Bilirubin,Urine NEG (Negative); Blood,Urine NEG (Negative); Color,Urine Straw (Yellow); Protein,Urine <15 mg/dL mg/dL (Negative); Urobilinogen,Urine < 2.0 mg/dL (<2.0)
--- NOTE | 2021-06-04 12:57 | Cat Scan Report ---
CT OF THE ABDOMEN AND PELVIS WITH INTRAVENOUS CONTRAST INDICATION / CLINICAL INFORMATION: Right lower quadrant pain and tenderness. TECHNIQUE: The patient received 100 cc Omnipaque [address] scans at this location are performed using CT dose reduction for ALARA by means of automated exposure control. COMPARISON: 01/12/21. FINDINGS: ABDOMEN: The gallbladder is surgically absent. The liver, spleen, bile ducts, pancreas, adrenal gland s, kidneys and bowel demonstrate no significant abnormality. No adenopathy is present. The lung bases are clear. PELVIS: The distal ureters and urinary bladder are normal. There is a 2 cm simple follicular cyst in the left ovary. The uterus and right ovary are normal. No free fluid is present. A normal appendix is seen and there is no evidence of diverticulitis. I do not identify a hernia. No acute osseous abnorm ality is present. IMPRESSION: No acute abnormality is identified. There is no CT evidence of acute appendicitis. Signer Name: Sebastian Harris MD Signed: 06/04/2021 12:53 PM Workstation Name: [id number]
[2021-06-04 15:09] VITALS: BP 133/82
== END 2021-06-04 15:09 | disposition home or self-care (01) ==
LOC: ED 08:25
DX: G43.909 Migraine, unspecified, not intractable, without status migrainosus (principal); R10.9 Unspecified abdominal pain; I12.9 Hypertensive chronic kidney disease with stage 1 through stage 4 chronic kidney disease, or unspecified chronic kidney disease; E11.22 Type 2 diabetes mellitus with diabetic chronic kidney disease; N18.9 Chronic kidney disease, unspecified; E11.65 Type 2 diabetes mellitus with hyperglycemia; J45.909 Unspecified asthma, uncomplicated
CPT/HCPCS: 36415; 74177; 80053; 81001; 82140; 83690; 84702; 85025; 96361; 96374; 96375; 99284; J1885; J2405; J7030; Q9967

== ENCOUNTER 2021-06-17 07:54 | Emergency (ER) | payer MEDICAID ==
[2021-06-17 08:01] VITALS: BP 139/88
--- NOTE | 2021-06-17 08:33 | Emergency Department Report ---
- General Stated Complaint: SORE THROAT, CHEST PAIN Time Seen by Provider: 06/17/21 08:06 - History of Present Illness Initial Comments: Patient presents with a 3 to 4-day history of sore throat with cough. She has not noticed any aggravating or alleviating factors. She states that she has pain all the time. She has pain when she breathes. She has pain when she swallows. There has been no fever. She has no chills. She has had no significant cough. Patient denies any recent sick contact or illness. She has not been around anyone with coronavirus or with strep throat. She has also had a substernal chest pain for the last couple of days. This is a sharp and stabbing pain in the sternal area. It is worse when she takes a deep breath. It does not radiate or migrate. Ultimately, she decided to come here because she was not feeling well. There has been no pain or swelling in the legs. Has no joint trouble. She has had no abdominal pain or vomiting. - Related Data Home Medications Medication Instructions Recorded Confirmed Last Taken Lisdexamfetamine Dimesylate 40 mg PO DAILY 02/07/20 02/20/20 02/20/20 07:00 [Vyvanse] Previous Rx's Medication Instructions Recorded Last Taken Type Albuterol Mdi (or & Nicu Only) 2 puff IH QID PRN #1 inha 05/05/21 Unknown Rx [ProAir HFA Inhaler] Blood Sugar Diagnostic [Freestyle 1 each MC QID #100 strip 05/05/21 Unknown Rx Lite Test Strip] Butalb/Acetamin/Caff 50-325-40 1 - 2 tab PO Q6HR PRN #15 tab 05/05/21 Unknown Rx [Fioricet 50-325-40] Dicyclomine [Bentyl] 20 mg PO Q6H PRN #20 tablet 05/05/21 Unknown Rx Famotidine [Pepcid] 20 mg PO BID #30 tablet 05/05/21 Unknown Rx Gabapentin 300 mg PO BID #20 capsule 05/05/21 Unknown Rx Insulin Glargine [Lantus VIAL] 44 units SUB-Q QHS #2 vial 05/05/21 Unknown Rx Insulin Regular, Human [HumuLIN R] 0 unit SQ AC #1 vial 05/05/21 Unknown Rx Ondansetron [Zofran ODT TAB] 4 mg PO Q8HR PRN #12 tab.rapdis 05/05/21 Unknown Rx Sucralfate [Carafate] 1 gm PO ACHS 7 Days #21 tablet 05/05/21 Unknown Rx levETIRAcetam [Keppra TAB] 500 mg PO BID #60 tablet 05/05/21 Unknown Rx lisinopriL [Zestril TAB] 5 mg PO DAILY #30 05/05/21 Unknown Rx Ondansetron [Zofran Odt] 4 mg PO Q8HR PRN #20 tab.rapdis 06/04/21 Unknown Rx Ibuprofen [Motrin] 600 mg PO Q8H PRN #30 tablet 06/17/21 Unknown Rx Allergies Allergy/AdvReac Type Severity Reaction Status Date / Time No Known Allergies Allergy Verified 05/02/21 12:51 ED Review of Systems ROS: Stated complaint: SORE THROAT, CHEST PAIN Other details as noted in HPI Comment: All other systems reviewed and negative Constitutional: denies: fever Eyes: denies: eye pain ENT: as per HPI Respiratory: denies: cough Cardiovascular: as per HPI Endocrine: denies: unexplained weight loss Gastrointestinal: denies: abdominal pain Genitourinary: denies: dysuria Musculoskeletal: denies: back pain Skin: denies: rash Neurological: denies: headache Hematological/Lymphatic: denies: easy bruising ED Past Medical Hx - Past Medical History Previous Medical History?: No Hx Hypertension: Yes Hx Heart Attack/AMI: No Hx Diabetes: Yes Hx GERD: Yes Hx Liver Disease: No Hx Renal Disease: Yes (no dialysis) Hx Sickle Cell Disease: No Hx Seizures: Yes Hx Asthma: Yes Hx COPD: No Hx Tuberculosis: No Hx HIV: No - Surgical History Past Surgical History?: Yes Hx Cholecystectomy: Yes - Family History Family history: hypertension - Social History Smoking Status: Never Smoker Substance Use Type: None - Medications Home Medications: Home Medications Medication Instructions Recorded Confirmed Last Taken Type Lisdexamfetamine Dimesylate 40 mg PO DAILY 02/07/20 02/20/20 02/20/20 07:00 History [Vyvanse] Albuterol Mdi (or & Nicu Only) 2 puff IH QID PRN #1 inha 05/05/21 Unknown Rx [ProAir HFA Inhaler] Blood Sugar Diagnostic [Freestyle 1 each MC QID #100 strip 05/05/21 Unknown Rx Lite Test Strip] Butalb/Acetamin/Caff 50-325-40 1 - 2 tab PO Q6HR PRN #15 tab 05/05/21 Unknown Rx [Fioricet 50-325-40] Dicyclomine [Bentyl] 20 mg PO Q6H PRN #20 tablet 05/05/21 Unknown Rx Famotidine [Pepcid] 20 mg PO BID #30 tablet 05/05/21 Unknown Rx Gabapentin 300 mg PO BID #20 capsule 05/05/21 Unknown Rx Insulin Glargine [Lantus VIAL] 44 units SUB-Q QHS #2 vial 05/05/21 Unknown Rx Insulin Regular, Human [HumuLIN R] 0 unit SQ AC #1 vial 05/05/21 Unknown Rx Ondansetron [Zofran ODT TAB] 4 mg PO Q8HR PRN #12 tab.rapdis 05/05/21 Unknown Rx Sucralfate [Carafate] 1 gm PO ACHS 7 Days #21 tablet 05/05/21 Unknown Rx levETIRAcetam [Keppra TAB] 500 mg PO BID #60 tablet 05/05/21 Unknown Rx lisinopriL [Zestril TAB] 5 mg PO DAILY #30 05/05/21 Unknown Rx Ondansetron [Zofran Odt] 4 mg PO Q8HR PRN #20 tab.rapdis 06/04/21 Unknown Rx Ibuprofen [Motrin] 600 mg PO Q8H PRN #30 tablet 06/17/21 Unknown Rx ED Physical Exam - General Limitations: No Limitations, Other (Pulse ox was noted and normal. She is not toxic.) General appearance: alert, in no apparent distress - Head Head exam: Present: atraumatic, normocephalic, normal inspection - Eye Eye exam: Present: normal appearance, EOMI. Absent: scleral icterus - ENT ENT exam: Present: normal exam, normal orophraynx, mucous membranes moist, normal external ear exam - Neck Neck exam: Present: normal inspection. Absent: meningismus - Respiratory Respiratory exam: Present: normal lung sounds bilaterally. Absent: respiratory distress - Cardiovascular Cardiovascular Exam: Present: regular rate, normal rhythm - GI/Abdominal GI/Abdominal exam: Present: soft. Absent: tenderness - Extremities Exam Extremities exam: Present: normal capillary refill. Absent: calf tenderness - Back Exam Back exam: Absent: CVA tenderness (R), CVA tenderness (L) - Neurological Exam Neurological exam: Present: alert, oriented X3, normal gait, reflexes normal. Absent: motor sensory deficit - Psychiatric Psychiatric exam: Present: normal affect, normal mood - Skin Skin exam: Present: warm, dry ED Course Vital Signs 06/17/21 07:59 Temperature 98.1 F Pulse Rate 96 H Respiratory 16 Rate Blood Pressure 139/88 [Right] O2 Sat by Pulse 98 Oximetry - Reevaluation(s) Reevaluation #1: 06/17/21 08:33 EKG and x-ray have been ordered. Reevaluation #2: 06/17/21 08:54 EKG have been reviewed. X-ray was reviewed. Patient was discharged. ED Medical Decision Making - Radiology Data Radiology results: image reviewed interpreted by me: Patient has no evidence of pneumonia or pneumothorax. There is a normal-sized cardiac silhouette. There is no subcutaneous emphysema noted. There is no pneumothorax. - Medical Decision Making Patient presented with upper respiratory symptoms and chest pain. She does not have evidence of pneumonia or pneumothorax. She has no wide mediastinum that would suggest aortic dissection. I certainly do not believe this is PE based on her presentation. This seems to be more infectious and pleurisy in nature. She was treated symptomatically. She certainly could have coronavirus, but does not have radiographic findings suggestive of COVID-19 infection. Critical Care Time: No Critical care attestation.: If time is entered above; I have spent that time in minutes in the direct care of this critically ill patient, excluding procedure time. ED Disposition Clinical Impression: Acute URI, Pleurisy, Viral pharyngitis Disposition: HOME / SELF CARE / HOMELESS Is pt being admited?: No Condition: Stable Instructions: Upper Respiratory Infection, Adult, Seec-ic-Fgls, Pleurisy, Cool Mist Vaporizer, Sore Throat Additional Instructions: Alternate Tylenol and ibuprofen for fever. Push fluids. Return for problems. Use salt water gargles at home. Follow-up with your regular doctor for recheck and further management. Prescriptions: Ibuprofen [Motrin] 600 mg PO Q8H PRN #30 tablet PRN Reason: Pain Referrals: PRIMARY CARE, [Referring] - 3-5 Days CM GARCIA MD [Staff Physician] - 3-5 Days
--- NOTE | 2021-06-17 09:03 | XRay Report ---
CHEST 2 VIEWS INDICATION: pain. COMPARISON: 05/01/2021 FINDINGS: Support devices: None. Heart: Within normal limits. Lungs/pleura: No acute air space or interstitial disease. No pneumothorax. Additional findings: None. IMPRESSION: No acute findings. Signer Name: Gonzalez Burch Jr, MD Signed: 06/17/2021 8:58 AM Workstation Name: [id number]
--- NOTE | 2021-06-21 14:29 | Electrocardiograph Report ---
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
== END 2021-06-17 10:10 | disposition home or self-care (01) ==
LOC: ED 07:54
DX: J06.9 Acute upper respiratory infection, unspecified (principal); R09.1 Pleurisy; J02.8 Acute pharyngitis due to other specified organisms; I12.9 Hypertensive chronic kidney disease with stage 1 through stage 4 chronic kidney disease, or unspecified chronic kidney disease; E11.22 Type 2 diabetes mellitus with diabetic chronic kidney disease; N18.9 Chronic kidney disease, unspecified; R56.9 Unspecified convulsions; K21.9 Gastro-esophageal reflux disease without esophagitis; J45.909 Unspecified asthma, uncomplicated; Z98.890 Other specified postprocedural states
CPT/HCPCS: 71046; 93005; 99283

== ENCOUNTER 2021-06-20 17:31 | Emergency (ER) | payer MEDICAID ==
--- NOTE | 2021-06-20 18:43 | Emergency Department Report ---
ED General Adult HPI - General Chief complaint: Chest Pain Stated complaint: CHEST PAIN/ABD PAIN Time Seen by Provider: 06/20/21 18:39 Source: patient Mode of arrival: Ambulatory Limitations: No Limitations - History of Present Illness Initial comments: Patient is 21 years old female type 1 diabetes, hypertension and asthma. Patient presented to the ER complaining of diffuse abdominal pain, chest pain, nausea for the last few days. Patient stated that she is not feeling well. Patient denied any fever or chills. She stated that she tested negative for COVID-19 last week. Patient stated that she did not receive COVID-19 vaccine. Severity scale (0 -10): 9 - Related Data Home Medications Medication Instructions Recorded Confirmed Last Taken Lisdexamfetamine Dimesylate 40 mg PO DAILY 02/07/20 02/20/20 02/20/20 07:00 [Vyvanse] Previous Rx's Medication Instructions Recorded Last Taken Type Albuterol Mdi (or & Nicu Only) 2 puff IH QID PRN #1 inha 05/05/21 Unknown Rx [ProAir HFA Inhaler] Blood Sugar Diagnostic [Freestyle 1 each MC QID #100 strip 05/05/21 Unknown Rx Lite Test Strip] Butalb/Acetamin/Caff 50-325-40 1 - 2 tab PO Q6HR PRN #15 tab 05/05/21 Unknown Rx [Fioricet 50-325-40] Dicyclomine [Bentyl] 20 mg PO Q6H PRN #20 tablet 05/05/21 Unknown Rx Famotidine [Pepcid] 20 mg PO BID #30 tablet 05/05/21 Unknown Rx Gabapentin 300 mg PO BID #20 capsule 05/05/21 Unknown Rx Insulin Glargine [Lantus VIAL] 44 units SUB-Q QHS #2 vial 05/05/21 Unknown Rx Insulin Regular, Human [HumuLIN R] 0 unit SQ AC #1 vial 05/05/21 Unknown Rx Ondansetron [Zofran ODT TAB] 4 mg PO Q8HR PRN #12 tab.rapdis 05/05/21 Unknown Rx Sucralfate [Carafate] 1 gm PO ACHS 7 Days #21 tablet 05/05/21 Unknown Rx levETIRAcetam [Keppra TAB] 500 mg PO BID #60 tablet 05/05/21 Unknown Rx lisinopriL [Zestril TAB] 5 mg PO DAILY #30 05/05/21 Unknown Rx Ondansetron [Zofran Odt] 4 mg PO Q8HR PRN #20 tab.rapdis 06/04/21 Unknown Rx Ibuprofen [Motrin] 600 mg PO Q8H PRN #30 tablet 06/17/21 Unknown Rx Allergies Allergy/AdvReac Type Severity Reaction Status Date / Time No Known Allergies Allergy Verified 05/02/21 12:51 ED Review of Systems ROS: Stated complaint: CHEST PAIN/ABD PAIN Other details as noted in HPI Comment: All other systems reviewed and negative Constitutional: denies: chills, fever Respiratory: denies: cough, shortness of breath, SOB with exertion Cardiovascular: chest pain. denies: palpitations Gastrointestinal: abdominal pain, nausea. denies: vomiting, diarrhea Musculoskeletal: denies: back pain Neurological: denies: headache, weakness, numbness, paresthesias, confusion, abnormal gait ED Past Medical Hx - Past Medical History Previous Medical History?: Yes Hx Hypertension: Yes Hx Heart Attack/AMI: No Hx Diabetes: Yes Hx GERD: Yes Hx Liver Disease: No Hx Renal Disease: Yes (no dialysis) Hx Sickle Cell Disease: No Hx Seizures: Yes Hx Asthma: Yes Hx COPD: No Hx Tuberculosis: No Hx HIV: No - Surgical History Past Surgical History?: Yes Hx Cholecystectomy: Yes - Social History Smoking Status: Never Smoker Substance Use Type: None - Medications Home Medications: Home Medications Medication Instructions Recorded Confirmed Last Taken Type Lisdexamfetamine Dimesylate 40 mg PO DAILY 02/07/20 02/20/20 02/20/20 07:00 History [Vyvanse] Albuterol Mdi (or & Nicu Only) 2 puff IH QID PRN #1 inha 05/05/21 Unknown Rx [ProAir HFA Inhaler] Blood Sugar Diagnostic [Freestyle 1 each MC QID #100 strip 05/05/21 Unknown Rx Lite Test Strip] Butalb/Acetamin/Caff 50-325-40 1 - 2 tab PO Q6HR PRN #15 tab 05/05/21 Unknown Rx [Fioricet 50-325-40] Dicyclomine [Bentyl] 20 mg PO Q6H PRN #20 tablet 05/05/21 Unknown Rx Famotidine [Pepcid] 20 mg PO BID #30 tablet 05/05/21 Unknown Rx Gabapentin 300 mg PO BID #20 capsule 05/05/21 Unknown Rx Insulin Glargine [Lantus VIAL] 44 units SUB-Q QHS #2 vial 05/05/21 Unknown Rx Insulin Regular, Human [HumuLIN R] 0 unit SQ AC #1 vial 05/05/21 Unknown Rx Ondansetron [Zofran ODT TAB] 4 mg PO Q8HR PRN #12 tab.rapdis 05/05/21 Unknown R x Sucralfate [Carafate] 1 gm PO ACHS 7 Days #21 tablet 05/05/21 Unknown Rx levETIRAcetam [Keppra TAB] 500 mg PO BID #60 tablet 05/05/21 Unknown Rx lisinopriL [Zestril TAB] 5 mg PO DAILY #30 05/05/21 Unknown Rx Ondansetron [Zofran Odt] 4 mg PO Q8HR PRN #20 tab.rapdis 06/04/21 Unknown Rx Ibuprofen [Motrin] 600 mg PO Q8H PRN #30 tablet 06/17/21 Unknown Rx ED Physical Exam - General Limitations: No Limitations General appearance: alert, in no apparent distress - Head Head exam: Present: atraumatic, normocephalic, normal inspection - Eye Eye exam: Present: normal appearance, PERRL - ENT ENT exam: Present: normal exam - Neck Neck exam: Present: normal inspection, full ROM. Absent: tenderness, meningismus - Respiratory Respiratory exam: Present: normal lung sounds bilaterally - Cardiovascular Cardiovascular Exam: Present: regular rate, normal rhythm, normal heart sounds - GI/Abdominal GI/Abdominal exam: Present: soft, normal bowel sounds. Absent: distended, tenderness, guarding, rebound, rigid, organomegaly, mass, bruit, pulsatile mass, hernia - Extremities Exam Extremities exam: Present: normal inspection, full ROM, normal capillary refill. Absent: tenderness, pedal edema, joint swelling, calf tenderness - Back Exam Back exam: Present: normal inspection, full ROM. Absent: CVA tenderness (R), CVA tenderness (L), muscle spasm, paraspinal tenderness, vertebral tenderness - Neurological Exam Neurological exam: Present: alert, oriented X3, CN II-XII intact, normal gait, reflexes normal. Absent: motor sensory deficit - Psychiatric Psychiatric exam: Present: normal mood - Skin Skin exam: Present: warm, dry, intact, normal color ED Course Vital Signs 06/20/21 18:26 Temperature 98.2 F Pulse Rate 91 H Respiratory 18 Rate Blood Pressure 139/94 [Right] O2 Sat by Pulse 100 Oximetry ED Medical Decision Making - Lab Data Result diagrams: 06/20/21 18:45 06/20/21 18:45 - EKG Data -: EKG Interpreted by Me EKG shows normal: sinus rhythm Rate: normal - EKG Data Interpretation: no acute changes - Medical Decision Making Patient is 21 years old female type 1 diabetes, hypertension and asthma. Patient presented to the ER complaining of diffuse abdominal pain, chest pain, nausea for the last few days. Patient stated that she is not feeling well. Patient denied any fever or chills. She stated that she tested negative for COVID-19 last week. Patient stated that she did not receive COVID-19 vaccine. Patient remained stable in the ER with stable vital signs. Labs reviewed and is unremarkable except for significantly elevated blood glucose of 479. Patient received normal saline and insulin. Repeated blood glucose is 238. Patient advised to follow-up with her primary care physician in the next 2 to 3 days and to return to the ER if she develop any new symptoms. Critical care attestation.: If time is entered above; I have spent that time in minutes in the direct care of this critically ill patient, excluding procedure time. ED Disposition Clinical Impression: Acute hyperglycemia, Nausea & vomiting Disposition: 01 HOME / SELF CARE / HOMELESS Is pt being admited?: No Condition: Stable Instructions: Hyperglycemia, [id number], Nausea and Vomiting, Adult, [id number] Referrals: PRIMARY CARE, [Referring] - 3-5 Days
[2021-06-20 19:20] LABS: Basophils # (Auto) 0.1 K/mm3 (0.0-0.1); Basophils % (Auto) 0.9 % (0.0-1.8); Eosinophils # (Auto) 0.1 K/mm3 (0.0-0.4); Eosinophils % (Auto) 0.6 % (0.0-4.3); Hematocrit 45.2 % (30.3-42.9); Hemoglobin 15.2 gm/dl (10.1-14.3); Lymphocytes # (Auto) 2.4 K/mm3 (1.2-5.4); Lymphocytes % (Auto) 24.5 % (13.4-35.0); Mean Corpuscular HGB Conc 34 % (30-34); Mean Corpuscular Volume 90 fl (79-97); Monocytes # (Auto) 0.7 K/mm3 (0.0-0.8); Monocytes % (Auto) 6.9 % (0.0-7.3); Platelet Count 272 K/mm3 (140-440); Red Blood Count 5.04 M/mm3 (3.65-5.03); Red Cell Distribution Width 13.4 % (13.2-15.2)
[2021-06-20 19:26] LABS: Alanine Aminotransferase 13 units/L (7-56); Albumin 4.4 g/dL (3.9-5); BUN/Creatinine Ratio 10; Blood Urea Nitrogen 9 mg/dL (7-17); Calcium 9.3 mg/dL (8.4-10.2); Hemolysis Index 71
[2021-06-20 19:27] LABS: Bilirubin,Urine NEG (Negative); Blood,Urine SM (Negative); Color,Urine Colorless (Yellow); Mucus,Urine FEW /HPF; Protein,Urine <15 mg/dL mg/dL (Negative); Urobilinogen,Urine < 2.0 mg/dL (<2.0)
[2021-06-20 19:28] LABS: Bilirubin,Direct < 0.2 mg/dL (0-0.2)
[2021-06-20] MEDS ORDERED: SODIUM CHLORIDE 0.9% 1000 ML 1,000 ML IV ONE (20:23)
[2021-06-20] MEDS ORDERED: INSULIN REGULAR, HUMAN 100 UNITS/1 ML IV ONE (20:23)
[2021-06-20] MEDS ORDERED: ONDANSETRON 4 MG/2 ML INJ IV ONE (20:58)
[2021-06-20] MEDS ORDERED: MORPHINE 2 MG/1 ML INJ IV ONE (20:58)
[2021-06-20] MEDS ORDERED: MORPHINE 2 MG/1 ML INJ ONE (21:00)
[2021-06-20] MEDS ORDERED: ONDANSETRON 4 MG/2 ML INJ ONE (21:00)
[2021-06-21] MEDS ORDERED: SODIUM CHLORIDE 0.9% 1000 ML 1,000 ML IV ONE (00:08)
[2021-06-21 01:00] VITALS: BP 137/87
--- NOTE | 2021-06-22 11:21 | Electrocardiograph Report ---
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
== END 2021-06-21 01:00 | disposition home or self-care (01) ==
LOC: ED 17:31
DX: E11.65 Type 2 diabetes mellitus with hyperglycemia (principal); R11.2 Nausea with vomiting, unspecified; I12.9 Hypertensive chronic kidney disease with stage 1 through stage 4 chronic kidney disease, or unspecified chronic kidney disease; E11.22 Type 2 diabetes mellitus with diabetic chronic kidney disease; N18.9 Chronic kidney disease, unspecified; K21.9 Gastro-esophageal reflux disease without esophagitis; R56.9 Unspecified convulsions; J45.909 Unspecified asthma, uncomplicated; Z98.890 Other specified postprocedural states
CPT/HCPCS: 36415; 80048; 80076; 81001; 82962; 83690; 84484; 84703; 85025; 93005; 96361; 96374; 96375; 99283; J2270; J2405; J7030; J1815

== ENCOUNTER 2021-06-22 19:39 | Emergency (ER) | payer MEDICAID ==
--- NOTE | 2021-06-22 20:43 | Emergency Department Report ---
ED Female HPI - General Chief complaint: Urogenital-Female Stated complaint: VAGINAL BURNING Time Seen by Provider: 06/22/21 20:13 Source: EMS Mode of arrival: Ambulatory Limitations: No Limitations - History of Present Illness Initial comments: 21-year-old female, history of diabetes, presents to ED with vaginal itching and discomfort. She denies any vaginal discharge. Patient was seen on yesterday for nausea and vomiting, with elevated glucose. Patient states she has been out of her insulin x2 weeks. Patient reports the pharmacy has been out of the type of insulin that she takes. Patient states she has not attempted to have her medication filled or any other pharmacies. She denies any nausea or vomiting at this time. Patient is also reporting a on her buttocks that she would like evaluated. Patient states the symptoms began 1 week ago. MD Complaint: other -: week(s) (1) Location: labia Radiation: non-radiating Severity: mild Quality: burning, other (Itching) Consistency: constant Improves with: none Worsens with: none Associated Symptoms: denies: vaginal discharge, vaginal bleeding - Related Data Home Medications Medication Instructions Recorded Confirmed Last Taken Lisdexamfetamine Dimesylate 40 mg PO DAILY 02/07/20 02/20/20 02/20/20 07:00 [Vyvanse] Previous Rx's Medication Instructions Recorded Last Taken Type Albuterol Mdi (or & Nicu Only) 2 puff IH QID PRN #1 inha 05/05/21 Unknown Rx [ProAir HFA Inhaler] Blood Sugar Diagnostic [Freestyle 1 each QID #100 strip 05/05/21 Unknown Rx Lite Test Strip] Butalb/Acetamin/Caff 50-325-40 1 - 2 tab PO Q6HR PRN #15 tab 05/05/21 Unknown Rx [Fioricet 50-325-40] Dicyclomine [Bentyl] 20 mg PO Q6H PRN #20 tablet 05/05/21 Unknown Rx Famotidine [Pepcid] 20 mg PO BID #30 tablet 05/05/21 Unknown Rx Gabapentin 300 mg PO BID #20 capsule 05/05/21 Unknown Rx Insulin Glargine [Lantus VIAL] 44 units SUB-Q QHS #2 vial 05/05/21 Unknown Rx Insulin Regular, Human [HumuLIN R] 0 unit SQ AC #1 vial 05/05/21 Unknown Rx Ondansetron [Zofran ODT TAB] 4 mg PO Q8HR PRN #12 tab.rapdis 05/05/21 Unknown Rx Sucralfate [Carafate] 1 gm PO ACHS 7 Days #21 tablet 05/05/21 Unknown Rx levETIRAcetam [Keppra TAB] 500 mg PO BID #60 tablet 05/05/21 Unknown Rx lisinopriL [Zestril TAB] 5 mg PO DAILY #30 05/05/21 Unknown Rx Ondansetron [Zofran Odt] 4 mg PO Q8HR PRN #20 tab.rapdis 06/04/21 Unknown Rx Ibuprofen [Motrin] 600 mg PO Q8H PRN #30 tablet 06/17/21 Unknown Rx Ondansetron [Zofran Odt] 4 mg PO Q8HR PRN #14 tab.rapdis 06/21/21 Unknown Rx traMADoL [Ultram] 50 mg PO Q6HR PRN #14 tablet 06/21/21 Unknown Rx Fluconazole [Diflucan TAB] 150 mg PO QDAY #1 tablet 06/23/21 Unknown Rx Miconazole Nitrate 1 inch TP BID 14 Days #1 cream..g. 06/23/21 Unknown Rx Naproxen [Naprosyn] 500 mg PO BID #20 tablet 06/23/21 Unknown Rx Sulfamethoxazole/Trimethoprim 1 each PO BID 10 Days #20 tablet 06/23/21 Unknown Rx [Bactrim DS TAB] cephALEXin [Keflex] 500 mg PO Q12HR 10 Days #20 cap 06/23/21 Unknown Rx Allergies Allergy/AdvReac Type Severity Reaction Status Date / Time No Known Allergies Allergy Verified 06/22/21 19:53 ED Review of Systems ROS: Stated complaint: VAGINAL BURNING Other details as noted in HPI Comment: All other systems reviewed and negative Constitutional: denies: fever Genitourinary: as per HPI ED Past Medical Hx - Past Medical History Hx Hypertension: Yes Hx Heart Attack/AMI: No Hx Diabetes: Yes Hx GERD: Yes Hx Liver Disease: No Hx Renal Disease: Yes (no dialysis) Hx Sickle Cell Disease: No Hx Seizures: Yes Hx Asthma: Yes Hx COPD: No Hx Tuberculosis: No Hx HIV: No - Surgical History Hx Cholecystectomy: Yes - Social History Smoking Status: Never Smoker Substance Use Type: None - Medications Home Medications: Home Medications Medication Instructions Recorded Confirmed Last Taken Type Lisdexamfetamine Dimesylate 40 mg PO DAILY 02/07/20 02/20/20 02/20/20 07:00 History [Vyvanse] Albuterol Mdi (or & Nicu Only) 2 puff IH QID PRN #1 inha 05/05/21 Unknown Rx [ProAir HFA Inhaler] Blood Sugar Diagnostic [Freestyle 1 each MC QID #100 strip 05/05/21 Unknown Rx Lite Test Strip] Butalb/Acetamin/Caff 50-325-40 1 - 2 tab PO Q6HR PRN #15 tab 05/05/21 Unknown Rx [Fioricet 50-325-40] Dicyclomine [Bentyl] 20 mg PO Q6H PRN #20 tablet 05/05/21 Unknown Rx Famotidine [Pepcid] 20 mg PO BID #30 tablet 05/05/21 Unknown Rx Gabapentin 300 mg PO BID #20 capsule 05/05/21 Unknown Rx Insulin Glargine [Lantus VIAL] 44 units SUB-Q QHS #2 vial 05/05/21 Unknown Rx Insulin Regular, Human [HumuLIN R] 0 unit SQ AC #1 vial 05/05/21 Unknown Rx Ondansetron [Zofran ODT TAB] 4 mg PO Q8HR PRN #12 tab.rapdis 05/05/21 Unknown Rx Sucralfate [Carafate] 1 gm PO ACHS 7 Days #21 tablet 05/05/21 Unknown Rx levETIRAcetam [Keppra TAB] 500 mg PO BID #60 tablet 05/05/21 Unknown Rx lisinopriL [Zestril TAB] 5 mg PO DAILY #30 05/05/21 Unknown Rx Ondansetron [Zofran Odt] 4 mg PO Q8HR PRN #20 tab.rapdis 06/04/21 Unknown Rx Ibuprofen [Motrin] 600 mg PO Q8H PRN #30 tablet 06/17/21 Unknown Rx Ondansetron [Zofran Odt] 4 mg PO Q8HR PRN #14 tab.rapdis 06/21/21 Unknown Rx traMADoL [Ultram] 50 mg PO Q6HR PRN #14 tablet 10/04/21 Unknown Rx Fluconazole [Diflucan TAB] 150 mg PO QDAY #1 tablet 06/23/21 Unknown Rx Miconazole Nitrate 1 inch TP BID 14 Days #1 cream..g. 06/23/21 Unknown Rx Naproxen [Naprosyn] 500 mg PO BID #20 tablet 06/23/21 Unknown Rx Sulfamethoxazole/Trimethoprim 1 each PO BID 10 Days #20 tablet 06/23/21 Unknown Rx [Bactrim DS TAB] cephALEXin [Keflex] 500 mg PO Q12HR 10 Days #20 cap 06/23/21 Unknown Rx ED Physical Exam - General Limitations: No Limitations General appearance: alert, in no apparent distress - Head Head exam: Present: atraumatic, normocephalic - Eye Eye exam: Present: normal appearance, EOMI - ENT ENT exam: Present: mucous membranes moist - Neck Neck exam: Present: normal inspection - Respiratory Respiratory exam: Present: normal lung sounds bilaterally. Absent: respiratory distress - Cardiovascular Cardiovascular Exam: Present: normal rhythm, tachycardia - GI/Abdominal GI/Abdominal exam: Present: soft. Absent: distended, tenderness - External exam: Present: other (Appearance of yeast on the outer vagina and perineal area; tenderness, induration to the left inferior buttock) - Extremities Exam Extremities exam: Present: normal inspection - Neurological Exam Neurological exam: Present: alert, oriented X3 - Psychiatric Psychiatric exam: Present: normal affect, normal mood - Skin Skin exam: Present: warm, dry, intact, normal color ED Course Vital Signs 06/22/21 06/22/21 06/22/21 19:52 22:00 23:57 Temperature 97.8 F 97.8 F Pulse Rate 117 H 108 H Respiratory 18 20 20 Rate Blood Pressure 148/100 135/90 [Left] O2 Sat by Pulse 98 98 99 Oximetry ED Medical Decision Making - Lab Data Result diagrams: 06/22/21 20:34 06/22/21 22:15 - Radiology Data Radiology results: report reviewed, image reviewed - Medical Decision Making Patient is hyperglycemic, however she does not appear to be in DKA. CT shows possible small abscess of the left gluteal cleft approximately 1.8 cm. This area is too small to I&D. I spoke with patient regarding management. Will we will try a course of outpatient antibiotics. Sitz bath recommended. Glucose control advised. Will give prescription for Diflucan and also topical miconazole for yeast infection treatment. Outpatient follow-up advised. Return precautions given. - Differential Diagnosis Yeast infection, cellulitis, abscess, DKA Critical care attestation.: If time is entered above; I have spent that time in minutes in the direct care of this critically ill patient, excluding procedure time. ED Disposition Clinical Impression: Abscess of gluteal cleft, Hyperglycemia, Yue vaginitis Disposition: HOME / SELF CARE / HOMELESS Is pt being admited?: No Condition: Stable Instructions: Skin Abscess, [id number], Vaginal Yeast Infection, Adult, How to Take a Sitz Bath, Hyperglycemia, [id number] Prescriptions: Sulfamethoxazole/Trimethoprim [Bactrim DS TAB] 1 each PO BID 10 Days #20 tablet Fluconazole [Diflucan TAB] 150 mg PO QDAY #1 tablet cephALEXin [Keflex] 500 mg PO Q12HR 10 Days #20 cap Miconazole Nitrate 1 inch TP BID 14 Days #1 cream..g. Naproxen [Naprosyn] 500 mg PO BID #20 tablet Referrals: PRIMARY CAREMD [Referring] - 3-5 Days [facility] [Provider Group] - 3-5 Days CM GARCIA MD [Staff Physician] - 3-5 Days
[2021-06-22 20:58] LABS: Basophils # (Auto) 0.1 K/mm3 (0.0-0.1); Basophils % (Auto) 0.5 % (0.0-1.8); Eosinophils % (Auto) 0.2 % (0.0-4.3); Hematocrit 46.8 % (30.3-42.9); Lymphocytes # (Auto) 2.3 K/mm3 (1.2-5.4); Lymphocytes % (Auto) 16.8 % (13.4-35.0); Mean Corpuscular HGB Conc 34 % (30-34); Mean Corpuscular Volume 87 fl (79-97); Monocytes % (Auto) 7.5 % (0.0-7.3); Platelet Count 322 K/mm3 (140-440); Red Blood Count 5.37 M/mm3 (3.65-5.03); Red Cell Distribution Width 13.6 % (13.2-15.2)
[2021-06-22 22:43] LABS: BUN/Creatinine Ratio 8; Blood Urea Nitrogen 7 mg/dL (7-17); Calcium 9.6 mg/dL (8.4-10.2); Hemolysis Index 19
[2021-06-22] MEDS ORDERED: SODIUM CHLORIDE 0.9% 1000 ML 1,000 ML IV ONE (22:56)
[2021-06-22] MEDS ORDERED: INSULIN REGULAR, HUMAN 100 UNITS/1 ML IV ONE (22:56)
--- NOTE | 2021-06-23 00:14 | Cat Scan Report ---
CT pelvis wo con INDICATION / CLINICAL INFORMATION: Swelling LEFT inferior buttock. TECHNIQUE: Routine CT pelvis without contrast All CT scans at this location are performed using CT dose reductio n for ALARA by means of automated exposure control. COMPARISON: 06/04/2021 FINDINGS: No acute findings within the pelvis identified. Urinary bladder and uterus appear unremarkable. There is increasing adenopathy involving the left inguinal region when compared to 06/04/2021. There is a s mall 1.8 cm collection along the left gluteal cleft. IMPRESSION: 1. 1.8 cm collection along the left gluteal cleft may represent abscess with mild surrounding celluli tis. 2. Left inguinal adenopathy. Signer Name: Benjamin Barrios MD Signed: 06/23/2021 12:09 AM Workstation Name: [id number]
[2021-06-23 06:06] VITALS: BP 129/88
== END 2021-06-23 05:00 | disposition home or self-care (01) ==
LOC: ED 19:39
DX: L02.31 Cutaneous abscess of buttock (principal); B37.3 Candidiasis of vulva and vagina; E11.65 Type 2 diabetes mellitus with hyperglycemia; Z90.49 Acquired absence of other specified parts of digestive tract; I10 Essential (primary) hypertension
CPT/HCPCS: 36415; 72192; 80048; 82010; 82805; 82962; 84703; 85025; 96361; 96374; 99285; J7030; J1815

== ENCOUNTER 2021-09-26 07:04 | Emergency (ER) | payer MEDICAID ==
[2021-09-26 07:20] VITALS: BP 121/86
[2021-09-26 08:32] LABS: Hematocrit 46.3 % (30.3-42.9); Hemoglobin 14.9 gm/dl (10.1-14.3); Mean Corpuscular HGB Conc 32 % (30-34); Mean Corpuscular Volume 88 fl (79-97); Platelet Count 277 K/mm3 (140-440); Red Blood Count 5.28 M/mm3 (3.65-5.03); Red Cell Distribution Width 12.9 % (13.2-15.2)
[2021-09-26] MEDS ORDERED: METOCLOPRAMIDE 10 MG/2 ML INJ IV ONE (08:40)
[2021-09-26] MEDS ORDERED: SODIUM CHLORIDE 0.9% 1000 ML 1,000 ML IV ONE (08:40)
[2021-09-26] MEDS ORDERED: diphenhydrAMINE 50 MG/ML VIAL IV ONE (08:40)
[2021-09-26 08:42] LABS: Alanine Aminotransferase 31 units/L (7-56); Albumin 4.5 g/dL (3.9-5); BUN/Creatinine Ratio 13; Blood Urea Nitrogen 10 mg/dL (7-17); Calcium 10.3 mg/dL (8.4-10.2); Hemolysis Index 8
[2021-09-26] MEDS ORDERED: INSULIN REGULAR, HUMAN 100 UNITS/1 ML IV ONE (08:46)
[2021-09-26 08:55] LABS: Basophils % (Auto) 0.3 % (0.0-1.8); Eosinophils % (Auto) 0.6 % (0.0-4.3); Lymphocytes # (Auto) 2.6 K/mm3 (1.2-5.4); Lymphocytes % (Auto) 36.2 % (13.4-35.0); Monocytes # (Auto) 0.5 K/mm3 (0.0-0.8); Monocytes % (Auto) 6.4 % (0.0-7.3)
--- NOTE | 2021-09-26 09:51 | Emergency Department Report ---
ED Syncope HPI - General Chief Complaint: Headache Stated Complaint: headache Time Seen by Provider: 09/26/21 07:59 Source: patient, RN notes reviewed Exam Limitations: no limitations - History of Present Illness Initial Comments: This is a [age]-year-old female nontoxic, well nourished in appearance, no acute signs of distress presents to the ED with c/o of syncopal episode that occurred several days ago and worsening headache today. Patient stated she was at work several days ago and had a syncopal episode which that was seen in [place] and stated only had a CT scan of her head that was within normal limits. Patient stated since then was discharged with Tylenol and headache has worsened. Patient denies any other injuries or any acute trauma since then. Patient denies any dizziness patient denies any numbness, tingling, headache, stiff neck, chest pain, shortness of breathe, numbness or tingling. Denies any visual changes or blurry vision. Denies any drug allergies. Precipitating Factors: Positive: none Context: standing Loss of Consciousness: brief (seconds) Current Symptoms: back to normal, headache. denies: blurred vision, chest pain, diaphoresis, dizziness, injury, lightheadedness, loss of bladder control, loss of bowel control, motionless, nausea, pale, shallow/rapid breathing, weak/absent pulse, weakness - Related Data Allergies/Adverse Reactions: Allergies No Known Allergies Allergy (Verified 09/26/21 07:14) Home Medications: Ambulatory Orders Lisdexamfetamine Dimesylate [Vyvanse] 40 mg PO DAILY 02/07/20 Albuterol Mdi (or & Nicu Only) [ProAir HFA Inhaler] 2 puff IH QID PRN #1 inha 05/05/21 Blood Sugar Diagnostic [Freestyle Lite Test Strip] 1 each QID #100 strip 0 05/05/21 Butalb/Acetamin/Caff 50-325-40 [Fioricet 50-325-40] 1 - 2 tab PO Q6HR PRN #15 tab 05/05/21 Dicyclomine [Bentyl] 20 mg PO Q6H PRN #20 tablet 05/05/21 Famotidine [Pepcid] 20 mg PO BID #30 tablet 05/05/21 Gabapentin 300 mg PO BID #20 capsule 05/05/21 Insulin Glargine [Lantus VIAL] 44 units SUB-Q QHS #2 vial 05/05/21 Insulin Regular, Human [HumuLIN R] 0 unit SQ AC #1 vial 05/05/21 Sucralfate [Carafate] 1 gm PO ACHS 7 Days #21 tablet 05/05/21 levETIRAcetam [Keppra TAB] 500 mg PO BID #60 tablet 05/05/21 lisinopriL [Zestril TAB] 5 mg PO DAILY #30 05/05/21 traMADoL [Ultram 50 MG tab] 50 mg PO Q6HR PRN #14 tablet 06/21/21 Miconazole Nitrate 1 inch TP BID 14 Days #1 cream..g. 06/23/21 Naproxen [Naprosyn TAB] 500 mg PO BID #20 tablet 06/23/21 Ibuprofen [Motrin 600 MG tab] 600 mg PO Q8H PRN 10 Days #30 tablet 09/11/21 Ondansetron [Zofran ODT TAB] 4 mg PO Q8HR PRN 5 Days #15 tab.rapdis 09/11/21 ED Review of Systems ROS: Stated complaint: headache Other details as noted in HPI Comment: All other systems reviewed and negative Constitutional: denies: chills, fever Eyes: denies: eye pain, eye discharge, vision change ENT: denies: ear pain, throat pain Respiratory: denies: cough, shortness of breath, wheezing Cardiovascular: denies: chest pain, palpitations Endocrine: no symptoms reported Gastrointestinal: denies: abdominal pain, nausea, diarrhea Genitourinary: denies: urgency, dysuria, discharge Musculoskeletal: denies: back pain, joint swelling, arthralgia Skin: denies: rash, lesions Neurological: headache. denies: weakness, numbness, paresthesias, confusion, abnormal gait, vertigo Psychiatric: denies: anxiety, depression Hematological/Lymphatic: denies: easy bleeding, easy bruising ED Past Medical Hx - Past Medical History Hx Hypertension: Yes Hx Heart Attack/AMI: No Hx Diabetes: Yes Hx GERD: Yes Hx Liver Disease: No Hx Renal Disease: Yes (no dialysis) Hx Sickle Cell Disease: No Hx Seizures: Yes Hx Asthma: Yes Hx COPD: No Hx Tuberculosis: No Hx HIV: No - Surgical History Hx Cholecystectomy: Yes - Social History Smoking Status: Never Smoker Substance Use Type: None - Medications Home Medications: Home Medications Medication Instructions Recorded Confirmed Last Taken Type Lisdexamfetamine Dimesylate 40 mg PO DAILY 02/07/20 09/10/21 02/20/20 07:00 History [Vyvanse] Albuterol Mdi (or & Nicu Only) 2 puff QID PRN #1 inha 05/05/21 09/10/21 Unknown Rx [ProAir HFA Inhaler] Blood Sugar Diagnostic [Freestyle 1 each QID #100 strip 05/05/21 09/10/21 Unknown Rx Lite Test Strip] Butalb/Acetamin/Caff 50-325-40 1 - 2 tab PO Q6HR PRN #15 tab 05/05/21 09/10/21 Unknown Rx [Fioricet 50-325-40] Dicyclomine [Bentyl] 20 mg PO Q6H PRN #20 tablet 05/05/21 09/10/21 Unknown Rx Famotidine [Pepcid] 20 mg PO BID #30 tablet 05/05/21 09/10/21 Unknown Rx Gabapentin 300 mg PO BID #20 capsule 05/05/21 09/10/21 Unknown Rx Insulin Glargine [Lantus VIAL] 44 units SUB-Q QHS #2 vial 05/05/21 09/10/21 Unknown Rx Insulin Regular, Human [HumuLIN R] 0 unit SQ AC #1 vial 05/05/21 09/10/21 Unknown Rx Sucralfate [Carafate] 1 gm PO ACHS 7 Days #21 tablet 05/05/21 09/10/21 Unknown Rx levETIRAcetam [Keppra TAB] 500 mg PO BID #60 tablet 05/05/21 09/10/21 Unknown Rx lisinopriL [Zestril TAB] 5 mg PO DAILY #30 05/05/21 09/10/21 Unknown Rx traMADoL [Ultram 50 MG tab] 50 mg PO Q6HR PRN #14 tablet 06/21/21 09/10/21 Unknown Rx Miconazole Nitrate 1 inch TP BID 14 Days #1 cream..g. 06/23/21 09/10/21 Unknown Rx Naproxen [Naprosyn TAB] 500 mg PO BID #20 tablet 06/23/21 09/10/21 Unknown Rx Ibuprofen [Motrin 600 MG tab] 600 mg PO Q8H PRN 10 Days #30 09/11/21 Unknown Rx tablet Ondansetron [Zofran ODT TAB] 4 mg PO Q8HR PRN 5 Days #15 09/11/21 Unknown Rx tab.rapdis ED Physical Exam - General Limitations: No Limitations General appearance: alert, in no apparent distress - Head Head exam: Present: atraumatic, normocephalic - Eye Eye exam: Present: normal appearance, PERRL, EOMI - ENT ENT exam: Present: normal exam, normal orophraynx, mucous membranes moist, TM's normal bilaterally, normal external ear exam - Neck Neck exam: Present: normal inspection, full ROM. Absent: tenderness, meningismus, lymphadenopathy - Expanded Neck Exam Expanded Neck exam: Absent: tenderness, anterior neck swelling, thyroid mass, carotid bruit, tracheal deviation - Respiratory Respiratory exam: Present: normal lung sounds bilaterally. Absent: respiratory distress, wheezes, rales, rhonchi, stridor, chest wall tenderness, accessory muscle use, decreased breath sounds, prolonged expiratory - Cardiovascular Cardiovascular Exam: Present: regular rate, normal rhythm, normal heart sounds. Absent: bradycardia, tachycardia, irregular rhythm, systolic murmur, diastolic murmur, rubs, gallop - GI/Abdominal GI/Abdominal exam: Present: soft, normal bowel sounds. Absent: distended, tenderness, guarding, rebound, rigid, diminished bowel sounds - Extremities Exam Extremities exam: Present: normal inspection, full ROM, normal capillary refill. Absent: tenderness - Back Exam Back exam: Present: normal inspection, full ROM. Absent: tenderness, CVA tenderness (R), CVA tenderness (L), muscle spasm, paraspinal tenderness, vertebral tenderness, rash noted - Neurological Exam Neurological exam: Present: alert, oriented X3, normal gait - Expanded Neurological Exam Expanded Patient oriented to: Present: person, place, time Cranial nerves: EOM's Intact: Normal, Facial Sensation: Normal Cerebellar function: Finger to Nose: Normal Upper motor neuron: Pronator Drift: Normal, Sensory Extinction: Normal Motor strength exam: RUE: 5, LUE: 5, RLE: 5, LLE: 5 Best Eye Response (Pj): (4) open spontaneously Best Motor Response (Pj): (6) obeys commands Best Verbal Response (Taylor): (5) oriented Taylor Total: 15 - Psychiatric Psychiatric exam: Present: normal affect, normal mood - Skin Skin exam: Present: warm, dry, intact, normal color. Absent: rash ED Course Vital Signs 09/26/21 07:19 Temperature 97.7 F Pulse Rate 95 H Respiratory 18 Rate Blood Pressure 121/86 O2 Sat by Pulse 98 Oximetry - Reevaluation(s) Reevaluation #1: 09/26/21 09:54 Patient is speaking in full sentences with no signs of distress noted. ED Medical Decision Making - Lab Data Result diagrams: 09/26/21 08:10 09/26/21 08:10 Lab Results 09/26/21 09/26/21 09/26/21 Range/Units 08:10 08:10 08:10 WBC 7.2 (4.5-11.0) K/mm3 RBC 5.28 H (3.65-5.03) M/mm3 Hgb 14.9 H (10.1-14.3) gm/dl Hct 46.3 H (30.3-42.9) % MCV 88 (79-97) fl MCH 28 (28-32) pg MCHC 32 (30-34) % RDW 12.9 L (13.2-15.2) % Plt Count 277 (140-440) K/mm3 Lymph % (Auto) 36.2 H (13.4-35.0) % Lewis % (Auto) 6.4 (0.0-7.3) % Eos % (Auto) 0.6 (0.0-4.3) % Baso % (Auto) 0.3 (0.0-1.8) % Lymph # (Auto) 2.6 (1.2-5.4) K/mm3 Lewis # (Auto) 0.5 (0.0-0.8) K/mm3 Eos # (Auto) 0.0 (0.0-0.4) K/mm3 Baso # (Auto) 0.0 (0.0-0.1) K/mm3 Add Manual Diff Complete Seg Neutrophils % 56.5 (40.0-70.0) % Nucleated RBC % Not Reportable Seg Neutrophils # 4.1 (1.8-7.7) K/mm3 WBC Morphology Not Reportable Hypersegmented Neuts Not Reportable Hyposegmented Neuts Not Reportable Hypogranular Neuts Not Reportable Smudge Cells Not Reportable Toxic Granulation Not Reportable Toxic Vacuolation Not Reportable Dohle Bodies Not Reportable Pelger-Huet Anomaly Not Reportable Christina Rods Not Reportable Platelet Estimate Not Reportable Clumped Platelets Not Reportable Plt Clumps, EDTA Not Reportable Large Platelets Not Reportable Giant Platelets Not Reportable Platelet Satelliting Not Reportable Plt Morphology Comment Not Reportable RBC Morphology Not Reportable Dimorphic RBCs Not Reportable Polychromasia Not Reportable Hypochromasia Not Reportable Poikilocytosis Not Reportable Anisocytosis Not Reportable Microcytosis Not Reportable Macrocytosis Not Reportable Spherocytes Not Reportable Pappenheimer Bodies Not Reportable Sickle Cells Not Reportable Target Cells Not Reportable Tear Drop Cells Not Reportable Ovalocytes Not Reportable Helmet Cells Not Reportable Aceves-Mel[place] Bodies Not Reportable [place] Rings Not Reportable [place] Cells Not Reportable Bite Cells Not Reportable Crenated Cell Not Reportable Elliptocytes Not Reportable Acanthocytes (Spur) Not Reportable Rouleaux Not Reportable Hemoglobin C Crystals Not Reportable Schistocytes Not Reportable Malaria parasites Not Reportable [place] Bodies Not Reportable Hem Pathologist Commnt No VBG pH (7.320-7.420) Sodium 135 L (137-145) mmol/L Potassium 4.2 (3.6-5.0) mmol/L Chloride 95.9 L (98-107) mmol/L Carbon Dioxide 22 (22-30) mmol/L Anion Gap 21 mmol/L BUN 10 (7-17) mg/dL Creatinine 0.8 (0.6-1.2) mg/dL Estimated GFR > 60 ml/min BUN/Creatinine Ratio 13 % Glucose 299 H (65-100) mg/dL POC Glucose (70-105) mg/dL Calcium 10.3 H (8.4-10.2) mg/dL Total Bilirubin 0.20 (0.1-1.2) mg/dL AST 15 (5-40) units/L ALT 31 (7-56) units/L Alkaline Phosphatase 152 H (35-129) units/L Total Protein 6.8 (6.3-8.2) g/dL Albumin 4.5 (3.9-5) g/dL Albumin/Globulin Ratio 2.0 % HCG, Qual Negative (Negative) 09/26/21 09/26/21 Range/Units 08:54 12:02 WBC (4.5-11.0) K/mm3 RBC (3.65-5.03) M/mm3 Hgb (10.1-14.3) gm/dl Hct (30.3-42.9) % MCV (79-97) fl MCH (28-32) pg MCHC (30-34) % RDW (13.2-15.2) % Plt Count (140-440) K/mm3 Lymph % (Auto) (13.4-35.0) % Lewis % (Auto) (0.0-7.3) % Eos % (Auto) (0.0-4.3) % Baso % (Auto) (0.0-1.8) % Lymph # (Auto) (1.2-5.4) K/mm3 Lewis # (Auto) (0.0-0.8) K/mm3 Eos # (Auto) (0.0-0.4) K/mm3 Baso # (Auto) (0.0-0.1) K/mm3 Add Manual Diff Seg Neutrophils % (40.0-70.0) % Nucleated RBC % Seg Neutrophils # (1.8-7.7) K/mm3 WBC Morphology Hypersegmented Neuts Hyposegmented Neuts Hypogranular Neuts Smudge Cells Toxic Granulation Toxic Vacuolation Dohle Bodies Pelger-Huet Anomaly Christina Rods Platelet Estimate Clumped Platelets Plt Clumps, EDTA Large Platelets Giant Platelets Platelet Satelliting Plt Morphology Comment RBC Morphology Dimorphic RBCs Polychromasia Hypochromasia Poikilocytosis Anisocytosis Microcytosis Macrocytosis Spherocytes Pappenheimer Bodies Sickle Cells Target Cells Tear Drop Cells Ovalocytes Helmet Cells Aceves-Mel[place] Bodies Derby Rings Carmen Cells Bite Cells Crenated Cell Elliptocytes Acanthocytes (Spur) Rouleaux Hemoglobin C Crystals Schistocytes Malaria parasites [place] Bodies Hem Pathologist Commnt VBG pH 7.339 (7.320-7.420) Sodium (137-145) mmol/L Potassium (3.6-5.0) mmol/L Chloride (98-107) mmol/L Carbon Dioxide (22-30) mmol/L Anion Gap mmol/L BUN (7-17) mg/dL Creatinine (0.6-1.2) mg/dL Estimated GFR ml/min BUN/Creatinine Ratio % Glucose (65-100) mg/dL POC Glucose 216 H (70-105) mg/dL Calcium (8.4-10.2) mg/dL Total Bilirubin (0.1-1.2) mg/dL AST (5-40) units/L ALT (7-56) units/L Alkaline Phosphatase (35-129) units/L Total Protein (6.3-8.2) g/dL Albumin (3.9-5) g/dL Albumin/Globulin Ratio % HCG, Qual (Negative) - EKG Data 09/26/21 12:31 Normal sinus rhythm at [address] or T wave abnormalities. Reviewed and signed by MD - Radiology Data [facility] [address] [place] [address] Cat Scan Report Signed Patient: LYNN CHANDLER MR#: [id number] : 2000 Acct:[id number] Age/Sex: 21 / F ADM Date: 09/26/21 Loc: ED Attending Dr: Ordering Physician: ALEJANDRA HUANG Date of Service: 09/26/21 Procedure(s): CT head/brain wo con Accession Number(s): [id number] cc: ALEJANDRA HUANG CT HEAD WITHOUT CONTRAST INDICATION / CLINICAL INFORMATION: Syncope. Headache. TECHNIQUE: All CT scans at this location are performed using CT dose reduction for ALARA by means of automated exposure control. COMPARISON: 06/30/20. FINDINGS: HEMORRHAGE: None. EXTRA-AXIAL SPACES: Normal in size and morphology for the patient's age. VENTRICULAR SYSTEM: Normal in size and morphology for the patient's age. CEREBRAL PARENCHYMA: Small scattered punctate calcifications bilaterally, predominantly in the white matter and gangliocapsular regions, are stable. No new abnormality. No acute territorial infarct. MIDLINE SHIFT / HERNIATION: None. CEREBELLUM / BRAINSTEM: No significant abnormality. ORBITS: N ormal as visualized. SOFT TISSUES: No significant abnormality. SKULL: No significant abnormality. PARANASAL SINUSES / MASTOID AIR CELLS: There is a small mucous retention cyst in the right maxillary antrum. ADDITIONAL FINDINGS: None. IMPRESSION: No acute intracranial abnormality. Signer Name: Sebastian Harris MD Signed: 09/26/2021 9:47 AM Workstation Name: [id number] Transcribed By: RT Dictated By: Sebastian Harris MD Electronically Authenticated By: Sebastian Harris MD Signed Date/Time: 09/26/21946 DD/ 4 TD/TT: [facility] [address] [place] [address] Cat Scan Report Signed Patient: LYNN CHANDLER MR#: [id number] : 2000 Acct:[id number] Age/Sex: 21 / F ADM Date: 09/26/21 Loc: ED Attending Dr: Ordering Physician: ALEJANDRA HUANG Date of Service: 09/26/21 Procedure(s): CT cervical spine wo con Accession Number(s): [id number] cc: ALEJANDRA HUANG CT CERVICAL SPINE WITHOUT CONTRAST INDICATION / CLINICAL INFORMATION: Syncope with headache and neck pain. TECHNIQUE: Axial CT images were obtained through the cervical spine. Sagittal and coronal reformatted images were produced. All CT scans at this location are performed using CT dose reduction for ALARA by means of automated exposure control. COMPARISON: 06/30/20. FINDINGS: VERTEBRAE: No significant abnormality. ALIGNMENT: There is mild nonspecific reversal of the normal cervical lordosis. No subluxation. DISC SPACES: No significant abnormality. FACET JOINTS: No significant abnormality. CRANIOCERVICAL JUNCTION:No significant abnormality. SPINAL CANAL: No significant abnormality. PARASPINAL SOFT TISSUES: No significant abnormality. ADDITIONAL FINDINGS: A tracheal diverticulum posterolaterally on the right near the level of the t horacic inlet was present on the prior study and has not changed. LUNG APICES: No significant abnormality of visualized lungs. IMPRESSION: Mild nonspecific reversal of the normal cervical lordosis. No acute osseous abnormality. Signer Name: Sebastian Harris MD Signed: 09/26/2021 9:53 AM Workstation Name: [id number] Transcribed By: RT Dictated By: Sebastian Harris MD Electronically Authenticated By: Sebastian Harris MD Signed Date/Time: 09/26/21952 DD/ 6 TD/TT: - Medical Decision Making 21-year-old female presents with syncope and headache. Patient is stable and was examined by me. Patient is notified of the laboratory results and imaging s tudies with no questions noted by the patient. Patient is taking insulin as she stated. Patient's fingerstick decreased to 216 prior to discharge. Patient stated she does have medication present at this time. Patient that she did not take this today. Patient was instructed to follow-up with a primary care doctor in 3-5 days or if symptoms worsen and continue return to emergency room as soon as possible. At time of discharge, the patient does not seem toxic or ill in appearance. No acute signs of distress noted. Patient agrees to discharge treatment plan of care. No further questions noted by the patient. Critical care attestation.: If time is entered above; I have spent that time in minutes in the direct care of this critically ill patient, excluding procedure time. ED Disposition Clinical Impression: Hyperglycemia Diabetes mellitus Qualifiers: Diabetes mellitus type: type 2 Diabetes mellitus nursing home insulin use: unspecified nursing home insulin use status Diabetes mellitus complication status: without complication Qualified Code(s): E11.9 - Type 2 diabetes mellitus without complications Syncope Qualifiers: Syncope type: unspecified Qualified Code(s): R55 - Syncope and collapse Headache Qualifiers: Headache type: unspecified Headache chronicity pattern: episodic headache Intractability: not intractable Qualified Code(s): R51.9 - Headache, unspecified Disposition: 01 HOME / SELF CARE / HOMELESS Is pt being admited?: No Does the pt Need Aspirin: No Condition: Stable Instructions: Diabetes Mellitus Type 2 in Adults (ED), Syncope (ED), Diabetes Mellitus and Nutrition, Adult Additional Instructions: Follow-up with a primary care doctor in 3-5 days or if symptoms worsen and continue return to emergency room as soon as possible. Referrals: AILEEN SOLIS MD [Primary Care Provider] - 3-5 Days LONDON RODRIGUEZ MD [Staff Physician] - 3-5 Days Time of Disposition: 12:34
--- NOTE | 2021-09-26 09:58 | Cat Scan Report ---
CT CERVICAL SPINE WITHOUT CONTRAST INDICATION / CLINICAL INFORMATION: Syncope with headache and neck pain. TECHNIQUE: Axial CT images were obtained through the cervical spine. Sagittal and coronal reformatted images were produced. All CT scans at this location are performed using CT dose reduction for ALARA by means of automated exposure control. COMPARISON: 06/30/20. FINDINGS: VERTEBRAE: No significant abnormality. ALIGNMENT: There is mild nonspecific reversal of the normal cervical lordosis. No subluxation. DISC SPACES: No significant abnormality. FACET JOINTS: No significant abnormality. CRANIOCERVICAL JUNCTION:No significant abnormality. SPINAL CANAL: No significant abnormality. PARASPINAL SOFT TISSUES: No significant abnormality. ADDITIONAL FINDINGS: A tracheal diverticulum posterolaterally on the right near the level of the thor acic inlet was present on the prior study and has not changed. LUNG APICES: No significant abnormality of visualized lungs. IMPRESSION: Mild nonspecific reversal of the normal cervical lordosis. No acute osseous abnormality. Signer Name: Sebastian Harris MD Signed: 09/26/2021 9:53 AM Workstation Name: [id number]
--- NOTE | 2021-09-29 08:49 | Electrocardiograph Report ---
[facility] Test Date: 2021-09-26 Test Time: 12:05:14 Pat Name: LYNN CHANDLER Department: Room: Gender: F Sign Carpenter: camacho : 2000 Requested By: ALEJANDRA HUANG Order Number: [id number] Reading MD: Keira Swartz Measurements Intervals [place] Rate: 95 P: 56 NE: 168 QRS: 39 QRSD: 78 T: -4 QT: 389 QTc: 489 Interpretive Statements Sinus rhythm Probable left atrial enlargement Nonspecific T abnormalities, anterior leads Compared to ECG 06/20/2021 18:58:29 No significant changes Electronically Signed On 09-29-2021 8:48:37 EST by Keira Swartz
== END 2021-09-26 13:09 | disposition home or self-care (01) ==
LOC: ED 07:04
DX: E11.65 Type 2 diabetes mellitus with hyperglycemia (principal); R55 Syncope and collapse; R51.9 Headache, unspecified
CPT/HCPCS: 36415; 70450; 72125; 80053; 82805; 82962; 84703; 85007; 85025; 93005; 96361; 96374; 96375; 99284; J1200; J2765; J7030; Q0162; Q9967; J1815

== ENCOUNTER 2021-10-11 14:10 | Emergency (ER) | payer MEDICAID ==
[2021-10-11] MEDS ORDERED: SODIUM CHLORIDE 0.9% 1000 ML 1,000 ML IV ONE (17:48)
[2021-10-11] MEDS ORDERED: ONDANSETRON 4 MG/2 ML INJ IV ONE (17:48)
[2021-10-11] MEDS ORDERED: KETOROLAC 30 MG/1 ML INJ IV ONE (17:48)
[2021-10-11] MEDS ORDERED: FAMOTIDINE 20 MG/2 ML INJ IV ONE (17:48)
[2021-10-11 18:27] LABS: Basophils % (Auto) 0.5 % (0.0-1.8); Eosinophils % (Auto) 0.4 % (0.0-4.3); Hematocrit 44.3 % (30.3-42.9); Hemoglobin 14.6 gm/dl (10.1-14.3); Lymphocytes # (Auto) 2.3 K/mm3 (1.2-5.4); Lymphocytes % (Auto) 34.2 % (13.4-35.0); Mean Corpuscular HGB Conc 33 % (30-34); Mean Corpuscular Volume 88 fl (79-97); Monocytes # (Auto) 0.5 K/mm3 (0.0-0.8); Monocytes % (Auto) 6.9 % (0.0-7.3); Platelet Count 281 K/mm3 (140-440); Red Blood Count 5.05 M/mm3 (3.65-5.03)
[2021-10-11 18:34] LABS: Alanine Aminotransferase 53 units/L (7-56); Albumin 4.4 g/dL (3.9-5); BUN/Creatinine Ratio 12; Blood Urea Nitrogen 11 mg/dL (7-17); Calcium 9.6 mg/dL (8.4-10.2); Hemolysis Index 3
[2021-10-11 18:40] LABS: Bacteria,Urine 1+ /HPF (Negative); Bilirubin,Urine NEG (Negative); Blood,Urine MOD (Negative); Color,Urine Straw (Yellow); Protein,Urine <15 mg/dL mg/dL (Negative); Urobilinogen,Urine < 2.0 mg/dL (<2.0)
--- NOTE | 2021-10-11 19:58 | Cat Scan Report ---
CT ABDOMEN AND PELVIS WITHOUT CONTRAST INDICATION / CLINICAL INFORMATION: rlq pain. TECHNIQUE: Axial CT images were obtained through the abdomen and pelvis without IV contrast. All CT scans at this location are performed using CT dose reduction for ALARA by means of automated exposure control. COMPARISON: 09/09/2021 FINDINGS: LOWER CHEST: No significant abnormality. LIVER: No significant abnormality. GALLBLADDER: Cholecystectomy. BILE DUCTS: No significant abnormality. PANCREAS: No significant abnormality. SPLEEN: No significant abnormality. ADRENALS: No significant abnormality. RIGHT KIDNEY / URETER: There is contrast media in the right renal collecting system indicating recent procedure with IV contrast. IV contrast was not administered for this study. There is no hydronephro sis. LEFT KIDNEY / URETER: Contrast media is noted in the left renal collecting system is well. There is n o hydronephrosis. STOMACH / SMALL BOWEL: No significant abnormality. COLON: No significant abnormality. APPENDIX: No significant abnormality. PERITONEUM: No free fluid. No free air. No fluid collection. LYMPH NODES: No significant adenopathy. AORTA / ARTERIES: No significant abnormality. IVC / VEINS: No significant abnormality. URINARY BLADDER: There is contrast media in the urinary bladder. REPRODUCTIVE ORGANS: No significant abnormality. ADDITIONAL FINDINGS: None. SKELETAL SYSTEM: No acute abnormality. IMPRESSION: 1. There is contrast media in the renal collecting systems and urinary bladder indicating recent IV c ontrast administration. Contrast would obscure stones in the kidney. There is no hydronephrosis. 2. There is no obstruction, inflammation, or free air. The appendix is unremarkable. Signer Name: Maciej Ledesma MD Signed: 10/11/2021 7:54 PM Workstation Name: [id number]
--- NOTE | 2021-10-11 20:08 | Emergency Department Report ---
ED Abdominal Pain HPI - General Chief Complaint: Abdominal Pain Stated Complaint: ABD PAIN 2 DAYS Time Seen by Provider: 10/11/21 17:48 Source: patient Mode of arrival: Ambulatory Limitations: No Limitations - History of Present Illness Initial Comments: Patient is a 21-year-old F [place] female with past medical history of hypertension and diabetes who is also status post cholecystectomy is presenting with right lower quadrant pain. Patient states pain started 2 to 3 days ago. Associated with some nausea vomiting. Denies dysuria abnormal vaginal bleeding or discharge diarrhea cough cold congestion fevers or chills. Pain is estimated 6 out of 10 in severity is worse with palpation. Severity scale (0 -10): 0 - Related Data Home Medications Medication Instructions Recorded Confirmed Last Taken Lisdexamfetamine Dimesylate 40 mg PO DAILY 02/07/20 09/10/21 02/20/20 07:00 [Vyvanse] Previous Rx's Medication Instructions Recorded Last Taken Type Albuterol Mdi (or & Nicu Only) 2 puff IH QID PRN #1 inha 05/05/21 Unknown Rx [ProAir HFA Inhaler] Blood Sugar Diagnostic [Freestyle 1 each MC QID #100 strip 05/05/21 Unknown Rx Lite Test Strip] Butalb/Acetamin/Caff 50-325-40 1 - 2 tab PO Q6HR PRN #15 tab 05/05/21 Unknown Rx [Fioricet 50-325-40] Dicyclomine [Bentyl] 20 mg PO Q6H PRN #20 tablet 05/05/21 Unknown Rx Famotidine [Pepcid] 20 mg PO BID #30 tablet 05/05/21 Unknown Rx Gabapentin 300 mg PO BID #20 capsule 05/05/21 Unknown Rx Insulin Glargine [Lantus VIAL] 44 units SUB-Q QHS #2 vial 05/05/21 Unknown Rx Insulin Regular, Human [HumuLIN R] 0 unit SQ AC #1 vial 05/05/21 Unknown Rx Sucralfate [Carafate] 1 gm PO ACHS 7 Days #21 tablet 05/05/21 Unknown Rx levETIRAcetam [Keppra TAB] 500 mg PO BID #60 tablet 05/05/21 Unknown Rx lisinopriL [Zestril TAB] 5 mg PO DAILY #30 05/05/21 Unknown Rx traMADoL [Ultram 50 MG tab] 50 mg PO Q6HR PRN #14 tablet 06/21/21 Unknown Rx Miconazole Nitrate 1 inch TP BID 14 Days #1 cream..g. 06/23/21 Unknown Rx Naproxen [Naprosyn TAB] 500 mg PO BID #20 tablet 06/23/21 Unknown Rx Ibuprofen [Motrin 600 MG tab] 600 mg PO Q8H PRN 10 Days #30 09/11/21 Unknown Rx tablet Ondansetron [Zofran ODT TAB] 4 mg PO Q8HR PRN 5 Days #15 09/11/21 Unknown Rx tab.rapdis HYDROcodone/APAP 5-325 [[place] 1 each PO Q6HR PRN #14 tablet 10/11/21 Unknown Rx 5/325] Ketorolac [Toradol] 10 mg PO Q6H PRN #20 tablet 10/11/21 Unknown Rx Nitrofurantoin [place]/M-Cryst 100 mg PO Q12HR #14 capsule 10/11/21 Unknown Rx [Macrobid CAP] Ondansetron [Zofran Odt] 4 mg PO Q8HR #10 tab.rapdis 10/11/21 Unknown Rx Allergies Allergy/AdvReac Type Severity Reaction Status Date / Time No Known Allergies Allergy Verified 09/26/21 07:14 ED Review of Systems ROS: Stated complaint: ABD PAIN 2 DAYS Other details as noted in HPI Comment: All other systems reviewed and negative ED Past Medical Hx - Past Medical History Previous Medical History?: Yes Hx Hypertension: Yes Hx Heart Attack/AMI: No Hx Diabetes: Yes Hx GERD: Yes Hx Liver Disease: No Hx Renal Disease: Yes (no dialysis) Hx Sickle Cell Disease: No Hx Seizures: Yes Hx Asthma: Yes Hx COPD: No Hx Tuberculosis: No Hx HIV: No - Surgical History Past Surgical History?: Yes Hx Cholecystectomy: Yes - Social History Smoking Status: Never Smoker Substance Use Type: None - Medications Home Medications: Home Medications Medication Instructions Recorded Confirmed Last Taken Type Lisdexamfetamine Dimesylate 40 mg PO DAILY 02/07/20 09/10/21 02/20/20 07:00 History [Vyvanse] Albuterol Mdi (or & Nicu Only) 2 puff IH QID PRN #1 inha 05/05/21 09/10/21 Unknown Rx [ProAir HFA Inhaler] Blood Sugar Diagnostic [Freestyle 1 each QID #100 strip 05/05/21 09/10/21 Unknown Rx Lite Test Strip] Butalb/Acetamin/Caff 50-325-40 1 - 2 tab PO Q6HR PRN #15 tab 05/05/21 09/10/21 Unknown Rx [Fioricet 50-325-40] Dicyclomine [Bentyl] 20 mg PO Q6H PRN #20 tablet 05/05/21 09/10/21 Unknown Rx Famotidine [Pepcid] 20 mg PO BID #30 tablet 05/05/21 09/10/21 Unknown Rx Gabapentin 300 mg PO BID #20 capsule 05/05/21 09/10/21 Unknown Rx Insulin Glargine [Lantus VIAL] 44 units SUB-Q QHS #2 vial 05/05/21 09/10/21 Unknown Rx Insulin Regular, Human [HumuLIN R] 0 unit SQ AC #1 vial 05/05/21 09/10/21 Unknown Rx Sucralfate [Carafate] 1 gm PO ACHS 7 Days #21 tablet 05/05/21 09/10/21 Unknown Rx levETIRAcetam [Keppra TAB] 500 mg PO BID #60 tablet 05/05/21 09/10/21 Unknown Rx lisinopriL [Zestril TAB] 5 mg PO DAILY #30 05/05/21 09/10/21 Unknown Rx traMADoL [Ultram 50 MG tab] 50 mg PO Q6HR PRN #14 tablet 06/21/21 09/10/21 Unknown Rx Miconazole Nitrate 1 inch TP BID 14 Days #1 cream..g. 06/23/21 09/10/21 Unknown Rx Naproxen [Naprosyn TAB] 500 mg PO BID #20 tablet 06/23/21 09/10/21 Unknown Rx Ibuprofen [Motrin 600 MG tab] 600 mg PO Q8H PRN 10 Days #30 09/11/21 Unknown Rx tablet Ondansetron [Zofran ODT TAB] 4 mg PO Q8HR PRN 5 Days #15 09/11/21 Unknown Rx tab.rapdis HYDROcodone/APAP 5-325 [[place] 1 each PO Q6HR PRN #14 tablet 10/11/21 Unknown Rx 5/325] Ketorolac [Toradol] 10 mg PO Q6H PRN #20 tablet 10/11/21 Unknown Rx Nitrofurantoin [place]/M-Cryst 100 mg PO Q12HR #14 capsule 10/11/21 Unknown Rx [Macrobid CAP] Ondansetron [Zofran Odt] 4 mg PO Q8HR #10 tab.rapdis 10/11/21 Unknown Rx ED Physical Exam - General Limitations: No Limitations General appearance: alert, in no apparent distress - Head Head exam: Present: atraumatic, normocephalic - Eye Eye exam: Present: normal appearance - ENT ENT exam: Present: mucous membranes moist - Neck Neck exam: Present: normal inspection - Respiratory Respiratory exam: Present: normal lung sounds bilaterally. Absent: respiratory distress, wheezes, rales, rhonchi - Cardiovascular Cardiovascular Exam: Present: regular rate, normal rhythm. Absent: systolic murmur, diastolic murmur, rubs, gallop - GI/Abdominal GI/Abdominal exam: Present: soft, normal bowel sounds. Absent: distended, tend erness, guarding, rebound - Extremities Exam Extremities exam: Present: normal inspection - Back Exam Back exam: Present: normal inspection - Neurological Exam Neurological exam: Present: alert, oriented X3 - Psychiatric Psychiatric exam: Present: normal affect, normal mood - Skin Skin exam: Present: warm, dry, intact, normal color. Absent: rash ED Course Vital Signs 10/11/21 16:44 Temperature 97.8 F Pulse Rate 104 H Respiratory 16 Rate Blood Pressure 121/82 [Left] O2 Sat by Pulse 95 Oximetry ED Medical Decision Making - Lab Data Result diagrams: 10/11/21 17:57 10/11/21 17:57 Lab Results 10/11/21 10/11/21 10/11/21 Range/Units 17:57 17:57 17:57 WBC 6.8 (4.5-11.0) K/mm3 RBC 5.05 H (3.65-5.03) M/mm3 Hgb 14.6 H (10.1-14.3) gm/dl Hct 44.3 H (30.3-42.9) % MCV 88 (79-97) fl MCH 29 (28-32) pg MCHC 33 (30-34) % RDW 13.0 L (13.2-15.2) % Plt Count 281 (140-440) K/mm3 Lymph % (Auto) 34.2 (13.4-35.0) % [place] % (Auto) 6.9 (0.0-7.3) % Eos % (Auto) 0.4 (0.0-4.3) % Baso % (Auto) 0.5 (0.0-1.8) % Lymph # (Auto) 2.3 (1.2-5.4) K/mm3 [place] # (Auto) 0.5 (0.0-0.8) K/mm3 Eos # (Auto) 0.0 (0.0-0.4) K/mm3 Baso # (Auto) 0.0 (0.0-0.1) K/mm3 Seg Neutrophils % 58.0 (40.0-70.0) % Seg Neutrophils # 4.0 (1.8-7.7) K/mm3 Sodium 139 (137-145) mmol/L Potassium 4.3 (3.6-5.0) mmol/L Chloride 102.2 (98-107) mmol/L Carbon Dioxide 23 (22-30) mmol/L Anion Gap 18 mmol/L BUN 11 (7-17) mg/dL Creatinine 0.9 (0.6-1.2) mg/dL Estimated GFR > 60 ml/min BUN/Creatinine Ratio 12 % Glucose 339 H (65-100) mg/dL Calcium 9.6 (8.4-10.2) mg/dL Total Bilirubin 0.40 (0.1-1.2) mg/dL AST 26 (5-40) units/L ALT 53 (7-56) units/L Alkaline Phosphatase 135 H (35-129) units/L Total Protein 7.0 (6.3-8.2) g/dL Albumin 4.4 (3.9-5) g/dL Albumin/Globulin Ratio 1.7 % HCG, Qual Negative (Negative) Urine Color (Yellow) Urine Turbidity (Clear) Urine pH (5.0-7.0) Ur Specific Mineral (1.003-1.030) Urine Protein (Negative) mg/dL Urine Glucose (UA) (Negative) mg/dL Urine Ketones (Negative) mg/dL Urine Blood (Negative) Urine Nitrite (Negative) Urine Bilirubin (Negative) Urine Urobilinogen (<2.0) mg/dL Ur Leukocyte Esterase (Negative) Urine WBC (Auto) (0.0-6.0) /HPF Urine RBC (Auto) (0.0-6.0) /HPF U Epithel Cells (Auto) (0-13.0) /HPF Urine Bacteria (Auto) (Negative) /HPF 10/11/21 Range/Units Unknown WBC (4.5-11.0) K/mm3 RBC (3.65-5.03) M/mm3 Hgb (10.1-14.3) gm/dl Hct (30.3-42.9) % MCV (79-97) fl MCH (28-32) pg MCHC (30-34) % RDW (13.2-15.2) % Plt Count (140-440) K/mm3 Lymph % (Auto) (13.4-35.0) % [place] % (Auto) (0.0-7.3) % Eos % (Auto) (0.0-4.3) % Baso % (Auto) (0.0-1.8) % Lymph # (Auto) (1.2-5.4) K/mm3 [place] # (Auto) (0.0-0.8) K/mm3 Eos # (Auto) (0.0-0.4) K/mm3 Baso # (Auto) (0.0-0.1) K/mm3 Seg Neutrophils % (40.0-70.0) % Seg Neutrophils # (1.8-7.7) K/mm3 Sodium (137-145) mmol/L Potassium (3.6-5.0) mmol/L Chloride (98-107) mmol/L Carbon Dioxide (22-30) mmol/L Anion Gap mmol/L BUN (7-17) mg/dL Creatinine (0.6-1.2) mg/dL Estimated GFR ml/min BUN/Creatinine Ratio % Glucose (65-100) mg/dL Calcium (8.4-10.2) mg/dL Total Bilirubin (0.1-1.2) mg/dL AST (5-40) units/L ALT (7-56) units/L Alkaline Phosphatase (35-129) units/L Total Protein (6.3-8.2) g/dL Albumin (3.9-5) g/dL Albumin/Globulin Ratio % HCG, Qual (Negative) Urine Color Straw (Yellow) Urine Turbidity Slightly-cloudy (Clear) Urine pH 6.0 (5.0-7.0) Ur Specific Mineral 1.021 (1.003-1.030) Urine Protein <15 mg/dl (Negative) mg/dL Urine Glucose (UA) >=500 (Negative) mg/dL Urine Ketones Neg (Negative) mg/dL Urine Blood Mod (Negative) Urine Nitrite Neg (Negative) Urine Bilirubin Neg (Negative) Urine Urobilinogen < 2.0 (<2.0) mg/dL Ur Leukocyte Esterase Lg (Negative) Urine WBC (Auto) 45.0 H (0.0-6.0) /HPF Urine RBC (Auto) 16.0 (0.0-6.0) /HPF U Epithel Cells (Auto) 7.0 (0-13.0) /HPF Urine Bacteria (Auto) 1+ (Negative) /HPF - Radiology Data CT ABDOMEN AND PELVIS WITHOUT CONTRAST INDICATION / CLINICAL INFORMATION: rlq pain. TECHNIQUE: Axial CT images were obtained through the abdomen and pelvis without IV contrast. All CT scans at this location are performed using CT dose reduction for [employer] by means of automated exposure control. COMPARISON: 09/09/2021 FINDINGS: LOWER CHEST: No significant abnormality. LIVER: No significant abnormality. GALLBLADDER: Cholecystectomy. BILE DUCTS: No significant abnormality. PANCREAS: No significant abnormality. SPLEEN: No significant abnormality. ADRENALS: No significant abnormality. RIGHT KIDNEY / URETER: There is contrast media in the right renal collecting system indicating recent procedure with IV contrast. IV contrast was not administered for this study. There is no hydronephrosis. LEFT KIDNEY / URETER: Contrast media is noted in the left renal collecting system is well. There is no hydronephrosis. STOMACH / SMALL BOWEL: No significant abnormality. COLON: No significant abnormality. APPENDIX: No significant abnormality. PERITONEUM: No free fluid. No free air. No fluid collection. LYMPH NODES: No significant adenopathy. AORTA / ARTERIES: No significant abnormality. IVC / VEINS: No significant abnormality. URINARY BLADDER: There is contrast media in the urinary bladder. REPRODUCTIVE ORGANS: No significant abnormality. ADDITIONAL FINDINGS: None. SKELETAL SYSTEM: No acute abnormality. IMPRESSION: 1. There is contrast media in the renal collecting systems and urinary bladder indicating recent IV contrast administration. Contrast would obscure stones in the kidney. There is no hydronephrosis. 2. There is no obstruction, inflammation, or free air. The appendix is unremarkable. Signer Name: Maciej Ledesma MD Signed: 10/11/2021 7:54 PM Workstation Name: [id number] - Medical Decision Making Patient is a 21-year-old F [place] female was presented with right lower quadrant pain. CT shows no evidence of acute appendicitis. She does have evidence of significant UTI. Patient to be discharged home with medication for symptomatic relief. Critical care attestation.: If time is entered above; I have spent that time in minutes in the direct care of this critically ill patient, excluding procedure time. ED Disposition Clinical Impression: Acute cystitis Qualifiers: Hematuria presence: with hematuria Qualified Code(s): N30.01 - Acute cystitis with hematuria Abdominal pain Qualifiers: Abdominal location: right lower quadrant Qualified Code(s): R10.31 - Right lower quadrant pain Disposition: HOME / SELF CARE / HOMELESS Is pt being admited?: No Does the pt Need Aspirin: No Condition: Stable Instructions: Abdominal Pain (ED), Urinary Tract Infection, Adult Prescriptions: Nitrofurantoin [place]/M-Cryst [Macrobid CAP] 100 mg PO Q12HR #14 capsule HYDROcodone/APAP 5-325 [[place] 5/325] 1 each PO Q6HR PRN #14 tablet PRN Reason: Pain Ketorolac [Toradol] 10 mg PO Q6H PRN #20 tablet PRN Reason: Pain Ondansetron [Zofran Odt] 4 mg PO Q8HR #10 tab.jeandis Time of Disposition: 20:07
[2021-10-11 21:16] VITALS: BP 132/78
== END 2021-10-11 20:40 | disposition home or self-care (01) ==
LOC: ED 14:10
DX: N30.01 Acute cystitis with hematuria (principal); R10.31 Right lower quadrant pain; I10 Essential (primary) hypertension; E11.9 Type 2 diabetes mellitus without complications; K21.9 Gastro-esophageal reflux disease without esophagitis; R56.9 Unspecified convulsions; J45.909 Unspecified asthma, uncomplicated; N28.9 Disorder of kidney and ureter, unspecified; Z90.49 Acquired absence of other specified parts of digestive tract; Z79.899 Other long term (current) drug therapy
CPT/HCPCS: 36415; 74176; 80053; 81001; 84703; 85025; 87086; 96374; 96375; 99284; J1885; J2405; J3490; J7030; Q0162

== ENCOUNTER 2021-10-16 05:19 | Emergency (ER) | payer MEDICAID ==
[2021-10-16] MEDS ORDERED: IPRATROPIUM/ALBUTEROL SULFATE 3 ML AMPUL.NEB IH ONE (06:12)
[2021-10-16] MEDS ORDERED: DEXAMETHASONE 4 MG TAB PO ONE (06:12)
--- NOTE | 2021-10-16 06:15 | Emergency Department Report ---
HPI - General Chief Complaint: Upper Respiratory Infection Time Seen by Provider: 10/16/21 06:04 - HPI HPI: 21-year-old -[place] female presents to the emergency department with complaint of some generalized chest discomfort, and a mixed dry and productive cough, that started last night. She says that the chest discomfort began after having some coughing fits last night and the pain worsens when she coughs. There is no radiation of pain. She denies any fever, lower extremity swelling, back pain, nausea, vomiting or diaphoresis. Patient has a history of asthma and insulin-dependent diabetes. She tried some Delsym for her symptoms last night without any relief. No recent travel or sick contacts at home. The patient is not vaccinated against COVID-19. No known exposure to anyone with COVID-19. ED Past Medical Hx - Past Medical History Previous Medical History?: Yes Hx Hypertension: Yes Hx Heart Attack/AMI: No Hx Diabetes: Yes Hx GERD: Yes Hx Liver Disease: No Hx Renal Disease: Yes (no dialysis) Hx Sickle Cell Disease: No Hx Seizures: Yes Hx Asthma: Yes Hx COPD: No Hx Tuberculosis: No Hx HIV: No - Surgical History Past Surgical History?: Yes Hx Cholecystectomy: Yes - Social History Smoking Status: Never Smoker Substance Use Type: None - Medications Home Medications: Home Medications Medication Instructions Recorded Confirmed Last Taken Type Lisdexamfetamine Dimesylate 40 mg PO DAILY 02/07/20 09/10/21 02/20/20 07:00 History [Mauricio] Blood Sugar Diagnostic [Freestyle 1 each MC QID #100 strip 05/05/21 09/10/21 Unknown Rx Lite Test Strip] Butalb/Acetamin/Caff 50-325-40 1 - 2 tab PO Q6HR PRN #15 tab 05/05/21 09/10/21 Unknown Rx [Fioricet 50-325-40] Dicyclomine [Bentyl] 20 mg PO Q6H PRN #20 tablet 05/05/21 09/10/21 Unknown Rx Famotidine [Pepcid] 20 mg PO BID #30 tablet 05/05/21 09/10/21 Unknown Rx Gabapentin 300 mg PO BID #20 capsule 05/05/21 09/10/21 Unknown Rx Insulin Glargine [Lantus VIAL] 44 units SUB-Q QHS #2 vial 05/05/21 09/10/21 U nknown Rx Insulin Regular, Human [HumuLIN R] 0 unit SQ AC #1 vial 05/05/21 09/10/21 Unknown Rx Sucralfate [Carafate] 1 gm PO ACHS 7 Days #21 tablet 05/05/21 09/10/21 Unknown Rx levETIRAcetam [Keppra TAB] 500 mg PO BID #60 tablet 05/05/21 09/10/21 Unknown Rx lisinopriL [Zestril TAB] 5 mg PO DAILY #30 05/05/21 09/10/21 Unknown Rx traMADoL [Ultram 50 MG tab] 50 mg PO Q6HR PRN #14 tablet 06/21/21 09/10/21 Unknown Rx Miconazole Nitrate 1 inch TP BID 14 Days #1 cream..g. 06/23/21 09/10/21 Unknown Rx Naproxen [Naprosyn TAB] 500 mg PO BID #20 tablet 06/23/21 09/10/21 Unknown Rx Ibuprofen [Motrin 600 MG tab] 600 mg PO Q8H PRN 10 Days #30 09/11/21 Unknown Rx tablet Ondansetron [Zofran ODT TAB] 4 mg PO Q8HR PRN 5 Days #15 09/11/21 Unknown Rx tab.rapdis HYDROcodone/APAP 5-325 [[place] 1 each PO Q6HR PRN #14 tablet 10/11/21 Unknown Rx 5/325] Ketorolac [Toradol] 10 mg PO Q6H PRN #20 tablet 10/11/21 Unknown Rx Nitrofurantoin [place]/M-Cryst 100 mg PO Q12HR #14 capsule 10/11/21 Unknown Rx [Macrobid CAP] Ondansetron [Zofran Odt] 4 mg PO Q8HR #10 tab.rapdis 10/11/21 Unknown Rx Albuterol Mdi (or & Nicu Only) 2 puff IH QID PRN #1 inha 10/16/21 Unknown Rx [ProAir HFA Inhaler] Benzonatate [Tessalon Perles] 100 mg PO Q8HR PRN #20 cap 10/16/21 Unknown Rx ED Review of Systems ROS: Stated complaint: CHEST PAIN/COUGH Other details as noted in HPI Comment: All other systems reviewed and negative Constitutional: denies: chills, fever Eyes: denies: eye pain, vision change ENT: denies: ear pain, throat pain Respiratory: cough, wheezing Cardiovascular: chest pain (Chest wall pain). denies: edema Gastrointestinal: denies: abdominal pain, vomiting Genitourinary: denies: dysuria, discharge Musculoskeletal: denies: back pain, arthralgia Skin: denies: rash, lesions Neurological: denies: headache, weakness Physical Exam - Physical Exam Vital Signs: Vital Signs 10/16/21 05:33 Temperature 98.3 F Pulse Rate 100 H Respiratory 18 Rate Blood Pressure 115/73 O2 Sat by Pulse 98 Oximetry Physical Exam: GENERAL: The patient is well-developed well-nourished. HENT: Normocephalic. Atraumatic. Patient has moist mucous membranes. EYES: Extraocular motions are intact. NECK: Supple. Trachea is midline. CHEST/LUNGS: Mild expiratory wheezing. No cough heard during examination. Reproducible chest wall tenderness to palpation without crepitus or deformity. HEART/CARDIOVASCULAR: Regular. There is no tachycardia. There is no murmur. ABDOMEN: Abdomen is soft, nontender. Patient has normal bowel sounds. There is no abdominal distention. SKIN: Skin is warm and dry. NEURO: The patient is awake, alert, and oriented. The patient is cooperative. Normal speech. MUSCULOSKELETAL: There is no tenderness or deformity. There is no limitation range of motion. ED Course Vital Signs 10/16/21 05:33 Temperature 98.3 F Pulse Rate 100 H Respiratory 18 Rate Blood Pressure 115/73 O2 Sat by Pulse 98 Oximetry ED Medical Decision Making - Lab Data Result diagrams: 10/16/21 06:38 10/16/21 06:38 Lab Results 10/16/21 10/16/21 10/16/21 Range/Units 06:13 06:38 06:38 WBC 6.8 (4.5-11.0) K/mm3 RBC 5.13 H (3.65-5.03) M/mm3 Hgb 14.7 H (10.1-14.3) gm/dl Hct 44.8 H (30.3-42.9) % MCV 87 (79-97) fl MCH 29 (28-32) pg MCHC 33 (30-34) % RDW 12.7 L (13.2-15.2) % Plt Count 305 (140-440) K/mm3 Lymph % (Auto) 35.7 H (13.4-35.0) % [place] % (Auto) 7.3 (0.0-7.3) % Eos % (Auto) 0.7 (0.0-4.3) % Baso % (Auto) 0.8 (0.0-1.8) % Lymph # (Auto) 2.4 (1.2-5.4) K/mm3 [place] # (Auto) 0.5 (0.0-0.8) K/mm3 Eos # (Auto) 0.0 (0.0-0.4) K/mm3 Baso # (Auto) 0.1 (0.0-0.1) K/mm3 Seg Neutrophils % 55.5 (40.0-70.0) % Seg Neutrophils # 3.8 (1.8-7.7) K/mm3 Sodium 131 L D (137-145) mmol/L Potassium 3.8 (3.6-5.0) mmol/L Chloride 97.6 L (98-107) mmol/L Carbon Dioxide 23 (22-30) mmol/L Anion Gap 14 mmol/L BUN 5 L (7-17) mg/dL Creatinine 0.9 (0.6-1.2) mg/dL Estimated GFR > 60 ml/min BUN/Creatinine Ratio 6 % Glucose 322 H (65-100) mg/dL POC Glucose 306 H (70-105) mg/dL Calcium 9.7 (8.4-10.2) mg/dL - Radiology Data Radiology results: image reviewed interpreted by me: Chest x-ray does not show any acute process. There are no pleural effusions, obvious pneumonia and there is no pneumothorax. No widened mediastinum. - Medical Decision Making This patient presents to the emergency department with a complaint of some generalized chest discomfort, and a mixed dry and productive cough, that started last night. On examination heart and lung sounds are normal to auscultation other than mild expiratory wheezing. The patient does not appear in any respiratory or acute distress. Chest x-ray does not show any pneumonia, pleural effusions, pneumothorax, widened mediastinum, or any other acute process. Patient's labs are mostly unremarkable except for some hyperglycemia with a blood sugar of about 320 but there is no elevation in her anion gap and the patient does not appear in diabetic ketoacidosis. There is also some mild hyponatremia, but corrected secondary to the hyperglycemia it is essentially within normal limits. The patient was given a small dose of subcutaneous insulin to bring down her blood sugar, also since the patient received a dose of Decadron. She was given a DuoNeb breathing treatment and upon reevaluation is feeling improved. She has remained stable throughout her ED course. The patient will be discharged home with an albuterol inhaler and Tessalon Perles for her cough. This is an upper respiratory infection versus asthma versus both. We are unable to test the patient for COVID-19 at this time so she has been instructed to f ollow-up outpatient and seek outpatient COVID-19 testing. Vital signs reassuring including being afebrile and no hypoxia. Critical Care Time: No Critical care attestation.: If time is entered above; I have spent that time in minutes in the direct care of this critically ill patient, excluding procedure time. ED Disposition Clinical Impression: Chest wall pain Upper respiratory infection Qualifiers: URI type: unspecified URI Qualified Code(s): J06.9 - Acute upper respiratory infection, unspecified Asthma Qualifiers: Asthma severity: unspecified severity Asthma persistence: unspecified Asthma complication type: unspecified Qualified Code(s): J45.909 - Unspecified asthma, uncomplicated Disposition: 01 HOME / SELF CARE / HOMELESS Is pt being admited?: No Condition: Stable Instructions: Asthma Attack, Viral Respiratory Infection, Chest Wall Pain, Asthma (ED) Additional Instructions: Please follow-up with a primary care physician in the next few days. I have given you a referral for a local primary care physician, Dr. Castellanos, and a primary care clinic, [facility]. Please take your diabetes medications as previously prescribed. Try to stay aw ay from foods that are high in sugar, carbohydrates and starches. Keep a blood sugar log. Return to the emergency department with any worsening of your symptoms, new or concerning symptoms not addressed during this current emergency department visit, or with any acute distress. Prescriptions: Albuterol Mdi (or & Nicu Only) [ProAir HFA Inhaler] 2 puff IH QID PRN #1 inha PRN Reason: Shortness Of Breath Benzonatate [Tessalon Perles] 100 mg PO Q8HR PRN #20 cap PRN Reason: Cough Referrals: LONDON CASTELLANOS MD [Staff Physician] - 3-5 Days [facility] [Provider Group] - 3-5 Days Time of Disposition: 07:34
--- NOTE | 2021-10-16 06:59 | XRay Report ---
CHEST 2 VIEWS INDICATION / CLINICAL INFORMATION: Cough and shortness of breath. COMPARISON: 06/17/21. FINDINGS: SUPPORT DEVICES: None. HEART / MEDIASTINUM: The heart size and pulmonary vasculature are normal. A couple of surgical clips in the AP window on the left were present previously. LUNGS / PLEURA: No significant pulmonary or pleural abnormality. No pneumothorax. ADDITIONAL FINDINGS: No significant additional findings. IMPRESSION: No acute abnormality or significant change. Signer Name: Sebastian Harris MD Signed: 10/16/2021 6:55 AM Workstation Name: [id number]
[2021-10-16 07:12] LABS: Basophils # (Auto) 0.1 K/mm3 (0.0-0.1); Basophils % (Auto) 0.8 % (0.0-1.8); Eosinophils % (Auto) 0.7 % (0.0-4.3); Hematocrit 44.8 % (30.3-42.9); Hemoglobin 14.7 gm/dl (10.1-14.3); Lymphocytes # (Auto) 2.4 K/mm3 (1.2-5.4); Lymphocytes % (Auto) 35.7 % (13.4-35.0); Mean Corpuscular HGB Conc 33 % (30-34); Mean Corpuscular Volume 87 fl (79-97); Monocytes # (Auto) 0.5 K/mm3 (0.0-0.8); Monocytes % (Auto) 7.3 % (0.0-7.3); Platelet Count 305 K/mm3 (140-440); Red Blood Count 5.13 M/mm3 (3.65-5.03); Red Cell Distribution Width 12.7 % (13.2-15.2)
[2021-10-16 07:21] LABS: BUN/Creatinine Ratio 6; Blood Urea Nitrogen 5 mg/dL (7-17); Calcium 9.7 mg/dL (8.4-10.2); Hemolysis Index 4
[2021-10-16] MEDS ORDERED: INSULIN REGULAR, HUMAN 100 UNITS/1 ML SUB-Q ONE (07:25)
[2021-10-16 07:57] VITALS: BP 128/66
== END 2021-10-16 07:53 | disposition home or self-care (01) ==
LOC: ED 05:19
DX: R07.89 Other chest pain (principal); J06.9 Acute upper respiratory infection, unspecified; J45.909 Unspecified asthma, uncomplicated; I10 Essential (primary) hypertension; E11.9 Type 2 diabetes mellitus without complications; K21.9 Gastro-esophageal reflux disease without esophagitis; R56.9 Unspecified convulsions; Z90.49 Acquired absence of other specified parts of digestive tract
CPT/HCPCS: 36415; 71046; 80048; 82962; 85025; 94640; 96372; 99283; J8540; 96374; Q9967; J1815

== ENCOUNTER 2021-10-20 10:38 | Emergency (ER) | payer MEDICAID ==
--- NOTE | 2021-10-20 12:43 | Emergency Department Report ---
ED General Adult HPI - General Chief complaint: Sore Throat Stated complaint: SORE THROAT Source: patient Mode of arrival: Ambulatory Limitations: No Limitations - History of Present Illness Initial comments: 21 year old female with a past medical history of type 2 diabetes, DKA and hypertension presents to ED with complaints of URI/Flu like symptoms. Onset was 5 days ago. She reports productive cough with thick green mucous, central chest discomfort due to cough, sore throat, rhinorrhea, nasal congestion and she had low grade temp of 100 yesterday. She states she took a rapid COVID 19 test about 2 days ago and it was negative. She is not vaccinated against COVID 19. She denies any known ill contacts or recent travel. She reports no SOB or wheezing, GI or symptoms. She denies tobacco use or ETOH abuse. MD Complaint: flu like symptoms -: Gradual, days(s) (5) Severity scale (0 -10): 8 - Related Data Home Medications Medication Instructions Recorded Confirmed Last Taken Lisdexamfetamine Dimesylate 40 mg PO DAILY 02/07/20 09/10/21 02/20/20 07:00 [Vyvanse] Previous Rx's Medication Instructions Recorded Last Taken Type Blood Sugar Diagnostic [Freestyle 1 each MC QID #100 strip 05/05/21 Unknown Rx Lite Test Strip] Butalb/Acetamin/Caff 50-325-40 1 - 2 tab PO Q6HR PRN #15 tab 05/05/21 Unknown Rx [Fioricet 50-325-40] Dicyclomine [Bentyl] 20 mg PO Q6H PRN #20 tablet 05/05/21 Unknown Rx Famotidine [Pepcid] 20 mg PO BID #30 tablet 05/05/21 Unknown Rx Gabapentin 300 mg PO BID #20 capsule 05/05/21 Unknown Rx Insulin Glargine [Lantus VIAL] 44 units SUB-Q QHS #2 vial 05/05/21 Unknown Rx Insulin Regular, Human [HumuLIN R] 0 unit SQ AC #1 vial 05/05/21 Unknown Rx Sucralfate [Carafate] 1 gm PO ACHS 7 Days #21 tablet 05/05/21 Unknown Rx levETIRAcetam [Keppra TAB] 500 mg PO BID #60 tablet 05/05/21 Unknown Rx lisinopriL [Zestril TAB] 5 mg PO DAILY #30 05/05/21 Unknown Rx traMADoL [Ultram 50 MG tab] 50 mg PO Q6HR PRN #14 tablet 06/21/21 Unknown Rx Miconazole Nitrate 1 inch TP BID 14 Days #1 cream..g. 06/23/21 Unknown Rx Naproxen [Naprosyn TAB] 500 mg PO BID #20 tablet 06/23/21 Unknown Rx Ondansetron [Zofran ODT TAB] 4 mg PO Q8HR PRN 5 Days #15 09/11/21 Unknown Rx tab.rapdis HYDROcodone/APAP 5-325 [Milo 1 each PO Q6HR PRN #14 tablet 10/11/21 Unknown Rx 5/325] Ketorolac [Toradol] 10 mg PO Q6H PRN #20 tablet 10/11/[address] [place]/M-Cryst 100 mg PO Q12HR #14 capsule 10/11/21 Unknown Rx [Macrobid CAP] Ondansetron [Zofran Odt] 4 mg PO Q8HR #10 tab.rapdis 10/11/21 Unknown Rx Albuterol Mdi (or & Nicu Only) 2 puff IH QID PRN #1 inha 10/16/21 Unknown Rx [ProAir HFA Inhaler] Benzonatate [Tessalon Perles] 100 mg PO Q8HR PRN #20 cap 10/20/21 Unknown Rx Cetirizine HCl [Zyrtec 10mg tab] 10 mg PO DAILY #30 10/20/21 Unknown Rx Ibuprofen [Motrin 600 MG tab] 600 mg PO Q8H PRN 10 Days #30 10/20/21 Unknown Rx tablet Allergies Allergy/AdvReac Type Severity Reaction Status Date / Time No Known Allergies Allergy Verified 10/20/21 13:39 ED Review of Systems ROS: Stated complaint: SORE THROAT Other details as noted in HPI Comment: All other systems reviewed and negative Constitutional: fever ENT: throat pain, congestion, other (rhinorrhea ) Respiratory: cough. denies: shortness of breath, SOB with exertion, SOB at rest, wheezing Cardiovascular: chest pain (secondary to cough). denies: palpitations, dyspnea on exertion, orthopnea, edema, syncope, paroxysmal nocturnal dyspnea Gastrointestinal: denies: abdominal pain, nausea, diarrhea Genitourinary: denies: urgency, dysuria, frequency, hematuria, discharge, abnormal menses, dyspareunia Musculoskeletal: denies: back pain, joint swelling, arthralgia, myalgia Skin: denies: rash, lesions, change in color, change in hair/nails, pruritus Neurological: denies: headache, weakness, numbness, paresthesias, confusion, abnormal gait, vertigo Psychiatric: denies: anxiety, depression Hematological/Lymphatic: denies: easy bleeding, easy bruising ED Past Medical Hx - Past Medical History Hx Hypertension: Yes Hx Heart Attack/AMI: No Hx Diabetes: Yes Hx GERD: Yes Hx Liver Disease: No Hx Renal Disease: Yes (no dialysis) Hx Sickle Cell Disease: No Hx Seizures: Yes Hx Asthma: Yes Hx COPD: No Hx Tuberculosis: No Hx HIV: No - Surgical History Hx Cholecystectomy: Yes - Social History Smoking Status: Never Smoker Substance Use Type: None - Medications Home Medications: Home Medications Medication Instructions Recorded Confirmed Last Taken Type Lisdexamfetamine Dimesylate 40 mg PO DAILY 02/07/20 09/10/21 02/20/20 07:00 History [Mauricio] Blood Sugar Diagnostic [Freestyle 1 each QID #100 strip 05/05/21 09/10/21 Unknown Rx Lite Test Strip] Butalb/Acetamin/Caff 50-325-40 1 - 2 tab PO Q6HR PRN #15 tab 05/05/21 09/10/21 Unknown Rx [Fioricet 50-325-40] Dicyclomine [Bentyl] 20 mg PO Q6H PRN #20 tablet 05/05/21 09/10/21 Unknown Rx Famotidine [Pepcid] 20 mg PO BID #30 tablet 05/05/21 09/10/21 Unknown Rx Gabapentin 300 mg PO BID #20 capsule 05/05/21 09/10/21 Unknown Rx Insulin Glargine [Lantus VIAL] 44 units SUB-Q QHS #2 vial 05/05/21 09/10/21 Unknown Rx Insulin Regular, Human [HumuLIN R] 0 unit SQ AC #1 vial 05/05/21 09/10/21 Unknown Rx Sucralfate [Carafate] 1 gm PO ACHS 7 Days #21 tablet 05/05/21 09/10/21 Unknown Rx levETIRAcetam [Keppra TAB] 500 mg PO BID #60 tablet 05/05/21 09/10/21 Unknown Rx lisinopriL [Zestril TAB] 5 mg PO DAILY #30 05/05/21 09/10/21 Unknown Rx traMADoL [Ultram 50 MG tab] 50 mg PO Q6HR PRN #14 tablet 06/21/21 09/10/21 Unknown Rx Miconazole Nitrate 1 inch TP BID 14 Days #1 cream..g. 06/23/21 09/10/21 Unknown Rx Naproxen [Naprosyn TAB] 500 mg PO BID #20 tablet 06/23/21 09/10/21 Unknown Rx Ondansetron [Zofran ODT TAB] 4 mg PO Q8HR PRN 5 Days #15 09/11/21 Unknown Rx tab.rapdis HYDROcodone/APAP 5-325 [Milo 1 each PO Q6HR PRN #14 tablet 10/11/21 Unknown Rx 5/325] Ketorolac [Toradol] 10 mg PO Q6H PRN #20 tablet 10/11/[address] [place]/M-Cryst 100 mg PO Q12HR #14 capsule 10/11/21 Unknown Rx [Macrobid CAP] Ondansetron [Zofran Odt] 4 mg PO Q8HR #10 tab.rapdis 10/11/21 Unknown Rx Albuterol Mdi (or & Nicu Only) 2 puff IH QID PRN #1 inha 10/16/21 Unknown Rx [ProAir HFA Inhaler] Benzonatate [Tessalon Perles] 100 mg PO Q8HR PRN #20 cap 10/20/21 Unknown Rx Cetirizine HCl [Zyrtec 10mg tab] 10 mg PO DAILY #30 10/20/21 Unknown Rx Ibuprofen [Motrin 600 MG tab] 600 mg PO Q8H PRN 10 Days #30 10/20/21 Unknown Rx tablet ED Physical Exam - General Limitations: No Limitations General appearance: alert, in no apparent distress - Head Head exam: Present: atraumatic, normocephalic, normal inspection - Eye Eye exam: Present: normal appearance, PERRL, EOMI Pupils: Present: normal accommodation - ENT ENT exam: Present: mucous membranes dry - Expanded ENT Exam Expanded Mouth exam: Present: normal external inspection Throat exam: Positive: tonsillar erythema. Negative: tonsillomegaly, tonsillar exudate, R peritonsillar mass, L peritonsillar mass - Neck Neck exam: Present: normal inspection, full ROM. Absent: meningismus - Respiratory Respiratory exam: Present: normal lung sounds bilaterally. Absent: respiratory distress, wheezes, rales, rhonchi - Cardiovascular Cardiovascular Exam: Present: regular rate, normal rhythm, normal heart sounds - GI/Abdominal GI/Abdominal exam: Present: soft. Absent: distended, tenderness, guarding, rebound - Neurological Exam Neurological exam: Present: alert, oriented X3, CN II-XII intact, normal gait - Psychiatric Psychiatric exam: Present: normal affect, normal mood - Skin Skin exam: Present: intact ED Course Vital Signs 10/20/21 10/20/21 12:06 15:35 Temperature 97.4 F L Pulse Rate 89 78 Respiratory 18 15 Rate Blood Pressure 142/93 124/80 [Right] O2 Sat by Pulse 99 98 Oximetry ED Medical Decision Making - Lab Data Result diagrams: 10/20/21 13:54 10/20/21 13:54 - Radiology Data Radiology results: report reviewed Patient: LYNN CHANDLER MR#: [id number] : 2000 Acct:[id number] Age/Sex: 21 / F ADM Date: 10/20/21 Loc: ED Attending Dr: Ordering Physician: SHARONDA LUNDY Date of Service: 10/20/21 Procedure(s): XR chest routine 2V Accession Number(s): [id number] cc: SHARONDA LUNDY Fluoro Time In Minutes: XR chest routine 2V INDICATION / CLINICAL INFORMATION: Cough. COMPARISON: 10/16/2021 FINDINGS: SUPPORT DEVICES: None. HEART /PULMONARY VASCULATURE: No significant abnormality. LUNGS / PLEURA: No significant pulmonary or pleural abnormality. No pneumothorax. ADDITIONAL FINDINGS: No significant additional findings. IMPRESSION: 1. No acute findings. Signer Name: Jeancarlos Keen MD Signed: 10/20/2021 12:56 PM Workstation Name: [id number] Transcribed By: USAMA Dictated By: JEANCARLOS KEEN MD Electronically Authenticated By: JEANCARLOS KEEN MD Signed Date/Time: 10/20/21 1256 DD/ 1256 TD/TT: - Medical Decision Making All labs reviewed, --CBC unremarkable. CMP shows blood glucose of 372, but repeat fingerstick after IV fluid showed that it was 286. Chest x-ray shows nothing acute. Rapid strep is negative. Her work-up today does not show any significant abnormalities. Patient currently resting in the recliner comfortably. She is not toxic or ill-appearing. She she is tolerating her secretions well, she has no trismus or drooling and no stridor. She is not in any respiratory distress. She is not toxic or significantly ill-appearing. Her vital signs are stable. Discussed all results with patient. Suspect her symptoms like related to nonspecific viral illness including the flu. Recommend symptomatic treatment including encouraged her to drink lots of fluids and follow-up closely with her PCP. Patient expressed understanding agree with plan. Patient stable at time of discharge. Critical care attestation.: If time is entered above; I have spent that time in minutes in the direct care of this critically ill patient, excluding procedure time. ED Disposition Clinical Impression: URI with cough and congestion Disposition: 01 HOME / SELF CARE / HOMELESS Is pt being admited?: No Does the pt Need Aspirin: No Condition: Stable Instructions: Upper Respiratory Infection, Adult, [id number] Additional Instructions: I recommend that you take the Tessalon Perles as prescribed to help with any coughing. Take the Zyrtec as prescribed. Also take the ibuprofen to help with any pain. Recommend I drink lots of fluids. Continue being compliant with your diabetic medications. Follow-up closely with your primary care doctor. Return to the ER for symptoms worsens or changes in any way. Prescriptions: Ibuprofen [Motrin 600 MG tab] 600 mg PO Q8H PRN 10 Days #30 tablet PRN Reason: Pain Benzonatate [Tessalon Perles] 100 mg PO Q8HR PRN #20 cap PRN Reason: Cough Cetirizine HCl [Zyrtec 10mg tab] 10 mg PO DAILY #30 Referrals: LONDON RODRIGUEZ MD [Primary Care Provider] - 3-5 Days Forms: Work/School Release Form(ED) Time of Disposition: 15:24
--- NOTE | 2021-10-20 13:01 | XRay Report ---
XR chest routine 2V INDICATION / CLINICAL INFORMATION: Cough. COMPARISON: 10/16/2021 FINDINGS: SUPPORT DEVICES: None. HEART /PULMONARY VASCULATURE: No significant abnormality. LUNGS / PLEURA: No significant pulmonary or pleural abnormality. No pneumothorax. ADDITIONAL FINDINGS: No significant additional findings. IMPRESSION: 1. No acute findings. Signer Name: Mario Keen MD Signed: 10/20/2021 12:56 PM Workstation Name: [id number]
[2021-10-20 14:06] LABS: Basophils % (Auto) 0.5 % (0.0-1.8); Eosinophils # (Auto) 0.1 K/mm3 (0.0-0.4); Eosinophils % (Auto) 0.9 % (0.0-4.3); Hematocrit 41.6 % (30.3-42.9); Hemoglobin 13.9 gm/dl (10.1-14.3); Lymphocytes # (Auto) 2.9 K/mm3 (1.2-5.4); Lymphocytes % (Auto) 37.5 % (13.4-35.0); Mean Corpuscular HGB Conc 33 % (30-34); Mean Corpuscular Volume 87 fl (79-97); Monocytes # (Auto) 0.6 K/mm3 (0.0-0.8); Monocytes % (Auto) 7.2 % (0.0-7.3); Platelet Count 281 K/mm3 (140-440); Red Blood Count 4.76 M/mm3 (3.65-5.03); Red Cell Distribution Width 12.4 % (13.2-15.2)
[2021-10-20 14:23] LABS: BUN/Creatinine Ratio 9; Blood Urea Nitrogen 8 mg/dL (7-17); Calcium 9.6 mg/dL (8.4-10.2); Hemolysis Index 15
[2021-10-20 15:37] VITALS: BP 124/80
== END 2021-10-20 15:37 | disposition home or self-care (01) ==
LOC: ED 10:38
DX: J06.9 Acute upper respiratory infection, unspecified (principal); R05.9 Cough, unspecified; R09.81 Nasal congestion; I10 Essential (primary) hypertension; E11.9 Type 2 diabetes mellitus without complications; K21.9 Gastro-esophageal reflux disease without esophagitis; J45.909 Unspecified asthma, uncomplicated; Z90.49 Acquired absence of other specified parts of digestive tract
CPT/HCPCS: 36415; 71046; 80048; 82962; 85025; 87116; 87430; 99284

== ENCOUNTER 2021-11-09 05:58 | Emergency (ER) | payer MEDICAID ==
[2021-11-09] MEDS ORDERED: LACTATED RINGERS 1,000 ML IV ONE (10:27)
[2021-11-09] MEDS ORDERED: PANTOPRAZOLE 40 MG INJ IV ONE (10:27)
[2021-11-09] MEDS ORDERED: METOCLOPRAMIDE 10 MG/2 ML INJ IV ONE (10:27)
--- NOTE | 2021-11-09 10:28 | Emergency Department Report ---
ED General Adult HPI - General Chief complaint: Abdominal Pain Stated complaint: ABD PAIN/EAR PAIN Time Seen by Provider: 11/09/21 10:13 Source: patient, RN notes reviewed, old records reviewed Mode of arrival: Ambulatory Limitations: No Limitations - History of Present Illness Initial comments: The patient was evaluated in the emergency department for symptoms described in the history of present illness. He/she was evaluated in the context of the [facility] COVID-19 pandemic, which necessitated consideration that the patient might be at risk for infection with the virus that causes COVID-19. Institutional protocols and algorithms that pertain to the evaluation of patients at risk for COVID-19 are in a state of rapid change based on information released by regulatory bodies including the CDC and federal and state organizations. These policies and algorithms were followed during the patient's care in the emergency department. Please note that these policies, procedures and recommendations changed on a rapid basis. This patient is a 21-year-old female with a history of type 2 diabetes, body mass index of 28.5, prior history of DKA and pancreatitis, last hemoglobin A1c at this facility approximately 12.7. She reports compliance with insulin and Metformin therapy. She presents to the ER today with a complaint of abdominal cramping, nausea and vomiting. No fever, no loss of taste or smell, no dysuria. She defecated yesterday. She endorses a secondary complaint of left-sided external ear canal pain after cleaning with a Q-tip. No loss of hearing, no tinnitus. -: Gradual, days(s) Location: abdomen, left (Ear) Severity scale (0 -10): 9 Consistency: intermittent Improves with: none Worsens with: none - Related Data Home Medications Medication Instructions Recorded Confirmed Last Taken Lisdexamfetamine Dimesylate 40 mg PO DAILY 02/07/20 09/10/21 02/20/20 07:00 [Vyvanse] Previous Rx's Medication Instructions Recorded Last Taken Type Blood Sugar Diagnostic [Freestyle 1 each MC QID #100 strip 05/05/21 Unknown Rx Lite Test Strip] Butalb/Acetamin/Caff 50-325-40 1 - 2 tab PO Q6HR PRN #15 tab 05/05/21 Unknown Rx [Fioricet 50-325-40] Dicyclomine [Bentyl] 20 mg PO Q6H PRN #20 tablet 05/05/21 Unknown Rx Famotidine [Pepcid] 20 mg PO BID #30 tablet 05/05/21 Unknown Rx Gabapentin 300 mg PO BID #20 capsule 05/05/21 Unknown Rx Insulin Glargine [Lantus VIAL] 44 units SUB-Q QHS #2 vial 05/05/21 Unknown Rx Insulin Regular, Human [HumuLIN R] 0 unit SQ AC #1 vial 05/05/21 Unknown Rx Sucralfate [Carafate] 1 gm PO ACHS 7 Days #21 tablet 05/05/21 Unknown Rx levETIRAcetam [Keppra TAB] 500 mg PO BID #60 tablet 05/05/21 Unknown Rx lisinopriL [Zestril TAB] 5 mg PO DAILY #30 05/05/21 Unknown Rx Miconazole Nitrate 1 inch TP BID 14 Days #1 cream..g. 06/23/21 Unknown Rx Ondansetron [Zofran ODT TAB] 4 mg PO Q8HR PRN 5 Days #15 09/11/21 Unknown Rx tab.rapdis Nitrofurantoin Sullivan/M-Cryst 100 mg PO Q12HR #14 capsule 10/11/21 Unknown Rx [Macrobid CAP] Ondansetron [Zofran Odt] 4 mg PO Q8HR #10 tab.rapdis 10/11/21 Unknown Rx Albuterol Mdi (or & Nicu Only) 2 puff IH QID PRN #1 inha 10/16/21 Unknown Rx [ProAir HFA Inhaler] Benzonatate [Tessalon Perles] 100 mg PO Q8HR PRN #20 cap 10/20/21 Unknown Rx Cetirizine HCl [Zyrtec 10mg tab] 10 mg PO DAILY #30 10/20/21 Unknown Rx Metoclopramide [Reglan] 10 mg PO Q6HR PRN #20 tab 11/09/21 Unknown Rx Allergies Allergy/AdvReac Type Severity Reaction Status Date / Time No Known Allergies Allergy Verified 11/09/21 10:54 ED Review of Systems ROS: Stated complaint: ABD PAIN/EAR PAIN Other details as noted in HPI Constitutional: denies: fever Eyes: denies: vision change ENT: ear pain, other (Left ear pain). denies: throat pain, dental pain Respiratory: denies: see HPI Cardiovascular: denies: chest pain Gastrointestinal: nausea, vomiting. denies: diarrhea Genitourinary: denies: dysuria, frequency Musculoskeletal: denies: back pain Neurological: denies: weakness ED Past Medical Hx - Past Medical History Hx Hypertension: Yes Hx Heart Attack/AMI: No Hx Diabetes: Yes Hx GERD: Yes Hx Liver Disease: No Hx Renal Disease: Yes (no dialysis) Hx Sickle Cell Disease: No Hx Seizures: Yes Hx Asthma: Yes Hx COPD: No Hx Tuberculosis: No Hx HIV: No - Surgical History Hx Cholecystectomy: Yes - Social History Smoking Status: Never Smoker Substance Use Type: None - Medications Home Medications: Home Medications Medication Instructions Recorded Confirmed Last Taken Type Lisdexamfetamine Dimesylate 40 mg PO DAILY 02/07/20 09/10/21 02/20/20 07:00 History [Mauricio] Blood Sugar Diagnostic [Freestyle 1 each MC QID #100 strip 05/05/21 09/10/21 Unknown Rx Lite Test Strip] Butalb/Acetamin/Caff 50-325-40 1 - 2 tab PO Q6HR PRN #15 tab 05/05/21 09/10/21 Unknown Rx [Fioricet 50-325-40] Dicyclomine [Bentyl] 20 mg PO Q6H PRN #20 tablet 05/05/21 09/10/21 Unknown Rx Famotidine [Pepcid] 20 mg PO BID #30 tablet 05/05/21 09/10/21 Unknown Rx Gabapentin 300 mg PO BID #20 capsule 05/05/21 09/10/21 Unknown Rx Insulin Glargine [Lantus VIAL] 44 units SUB-Q QHS #2 vial 05/05/21 09/10/21 Unknown Rx Insulin Regular, Human [HumuLIN R] 0 unit SQ AC #1 vial 05/05/21 09/10/21 Unknown Rx Sucralfate [Carafate] 1 gm PO ACHS 7 Days #21 tablet 05/05/21 09/10/21 Unknown Rx levETIRAcetam [Keppra TAB] 500 mg PO BID #60 tablet 05/05/21 09/10/21 Unknown Rx lisinopriL [Zestril TAB] 5 mg PO DAILY #30 05/05/21 09/10/21 Unknown Rx Miconazole Nitrate 1 inch TP BID 14 Days #1 cream..g. 10/06/21 12/24/21 Unknown Rx Ondansetron [Zofran ODT TAB] 4 mg PO Q8HR PRN 5 Days #15 09/11/21 Unknown Rx tab.rapdis Nitrofurantoin Sullivan/M-Cryst 100 mg PO Q12HR #14 capsule 10/11/21 Unknown Rx [Macrobid CAP] Ondansetron [Zofran Odt] 4 mg PO Q8HR #10 tab.rapdis 10/11/21 Unknown Rx Albuterol Mdi (or & Nicu Only) 2 puff IH QID PRN #1 inha 10/16/21 Unknown Rx [ProAir HFA Inhaler] Benzonatate [Tessalon Perles] 100 mg PO Q8HR PRN #20 cap 10/20/21 Unknown Rx Cetirizine HCl [Zyrtec 10mg tab] 10 mg PO DAILY #30 10/20/21 Unknown Rx Metoclopramide [Reglan] 10 mg PO Q6HR PRN #20 tab 11/09/21 Unknown Rx ED Physical Exam - General Limitations: No Limitations General appearance: alert, in no apparent distress - Head Head exam: Present: atraumatic, normocephalic - Eye Eye exam: Present: normal appearance, EOMI. Absent: nystagmus - ENT ENT exam: Present: normal exam, normal orophraynx, mucous membranes moist, TM's normal bilaterally, normal external ear exam (The left external auditory canal was excoriated. There is no laceration) - Neck Neck exam: Present: normal inspection, full ROM. Absent: tenderness, meningismus - Respiratory Respiratory exam: Present: normal lung sounds bilaterally. Absent: respiratory distress, wheezes, rales, rhonchi, stridor, decreased breath sounds - Cardiovascular Cardiovascular Exam: Present: regular rate, normal rhythm, normal heart sounds. Absent: bradycardia, tachycardia, irregular rhythm, systolic murmur, diastolic murmur, rubs, gallop - GI/Abdominal GI/Abdominal exam: Present: soft. Absent: distended, tenderness, guarding, rebound, rigid, pulsatile mass - Extremities Exam Extremities exam: Present: normal inspection, full ROM, other (2+ pulses noted in the bilateral upper and lower extremities. There is no palpable cord. negative Homans sign. Muscular compartments are soft. The pelvis is stable.). Absent: pedal edema, calf tenderness - Back Exam Back exam: Present: normal inspection, full ROM. Absent: tenderness, CVA tenderness (R), CVA tenderness (L), paraspinal tenderness, vertebral tenderness - Neurological Exam Neurological exam: Present: alert, oriented X3, normal gait, other (No facial droop. Tongue midline. Extraocular movements intact bilaterally. Facial sensation intact to light touch in V1, V2, V3 distribution bilaterally. 5 and a 5 strength in 4 extremities. Sensation intact to light touch in 4 extremities. ). Absent: motor sensory deficit - Psychiatric Psychiatric exam: Present: normal affect, normal mood - Skin Skin exam: Present: warm, dry, intact, normal color. Absent: rash ED Course Vital Signs 11/09/21 06:46 Temperature 97.4 F L Pulse Rate 74 Respiratory 18 Rate Blood Pressure 126/73 [Right] O2 Sat by Pulse 100 Oximetry - Reevaluation(s) Reevaluation #1: 11/09/21 11:06 Differential diagnosis, including not limited to: Diabetic ketoacidosis, gastroparesis, dehydration, electrolyte derangement, GERD, gastritis, hiatal hernia, left external auditory canal skin abrasion Assessment and plan: 21-year-old female with 2 complaints. Complaints #1: Abdominal cramping, with nausea and vomiting. Abdomen soft and benign, without rebound, guarding or peritoneal signs. Suspect DKA versus gastroparesis. Obtain appropriate laboratory studies, treat with fluids, antiemetics, and reassess. Complaints #2, left external auditory canal abrasion. No sign of superinfection. Supportive care, avoidance of Q-tips, clean with hydrogen peroxide or mineral oil in the future. Discussed this plan of care with the patient. She is agreeable to plan of care. Reassess after data points have completed 11/09/21 13:28 No active vomiting. Patient resting comfortably on chair. Her laboratory studies are not consistent with diabetic ketoacidosis. She does have chronic hyperglycemia. Fluids ordered. Insulin administered. Outpatient follow-up for chronic hyperglycemia. ED Medical Decision Making - Lab Data Result diagrams: 11/09/21 11:37 11/09/21 11:37 Vital Signs 11/09/21 06:46 Temperature 97.4 F L Pulse Rate 74 Respiratory 18 Rate Blood Pressure 126/73 [Right] O2 Sat by Pulse 100 Oximetry Lab Results 11/09/21 Range/Units 10:54 POC Glucose 347 H (70-105) mg/dL Lab Results 11/09/21 11/09/21 11/09/21 Range/Units 10:54 11:37 11:37 WBC 7.2 (4.5-11.0) K/mm3 RBC 4.70 (3.65-5.03) M/mm3 Hgb 14.0 (10.1-14.3) gm/dl Hct 41.6 (30.3-42.9) % MCV 89 (79-97) fl MCH 30 (28-32) pg MCHC 34 (30-34) % RDW 12.6 L (13.2-15.2) % Plt Count 268 (140-440) K/mm3 VBG pH (7.320-7.420) Sodium 138 (137-145) mmol/L Potassium 4.3 (3.6-5.0) mmol/L Chloride 103.3 (98-107) mmol/L Carbon Dioxide 20 L (22-30) mmol/L Anion Gap 19 mmol/L BUN 7 (7-17) mg/dL Creatinine 0.8 (0.6-1.2) mg/dL Estimated GFR > 60 ml/min BUN/Creatinine Ratio 9 % Glucose 410 H (65-100) mg/dL POC Glucose 347 H (70-105) mg/dL Calcium 8.9 (8.4-10.2) mg/dL Magnesium 1.80 (1.7-2.3) mg/dL Total Bilirubin 0.30 (0.1-1.2) mg/dL Direct Bilirubin < 0.2 (0-0.2) mg/dL Indirect Bilirubin 0.1 mg/dL AST 21 (5-40) units/L ALT 16 (7-56) units/L Alkaline Phosphatase 117 (35-129) units/L Total Protein 6.5 (6.3-8.2) g/dL Albumin 3.7 L (3.9-5) g/dL Albumin/Globulin Ratio 1.3 % Lipase 41 (13-60) units/L Urine Color (Yellow) Urine Turbidity (Clear) Urine pH (5.0-7.0) Ur Specific Hustle (1.003-1.030) Urine Protein (Negative) mg/dL Urine Glucose (UA) (Negative) mg/dL Urine Ketones (Negative) mg/dL Urine Blood (Negative) Urine Nitrite (Negative) Ur Reducing Substances Urine Bilirubin (Negative) Urine Ictotest Urine Urobilinogen (<2.0) mg/dL Ur Leukocyte Esterase (Negative) Urine WBC (Auto) (0.0-6.0) /HPF Urine RBC (Auto) (0.0-6.0) /HPF U Epithel Cells (Auto) (0-13.0) /HPF Urine HCG, Qual (Negative) 11/09/21 11/09/21 Range/Units 11:37 13:03 WBC (4.5-11.0) K/mm3 RBC (3.65-5.03) M/mm3 Hgb (10.1-14.3) gm/dl Hct (30.3-42.9) % MCV (79-97) fl MCH (28-32) pg MCHC (30-34) % RDW (13.2-15.2) % Plt Count (140-440) K/mm3 VBG pH 7.436 H (7.320-7.420) Sodium (137-145) mmol/L Potassium (3.6-5.0) mmol/L Chloride (98-107) mmol/L Carbon Dioxide (22-30) mmol/L Anion Gap mmol/L BUN (7-17) mg/dL Creatinine (0.6-1.2) mg/dL Estimated GFR ml/min BUN/Creatinine Ratio % Glucose (65-100) mg/dL POC Glucose (70-105) mg/dL Calcium (8.4-10.2) mg/dL Magnesium (1.7-2.3) mg/dL Total Bilirubin (0.1-1.2) mg/dL Direct Bilirubin (0-0.2) mg/dL Indirect Bilirubin mg/dL AST (5-40) units/L ALT (7-56) units/L Alkaline Phosphatase (35-129) units/L Total Protein (6.3-8.2) g/dL Albumin (3.9-5) g/dL Albumin/Globulin Ratio % Lipase (13-60) units/L Urine Color Yellow (Yellow) Urine Turbidity Hazy (Clear) Urine pH 6.0 (5.0-7.0) Ur Specific Hustle 1.018 (1.003-1.030) Urine Protein <15 mg/dl (Negative) mg/dL Urine Glucose (UA) >=500 (Negative) mg/dL Urine Ketones 20 (Negative) mg/dL Urine Blood Lg (Negative) Urine Nitrite Neg (Negative) Ur Reducing Substances Not Reportable Urine Bilirubin Neg (Negative) Urine Ictotest Not Reportable Urine Urobilinogen < 2.0 (<2.0) mg/dL Ur Leukocyte Esterase Tr (Negative) Urine WBC (Auto) 3.0 (0.0-6.0) /HPF Urine RBC (Auto) > 182.0 (0.0-6.0) /HPF U Epithel Cells (Auto) 2.0 (0-13.0) /HPF Urine HCG, Qual Negative (Negative) Vital Signs 11/09/21 06:46 Temperature 97.4 F L Pulse Rate 74 Respiratory 18 Rate Blood Pressure 126/73 [Right] O2 Sat by Pulse 100 Oximetry Lab Results 11/09/21 11/09/21 11/09/21 Range/Units 10:54 11:37 11:37 WBC 7.2 (4.5-11.0) K/mm3 RBC 4.70 (3.65-5.03) M/mm3 Hgb 14.0 (10.1-14.3) gm/dl Hct 41.6 (30.3-42.9) % MCV 89 (79-97) fl MCH 30 (28-32) pg MCHC 34 (30-34) % RDW 12.6 L (13.2-15.2) % Plt Count 268 (140-440) K/mm3 VBG pH (7.320-7.420) Sodium 138 (137-145) mmol/L Potassium 4.3 (3.6-5.0) mmol/L Chloride 103.3 (98-107) mmol/L Carbon Dioxide 20 L (22-30) mmol/L Anion Gap 19 mmol/L BUN 7 (7-17) mg/dL Creatinine 0.8 (0.6-1.2) mg/dL Estimated GFR > 60 ml/min BUN/Creatinine Ratio 9 % Glucose 410 H (65-100) mg/dL POC Glucose 347 H (70-105) mg/dL Calcium 8.9 (8.4-10.2) mg/dL Magnesium 1.80 (1.7-2.3) mg/dL Total Bilirubin 0.30 (0.1-1.2) mg/dL Direct Bilirubin < 0.2 (0-0.2) mg/dL Indirect Bilirubin 0.1 mg/dL AST 21 (5-40) units/L ALT 16 (7-56) units/L Alkaline Phosphatase 117 (35-129) units/L Total Protein 6.5 (6.3-8.2) g/dL Albumin 3.7 L (3.9-5) g/dL Albumin/Globulin Ratio 1.3 % Lipase 41 (13-60) units/L Urine Color (Yellow) Urine Turbidity (Clear) Urine pH (5.0-7.0) Ur Specific Hustle (1.003-1.030) Urine Protein (Negative) mg/dL Urine Glucose (UA) (Negative) mg/dL Urine Ketones (Negative) mg/dL Urine Blood (Negative) Urine Nitrite (Negative) Ur Reducing Substances Urine Bilirubin (Negative) Urine Ictotest Urine Urobilinogen (<2.0) mg/dL Ur Leukocyte Esterase (Negative) Urine WBC (Auto) (0.0-6.0) /HPF Urine RBC (Auto) (0.0-6.0) /HPF U Epithel Cells (Auto) (0-13.0) /HPF Urine HCG, Qual (Negative) 11/09/21 11/09/21 Range/Units 11:37 13:03 WBC (4.5-11.0) K/mm3 RBC (3.65-5.03) M/mm3 Hgb (10.1-14.3) gm/dl Hct (30.3-42.9) % MCV (79-97) fl MCH (28-32) pg MCHC (30-34) % RDW (13.2-15.2) % Plt Count (140-440) K/mm3 VBG pH 7.436 H (7.320-7.420) Sodium (137-145) mmol/L Potassium (3.6-5.0) mmol/L Chloride (98-107) mmol/L Carbon Dioxide (22-30) mmol/L Anion Gap mmol/L BUN (7-17) mg/dL Creatinine (0.6-1.2) mg/dL Estimated GFR ml/min BUN/Creatinine Ratio % Glucose (65-100) mg/dL POC Glucose (70-105) mg/dL Calcium (8.4-10.2) mg/dL Magnesium (1.7-2.3) mg/dL Total Bilirubin (0.1-1.2) mg/dL Direct Bilirubin (0-0.2) mg/dL Indirect Bilirubin mg/dL AST (5-40) units/L ALT (7-56) units/L Alkaline Phosphatase (35-129) units/L Total Protein (6.3-8.2) g/dL Albumin (3.9-5) g/dL Albumin/Globulin Ratio % Lipase (13-60) units/L Urine Color Yellow (Yellow) Urine Turbidity Hazy (Clear) Urine pH 6.0 (5.0-7.0) Ur Specific Hustle 1.018 (1.003-1.030) Urine Protein <15 mg/dl (Negative) mg/dL Urine Glucose (UA) >=500 (Negative) mg/dL Urine Ketones 20 (Negative) mg/dL Urine Blood Lg (Negative) Urine Nitrite Neg (Negative) Ur Reducing Substances Not Reportable Urine Bilirubin Neg (Negative) Urine Ictotest Not Reportable Urine Urobilinogen < 2.0 (<2.0) mg/dL Ur Leukocyte Esterase Tr (Negative) Urine WBC (Auto) 3.0 (0.0-6.0) /HPF Urine RBC (Auto) > 182.0 (0.0-6.0) /HPF U Epithel Cells (Auto) 2.0 (0-13.0) /HPF Urine HCG, Qual Negative (Negative) Critical care attestation.: If time is entered above; I have spent that time in minutes in the direct care of this critically ill patient, excluding procedure time. ED Disposition Clinical Impression: Hyperglycemia, Left ear pain Disposition: HOME / SELF CARE / HOMELESS Is pt being admited?: No Does the pt Need Aspirin: No Condition: Good Instructions: Abdominal Pain (ED), Blood Glucose Monitoring, Adult Additional Instructions: As we discussed, symptoms likely coming from persistent hyperglycemia, and probable diabetic gastroparesis. Treatment should be directed towards improving underlying sugar/glycemic control, and improvement in underlying diabetes. Patient's last hemoglobin A1c was over 12, indicating poor glucose control. Recommend that patient remain compliant with outpatient diabetic medications, and especially remain compliant with a diabetic diet. Patient should consume plenty of water, fiber, vegetables, and lean protein, and avoid consumption of sugar, starch, carbohydrates, and processed foods. Symptoms will likely take weeks to months to improve. Patient may take the Reglan medication as needed for nausea and vomiting, in addition to [id number] Tylenol/acetaminophen as needed for physical pain. We do recommend that the patient follow-up with an outpatient primary care doctor within the next month for repeat checkup and an evaluation. Laboratory studies show that the patient is not today. Minimize/avoid consumption of alcohol, tobacco, smoke products, heavy and spicy foods. Please return to the emergency room right away with new pain, worsened pain, migration of pain, projectile vomiting, change in mental status, confusion, inability tolerate liquid feeds, new, worsened or different symptoms not present on the initial emergency room evaluation Left ear discomfort likely coming from abrasion in the left external auditory canal. Recommend that patient not use Q-tips to clean ears. Patient may take [id number] Tylenol as needed for physical pain. When cleaning ear canal, please make certain to use mineral oil or hydrogen peroxide. Referrals: [facility] [Provider Group] - 3-5 Days [facility] [Outside] - 3-5 Days Forms: Work/School Release Form(ED)
[2021-11-09 11:49] LABS: Hematocrit 41.6 % (30.3-42.9); Mean Corpuscular HGB Conc 34 % (30-34); Mean Corpuscular Volume 89 fl (79-97); Platelet Count 268 K/mm3 (140-440); Red Cell Distribution Width 12.6 % (13.2-15.2)
[2021-11-09 12:04] LABS: Alanine Aminotransferase 16 units/L (7-56); Albumin 3.7 g/dL (3.9-5); BUN/Creatinine Ratio 9; Blood Urea Nitrogen 7 mg/dL (7-17); Calcium 8.9 mg/dL (8.4-10.2); Hemolysis Index 176
[2021-11-09 12:08] LABS: Bilirubin,Direct < 0.2 mg/dL (0-0.2)
[2021-11-09] MEDS ORDERED: INSULIN REGULAR, HUMAN 100 UNITS/1 ML IV ONE (12:34)
[2021-11-09 13:13] LABS: HCG Qualitative,Urine Negative (Negative)
[2021-11-09 13:17] LABS: Bilirubin,Urine NEG (Negative); Blood,Urine LG (Negative); Color,Urine Yellow (Yellow); Protein,Urine <15 mg/dL mg/dL (Negative); Urobilinogen,Urine < 2.0 mg/dL (<2.0)
[2021-11-09 13:18] LABS: RBC,Urine > 182.0 /HPF (0.0-6.0)
[2021-11-09 13:48] VITALS: BP 129/90
== END 2021-11-09 14:23 | disposition home or self-care (01) ==
LOC: ED 05:58
DX: E11.65 Type 2 diabetes mellitus with hyperglycemia (principal); H92.02 Otalgia, left ear; I12.0 Hypertensive chronic kidney disease with stage 5 chronic kidney disease or end stage renal disease; N18.6 End stage renal disease; Z99.2 Dependence on renal dialysis; K21.9 Gastro-esophageal reflux disease without esophagitis; R56.9 Unspecified convulsions; J45.909 Unspecified asthma, uncomplicated; Z90.49 Acquired absence of other specified parts of digestive tract
CPT/HCPCS: 36415; 80048; 80076; 81001; 81025; 82805; 82962; 83690; 83735; 85027; 96361; 96374; 96375; 99284; C9113; J2765; J7120; Q9967; J1815

== ENCOUNTER 2021-12-04 11:58 | Emergency (ER) | payer MEDICAID ==
[2021-12-04] MEDS ORDERED: SODIUM CHLORIDE 0.9% 1000 ML 1,000 ML IV ONE (12:31)
[2021-12-04] MEDS ORDERED: INSULIN REGULAR, HUMAN 100 UNITS/1 ML IV ONE (12:37)
--- NOTE | 2021-12-04 12:42 | Emergency Department Report ---
<ALEJANDRA HUANG - Last Filed: 12/04/21 14:34> ED General Adult HPI - General Chief complaint: Fall Stated complaint: FALL/HYPERGLYCEMIA Time Seen by Provider: 12/04/21 12:11 Source: patient Mode of arrival: Stretcher Limitations: No Limitations - History of Present Illness Initial comments: Patient is 21 years old female with insulin-dependent diabetes and seizure. Patient brought to the emergency room from work for evaluation after a fall. Patient stated that she think that she passed out. Patient is complaining of headache. She stated that she hit her head on an object. She denies any neck pain, chest pain, shortness of breath, abdominal pain, nausea or vomiting. No fever or chills. Patient stated that she is out of her insulin since yesterday and she also out of her Keppra since yesterday. Severity scale (0 -10): 0 - Related Data Home Medications Medication Instructions Recorded Confirmed Last Taken Lisdexamfetamine Dimesylate 40 mg PO DAILY 02/07/20 09/10/21 02/20/20 07:00 [Vyvanse] Previous Rx's Medication Instructions Recorded Last Taken Type Blood Sugar Diagnostic [Freestyle 1 each MC QID #100 strip 05/05/21 Unknown Rx Lite Test Strip] Butalb/Acetamin/Caff 50-325-40 1 - 2 tab PO Q6HR PRN #15 tab 05/05/21 Unknown Rx [Fioricet 50-325-40] Dicyclomine [Bentyl] 20 mg PO Q6H PRN #20 tablet 05/05/21 Unknown Rx Famotidine [Pepcid] 20 mg PO BID #30 tablet 05/05/21 Unknown Rx Gabapentin 300 mg PO BID #20 capsule 05/05/21 Unknown Rx Insulin Glargine [Lantus VIAL] 44 units SUB-Q QHS #2 vial 05/05/21 Unknown Rx Insulin Regular, Human [HumuLIN R] 0 unit SQ AC #1 vial 05/05/21 Unknown Rx Sucralfate [Carafate] 1 gm PO ACHS 7 Days #21 tablet 05/05/21 Unknown Rx levETIRAcetam [Keppra TAB] 500 mg PO BID #60 tablet 05/05/21 Unknown Rx lisinopriL [Zestril TAB] 5 mg PO DAILY #30 05/05/21 Unknown Rx Miconazole Nitrate 1 inch TP BID 14 Days #1 cream..g. 06/23/21 Unknown Rx Ondansetron [Zofran ODT TAB] 4 mg PO Q8HR PRN 5 Days #15 09/11/21 Unknown Rx tab.rapdis Nitrofurantoin Hill/M-Cryst 100 mg PO Q12HR #14 capsule 10/11/21 Unknown Rx [Macrobid CAP] Ondansetron [Zofran Odt] 4 mg PO Q8HR #10 tab.rapdis 10/11/21 Unknown Rx Albuterol Mdi (or & Nicu Only) 2 puff IH QID PRN #1 inha 10/16/21 Unknown Rx [ProAir HFA Inhaler] Benzonatate [Tessalon Perles] 100 mg PO Q8HR PRN #20 cap 10/20/21 Unknown Rx Cetirizine HCl [Zyrtec 10mg tab] 10 mg PO DAILY #30 10/20/21 Unknown Rx Metoclopramide [Reglan] 10 mg PO Q6HR PRN #20 tab 11/09/21 Unknown Rx Insulin Glargine [Lantus VIAL] 50 unit SUB-Q QHS #3 vial 12/04/21 Unknown Rx Insulin Lispro [Humalog] 7 unit SQ AC #3 vial 12/04/21 Unknown Rx levETIRAcetam [Keppra TAB] 500 mg PO BID #60 tablet 12/04/21 Unknown Rx Allergies Allergy/AdvReac Type Severity Reaction Status Date / Time No Known Allergies Allergy Verified 11/09/21 10:54 ED Review of Systems Comment: All other systems reviewed and negative Constitutional: denies: chills, fever Respiratory: denies: cough, shortness of breath, SOB with exertion Gastrointestinal: denies: abdominal pain, nausea, vomiting, diarrhea, constipation Musculoskeletal: denies: back pain Neurological: denies: headache, weakness, numbness, paresthesias, confusion, abnormal gait Psychiatric: denies: suicidal thoughts ED Past Medical Hx - Past Medical History Previous Medical History?: Yes Hx Hypertension: Yes Hx Heart Attack/AMI: No Hx Diabetes: Yes Hx GERD: Yes Hx Liver Disease: No Hx Renal Disease: Yes (no dialysis) Hx Sickle Cell Disease: No Hx Seizures: Yes Hx Asthma: Yes Hx COPD: No Hx Tuberculosis: No Hx HIV: No - Surgical History Hx Cholecystectomy: Yes - Social History Smoking Status: Never Smoker Substance Use Type: None - Medications Home Medications: Home Medications Medication Instructions Recorded Confirmed Last Taken Type Lisdexamfetamine Dimesylate 40 mg PO DAILY 02/07/20 09/10/21 02/20/20 07:00 History [Vyvanse] Blood Sugar Diagnostic [Freestyle 1 each MC QID #100 strip 05/05/21 09/10/21 Unknown Rx Lite Test Strip] Butalb/Acetamin/Caff 50-325-40 1 - 2 tab PO Q6HR PRN #15 tab 05/05/21 09/10/21 Unknown Rx [Fioricet 50-325-40] Dicyclomine [Bentyl] 20 mg PO Q6H PRN #20 tablet 05/05/21 09/10/21 Unknown Rx Famotidine [Pepcid] 20 mg PO BID #30 tablet 05/05/21 09/10/21 Unknown Rx Gabapentin 300 mg PO BID #20 capsule 05/05/21 09/10/21 Unknown Rx Insulin Glargine [Lantus VIAL] 44 units SUB-Q QHS #2 vial 05/05/21 09/10/21 Unknown Rx Insulin Regular, Human [HumuLIN R] 0 unit SQ AC #1 vial 05/05/21 09/10/21 Unknown Rx Sucralfate [Carafate] 1 gm PO ACHS 7 Days #21 tablet 05/05/21 09/10/21 Unknown Rx levETIRAcetam [Keppra TAB] 500 mg PO BID #60 tablet 05/05/21 09/10/21 Unknown Rx lisinopriL [Zestril TAB] 5 mg PO DAILY #30 05/05/21 09/10/21 Unknown Rx Miconazole Nitrate 1 inch TP BID 14 Days #1 cream..g. 06/23/21 09/10/21 Unknown Rx Ondansetron [Zofran ODT TAB] 4 mg PO Q8HR PRN 5 Days #15 09/11/21 Unknown Rx tab.rapdis Nitrofurantoin Hill/M-Cryst 100 mg PO Q12HR #14 capsule 10/11/21 Unknown Rx [Macrobid CAP] Ondansetron [Zofran Odt] 4 mg PO Q8HR #10 tab.rapdis 10/11/21 Unknown Rx Albuterol Mdi (or & Nicu Only) 2 puff IH QID PRN #1 inha 10/16/21 Unknown Rx [ProAir HFA Inhaler] Benzonatate [Tessalon Perles] 100 mg PO Q8HR PRN #20 cap 10/20/21 Unknown Rx Cetirizine HCl [Zyrtec 10mg tab] 10 mg PO DAILY #30 10/20/21 Unknown Rx Metoclopramide [Reglan] 10 mg PO Q6HR PRN #20 tab 11/09/21 Unknown Rx Insulin Glargine [Lantus VIAL] 50 unit SUB-Q QHS #3 vial 12/04/21 Unknown Rx Insulin Lispro [Humalog] 7 unit SQ AC #3 vial 12/04/21 Unknown Rx levETIRAcetam [Keppra TAB] 500 mg PO BID #60 tablet 12/04/21 Unknown Rx ED Physical Exam - General Limitations: No Limitations General appearance: alert, in no apparent distress - Head Head exam: Present: atraumatic, normocephalic, normal inspection - Eye Eye exam: Present: normal appearance - ENT ENT exam: Present: normal exam, normal orophraynx, mucous membranes moist - Neck Neck exam: Present: normal inspection, full ROM. Absent: tenderness, meningismus - Respiratory Respiratory exam: Present: normal lung sounds bilaterally - Cardiovascular Cardiovascular Exam: Present: regular rate, normal rhythm, normal heart sounds - GI/Abdominal GI/Abdominal exam: Present: soft, normal bowel sounds. Absent: distended, tenderness, guarding, rebound, rigid, organomegaly, mass, bruit, pulsatile mass, hernia - Extremities Exam Extremities exam: Present: normal inspection, full ROM, normal capillary refill. Absent: tenderness - Back Exam Back exam: Present: normal inspection, full ROM. Absent: CVA tenderness (R), CVA tenderness (L) - Neurological Exam Neurological exam: Present: alert, oriented X3, CN II-XII intact, normal gait, reflexes normal. Absent: motor sensory deficit - Psychiatric Psychiatric exam: Present: normal mood - Skin Skin exam: Present: warm, intact, normal color ED Medical Decision Making - Medical Decision Making Patient is 21 years old female with insulin-dependent diabetes and seizure. Patient brought to the emergency room from work for evaluation after a fall. Patient stated that she think that she passed out. Patient is complaining of headache. She stated that she hit her head on an object. She denies any neck pain, chest pain, shortness of breath, abdominal pain, nausea or vomiting. No fever or chills. Patient stated that she is out of her insulin since yesterday and she also out of her Keppra since yesterday. ED Disposition Clinical Impression: Dehydration, Seizure disorder, Syncope, Diabetes mellitus Disposition: HOME / SELF CARE / HOMELESS Condition: Stable Instructions: Hyperglycemia, [id number], Seizure, Adult, [id number], Syncope (ED), Diabetes Mellitus Type 2 in Adults (ED) Prescriptions: Insulin Glargine [Lantus VIAL] 50 unit SUB-Q QHS #3 vial Insulin Lispro [Humalog] 7 unit SQ AC #3 vial levETIRAcetam [Keppra TAB] 500 mg PO BID #60 tablet Referrals: LONDON RODRIGUEZ MD [Primary Care Provider] - 3-5 Days <JAYSON HENRY - Last Filed: 12/04/21 20:02> ED Review of Systems ROS: Stated complaint: FALL/HYPERGLYCEMIA Other details as noted in HPI ED Course Vital Signs 12/04/21 12/04/21 12/04/21 12:02 12:13 16:42 Temperature 98.2 F Pulse Rate 85 84 Respiratory 16 16 Rate Blood Pressure 142/94 121/53 [Left] O2 Sat by Pulse 99 100 99 Oximetry ED Medical Decision Making - Lab Data Result diagrams: 12/04/21 17:45 12/04/21 17:45 - Medical Decision Making I have reviewed labs. Patient has significant hemoconcentration with elevated hemoglobin hematocrit. No evidence of DKA. I have reviewed labs which revealed normal CMP. Head CT is normal. Urinalysis contaminated with mild ketonuria. I do not suspect UTI. I suspect vasovagal syncope versus seizure. Critical care attestation.: If time is entered above; I have spent that time in minutes in the direct care of this critically ill patient, excluding procedure time. ED Disposition Is pt being admited?: No Does the pt Need Aspirin: No
--- NOTE | 2021-12-04 13:04 | Cat Scan Report ---
CT HEAD WITHOUT CONTRAST INDICATION / CLINICAL INFORMATION: FALL/HEADACHE. TECHNIQUE: All CT scans at this location are performed using CT dose reduction for ALARA by means of automated exposure control. COMPARISON: 09/26/2021 FINDINGS: HEMORRHAGE: None. EXTRA-AXIAL SPACES: Normal in size and morphology for the patient's age. VENTRICULAR SYSTEM: Normal in size and morphology for the patient's age. CEREBRAL PARENCHYMA: Redemonstrated scattered punctate calcifications within the periventricular zaida on, not significantly changed. MIDLINE SHIFT / HERNIATION: None. CEREBELLUM / BRAINSTEM: No significant abnormality. ORBITS: Normal as visualized SOFT TISSUES: No significant abnormality. SKULL: No significant abnormality. PARANASAL SINUSES / MASTOID AIR CELLS: Normal as visualized ADDITIONAL FINDINGS: None. IMPRESSION: 1. No acute intracranial abnormality. Signer Name: Gabriel Vogel DO Signed: 12/04/2021 12:59 PM Workstation Name: [id number]
[2021-12-04 17:52] LABS: Bacteria,Urine 1+ /HPF (Negative); Bilirubin,Urine NEG (Negative); Blood,Urine SM (Negative); Color,Urine Yellow (Yellow); Mucus,Urine FEW /HPF; Protein,Urine <15 mg/dL mg/dL (Negative); Urobilinogen,Urine < 2.0 mg/dL (<2.0)
[2021-12-04 17:55] LABS: Amorphous Crystals,Urine Few; Hyaline Casts,Urine 2 /LPF
[2021-12-04 18:58] LABS: Basophils % (Auto) 0.5 % (0.0-1.8); Eosinophils # (Auto) 0.1 K/mm3 (0.0-0.4); Hematocrit 43.9 % (30.3-42.9); Hemoglobin 14.8 gm/dl (10.1-14.3); Lymphocytes # (Auto) 2.2 K/mm3 (1.2-5.4); Lymphocytes % (Auto) 27.2 % (13.4-35.0); Mean Corpuscular HGB Conc 34 % (30-34); Mean Corpuscular Volume 87 fl (79-97); Monocytes # (Auto) 0.6 K/mm3 (0.0-0.8); Monocytes % (Auto) 7.7 % (0.0-7.3); Platelet Count 270 K/mm3 (140-440); Red Blood Count 5.07 M/mm3 (3.65-5.03); Red Cell Distribution Width 12.5 % (13.2-15.2)
[2021-12-04 19:23] LABS: Alanine Aminotransferase 29 units/L (7-56); Blood Urea Nitrogen 7 mg/dL (7-17); Calcium 9.2 mg/dL (8.4-10.2); Hemolysis Index 0
[2021-12-04 19:35] LABS: BUN/Creatinine Ratio 10; Bilirubin,Direct < 0.2 mg/dL (0-0.2)
[2021-12-04 20:10] VITALS: BP 120/64
== END 2021-12-04 20:34 | disposition home or self-care (01) ==
LOC: ED 11:58
DX: E86.0 Dehydration (principal); G40.909 Epilepsy, unspecified, not intractable, without status epilepticus; R55 Syncope and collapse; E11.9 Type 2 diabetes mellitus without complications; I10 Essential (primary) hypertension; J45.909 Unspecified asthma, uncomplicated
CPT/HCPCS: 36415; 70450; 80048; 80076; 81001; 82962; 84703; 85025; 87086; 96361; 96374; 99285; J7030; Q0162; Q9967; J1815

== ENCOUNTER 2022-01-13 06:38 | Emergency (ER) | payer MEDICAID ==
[2022-01-13 07:42] LABS: Bilirubin,Urine NEG (Negative); Blood,Urine NEG (Negative); Color,Urine Straw (Yellow); Protein,Urine <15 mg/dL mg/dL (Negative); Urobilinogen,Urine < 2.0 mg/dL (<2.0)
[2022-01-13] MEDS ORDERED: MORPHINE 4 MG/1 ML INJ IV ONE ×2 (08:44→10:01)
[2022-01-13] MEDS ORDERED: SODIUM CHLORIDE 0.9% 1000 ML 1,000 ML IV ONE ×2 (08:44→11:46)
[2022-01-13] MEDS ORDERED: ONDANSETRON 4 MG/2 ML INJ IV ONE (08:44)
[2022-01-13 08:55] LABS: HCG Qualitative,Urine Negative (Negative)
[2022-01-13 09:31] LABS: Basophils % (Auto) 0.2 % (0.0-1.8); Eosinophils % (Auto) 0.5 % (0.0-4.3); Hematocrit 42.8 % (30.3-42.9); Hemoglobin 14.5 gm/dl (10.1-14.3); Lymphocytes # (Auto) 2.2 K/mm3 (1.2-5.4); Lymphocytes % (Auto) 30.4 % (13.4-35.0); Mean Corpuscular HGB Conc 34 % (30-34); Mean Corpuscular Volume 87 fl (79-97); Monocytes # (Auto) 0.5 K/mm3 (0.0-0.8); Platelet Count 267 K/mm3 (140-440); Red Blood Count 4.93 M/mm3 (3.65-5.03); Red Cell Distribution Width 12.7 % (13.2-15.2)
[2022-01-13] MEDS ORDERED: FAMOTIDINE 20 MG/2 ML INJ IV ONE (10:01)
[2022-01-13 10:04] LABS: Alanine Aminotransferase 12 units/L (7-56); Albumin 4.2 g/dL (3.9-5); Blood Urea Nitrogen 4 mg/dL (7-17); Calcium 9.3 mg/dL (8.4-10.2); Hemolysis Index 50
[2022-01-13 10:14] LABS: BUN/Creatinine Ratio 6
--- NOTE | 2022-01-13 11:45 | Emergency Department Report ---
ED Abdominal Pain HPI - General Chief Complaint: Abdominal Pain Stated Complaint: NAUSEA/STOMACH PAIN Source: patient, old records reviewed Mode of arrival: Ambulatory Limitations: No Limitations - History of Present Illness Initial Comments: 21-year-old female with a past medical history of insulin-dependent diabetes and previous cholecystectomy presents to the hospital complaining of right lower quadrant pain for the past 3 to 4 days. Pain is constant, moderate to severe s harp, worse with palpation. No alleviating factors. Associated nausea and vomiting reported a left episode in the waiting room. Patient denies fever, dysuria, or diarrhea. As per medical record review patient has presented with right lower quadrant pain in the past (last time in September) had a CT negative for appendicitis Severity scale (0 -10): 8 - Related Data Home Medications Medication Instructions Recorded Confirmed Last Taken Lisdexamfetamine Dimesylate 40 mg PO DAILY 02/07/20 09/10/21 02/20/20 07:00 [Vyvanse] Previous Rx's Medication Instructions Recorded Last Taken Type Blood Sugar Diagnostic [Freestyle 1 each MC QID #100 strip 05/05/21 Unknown Rx Lite Test Strip] Butalb/Acetamin/Caff 50-325-40 1 - 2 tab PO Q6HR PRN #15 tab 05/05/21 Unknown Rx [Fioricet 50-325-40] Dicyclomine [Bentyl] 20 mg PO Q6H PRN #20 tablet 05/05/21 Unknown Rx Famotidine [Pepcid] 20 mg PO BID #30 tablet 05/05/21 Unknown Rx Gabapentin 300 mg PO BID #20 capsule 05/05/21 Unknown Rx Insulin Glargine [Lantus VIAL] 44 units SUB-Q QHS #2 vial 05/05/21 Unknown Rx Insulin Regular, Human [HumuLIN R] 0 unit SQ AC #1 vial 05/05/21 Unknown Rx Sucralfate [Carafate] 1 gm PO ACHS 7 Days #21 tablet 05/05/21 Unknown Rx levETIRAcetam [Keppra TAB] 500 mg PO BID #60 tablet 05/05/21 Unknown Rx lisinopriL [Zestril TAB] 5 mg PO DAILY #30 05/05/21 Unknown Rx Miconazole Nitrate 1 inch TP BID 14 Days #1 cream..g. 06/23/21 Unknown Rx Ondansetron [Zofran ODT TAB] 4 mg PO Q8HR PRN 5 Days #15 09/11/21 Unknown Rx tab.rapdis Nitrofurantoin [place]/M-Cryst 100 mg PO Q12HR #14 capsule 10/11/21 Unknown Rx [Macrobid CAP] Ondansetron [Zofran Odt] 4 mg PO Q8HR #10 tab.rapdis 10/11/21 Unknown Rx Albuterol Mdi (or & Nicu Only) 2 puff IH QID PRN #1 inha 10/16/21 Unknown Rx [ProAir HFA Inhaler] Benzonatate [Tessalon Perles] 100 mg PO Q8HR PRN #20 cap 10/20/21 Unknown Rx Cetirizine HCl [Zyrtec 10mg tab] 10 mg PO DAILY #30 10/20/21 Unknown Rx Metoclopramide [Reglan] 10 mg PO Q6HR PRN #20 tab 11/09/21 Unknown Rx Insulin Glargine [Lantus VIAL] 50 unit SUB-Q QHS #3 vial 12/04/21 Unknown Rx Insulin Lispro [Humalog] 7 unit SQ AC #3 vial 12/04/21 Unknown Rx levETIRAcetam [Keppra TAB] 500 mg PO BID #60 tablet 12/04/21 Unknown Rx Famotidine [Pepcid] 20 mg PO BID #30 tablet 01/13/22 Unknown Rx HYDROcodone/APAP 5-325 [[place] 1 each PO Q6HR PRN #15 tablet 01/13/22 Unknown Rx 5/325] Nitrofurantoin [place]/M-Cryst 100 mg PO Q12HR #14 capsule 01/13/22 Unknown Rx [Macrobid CAP] Ondansetron [Zofran Odt] 4 mg PO Q8HR PRN #20 tab.rapdis 01/13/22 Unknown Rx Allergies Allergy/AdvReac Type Severity Reaction Status Date / Time No Known Allergies Allergy Verified 01/13/22 06:48 ED Review of Systems ROS: Stated complaint: NAUSEA/STOMACH PAIN Other details as noted in HPI Comment: All other systems reviewed and negative ED Past Medical Hx - Past Medical History Previous Medical History?: Yes Hx Hypertension: Yes Hx Heart Attack/AMI: No Hx Diabetes: Yes Hx GERD: Yes Hx Liver Disease: No Hx Renal Disease: Yes (no dialysis) Hx Sickle Cell Disease: No Hx Seizures: Yes Hx Asthma: Yes Hx COPD: No Hx Tuberculosis: No Hx HIV: No - Surgical History Past Surgical History?: Yes Hx Cholecystectomy: Yes - Social History Smoking Status: Never Smoker Substance Use Type: None - Medications Home Medications: Home Medications Medication Instructions Recorded Confirmed Last Taken Type Lisdexamfetamine Dimesylate 40 mg PO DAILY 02/07/20 09/10/21 02/20/20 07:00 History [Vyvmyla] Blood Sugar Diagnostic [Freestyle 1 each MC QID #100 strip 05/05/21 09/10/21 Unknown Rx Lite Test Strip] Butalb/Acetamin/Caff 50-325-40 1 - 2 tab PO Q6HR PRN #15 tab 05/05/21 09/10/21 Unknown Rx [Fioricet 50-325-40] Dicyclomine [Bentyl] 20 mg PO Q6H PRN #20 tablet 05/05/21 09/10/21 Unknown Rx Famotidine [Pepcid] 20 mg PO BID #30 tablet 05/05/21 09/10/21 Unknown Rx Gabapentin 300 mg PO BID #20 capsule 05/05/21 09/10/21 Unknown Rx Insulin Glargine [Lantus VIAL] 44 units SUB-Q QHS #2 vial 05/05/21 09/10/21 Unknown Rx Insulin Regular, Human [HumuLIN R] 0 unit SQ AC #1 vial 05/05/21 09/10/21 Unknown Rx Sucralfate [Carafate] 1 gm PO ACHS 7 Days #21 tablet 05/05/21 09/10/21 Unknown Rx levETIRAcetam [Keppra TAB] 500 mg PO BID #60 tablet 05/05/21 09/10/21 Unknown Rx lisinopriL [Zestril TAB] 5 mg PO DAILY #30 05/05/21 09/10/21 Unknown Rx Miconazole Nitrate 1 inch TP BID 14 Days #1 cream..g. 06/23/21 09/10/21 Unknown Rx Ondansetron [Zofran ODT TAB] 4 mg PO Q8HR PRN 5 Days #15 09/11/21 Unknown Rx tab.rapdis Nitrofurantoin [place]/M-Cryst 100 mg PO Q12HR #14 capsule 10/11/21 Unknown Rx [Macrobid CAP] Ondansetron [Zofran Odt] 4 mg PO Q8HR #10 tab.rapdis 10/11/21 Unknown Rx Albuterol Mdi (or & Nicu Only) 2 puff IH QID PRN #1 inha 10/16/21 Unknown Rx [ProAir HFA Inhaler] Benzonatate [Tessalon Perles] 100 mg PO Q8HR PRN #20 cap 10/20/21 Unknown Rx Cetirizine HCl [Zyrtec 10mg tab] 10 mg PO DAILY #30 10/20/21 Unknown Rx Metoclopramide [Reglan] 10 mg PO Q6HR PRN #20 tab 11/09/21 Unknown Rx Insulin Glargine [Lantus VIAL] 50 unit SUB-Q QHS #3 vial 12/04/21 Unknown Rx Insulin Lispro [Humalog] 7 unit SQ AC #3 vial 12/04/21 Unknown Rx levETIRAcetam [Keppra TAB] 500 mg PO BID #60 tablet 12/04/21 Unknown Rx Famotidine [Pepcid] 20 mg PO BID #30 tablet 01/13/22 Unknown Rx HYDROcodone/APAP 5-325 [[place] 1 each PO Q6HR PRN #15 tablet 01/13/22 Unknown Rx 5/325] Nitrofurantoin [place]/M-Cryst 100 mg PO Q12HR #14 capsule 01/13/22 Unknown Rx [Macrobid CAP] Ondansetron [Zofran Odt] 4 mg PO Q8HR PRN #20 tab.rapdis 01/13/22 Unknown Rx ED Physical Exam - General Limitations: No Limitations - Other Other exam information: General: No acute distress Head: Atraumatic Eyes: normal appearance ENT: Moist mucous membranes Neck: Normal appearance, no midline tenderness Chest: Clear to auscultation bilaterally CV: Regular rate and rhythm Abdomen: Soft, normal bowel sounds, right lower quadrant tenderness nondistended, no rebound or guarding Back: Normal inspection Extremity: Normal inspection, full range of motion Neuro: Alert O x 3, no facial asymmetry, speech clear, no gross motor sensory deficit Psych: Appropriate behavior Skin: No rash ED Course Vital Signs 01/13/22 01/13/22 06:44 15:45 Temperature 97.7 F Pulse Rate 77 82 Respiratory 18 16 Rate Blood Pressure 128/86 Blood Pressure 149/96 [Right] O2 Sat by Pulse 97 98 Oximetry - EJ/Peripheral Line Neck L Time Out Performed: Yes Indications: nurses unable to establis Skin Cleansed in Sterile Fashion: Yes Size: 20 Dressing Placed: Tegaderm, tape Patient Tolerated Procedure: well, no complications ED Medical Decision Making - Lab Data Result diagrams: 01/13/22 07:13 01/13/22 07:13 Lab Results 01/13/22 01/13/22 01/13/22 Range/Units 07:13 07:13 07:13 WBC 7.2 (4.5-11.0) K/mm3 RBC 4.93 (3.65-5.03) M/mm3 Hgb 14.5 H (10.1-14.3) gm/dl Hct 42.8 (30.3-42.9) % MCV 87 (79-97) fl MCH 30 (28-32) pg MCHC 34 (30-34) % RDW 12.7 L (13.2-15.2) % Plt Count 267 (140-440) K/mm3 Lymph % (Auto) 30.4 (13.4-35.0) % [place] % (Auto) 7.0 (0.0-7.3) % Eos % (Auto) 0.5 (0.0-4.3) % Baso % (Auto) 0.2 (0.0-1.8) % Lymph # (Auto) 2.2 (1.2-5.4) K/mm3 [place] # (Auto) 0.5 (0.0-0.8) K/mm3 Eos # (Auto) 0.0 (0.0-0.4) K/mm3 Baso # (Auto) 0.0 (0.0-0.1) K/mm3 Seg Neutrophils % 61.9 (40.0-70.0) % Seg Neutrophils # 4.4 (1.8-7.7) K/mm3 VBG pH (7.320-7.420) Sodium 135 L (137-145) mmol/L Potassium 3.9 (3.6-5.0) mmol/L Chloride 101.6 (98-107) mmol/L Carbon Dioxide 20 L (22-30) mmol/L Anion Gap 19 mmol/L BUN 4 L (7-17) mg/dL Creatinine 0.7 (0.6-1.2) mg/dL Estimated GFR > 60 ml/min BUN/Creatinine Ratio 6 % Glucose 320 H (65-100) mg/dL POC Glucose (70-105) mg/dL Calcium 9.3 (8.4-10.2) mg/dL Total Bilirubin 0.30 (0.1-1.2) mg/dL AST 11 (5-40) units/L ALT 12 (7-56) units/L Alkaline Phosphatase 102 (35-129) units/L Total Protein 6.3 (6.3-8.2) g/dL Albumin 4.2 (3.9-5) g/dL Albumin/Globulin Ratio 2.0 % Lipase 35 (13-60) units/L HCG, Quant < 2 (0-4) mIU/mL Urine Color (Yellow) Urine Turbidity (Clear) Urine pH (5.0-7.0) Ur Specific [place] (1.003-1.030) Urine Protein (Negative) mg/dL Urine Glucose (UA) (Negative) mg/dL Urine Ketones (Negative) mg/dL Urine Blood (Negative) Urine Nitrite (Negative) Urine Bilirubin (Negative) Urine Urobilinogen (<2.0) mg/dL Ur Leukocyte Esterase (Negative) Urine WBC (Auto) (0.0-6.0) /HPF Urine RBC (Auto) (0.0-6.0) /HPF U Epithel Cells (Auto) (0-13.0) /HPF Urine HCG, Qual (Negative) 01/13/22 01/13/22 01/13/22 Range/Units 07:13 08:26 08:31 WBC (4.5-11.0) K/mm3 RBC (3.65-5.03) M/mm3 Hgb (10.1-14.3) gm/dl Hct (30.3-42.9) % MCV (79-97) fl MCH (28-32) pg MCHC (30-34) % RDW (13.2-15.2) % Plt Count (140-440) K/mm3 Lymph % (Auto) (13.4-35.0) % [place] % (Auto) (0.0-7.3) % Eos % (Auto) (0.0-4.3) % Baso % (Auto) (0.0-1.8) % Lymph # (Auto) (1.2-5.4) K/mm3 [place] # (Auto) (0.0-0.8) K/mm3 Eos # (Auto) (0.0-0.4) K/mm3 Baso # (Auto) (0.0-0.1) K/mm3 Seg Neutrophils % (40.0-70.0) % Seg Neutrophils # (1.8-7.7) K/mm3 VBG pH 7.348 (7.320-7.420) Sodium (137-145) mmol/L Potassium (3.6-5.0) mmol/L Chloride (98-107) mmol/L Carbon Dioxide (22-30) mmol/L Anion Gap mmol/L BUN (7-17) mg/dL Creatinine (0.6-1.2) mg/dL Estimated GFR ml/min BUN/Creatinine Ratio % Glucose (65-100) mg/dL POC Glucose 324 H (70-105) mg/dL Calcium (8.4-10.2) mg/dL Total Bilirubin (0.1-1.2) mg/dL AST (5-40) units/L ALT (7-56) units/L Alkaline Phosphatase (35-129) units/L Total Protein (6.3-8.2) g/dL Albumin (3.9-5) g/dL Albumin/Globulin Ratio % Lipase (13-60) units/L HCG, Quant (0-4) mIU/mL Urine Color (Yellow) Urine Turbidity (Clear) Urine pH (5.0-7.0) Ur Specific [place] (1.003-1.030) Urine Protein (Negative) mg/dL Urine Glucose (UA) (Negative) mg/dL Urine Ketones (Negative) mg/dL Urine Blood (Negative) Urine Nitrite (Negative) Urine Bilirubin (Negative) Urine Urobilinogen (<2.0) mg/dL Ur Leukocyte Esterase (Negative) Urine WBC (Auto) (0.0-6.0) /HPF Urine RBC (Auto) (0.0-6.0) /HPF U Epithel Cells (Auto) (0-13.0) /HPF Urine HCG, Qual Negative (Negative) 01/13/22 Range/Units Unknown WBC (4.5-11.0) K/mm3 RBC (3.65-5.03) M/mm3 Hgb (10.1-14.3) gm/dl Hct (30.3-42.9) % MCV (79-97) fl MCH (28-32) pg MCHC (30-34) % RDW (13.2-15.2) % Plt Count (140-440) K/mm3 Lymph % (Auto) (13.4-35.0) % [place] % (Auto) (0.0-7.3) % Eos % (Auto) (0.0-4.3) % Baso % (Auto) (0.0-1.8) % Lymph # (Auto) (1.2-5.4) K/mm3 [place] # (Auto) (0.0-0.8) K/mm3 Eos # (Auto) (0.0-0.4) K/mm3 Baso # (Auto) (0.0-0.1) K/mm3 Seg Neutrophils % (40.0-70.0) % Seg Neutrophils # (1.8-7.7) K/mm3 VBG pH (7.320-7.420) Sodium (137-145) mmol/L Potassium (3.6-5.0) mmol/L Chloride (98-107) mmol/L Carbon Dioxide (22-30) mmol/L Anion Gap mmol/L BUN (7-17) mg/dL Creatinine (0.6-1.2) mg/dL Estimated GFR ml/min BUN/Creatinine Ratio % Glucose (65-100) mg/dL POC Glucose (70-105) mg/dL Calcium (8.4-10.2) mg/dL Total Bilirubin (0.1-1.2) mg/dL AST (5-40) units/L ALT (7-56) units/L Alkaline Phosphatase (35-129) units/L Total Protein (6.3-8.2) g/dL Albumin (3.9-5) g/dL Albumin/Globulin Ratio % Lipase (13-60) units/L HCG, Quant (0-4) mIU/mL Urine Color Straw (Yellow) Urine Turbidity Clear (Clear) Urine pH 6.0 (5.0-7.0) Ur Specific [place] 1.023 (1.003-1.030) Urine Protein <15 mg/dl (Negative) mg/dL Urine Glucose (UA) >=500 (Negative) mg/dL Urine Ketones 20 (Negative) mg/dL Urine Blood Neg (Negative) Urine Nitrite Neg (Negative) Urine Bilirubin Neg (Negative) Urine Urobilinogen < 2.0 (<2.0) mg/dL Ur Leukocyte Esterase Sm (Negative) Urine WBC (Auto) 15.0 H (0.0-6.0) /HPF Urine RBC (Auto) 14.0 (0.0-6.0) /HPF U Epithel Cells (Auto) 23.0 H (0-13.0) /HPF Urine HCG, Qual (Negative) - EKG Data -: EKG Interpreted by Ms EKG shows normal: sinus rhythm, ST-T waves (No ST elevation) Rate: normal - Radiology Data Radiology results: report reviewed CT ABDOMEN AND PELVIS WITHOUT CONTRAST INDICATION / CLINICAL INFORMATION: rlq pain. TECHNIQUE: Axial CT images were obtained through the abdomen and pelvis without IV contrast. All CT scans at this location are performed using CT dose reduction for [place] by means of automated exposure control. COMPARISON: 10/11/2021 FINDINGS: LOWER CHEST: There are streaky opacities within the lung bases, likely reflecting volume loss. 5 mm pulmonary nodule in the left lower lobe (series 2 image 6). This is increased in size over several prior exams. LIVER: No significant abnormality GALLBLADDER/BILIARY TREE: Cholecystectomy. PANCREAS: No significant abnormality SPLEEN: No significant abnormality ADRENALS: No significant abnormality RIGHT KIDNEY / URETER: No significant abnormality. No urolithiasis or hydronephrosis. LEFT KIDNEY / URETER: No significant abnormality. No urolithiasis or hydronephrosis. URINARY BLADDER: No significant abnormality REPRODUCTIVE ORGANS: 2.1 cm right adnexal cyst/dominant follicle. No associated inflammation or free fluid. No routine follow-up is required. Uterus and left adnexa are unremar kable. STOMACH / BOWEL: Small bowel is normal in caliber. The colon is unremarkable. The appendix is normal in caliber. LYMPH NODES: No significant adenopathy. VASCULATURE: No significant abnormality. OTHER: No free air, free fluid, or focal fluid collection is identified. SKELETAL SYSTEM: No acute osseous findings. IMPRESSION: 1. No acute abnormality of the abdomen or pelvis. No etiology to account for right lower quadrant pain. Normal appendix. 2. Enlarging 5 mm pulmonary nodule in the left lower lobe; however, given patient's age, this is most likely benign. Consider follow-up CT in one year to ensure stability. - Medical Decision Making 21-year-old female with diabetes and right lower quadrant pain with associated nausea and vomiting. ED work-up fairly unremarkable. UA reveals white cells, leukocytosis, epithelial cells. This could be secondary to contamination however, given pelvic pain and GI symptoms patient will be treated for UTI with cultures pending. IV Rocephin provided. She will be discharged on Macrobid. Patient was noted to have ketones in her urine with elevated specific gravity likely secondary to dehydration. Low suspicion for DKA given lack of metabolic acidosis. Patient also received IV pain medication, Pepcid and Zofran without signs of vomiting in the ED symptomatic treatment and outpatient follow-up will be provided - Differential Diagnosis Appendicitis, ectopic , ovarian cyst,, gastroenteritis, DKA Critical Care Time: No Critical care attestation.: If time is entered above; I have spent that time in minutes in the direct care of this critically ill patient, excluding procedure time. ED Disposition Clinical Impression: UTI (urinary tract infection), Nausea and vomiting, Right lower quadrant abdominal pain, Dehydration, Diabetes Disposition: 01 HOME / SELF CARE / HOMELESS Is pt being admited?: No Does the pt Need Aspirin: No Condition: Stable Instructions: Abdominal Pain, Adult, [id number], Urinary Tract Infection, Adult, Diabetes Mellitus Type 2 in Adults (ED), Abdominal Pain (ED) Additional Instructions: Take the medication as prescribed. Follow-up with your doctor or doctor/clinic provided. Return if symptoms worsen as indicated by your discharge instructions. Prescriptions: Nitrofurantoin [place]/M-Cryst [Macrobid CAP] 100 mg PO Q12HR #14 capsule HYDROcodone/APAP 5-325 [[place] 5/325] 1 each PO Q6HR PRN #15 tablet PRN Reason: Pain Famotidine [Pepcid] 20 mg PO BID #30 tablet Ondansetron [Zofran Odt] 4 mg PO Q8HR PRN #20 tab.rapdis PRN Reason: Nausea And Vomiting Referrals: LONDON RODRIGUEZ MD [Primary Care Provider] - 3-5 Days Forms: Work/School Release Form(ED)
[2022-01-13] MEDS ORDERED: INSULIN REGULAR, HUMAN 100 UNITS/1 ML IV ONE (11:46)
--- NOTE | 2022-01-13 13:03 | Cat Scan Report ---
CT ABDOMEN AND PELVIS WITHOUT CONTRAST INDICATION / CLINICAL INFORMATION: rlq pain. TECHNIQUE: Axial CT images were obtained through the abdomen and pelvis without IV contrast. All CT scans at this location are performed using CT dose reduction for [place] by means of automated exposure control. COMPARISON: 10/11/2021 FINDINGS: LOWER CHEST: There are streaky opacities within the lung bases, likely reflecting volume loss. 5 mm p ulmonary nodule in the left lower lobe (series 2 image 6). This is increased in size over several dick or exams. LIVER: No significant abnormality GALLBLADDER/BILIARY TREE: Cholecystectomy. PANCREAS: No significant abnormality SPLEEN: No significant abnormality ADRENALS: No significant abnormality RIGHT KIDNEY / URETER: No significant abnormality. No urolithiasis or hydronephrosis. LEFT KIDNEY / URETER: No significant abnormality. No urolithiasis or hydronephrosis. URINARY BLADDER: No significant abnormality REPRODUCTIVE ORGANS: 2.1 cm right adnexal cyst/dominant follicle. No associated inflammation or free fluid. No routine follow-up is required. Uterus and left adnexa are unremarkable. STOMACH / BOWEL: Small bowel is normal in caliber. The colon is unremarkable. The appendix is normal in caliber. LYMPH NODES: No significant adenopathy. VASCULATURE: No significant abnormality. OTHER: No free air, free fluid, or focal fluid collection is identified. SKELETAL SYSTEM: No acute osseous findings. IMPRESSION: 1. No acute abnormality of the abdomen or pelvis. No etiology to account for right lower quadrant joe n. Normal appendix. 2. Enlarging 5 mm pulmonary nodule in the left lower lobe; however, given patient's age, this is most likely benign. Consider follow-up CT in one year to ensure stability. Signer Name: Mario Keen MD Signed: 01/13/2022 12:58 PM Workstation Name: [id number]
[2022-01-13] MEDS ORDERED: NITROFURANTOIN MONOHYD/M-CRYST 100 MG CAP PO ONE (13:47)
[2022-01-13] MEDS ORDERED: cefTRIAXone/NS 1 GM/50 ML 1 GM/50 ML BAG IV ONE (13:48)
[2022-01-13] MEDS ORDERED: KETOROLAC 30 MG/1 ML INJ IV ONE (13:48)
[2022-01-13 15:51] VITALS: BP 149/96
--- NOTE | 2022-01-17 13:09 | Electrocardiograph Report ---
[facility] Test Date: 2022-01-13 Test Time: 09:57:26 Pat Name: LYNN CHANDLER Department: Room: Gender: F Weaver Hand: TONIA : 2000 Requested By: FIDELINA KIMBROUGH Order Number: [id number] Reading MD: Keira Swartz Measurements Intervals [place] Rate: 72 P: 19 MD: 168 QRS: 31 QRSD: 75 T: 15 QT: 430 QTc: 471 Interpretive Statements Sinus rhythm Nonspecific T wave abnormality Compared to ECG 09/26/2021 12:05:14 No significant change Electronically Signed On 01-17-2022 13:09:27 EDT by Keira Swartz
== END 2022-01-13 15:51 | disposition home or self-care (01) ==
LOC: ED 06:38
DX: N39.0 Urinary tract infection, site not specified (principal); R11.2 Nausea with vomiting, unspecified; R10.31 Right lower quadrant pain; E86.0 Dehydration; E11.9 Type 2 diabetes mellitus without complications; I10 Essential (primary) hypertension; J45.909 Unspecified asthma, uncomplicated
CPT/HCPCS: 36415; 36569; 74176; 80053; 81001; 81025; 82805; 82962; 83690; 84702; 85025; 87086; 96361; 96365; 96375; 96376; 99284; J0696; J1885; J2270; J2405; J3490; J7030; 93005; Q9967; J1815

== ENCOUNTER 2022-01-27 16:27 | Emergency (ER) | payer MEDICAID ==
[2022-01-27] MEDS ORDERED: SODIUM CHLORIDE 0.9% 1000 ML 1,000 ML IV ONE (21:03)
--- NOTE | 2022-01-27 21:33 | Emergency Department Report ---
ED Abdominal Pain HPI - General Chief Complaint: Abdominal Pain Stated Complaint: STOMACH PAIN/NAUSEA Time Seen by Provider: 01/27/22 21:04 Source: patient Mode of arrival: Ambulatory Limitations: No Limitations - History of Present Illness Initial Comments: Is a 21-year-old female who presents for generalized abdominal pain with nausea vomiting radiating to right lower quadrant x2 days. Patient denies fevers or chills. Last nausea vomiting was this AM. Patient has history of type 2 diabetes diabetes controlled with metformin p.o. Humalog 7 units twice daily and Lantus 50 units at night. Patient has history of CKD , hypertension controlled with lisinopril 20 mg p.o. daily. Patient denies fevers or chills. Has been no dysuria frequency or urgency no hematuria. Last blood sugar unknown as patient does not check at home. Patient does have a primary care provider and has follow-up appointment scheduled for next week. MD Complaint: abdominal pain Severity scale (0 -10): 8 - Related Data Home Medications Medication Instructions Recorded Confirmed Last Taken Lisdexamfetamine Dimesylate 40 mg PO DAILY 02/07/20 09/10/21 02/20/20 07:00 [Vyvanse] Previous Rx's Medication Instructions Recorded Last Taken Type Blood Sugar Diagnostic [Freestyle 1 each MC QID #100 strip 05/05/21 Unknown Rx Lite Test Strip] Butalb/Acetamin/Caff 50-325-40 1 - 2 tab PO Q6HR PRN #15 tab 05/05/21 Unknown Rx [Fioricet 50-325-40] Dicyclomine [Bentyl] 20 mg PO Q6H PRN #20 tablet 05/05/21 Unknown Rx Famotidine [Pepcid] 20 mg PO BID #30 tablet 05/05/21 Unknown Rx Gabapentin 300 mg PO BID #20 capsule 05/05/21 Unknown Rx Insulin Glargine [Lantus VIAL] 44 units SUB-Q QHS #2 vial 05/05/21 Unknown Rx Insulin Regular, Human [HumuLIN R] 0 unit SQ AC #1 vial 05/05/21 Unknown Rx Sucralfate [Carafate] 1 gm PO ACHS 7 Days #21 tablet 05/05/21 Unknown Rx levETIRAcetam [Keppra TAB] 500 mg PO BID #60 tablet 05/05/21 Unknown Rx lisinopriL [Zestril TAB] 5 mg PO DAILY #30 05/05/21 Unknown Rx Miconazole Nitrate 1 inch TP BID 14 Days #1 cream..g. 06/23/21 Unknown Rx Ondansetron [Zofran ODT TAB] 4 mg PO Q8HR PRN 5 Days #15 09/11/21 Unknown Rx tab.rapdis Nitrofurantoin Robertson/M-Cryst 100 mg PO Q12HR #14 capsule 10/11/21 Unknown Rx [Macrobid CAP] Ondansetron [Zofran Odt] 4 mg PO Q8HR #10 tab.rapdis 10/11/21 Unknown Rx Albuterol Mdi (or & Nicu Only) 2 puff IH QID PRN #1 inha 10/16/21 Unknown Rx [ProAir HFA Inhaler] Benzonatate [Tessalon Perles] 100 mg PO Q8HR PRN #20 cap 10/20/21 Unknown Rx Cetirizine HCl [Zyrtec 10mg tab] 10 mg PO DAILY #30 10/20/21 Unknown Rx Metoclopramide [Reglan] 10 mg PO Q6HR PRN #20 tab 11/09/21 Unknown Rx Insulin Glargine [Lantus VIAL] 50 unit SUB-Q QHS #3 vial 12/04/21 Unknown Rx Insulin Lispro [Humalog] 7 unit SQ AC #3 vial 12/04/21 Unknown Rx levETIRAcetam [Keppra TAB] 500 mg PO BID #60 tablet 12/04/21 Unknown Rx Famotidine [Pepcid] 20 mg PO BID #30 tablet 01/13/22 Unknown Rx HYDROcodone/APAP 5-325 [[place] 1 each PO Q6HR PRN #15 tablet 01/13/22 Unknown Rx 5/325] Nitrofurantoin Robertson/M-Cryst 100 mg PO Q12HR #14 capsule 01/13/22 Unknown Rx [Macrobid CAP] Ondansetron [Zofran Odt] 4 mg PO Q8HR PRN #20 tab.rapdis 01/13/22 Unknown Rx cephALEXin [Keflex] 500 mg PO BID 7 Days #14 cap 01/28/22 Unknown Rx Allergies Allergy/AdvReac Type Severity Reaction Status Date / Time No Known Allergies Allergy Verified 01/13/22 06:48 ED Review of Systems ROS: Stated complaint: STOMACH PAIN/NAUSEA Other details as noted in HPI Constitutional: denies: chills, fever Eyes: denies: eye pain, eye discharge, vision change ENT: denies: ear pain, throat pain Respiratory: denies: cough, shortness of breath, wheezing Cardiovascular: denies: chest pain, palpitations Endocrine: no symptoms reported Gastrointestinal: abdominal pain, nausea, vomiting, diarrhea. denies: constipation, hematemesis, melena, hematochezia Genitourinary: denies: urgency, dysuria, frequency, hematuria, discharge, abnormal menses Musculoskeletal: denies: back pain, joint swelling, arthralgia, myalgia Skin: pruritus. denies: rash, lesions Neurological: denies: headache, weakness, numbness, paresthesias, confusion, vertigo Psychiatric: denies: anxiety, depression Hematological/Lymphatic: as per HPI ED Past Medical Hx - Past Medical History Hx Hypertension: Yes Hx Heart Attack/AMI: No Hx Diabetes: Yes Hx GERD: Yes Hx Liver Disease: No Hx Renal Disease: Yes (no dialysis) Hx Sickle Cell Disease: No Hx Seizures: Yes Hx Asthma: Yes Hx COPD: No Hx Tuberculosis: No Hx HIV: No - Surgical History Hx Cholecystectomy: Yes - Social History Smoking Status: Never Smoker Substance Use Type: None - Medications Home Medications: Home Medications Medication Instructions Recorded Confirmed Last Taken Type Lisdexamfetamine Dimesylate 40 mg PO DAILY 02/07/20 09/10/21 02/20/20 07:00 History [Vyvmontserrate] Blood Sugar Diagnostic [Freestyle 1 each MC QID #100 strip 05/05/21 09/10/21 Unknown Rx Lite Test Strip] Butalb/Acetamin/Caff 50-325-40 1 - 2 tab PO Q6HR PRN #15 tab 05/05/21 09/10/21 Unknown Rx [Fioricet 50-325-40] Dicyclomine [Bentyl] 20 mg PO Q6H PRN #20 tablet 05/05/21 09/10/21 Unknown Rx Famotidine [Pepcid] 20 mg PO BID #30 tablet 05/05/21 09/10/21 Unknown Rx Gabapentin 300 mg PO BID #20 capsule 05/05/21 09/10/21 Unknown Rx Insulin Glargine [Lantus VIAL] 44 units SUB-Q QHS #2 vial 05/05/21 09/10/21 Unknown Rx Insulin Regular, Human [HumuLIN R] 0 unit SQ AC #1 vial 05/05/21 09/10/21 Unknown Rx Sucralfate [Carafate] 1 gm PO ACHS 7 Days #21 tablet 05/05/21 09/10/21 Unknown Rx levETIRAcetam [Keppra TAB] 500 mg PO BID #60 tablet 05/05/21 09/10/21 Unknown Rx lisinopriL [Zestril TAB] 5 mg PO DAILY #30 05/05/21 09/10/21 Unknown Rx Miconazole Nitrate 1 inch TP BID 14 Days #1 cream..g. 06/23/21 09/10/21 Unknown Rx Ondansetron [Zofran ODT TAB] 4 mg PO Q8HR PRN 5 Days #15 09/11/21 Unknown Rx tab.rapdis Nitrofurantoin [place]/M-Cryst 100 mg PO Q12HR #14 capsule 10/11/21 Unknown Rx [Macrobid CAP] Ondansetron [Zofran Odt] 4 mg PO Q8HR #10 tab.rapdis 10/11/21 Unknown Rx Albuterol Mdi (or & Nicu Only) 2 puff IH QID PRN #1 inha 10/16/21 Unknown Rx [ProAir HFA Inhaler] Benzonatate [Tessalon Perles] 100 mg PO Q8HR PRN #20 cap 10/20/21 Unknown Rx Cetirizine HCl [Zyrtec 10mg tab] 10 mg PO DAILY #30 10/20/21 Unknown Rx Metoclopramide [Reglan] 10 mg PO Q6HR PRN #20 tab 11/09/21 Unknown Rx Insulin Glargine [Lantus VIAL] 50 unit SUB-Q QHS #3 vial 12/04/21 Unknown Rx Insulin Lispro [Humalog] 7 unit SQ AC #3 vial 12/04/21 Unknown Rx levETIRAcetam [Keppra TAB] 500 mg PO BID #60 tablet 12/04/21 Unknown Rx Famotidine [Pepcid] 20 mg PO BID #30 tablet 01/13/22 Unknown Rx HYDROcodone/APAP 5-325 [[place] 1 each PO Q6HR PRN #15 tablet 01/13/22 Unknown Rx 5/325] Nitrofurantoin [place]/M-Cryst 100 mg PO Q12HR #14 capsule 01/13/22 Unknown Rx [Macrobid CAP] Ondansetron [Zofran Odt] 4 mg PO Q8HR PRN #20 tab.rapdis 01/13/22 Unknown Rx cephALEXin [Keflex] 500 mg PO BID 7 Days #14 cap 01/28/22 Unknown Rx ED Physical Exam - General Limitations: No Limitations General appearance: alert, in no apparent distress - Head Head exam: Present: normocephalic, normal inspection - Eye Eye exam: Present: normal appearance, EOMI Pupils: Present: normal accommodation - ENT ENT exam: Present: normal orophraynx, mucous membranes moist, normal external ear exam - Neck Neck exam: Present: normal inspection, full ROM. Absent: lymphadenopathy, thyromegaly - Respiratory Respiratory exam: Present: normal lung sounds bilaterally. Absent: respiratory distress, wheezes, stridor, chest wall tenderness - Cardiovascular Cardiovascular Exam: Present: regular rate, normal rhythm, normal heart sounds. Absent: systolic murmur, diastolic murmur, rubs, gallop - GI/Abdominal GI/Abdominal exam: Present: soft, normal bowel sounds. Absent: distended, tenderness, guarding, rebound, rigid, bruit, hernia - Rectal Rectal exam: Present: deferred - Extremities Exam Extremities exam: Present: normal inspection, full ROM - Back Exam Back exam: Present: normal inspection, full ROM. Absent: CVA tenderness (R), CVA tenderness (L) - Neurological Exam Neurological exam: Present: alert, oriented X3, CN II-XII intact, normal gait, reflexes normal. Absent: motor sensory deficit - Psychiatric Psychiatric exam: Present: normal affect, normal mood - Skin Skin exam: Present: warm, dry, intact, normal color. Absent: rash ED Course Vital Signs 01/27/22 17:28 Temperature 97.5 F L Pulse Rate 89 Respiratory 18 Rate Blood Pressure 123/77 [Left] O2 Sat by Pulse 99 Oximetry ED Medical Decision Making - Lab Data Result diagrams: 01/27/22 22:42 01/27/22 22:42 Labs 01/27/22 01/27/22 01/27/22 22:42 22:42 Unknown WBC 6.0 RBC 4.89 Hgb 14.2 Hct 43.1 H MCV 88 MCH 29 MCHC 33 RDW 13.2 Plt Count 266 Lymph % (Auto) 41.9 H Robertson % (Auto) 7.5 H Eos % (Auto) 1.2 Baso % (Auto) 1.2 Lymph # (Auto) 2.5 Robertson # (Auto) 0.5 Eos # (Auto) 0.1 Baso # (Auto) 0.1 Seg Neutrophils % 48.2 Seg Neutrophils # 2.9 Sodium 139 Potassium 3.7 Chloride 102.7 Carbon Dioxide 23 Anion Gap 17 BUN 8 Creatinine 0.8 Estimated GFR > 60 BUN/Creatinine Ratio 10 Glucose 339 H Calcium 9.3 Total Bilirubin 0.30 AST 30 ALT 36 Alkaline Phosphatase 127 Total Protein 6.0 L Albumin 4.1 Albumin/Globulin Ratio 2.2 Urine Color Red Urine Turbidity Clear Urine pH 7.0 Ur Specific Salley 1.016 Urine Protein 30 mg/dl Urine Glucose (UA) >=500 Urine Ketones Tr Urine Blood Lg Urine Nitrite Neg Urine Bilirubin Neg Urine Urobilinogen < 2.0 Ur Leukocyte Esterase Tr Urine WBC (Auto) 154.0 H Urine RBC (Auto) > 182.0 U Epithel Cells (Auto) 1.0 Urine Yeast (Budding) 1+ Urine HCG, Qual Negative - Medical Decision Making Symptoms are improved with medications given in ED. Patient is voiding without pain patient with current menses. Plan DC to home, continue to diabetes regimen. Including metformin, Lantus and Humalog. Last Accu-Chek was 221. Patient is currently tolerating p.o. intake there is no nausea no vomiting no fever no chills no malaise. Patient DC'd home in stable condition at this time. Critical care attestation.: If time is entered above; I have spent that time in minutes in the direct care of this critically ill patient, excluding procedure time. 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 insulin use: with ad terminal makeup operator use Qualified Code(s): E11.65 - Type 2 diabetes mellitus with hyperglycemia; Z79.4 - director long term care (current) use of insulin UTI (urinary tract infection) Qualifiers: Urinary tract infection type: acute cystitis Hematuria presence: without hematuria Qualified Code(s): N30.00 - Acute cystitis without hematuria Disposition: HOME / SELF CARE / HOMELESS Is pt being admited?: No Does the pt Need Aspirin: No Condition: Stable Instructions: Abdominal Pain (ED), Diabetes Mellitus Type 2 in Adults (ED), Urinary Tract Infection, Adult, Type 2 Diabetes Mellitus, Self Care, Adult, P reventing Diabetes Mellitus Complications Additional Instructions: Take medications as prescribed, follow-up with your primary care doctor in 1 to 2 days. Return to emergency department should symptoms worsen. Prescriptions: cephALEXin [Keflex] 500 mg PO BID 7 Days #14 cap Referrals: LONDON RODRIGUEZ MD [Staff Physician] - 3-5 Days Forms: Work/School Release Form(ED) Time of Disposition: 00:26
[2022-01-27 22:41] LABS: Bilirubin,Urine NEG (Negative); Blood,Urine LG (Negative); Color,Urine Red (Yellow); Urobilinogen,Urine < 2.0 mg/dL (<2.0)
[2022-01-27 22:42] LABS: HCG Qualitative,Urine Negative (Negative); RBC,Urine > 182.0 /HPF (0.0-6.0)
[2022-01-27] MEDS ORDERED: cefTRIAXone/NS 1 GM/50 ML 1 GM/50 ML BAG IV ONE (23:00)
[2022-01-27 23:05] LABS: Basophils # (Auto) 0.1 K/mm3 (0.0-0.1); Basophils % (Auto) 1.2 % (0.0-1.8); Eosinophils # (Auto) 0.1 K/mm3 (0.0-0.4); Eosinophils % (Auto) 1.2 % (0.0-4.3); Hematocrit 43.1 % (30.3-42.9); Hemoglobin 14.2 gm/dl (10.1-14.3); Lymphocytes # (Auto) 2.5 K/mm3 (1.2-5.4); Lymphocytes % (Auto) 41.9 % (13.4-35.0); Mean Corpuscular HGB Conc 33 % (30-34); Mean Corpuscular Volume 88 fl (79-97); Monocytes # (Auto) 0.5 K/mm3 (0.0-0.8); Monocytes % (Auto) 7.5 % (0.0-7.3); Platelet Count 266 K/mm3 (140-440); Red Blood Count 4.89 M/mm3 (3.65-5.03); Red Cell Distribution Width 13.2 % (13.2-15.2)
[2022-01-27 23:19] LABS: Alanine Aminotransferase 36 units/L (7-56); Albumin 4.1 g/dL (3.9-5); BUN/Creatinine Ratio 10; Blood Urea Nitrogen 8 mg/dL (7-17); Calcium 9.3 mg/dL (8.4-10.2); Hemolysis Index 20
[2022-01-28 01:19] VITALS: BP 126/81
== END 2022-01-28 02:14 | disposition home or self-care (01) ==
LOC: ED 16:27
DX: N39.0 Urinary tract infection, site not specified (principal); E11.65 Type 2 diabetes mellitus with hyperglycemia; I10 Essential (primary) hypertension; K21.9 Gastro-esophageal reflux disease without esophagitis; N28.9 Disorder of kidney and ureter, unspecified; R56.9 Unspecified convulsions; J45.909 Unspecified asthma, uncomplicated; Z90.49 Acquired absence of other specified parts of digestive tract; Z79.899 Other long term (current) drug therapy
CPT/HCPCS: 36415; 80053; 81001; 81025; 82962; 85025; 96361; 96365; 99283; J0696; J7030

== ENCOUNTER 2022-03-27 06:22 | Emergency (ER) | payer MEDICAID ==
[2022-03-27 08:00] LABS: Basophils # (Auto) 0.1 K/mm3 (0.0-0.1); Basophils % (Auto) 1.1 % (0.0-1.8); Eosinophils % (Auto) 0.7 % (0.0-4.3); Hematocrit 47.6 % (30.3-42.9); Hemoglobin 15.6 gm/dl (10.1-14.3); Lymphocytes # (Auto) 2.7 K/mm3 (1.2-5.4); Lymphocytes % (Auto) 47.6 % (13.4-35.0); Mean Corpuscular HGB Conc 33 % (30-34); Mean Corpuscular Volume 88 fl (79-97); Monocytes # (Auto) 0.4 K/mm3 (0.0-0.8); Platelet Count 248 K/mm3 (140-440); Red Blood Count 5.38 M/mm3 (3.65-5.03); Red Cell Distribution Width 12.5 % (13.2-15.2)
--- NOTE | 2022-03-27 08:56 | XRay Report ---
Abdomen 2 views INDICATION: Abdominal pain FINDINGS: Nonspecific bowel gas pattern. No free air is seen. No acute bone findings are identified. No abnormal calcifications. IMPRESSION: No acute findings. Signer Name: Neptali Harvey MD Signed: 03/27/2022 8:51 AM Workstation Name: [id number]
[2022-03-27 10:08] LABS: Alanine Aminotransferase 30 units/L (7-56); Albumin 4.5 g/dL (3.9-5); BUN/Creatinine Ratio 6; Blood Urea Nitrogen 5 mg/dL (7-17); Calcium 9.6 mg/dL (8.4-10.2); Hemolysis Index 6
[2022-03-27] MEDS ORDERED: ONDANSETRON 4 MG/2 ML INJ IV ONE (10:29)
[2022-03-27] MEDS ORDERED: fentaNYL 100 MCG/2 ML INJ IV ONE (10:29)
--- NOTE | 2022-03-27 10:34 | Emergency Department Report ---
HPI - General Chief Complaint: Abdominal Pain Time Seen by Provider: 03/27/22 10:06 - HPI HPI: Room 3 The patient is a 21-year-old female present with a chief complaint of abdominal pain. Patient states since yesterday she has had pain in epigastric and right abdomen has been sharp and constant in nature. Patient admits to nausea vomiting and diarrhea. Patient denies fever, dysuria or hematuria. Patient denies any sick contacts. Patient states she cannot recall the last thing she ate before her symptoms began. Patient currently gives her pain a score of 9/10 ED Past Medical Hx - Past Medical History Previous Medical History?: Yes Hx Hypertension: Yes Hx Diabetes: Yes Hx GERD: Yes Hx Renal Disease: Yes (no dialysis) Hx Seizures: Yes Hx Asthma: Yes - Surgical History Hx Cholecystectomy: Yes - Family History Family history: no significant - Social History Smoking Status: Never Smoker Substance Use Type: None (Denies illicit drug use) - Medications Home Medications: Home Medications Medication Instructions Recorded Confirmed Last Taken Type Lisdexamfetamine Dimesylate 40 mg PO DAILY 02/07/20 09/10/21 02/20/20 07:00 History [Mauricio] Blood Sugar Diagnostic [Freestyle 1 each MC QID #100 strip 05/05/21 09/10/21 Unknown Rx Lite Test Strip] Butalb/Acetamin/Caff 50-325-40 1 - 2 tab PO Q6HR PRN #15 tab 05/05/21 09/10/21 Unknown Rx [Fioricet 50-325-40] Dicyclomine [Bentyl] 20 mg PO Q6H PRN #20 tablet 05/05/21 09/10/21 Unknown Rx Famotidine [Pepcid] 20 mg PO BID #30 tablet 05/05/21 09/10/21 Unknown Rx Gabapentin 300 mg PO BID #20 capsule 05/05/21 09/10/21 Unknown Rx Insulin Glargine [Lantus VIAL] 44 units SUB-Q QHS #2 vial 05/05/21 09/10/21 Unknown Rx Insulin Regular, Human [HumuLIN R] 0 unit SQ AC #1 vial 05/05/21 09/10/21 Unknown Rx Sucralfate [Carafate] 1 gm PO ACHS 7 Days #21 tablet 05/05/21 09/10/21 Unknown Rx levETIRAcetam [Keppra TAB] 500 mg PO BID #60 tablet 05/05/21 09/10/21 Unknown Rx lisinopriL [Zestril TAB] 5 mg PO DAILY #30 05/05/21 09/10/21 Unknown Rx Miconazole Nitrate 1 inch TP BID 14 Days #1 cream..g. 06/23/21 09/10/21 Unknown Rx Ondansetron [Zofran ODT TAB] 4 mg PO Q8HR PRN 5 Days #15 09/11/21 Unknown Rx tab.rapdis Nitrofurantoin [place]/M-Cryst 100 mg PO Q12HR #14 capsule 10/11/21 Unknown Rx [Macrobid CAP] Ondansetron [Zofran Odt] 4 mg PO Q8HR #10 tab.rapdis 10/11/21 Unknown Rx Albuterol Mdi (or & Nicu Only) 2 puff IH QID PRN #1 inha 10/16/21 Unknown Rx [ProAir HFA Inhaler] Benzonatate [Tessalon Perles] 100 mg PO Q8HR PRN #20 cap 10/20/21 Unknown Rx Cetirizine HCl [Zyrtec 10mg tab] 10 mg PO DAILY #30 10/20/21 Unknown Rx Metoclopramide [Reglan] 10 mg PO Q6HR PRN #20 tab 11/09/21 Unknown Rx Insulin Glargine [Lantus VIAL] 50 unit SUB-Q QHS #3 vial 12/04/21 Unknown Rx Insulin Lispro [Humalog] 7 unit SQ AC #3 vial 12/04/21 Unknown Rx levETIRAcetam [Keppra TAB] 500 mg PO BID #60 tablet 12/04/21 Unknown Rx Famotidine [Pepcid] 20 mg PO BID #30 tablet 01/13/22 Unknown Rx HYDROcodone/APAP 5-325 [[place] 1 each PO Q6HR PRN #15 tablet 01/13/22 Unknown Rx 5/325] Nitrofurantoin [place]/M-Cryst 100 mg PO Q12HR #14 capsule 01/13/22 Unknown Rx [Macrobid CAP] Ondansetron [Zofran Odt] 4 mg PO Q8HR PRN #20 tab.rapdis 01/13/22 Unknown Rx cephALEXin [Keflex] 500 mg PO BID 7 Days #14 cap 01/28/22 Unknown Rx Dicyclomine [Bentyl] 20 mg PO QID PRN #20 bottle 03/27/22 Unknown Rx Diphenoxylate/Atropine [Lomotil] 2 tab PO QID PRN #20 03/27/22 Unknown Rx Promethazine [Phenergan] 25 mg PO Q6HR PRN #20 tab 03/27/22 Unknown Rx Promethazine [Phenergan] 25 mg PA Q6HR PRN #5 supp.rect 03/27/22 Unknown Rx traMADoL [Ultram] 50 mg PO Q6HR PRN #10 tablet 03/27/22 Unknown Rx ED Review of Systems ROS: Stated complaint: CHEST PAIN/AB PAIN/NAUSEA Other details as noted in HPI Constitutional: denies: fever Eyes: denies: eye pain ENT: denies: throat pain Respiratory: no symptoms reported Cardiovascular: denies: chest pain Endocrine: no symptoms reported Gastrointestinal: abdominal pain, nausea, vomiting, diarrhea Genitourinary: denies: dysuria, hematuria Musculoskeletal: back pain Neurological: denies: headache Physical Exam - Physical Exam Vital Signs: Vital Signs 03/27/22 03/27/22 06:46 09:43 Temperature 98.7 F Pulse Rate 83 Respiratory 18 18 Rate Blood Pressure 125/83 O2 Sat by Pulse 100 99 Oximetry Physical Exam: GENERAL: The patient is well-developed well-nourished female lying on stretcher not appearing to be in acute distress. [] HEENT: Normocephalic. Atraumatic. Extraocular motions are intact. Patient has moist mucous membranes. NECK: Supple. Trachea midline CHEST/LUNGS: Clear to auscultation. There is no respiratory distress noted. HEART/CARDIOVASCULAR: Regular. There is no tachycardia. There is no gallop rub or murmur. ABDOMEN: Abdomen is soft, with tenderness to palpation epigastric and right lower quadrant patient has normal bowel sounds. There is no abdominal distention. SKIN: There is no rash. There is no edema. There is no diaphoresis. NEURO: The patient is awake, alert, and oriented. The patient is cooperative. The patient has no focal neurologic deficits. The patient has normal speech. GCS 15 MUSCULOSKELETAL: There is right CVA tenderness. There is no evidence of acute injury. ED Course Vital Signs 03/27/22 03/27/22 06:46 09:43 Temperature 98.7 F Pulse Rate 83 Respiratory 18 18 Rate Blood Pressure 125/83 O2 Sat by Pulse 100 99 Oximetry ED Medical Decision Making - Lab Data Result diagrams: 03/27/22 06:59 03/27/22 Unknown - Radiology Data Radiology results: report reviewed (Abdominal x-ray, CT abdomen pelvis), image reviewed (Abdominal x-ray, CT abdomen pelvis) interpreted by me: Abdominal [id number] bowel gas pattern, no free air [address] [address] XRay Report Signed Patient: LYNN CHANDLER MR#: [id number] : 2000 Acct:[id number] Age/Sex: 21 / F ADM Date: 03/27/22 Loc: ED Attending Dr: Ordering Physician: JEANA RIZVI MD Date of Service: 03/27/22 Procedure(s): XR abdomen 2V Accession Number(s): [id number] cc: JEANA RIZVI MD Fluoro Time In Minutes: Abdomen 2 views INDICATION: Abdominal pain FINDINGS: Nonspecific bowel gas pattern. No free air is seen. No acute bone findings are identified. No abnormal calcifications. IMPRESSION: No acute findings. Signer Name: Neptali Harvey MD Signed: 03/27/2022 8:51 AM Workstation Name: [id number] Transcribed By: CW Dictated By: ELVIRA HARVEY MD Electronically Authenticated By: ELVIRA HARVEY MD Signed Date/Time: 03/27/22850 DD/ 0 TD/TT: [address] [address] Cat Scan Report Signed Patient: LYNN CHANDLER MR#: [id number] : 2000 Acct:[id number] Age/Sex: 21 / F ADM Date: 03/27/22 Loc: ED Attending Dr: Ordering Physician: JUAN MANUEL ALARCON MD Date of Service: 03/27/22 Procedure(s): CT abdomen pelvis w con Accession Number(s): [id number] cc: JUAN MANUEL ALARCON MD CT ABDOMEN AND PELVIS WITH CONTRAST HISTORY: Epigastric and right lower quadrant pain. COMPARISON: 01/07/2022 TECHNIQUE: CT images of the abdomen and pelvis were obtained following administration of intravenous contrast. All CT scans at this location are performed using CT dose reduction for ALARA by means of automated exposure control. CONTRAST: 100 ml of intravenous contrast administered. FINDINGS: Lungs/bones: Pulmonary nodule within the left lower lung measures 6 mm. This appears unchanged since 2020 Abdomen/pelvis: Fatty infiltration of the liver. Spleen, adrenal glands, pancreas appear normal. Upper GI tract is unremarkable. Bilateral kidneys appear normal. Prior cholecystectomy is seen. Motion artifact slightly limits evaluation. No evidence for appendicitis. Urinary bladder wall is mildly thickened however there is incomplete distention. Small periaortic nodes are seen without dominant adenopathy. Portal vein is patent. No acute bone findings are seen. IMPRESSION: 1. No CT evidence for appendicitis 2. Small nodule left lower lung appears unchanged since 2020 measuring 6 mm. A follow-up in one year could be performed. Signer Name: Neptali Harvey MD Signed: 03/27/2022 12:52 PM Workstation Name: [id number] Transcribed By: CHRIS Dictated By: ELVIRA HARVEY MD Electronically Authenticated By: ELVIRA HARVEY MD Signed Date/Time: 03/27/22 1252 DD/ 1249 TD/TT: - Differential Diagnosis Gastroenteritis, partial small bowel obstruction, appendicitis, pyelonephri Critical care attestation.: If time is entered above; I have spent that time in minutes in the direct care of this critically ill patient, excluding procedure time. ED Disposition Clinical Impression: Acute abdominal pain, Nausea vomiting and diarrhea Disposition: 01 HOME / SELF CARE / HOMELESS Is pt being admited?: No Does the pt Need Aspirin: No Condition: Stable Instructions: Abdominal Pain (ED), Nausea and Vomiting, Adult, Abdominal Pain, Adult, [id number] Additional Instructions: Return to the emergency department should you develop worsening symptoms, inability to tolerate food or liquids, high fever or any other concerns Prescriptions: Dicyclomine [Bentyl] 20 mg PO QID PRN #20 bottle PRN Reason: Pain, Moderate (4-6) Diphenoxylate/Atropine [Lomotil] 2 tab PO QID PRN #20 PRN Reason: Diarrhea Promethazine [Phenergan] 25 mg PO Q6HR PRN #20 tab PRN Reason: Nausea Promethazine [Phenergan] 25 mg PA Q6HR PRN #5 supp.rect PRN Reason: Vomiting traMADoL [Ultram] 50 mg PO Q6HR PRN #10 tablet PRN Reason: Pain Referrals: LONDON RODRIGUEZ MD [Primary Care Provider] - 3-5 Days DOROTHY JALLOH MD [Staff Physician] - 3-5 Days (Dr. Jalloh is a cafeteria operator. Please follow-up with him if your symptoms persist) Time of Disposition: 13:03
[2022-03-27 11:18] LABS: Bilirubin,Urine NEG (Negative); Blood,Urine MOD (Negative); Color,Urine Straw (Yellow); Protein,Urine <15 mg/dL mg/dL (Negative); Urobilinogen,Urine < 2.0 mg/dL (<2.0)
[2022-03-27 11:35] LABS: Mucus,Urine FEW /HPF
[2022-03-27 11:58] LABS: Ictotest,Urine Negative (Negative)
[2022-03-27 12:51] VITALS: BP 131/72
--- NOTE | 2022-03-27 12:56 | Cat Scan Report ---
CT ABDOMEN AND PELVIS WITH CONTRAST HISTORY: Epigastric and right lower quadrant pain. COMPARISON: 01/07/2022 TECHNIQUE: CT images of the abdomen and pelvis were obtained following administration of intravenous contrast. All CT scans at this location are performed using CT dose reduction for ALARA by means of automated exposure control. CONTRAST: 100 ml of intravenous contrast administered. FINDINGS: Lungs/bones: Pulmonary nodule within the left lower lung measures 6 mm. This appears unchanged since 2020 Abdomen/pelvis: Fatty infiltration of the liver. Spleen, adrenal glands, pancreas appear normal. Upp er GI tract is unremarkable. Bilateral kidneys appear normal. Prior cholecystectomy is seen. Motion a rtifact slightly limits evaluation. No evidence for appendicitis. Urinary bladder wall is mildly thic kened however there is incomplete distention. Small periaortic nodes are seen without dominant adenop athy. Portal vein is patent. No acute bone findings are seen. IMPRESSION: 1. No CT evidence for appendicitis 2. Small nodule left lower lung appears unchanged since 2020 measuring 6 mm. A follow-up in one year could be performed. Signer Name: Neptali Harvey MD Signed: 03/27/2022 12:52 PM Workstation Name: [id number]
== END 2022-03-27 14:37 | disposition home or self-care (01) ==
LOC: ED 06:22
DX: R10.13 Epigastric pain (principal); R10.11 Right upper quadrant pain; R11.2 Nausea with vomiting, unspecified; R19.7 Diarrhea, unspecified; I12.9 Hypertensive chronic kidney disease with stage 1 through stage 4 chronic kidney disease, or unspecified chronic kidney disease; E11.22 Type 2 diabetes mellitus with diabetic chronic kidney disease; N18.9 Chronic kidney disease, unspecified; K21.9 Gastro-esophageal reflux disease without esophagitis; R56.9 Unspecified convulsions; J45.909 Unspecified asthma, uncomplicated; Z98.890 Other specified postprocedural states
CPT/HCPCS: 36415; 74019; 74177; 80053; 81001; 84703; 85025; 96374; 96375; 99284; J2405; J3010; Q9967

== ENCOUNTER 2022-05-07 05:14 | Emergency (ER) | payer MEDICAID ==
[2022-05-07] MEDS ORDERED: KETOROLAC 10 MG TAB PO ONE (08:40)
[2022-05-07] MEDS ORDERED: ACETAMINOPHEN W/CODEINE 300-30 MG TAB PO ONE (08:40)
--- NOTE | 2022-05-07 08:47 | Emergency Department Report ---
ED ENT HPI - General Chief complaint: Upper Respiratory Infection Stated complaint: CHEST PAIN/FEVER/ABD PAIN/BODY PAIN Time Seen by Provider: 05/07/22 08:29 Source: patient Mode of arrival: Ambulatory Limitations: No Limitations - History of Present Illness Initial comments: 22-year-old black female with a past medical history of asthma, diabetes, and CKD presents to the emergency department for evaluation of 1 day history of headache, cough, fever, chest pain, congestion, and runny nose. She states that all of her symptoms started after she came [place] outside yesterday. She states that chest pain is midsternal, 8 out of 10, and worse with palpation and deep inspiration. She denies shortness of breath, dizziness, nausea, vomiting, and diaphoresis. MD complaint: other (Cough, congestion, headache, chest pain, fever, runny nose) -: Gradual, days(s) (1) Location: other (Chest pain and headache) Severity: severe Severity scale (0 -10): 8 Quality: aching Consistency: constant Worsens with: movement Associated Symptoms: fever, cough, rhinorrhea. denies: gum swelling, toothache, pain with swallowing, sore throat, tinnitus, hearing loss, discharge from ear - Related Data Home Medications Medication Instructions Recorded Confirmed Last Taken Lisdexamfetamine Dimesylate 40 mg PO DAILY 02/07/20 09/10/21 02/20/20 07:00 [Vyvanse] Previous Rx's Medication Instructions Recorded Last Taken Type Blood Sugar Diagnostic [Freestyle 1 each MC QID #100 strip 05/05/21 Unknown Rx Lite Test Strip] Butalb/Acetamin/Caff 50-325-40 1 - 2 tab PO Q6HR PRN #15 tab 05/05/21 Unknown Rx [Fioricet 50-325-40] Dicyclomine [Bentyl] 20 mg PO Q6H PRN #20 tablet 05/05/21 Unknown Rx Famotidine [Pepcid] 20 mg PO BID #30 tablet 05/05/21 Unknown Rx Gabapentin 300 mg PO BID #20 capsule 05/05/21 Unknown Rx Insulin Glargine [Lantus VIAL] 44 units SUB-Q QHS #2 vial 05/05/21 Unknown Rx Insulin Regular, Human [HumuLIN R] 0 unit SQ AC #1 vial 05/05/21 Unknown Rx Sucralfate [Carafate] 1 gm PO ACHS 7 Days #21 tablet 05/05/21 Unknown Rx levETIRAcetam [Keppra TAB] 500 mg PO BID #60 tablet 05/05/21 Unknown Rx lisinopriL [Zestril TAB] 5 mg PO DAILY #30 05/05/21 Unknown Rx Miconazole Nitrate 1 inch TP BID 14 Days #1 cream..g. 06/23/21 Unknown Rx Ondansetron [Zofran ODT TAB] 4 mg PO Q8HR PRN 5 Days #15 09/11/21 Unknown Rx tab.rapdis Nitrofurantoin Vermilion/M-Cryst 100 mg PO Q12HR #14 capsule 10/11/21 Unknown Rx [Macrobid CAP] Ondansetron [Zofran Odt] 4 mg PO Q8HR #10 tab.rapdis 10/11/21 Unknown Rx Albuterol Mdi (or & Nicu Only) 2 puff IH QID PRN #1 inha 10/16/21 Unknown Rx [ProAir HFA Inhaler] Benzonatate [Tessalon Perles] 100 mg PO Q8HR PRN #20 cap 10/20/21 Unknown Rx Cetirizine HCl [Zyrtec 10mg tab] 10 mg PO DAILY #30 10/20/21 Unknown Rx Metoclopramide [Reglan] 10 mg PO Q6HR PRN #20 tab 11/09/21 Unknown Rx Insulin Glargine [Lantus VIAL] 50 unit SUB-Q QHS #3 vial 12/04/21 Unknown Rx Insulin Lispro [Humalog] 7 unit SQ AC #3 vial 12/04/21 Unknown Rx levETIRAcetam [Keppra TAB] 500 mg PO BID #60 tablet 12/04/21 Unknown Rx Famotidine [Pepcid] 20 mg PO BID #30 tablet 01/13/22 Unknown Rx HYDROcodone/APAP 5-325 [[place] 1 each PO Q6HR PRN #15 tablet 01/13/22 Unknown Rx 5/325] Nitrofurantoin Vermilion/M-Cryst 100 mg PO Q12HR #14 capsule 01/13/22 Unknown Rx [Macrobid CAP] Ondansetron [Zofran Odt] 4 mg PO Q8HR PRN #20 tab.rapdis 01/13/22 Unknown Rx cephALEXin [Keflex] 500 mg PO BID 7 Days #14 cap 01/28/22 Unknown Rx Dicyclomine [Bentyl] 20 mg PO QID PRN #20 bottle 03/27/22 Unknown Rx Diphenoxylate/Atropine [Lomotil] 2 tab PO QID PRN #20 03/27/22 Unknown Rx Famotidine [Pepcid] 20 mg PO BID #20 tablet 03/27/22 Unknown Rx Promethazine [Phenergan] 25 mg PO Q6HR PRN #20 tab 03/27/22 Unknown Rx Promethazine [Phenergan] 25 mg [place] Q6HR PRN #5 supp.rect 03/27/22 Unknown Rx traMADoL [Ultram] 50 mg PO Q6HR PRN #10 tablet 03/27/22 Unknown Rx Benzonatate [Tessalon Perles] 100 mg PO Q8HR PRN #30 cap 05/07/22 Unknown Rx guaiFENesin/CODEINE [Robitussin AC] 10 ml PO TID PRN #120 ml 05/07/22 Unknown Rx Allergies Allergy/AdvReac Type Severity Reaction Status Date / Time No Known Allergies Allergy Verified 03/27/22 06:52 ED Dental HPI - General Chief complaint: Upper Respiratory Infection Stated complaint: CHEST PAIN/FEVER/ABD PAIN/BODY PAIN Time Seen by Provider: 05/07/22 08:29 Source: patient Mode of arrival: Ambulatory Limitations: No Limitations - Related Data Home Medications Medication Instructions Recorded Confirmed Last Taken Lisdexamfetamine Dimesylate 40 mg PO DAILY 02/07/20 09/10/21 02/20/20 07:00 [Vyvanse] Previous Rx's Medication Instructions Recorded Last Taken Type Blood Sugar Diagnostic [Freestyle 1 each MC QID #100 strip 05/05/21 Unknown Rx Lite Test Strip] Butalb/Acetamin/Caff 50-325-40 1 - 2 tab PO Q6HR PRN #15 tab 05/05/21 Unknown Rx [Fioricet 50-325-40] Dicyclomine [Bentyl] 20 mg PO Q6H PRN #20 tablet 05/05/21 Unknown Rx Famotidine [Pepcid] 20 mg PO BID #30 tablet 05/05/21 Unknown Rx Gabapentin 300 mg PO BID #20 capsule 05/05/21 Unknown Rx Insulin Glargine [Lantus VIAL] 44 units SUB-Q QHS #2 vial 05/05/21 Unknown Rx Insulin Regular, Human [HumuLIN R] 0 unit SQ AC #1 vial 05/05/21 Unknown Rx Sucralfate [Carafate] 1 gm PO ACHS 7 Days #21 tablet 05/05/21 Unknown Rx levETIRAcetam [Keppra TAB] 500 mg PO BID #60 tablet 05/05/21 Unknown Rx lisinopriL [Zestril TAB] 5 mg PO DAILY #30 05/05/21 Unknown Rx Miconazole Nitrate 1 inch TP BID 14 Days #1 cream..g. 06/23/21 Unknown Rx Ondansetron [Zofran ODT TAB] 4 mg PO Q8HR PRN 5 Days #15 09/11/21 Unknown Rx tab.rapdis Nitrofurantoin [place]/M-Cryst 100 mg PO Q12HR #14 capsule 10/11/21 Unknown Rx [Macrobid CAP] Ondansetron [Zofran Odt] 4 mg PO Q8HR #10 tab.rapdis 10/11/21 Unknown Rx Albuterol Mdi (or & Nicu Only) 2 puff IH QID PRN #1 inha 10/16/21 Unknown Rx [ProAir HFA Inhaler] Benzonatate [Tessalon Perles] 100 mg PO Q8HR PRN #20 cap 10/20/21 Unknown Rx Cetirizine HCl [Zyrtec 10mg tab] 10 mg PO DAILY #30 10/20/21 Unknown Rx Metoclopramide [Reglan] 10 mg PO Q6HR PRN #20 tab 11/09/21 Unknown Rx Insulin Glargine [Lantus VIAL] 50 unit SUB-Q QHS #3 vial 12/04/21 Unknown Rx Insulin Lispro [Humalog] 7 unit SQ AC #3 vial 12/04/21 Unknown Rx levETIRAcetam [Keppra TAB] 500 mg PO BID #60 tablet 12/04/21 Unknown Rx Famotidine [Pepcid] 20 mg PO BID #30 tablet 01/13/22 Unknown Rx HYDROcodone/APAP 5-325 [[place] 1 each PO Q6HR PRN #15 tablet 01/13/22 Unknown Rx 5/325] Nitrofurantoin [place]/M-Cryst 100 mg PO Q12HR #14 capsule 01/13/22 Unknown Rx [Macrobid CAP] Ondansetron [Zofran Odt] 4 mg PO Q8HR PRN #20 tab.rapdis 01/13/22 Unknown Rx cephALEXin [Keflex] 500 mg PO BID 7 Days #14 cap 01/28/22 Unknown Rx Dicyclomine [Bentyl] 20 mg PO QID PRN #20 bottle 03/27/22 Unknown Rx Diphenoxylate/Atropine [Lomotil] 2 tab PO QID PRN #20 03/27/22 Unknown Rx Famotidine [Pepcid] 20 mg PO BID #20 tablet 03/27/22 Unknown Rx Promethazine [Phenergan] 25 mg PO Q6HR PRN #20 tab 03/27/22 Unknown Rx Promethazine [Phenergan] 25 mg [place] Q6HR PRN #5 supp.rect 03/27/22 Unknown Rx traMADoL [Ultram] 50 mg PO Q6HR PRN #10 tablet 03/27/22 Unknown Rx Benzonatate [Tessalon Perles] 100 mg PO Q8HR PRN #30 cap 05/07/22 Unknown Rx guaiFENesin/CODEINE [Robitussin AC] 10 ml PO TID PRN #120 ml 05/07/22 Unknown Rx Allergies Allergy/AdvReac Type Severity Reaction Status Date / Time No Known Allergies Allergy Verified 03/27/22 06:52 ED Review of Systems ROS: Stated complaint: CHEST PAIN/FEVER/ABD PAIN/BODY PAIN Other details as noted in HPI Comment: All other systems reviewed and negative Constitutional: fever. denies: chills, malaise, weakness Eyes: denies: vision change ENT: congestion. denies: ear pain, throat pain, dental pain Respiratory: cough. denies: shortness of breath, SOB with exertion, SOB at rest, stridor, wheezing Cardiovascular: chest pain. denies: palpitations, dyspnea on exertion, orthopnea, edema, syncope, paroxysmal nocturnal dyspnea Gastrointestinal: denies: abdominal pain, nausea, vomiting, diarrhea, hematemesis, melena, hematochezia Genitourinary: denies: urgency, dysuria, frequency, hematuria, discharge, abnormal menses Musculoskeletal: denies: back pain Neurological: headache. denies: weakness, numbness, paresthesias, confusion, abnormal gait, vertigo ED Past Medical Hx - Past Medical History Hx Hypertension: Yes Hx Heart Attack/AMI: No Hx Diabetes: Yes Hx GERD: Yes Hx Liver Disease: No Hx Renal Disease: Yes (no dialysis) Hx Sickle Cell Disease: No Hx Seizures: Yes Hx Asthma: Yes Hx COPD: No Hx Tuberculosis: No Hx HIV: No - Surgical History Hx Cholecystectomy: Yes - Social History Smoking Status: Never Smoker Substance Use Type: None (Denies illicit drug use) - Medications Home Medications: Home Medications Medication Instructions Recorded Confirmed Last Taken Type Lisdexamfetamine Dimesylate 40 mg PO DAILY 02/07/20 09/10/21 02/20/20 07:00 History [Mauricio] Blood Sugar Diagnostic [Freestyle 1 each MC QID #100 strip 05/05/21 09/10/21 Unknown Rx Lite Test Strip] Butalb/Acetamin/Caff 50-325-40 1 - 2 tab PO Q6HR PRN #15 tab 05/05/21 09/10/21 Unknown Rx [Fioricet 50-325-40] Dicyclomine [Bentyl] 20 mg PO Q6H PRN #20 tablet 05/05/21 09/10/21 Unknown Rx Famotidine [Pepcid] 20 mg PO BID #30 tablet 05/05/21 09/10/21 Unknown Rx Gabapentin 300 mg PO BID #20 capsule 05/05/21 09/10/21 Unknown Rx Insulin Glargine [Lantus VIAL] 44 units SUB-Q QHS #2 vial 05/05/21 09/10/21 Unknown Rx Insulin Regular, Human [HumuLIN R] 0 unit SQ AC #1 vial 05/05/21 09/10/21 Unknown Rx Sucralfate [Carafate] 1 gm PO ACHS 7 Days #21 tablet 05/05/21 09/10/21 Unknown Rx levETIRAcetam [Keppra TAB] 500 mg PO BID #60 tablet 05/05/21 09/10/21 Unknown Rx lisinopriL [Zestril TAB] 5 mg PO DAILY #30 05/05/21 09/10/21 Unknown Rx Miconazole Nitrate 1 inch TP BID 14 Days #1 cream..g. 06/23/21 09/10/21 Unknown Rx Ondansetron [Zofran ODT TAB] 4 mg PO Q8HR PRN 5 Days #15 09/11/21 Unknown Rx tab.rapdis Nitrofurantoin [place]/M-Cryst 100 mg PO Q12HR #14 capsule 10/11/21 Unknown Rx [Macrobid CAP] Ondansetron [Zofran Odt] 4 mg PO Q8HR #10 tab.rapdis 10/11/21 Unknown Rx Albuterol Mdi (or & Nicu Only) 2 puff IH QID PRN #1 inha 10/16/21 Unknown Rx [ProAir HFA Inhaler] Benzonatate [Tessalon Perles] 100 mg PO Q8HR PRN #20 cap 10/20/21 Unknown Rx Cetirizine HCl [Zyrtec 10mg tab] 10 mg PO DAILY #30 10/20/21 Unknown Rx Metoclopramide [Reglan] 10 mg PO Q6HR PRN #20 tab 11/09/21 Unknown Rx Insulin Glargine [Lantus VIAL] 50 unit SUB-Q QHS #3 vial 12/04/21 Unknown Rx Insulin Lispro [Humalog] 7 unit SQ AC #3 vial 12/04/21 Unknown Rx levETIRAcetam [Keppra TAB] 500 mg PO BID #60 tablet 12/04/21 Unknown Rx Famotidine [Pepcid] 20 mg PO BID #30 tablet 01/13/22 Unknown Rx HYDROcodone/APAP 5-325 [[place] 1 each PO Q6HR PRN #15 tablet 01/13/22 Unknown Rx 5/325] Nitrofurantoin [place]/M-Cryst 100 mg PO Q12HR #14 capsule 01/13/22 Unknown Rx [Macrobid CAP] Ondansetron [Zofran Odt] 4 mg PO Q8HR PRN #20 tab.rapdis 01/13/22 Unknown Rx cephALEXin [Keflex] 500 mg PO BID 7 Days #14 cap 01/28/22 Unknown Rx Dicyclomine [Bentyl] 20 mg PO QID PRN #20 bottle 03/27/22 Unknown Rx Diphenoxylate/Atropine [Lomotil] 2 tab PO QID PRN #20 03/27/22 Unknown Rx Famotidine [Pepcid] 20 mg PO BID #20 tablet 03/27/22 Unknown Rx Promethazine [Phenergan] 25 mg PO Q6HR PRN #20 tab 03/27/22 Unknown Rx Promethazine [Phenergan] 25 mg [place] Q6HR PRN #5 supp.rect 03/27/22 Unknown Rx traMADoL [Ultram] 50 mg PO Q6HR PRN #10 tablet 03/27/22 Unknown Rx Benzonatate [Tessalon Perles] 100 mg PO Q8HR PRN #30 cap 05/07/22 Unknown Rx guaiFENesin/CODEINE [Robitussin AC] 10 ml PO TID PRN #120 ml 05/07/22 Unknown Rx ED Physical Exam - General Limitations: No Limitations General appearance: alert, in no apparent distress - Head Head exam: Present: atraumatic, normocephalic - Eye Eye exam: Present: normal appearance. Absent: conjunctival injection, periorbital swelling, periorbital tenderness - ENT ENT exam: Absent: normal exam (Bilateral nasal mucosal edema noted), normal orophraynx (Erythema noted to posterior oropharynx) - Neck Neck exam: Present: normal inspection, full ROM. Absent: tenderness, lymphadenopathy - Respiratory Respiratory exam: Present: normal lung sounds bilaterally, chest wall tenderness. Absent: respiratory distress, wheezes, rales, rhonchi, stridor - Cardiovascular Cardiovascular Exam: Present: tachycardia, normal heart sounds - GI/Abdominal GI/Abdominal exam: Present: soft, normal bowel sounds. Absent: distended, tenderness, guarding, rebound, rigid - Extremities Exam Extremities exam: Present: normal inspection, full ROM, normal capillary refill. Absent: tenderness, pedal edema, joint swelling, calf tenderness - Back Exam Back exam: Present: normal inspection. Absent: CVA tenderness (R), CVA tenderness (L) - Neurological Exam Neurological exam: Present: alert, oriented X3, normal gait - Psychiatric Psychiatric exam: Present: normal affect, normal mood - Skin Skin exam: Present: warm, dry, intact, normal color ED Course Vital Signs 05/07/22 05/07/22 05/07/22 05:32 08:47 10:08 Temperature 97.8 F 97.9 F 97.7 F Pulse Rate 102 H 83 78 Respiratory 18 18 18 Rate Blood Pressure 119/71 123/87 Blood Pressure 123/74 [Left] O2 Sat by Pulse 100 98 Oximetry ED Medical Decision Making - Radiology Data Radiology results: report reviewed, image reviewed Chest x-ray: FINDINGS: SUPPORT DEVICES: None. HEART / MEDIASTINUM: No significant abnormality. LUNGS / PLEURA: No significant pulmonary or pleural abnormality. No pneumothorax. ADDITIONAL FINDINGS: No significant additional findings. IMPRESSION: 1. No acute findings. - Medical Decision Making 22-year-old black female with a past medical history of asthma, diabetes, and CKD presents to the emergency department for evaluation of 1 day history of headache, cough, fever, chest pain, congestion, and runny nose. She states that all of her symptoms started after she came [place] [facility] outside yesterday. She states that chest pain is midsternal, 8 out of 10, and worse with palpation and deep inspiration. She denies shortness of breath, dizziness, nausea, vomiting, and diaphoresis. Physical exam unremarkable. Chest x-ray within normal limits. Patient be discharged home with medication for cough. She is advised to follow-up with her primary care provider if no improvement or worsening symptoms. She is advised to return to the emergency department as needed. She verbalizes understanding of and agreement with plan of care. Critical care attestation.: If time is entered above; I have spent that time in minutes in the direct care of this critically ill patient, excluding procedure time. ED Disposition Clinical Impression: URI with cough and congestion Disposition: 01 HOME / SELF CARE / HOMELESS Is pt being admited?: No Does the pt Need Aspirin: No Condition: Stable Instructions: Upper Respiratory Infection, Adult, [id number] Additional Instructions: Take medications as prescribed. Follow-up with your primary care provider if no improvement or worsening symptoms. Return to the emergency department as needed. Prescriptions: guaiFENesin/CODEINE [Robitussin AC] 10 ml PO TID PRN #120 ml PRN Reason: Cough Benzonatate [Tessalon Perles] 100 mg PO Q8HR PRN #30 cap PRN Reason: Cough Referrals: LONDON RODRIGUEZ MD [Staff Physician] - 3-5 Days Forms: Work/School Release Form(ED) Time of Disposition: 09:55
--- NOTE | 2022-05-07 09:21 | XRay Report ---
CHEST 2 VIEWS INDICATION / CLINICAL INFORMATION: chest pain. COMPARISON: 10/20/2021 FINDINGS: SUPPORT DEVICES: None. HEART / MEDIASTINUM: No significant abnormality. LUNGS / PLEURA: No significant pulmonary or pleural abnormality. No pneumothorax. ADDITIONAL FINDINGS: No significant additional findings. IMPRESSION: 1. No acute findings. Signer Name: Armen Andrade MD Signed: 05/07/2022 9:16 AM Workstation Name: [email or web address]
[2022-05-07 10:09] VITALS: BP 123/74
== END 2022-05-07 10:04 | disposition home or self-care (01) ==
LOC: ED 05:14
DX: J06.9 Acute upper respiratory infection, unspecified (principal); R05.9 Cough, unspecified; I10 Essential (primary) hypertension; E11.9 Type 2 diabetes mellitus without complications; K21.9 Gastro-esophageal reflux disease without esophagitis; R56.9 Unspecified convulsions; J45.909 Unspecified asthma, uncomplicated; N28.9 Disorder of kidney and ureter, unspecified; Z79.899 Other long term (current) drug therapy
CPT/HCPCS: 71046; 99283

== ENCOUNTER 2022-05-09 12:07 | Emergency (ER) | payer MEDICAID ==
--- NOTE | 2022-05-09 12:45 | Emergency Department Report ---
Blank Doc - Documentation Documentation: 22-year-old female who presents with chest tightness, pain and shortness of br eath. 1- This is a initial triage assessment/medical screening only. Full assessment and work-up will be completed once the patient is in proper hospital gown, ED bed and in a private room setting. This initial assessment/diagnostic orders/clinical plan/ treatment(s) is/are subject to change based on pt's health status, clinical progression and re-assessment by fellow clinical providers in the ED. Further treatment and workup at subsequent clinical providers discretion. Patient/guardians urged not to elope from ED as their condition may be serious if not clinically assessed and managed. 2-cardiac workup The patient was evaluated in the emergency department for symptoms described in the history of present illness. He/she was evaluated in the context of the global COVID-19 pandemic, which necessitated consideration that the patient might be at risk for infection with the virus that causes COVID-19. Institutional protocols and algorithms that pertain to the evaluation of patients at risk for COVID-19 are in a state of rapid change based on information released by regulatory bodies including the CDC and federal and state organizations. These policies and algorithms were followed during the patient's care in the emergency department. Please note that these policies, procedures and recommendations changed on a rapid basis.
[2022-05-09 13:58] LABS: INR 0.82 (0.87-1.13)
[2022-05-09 13:59] LABS: Partial Thromboplastin Time 25.4 Sec. (24.2-36.6)
[2022-05-09 14:03] LABS: Hematocrit 48.3 % (30.3-42.9); Hemoglobin 16.2 gm/dl (10.1-14.3); Mean Corpuscular HGB Conc 34 % (30-34); Mean Corpuscular Volume 87 fl (79-97); Platelet Count 240 K/mm3 (140-440); Red Blood Count 5.54 M/mm3 (3.65-5.03); Red Cell Distribution Width 12.8 % (13.2-15.2)
[2022-05-09 14:17] LABS: Alanine Aminotransferase 30 units/L (7-56); Albumin 4.9 g/dL (3.9-5); BUN/Creatinine Ratio 7; Blood Urea Nitrogen 6 mg/dL (7-17); Calcium 10.2 mg/dL (8.4-10.2); Hemolysis Index 6
--- NOTE | 2022-05-09 14:32 | XRay Report ---
CHEST 2 VIEWS INDICATION / CLINICAL INFORMATION: Chest Pain. COMPARISON: 2 views of the chest from 05/07/2022. FINDINGS: SUPPORT DEVICES: None. HEART / MEDIASTINUM: No significant abnormality. LUNGS / PLEURA: No significant pulmonary abnormality. No significant pleural effusion. No pneumothora x. ADDITIONAL FINDINGS: No significant additional findings. IMPRESSION: 1. No acute abnormality of the chest. Signer Name: Romeo Olmedo MD Signed: 05/09/2022 2:28 PM Workstation Name: [id number]
[2022-05-09 14:38] LABS: Basophils % (Auto) 0.2 % (0.0-1.8); Eosinophils % (Auto) 0.4 % (0.0-4.3); Lymphocytes # (Auto) 2.2 K/mm3 (1.2-5.4); Lymphocytes % (Auto) 28.5 % (13.4-35.0); Monocytes # (Auto) 0.4 K/mm3 (0.0-0.8); Monocytes % (Auto) 5.1 % (0.0-7.3)
[2022-05-09] MEDS ORDERED: clonazePAM 0.5 MG TAB PO ONE (15:10)
[2022-05-09] MEDS ORDERED: ALUM-MAG HYDROXIDE-SIMETHICONE 200-200-20MG/5ML ORAL LIQD 30 ML PO ONE (15:10)
[2022-05-09] MEDS ORDERED: DICYCLOMINE 10 MG/5 ML ORAL LIQD PO ONE (15:10)
[2022-05-09] MEDS ORDERED: LIDOCAINE VISCOUS 2% 15 ML ORAL LIQD PO ONE (15:10)
[2022-05-09] MEDS ORDERED: methylPREDNISolone Sod Succinate 125 MG/2 ML INJ IM ONE (16:26)
[2022-05-09] MEDS ORDERED: diphenhydrAMINE 50 MG/ML VIAL IM ONE (16:27)
--- NOTE | 2022-05-09 18:24 | Emergency Department Report ---
ED Chest Pain HPI - General Chief Complaint: Dyspnea/Respdistress Stated Complaint: CHEST PAIN Time Seen by Provider: 05/09/22 12:43 Source: patient Mode of arrival: Ambulatory Limitations: No Limitations - History of Present Illness Initial Comments: 22-year-old black female with a past medical history of asthma presents emergency department for evaluation of 3-day history of chest pain and shortness of breath. She states that pain comes out of nowhere, is sharp, and in her midsternal chest and epigastric area. She states that pain is nonradiating and nonreproducible. She states that pain when it happens is 10 out of 10. She denies nausea, vomiting, dizziness, and diaphoresis but states that she has severe shortness of breath when his pain comes. MD Complaint: other (Shortness of breath) -: Gradual, days(s) (3) Pain Location: epigastric Pain Radiation: none Severity scale (0 -10): 10 Quality: heaviness Consistency: constant re: denies: nausea, vomting, diaphoresis, dyspnea, sense of impending doom Other Symptoms: denies: cough, fever, syncope, rash, acid taste in mouth, leg swelling, palpitations, burping Treatments Prior to Arrival: none Aspirin use within the Past 7 Days: (0) No - Related Data On Oral Contraceptives: No Home Medications Medication Instructions Recorded Confirmed Last Taken Lisdexamfetamine Dimesylate 40 mg PO DAILY 02/07/20 09/10/21 02/20/20 07:00 [Vyvanse] Previous Rx's Medication Instructions Recorded Last Taken Type Blood Sugar Diagnostic [Freestyle 1 each MC QID #100 strip 05/05/21 Unknown Rx Lite Test Strip] Butalb/Acetamin/Caff 50-325-40 1 - 2 tab PO Q6HR PRN #15 tab 05/05/21 Unknown Rx [Fioricet 50-325-40] Dicyclomine [Bentyl] 20 mg PO Q6H PRN #20 tablet 05/05/21 Unknown Rx Famotidine [Pepcid] 20 mg PO BID #30 tablet 05/05/21 Unknown Rx Gabapentin 300 mg PO BID #20 capsule 05/05/21 Unknown Rx Insulin Glargine [Lantus VIAL] 44 units SUB-Q QHS #2 vial 05/05/21 Unknown Rx Insulin Regular, Human [HumuLIN R] 0 unit SQ AC #1 vial 05/05/21 Unknown Rx Sucralfate [Carafate] 1 gm PO ACHS 7 Days #21 tablet 05/05/21 Unknown Rx levETIRAcetam [Keppra TAB] 500 mg PO BID #60 tablet 05/05/21 Unknown Rx lisinopriL [Zestril TAB] 5 mg PO DAILY #30 05/05/21 Unknown Rx Miconazole Nitrate 1 inch TP BID 14 Days #1 cream..g. 06/23/21 Unknown Rx Ondansetron [Zofran ODT TAB] 4 mg PO Q8HR PRN 5 Days #15 09/11/21 Unknown Rx tab.rapdis Nitrofurantoin Davison/M-Cryst 100 mg PO Q12HR #14 capsule 10/11/21 Unknown Rx [Macrobid CAP] Ondansetron [Zofran Odt] 4 mg PO Q8HR #10 tab.rapdis 10/11/21 Unknown Rx Albuterol Mdi (or & Nicu Only) 2 puff IH QID PRN #1 inha 10/16/21 Unknown Rx [ProAir HFA Inhaler] Benzonatate [Tessalon Perles] 100 mg PO Q8HR PRN #20 cap 10/20/21 Unknown Rx Cetirizine HCl [Zyrtec 10mg tab] 10 mg PO DAILY #30 10/20/21 Unknown Rx Metoclopramide [Reglan] 10 mg PO Q6HR PRN #20 tab 11/09/21 Unknown Rx Insulin Glargine [Lantus VIAL] 50 unit SUB-Q QHS #3 vial 12/04/21 Unknown Rx Insulin Lispro [Humalog] 7 unit SQ AC #3 vial 12/04/21 Unknown Rx levETIRAcetam [Keppra TAB] 500 mg PO BID #60 tablet 12/04/21 Unknown Rx Famotidine [Pepcid] 20 mg PO BID #30 tablet 01/13/22 Unknown Rx HYDROcodone/APAP 5-325 [[place] 1 each PO Q6HR PRN #15 tablet 01/13/22 Unknown Rx 5/325] Nitrofurantoin Davison/M-Cryst 100 mg PO Q12HR #14 capsule 01/13/22 Unknown Rx [Macrobid CAP] Ondansetron [Zofran Odt] 4 mg PO Q8HR PRN #20 tab.rapdis 01/13/22 Unknown Rx cephALEXin [Keflex] 500 mg PO BID 7 Days #14 cap 01/28/22 Unknown Rx Dicyclomine [Bentyl] 20 mg PO QID PRN #20 bottle 03/27/22 Unknown Rx Diphenoxylate/Atropine [Lomotil] 2 tab PO QID PRN #20 03/27/22 Unknown Rx Famotidine [Pepcid] 20 mg PO BID #20 tablet 03/27/22 Unknown Rx Promethazine [Phenergan] 25 mg PO Q6HR PRN #20 tab 03/27/22 Unknown Rx Promethazine [Phenergan] 25 mg CO Q6HR PRN #5 supp.rect 03/27/22 Unknown Rx traMADoL [Ultram] 50 mg PO Q6HR PRN #10 tablet 03/27/22 Unknown Rx Benzonatate [Tessalon Perles] 100 mg PO Q8HR PRN #30 cap 05/07/22 Unknown Rx guaiFENesin/CODEINE [Robitussin AC] 10 ml PO TID PRN #120 ml 05/07/22 Unknown Rx Allergies Allergy/AdvReac Type Severity Reaction Status Date / Time No Known Allergies Allergy Verified 03/27/22 06:52 Heart Score - HEART Score History: Slightly suspicious EKG: Normal Age: < 45 Risk factors: 1-2 risk factors Troponin: < normal limit HEART Score: 1 - EKG Read Time Time EKG Completed: 12:54 EKG Read Time: 13:00 - Critical Actions Critical Actions: 0-3 pts:0.9-1.7%risk of adverse cardiac event.Candidate for discharge ED Review of Systems ROS: Stated complaint: CHEST PAIN Other details as noted in HPI Comment: All other systems reviewed and negative Constitutional: denies: chills, fever Respiratory: shortness of breath, SOB at rest. denies: cough, SOB with exertion, wheezing Cardiovascular: chest pain. denies: palpitations, dyspnea on exertion, orthopnea, edema, syncope, paroxysmal nocturnal dyspnea Gastrointestinal: denies: abdominal pain, nausea, vomiting, diarrhea, hematemesis, melena, hematochezia Musculoskeletal: denies: back pain Skin: denies: rash Neurological: denies: headache ED Past Medical Hx - Past Medical History Hx Hypertension: Yes Hx Heart Attack/AMI: No Hx Diabetes: Yes Hx GERD: Yes Hx Liver Disease: No Hx Renal Disease: Yes (no dialysis) Hx Sickle Cell Disease: No Hx Seizures: Yes Hx Asthma: Yes Hx COPD: No Hx Tuberculosis: No Hx HIV: No - Surgical History Hx Cholecystectomy: Yes - Social History Smoking Status: Never Smoker Substance Use Type: None (Denies illicit drug use) - Medications Home Medications: Home Medications Medication Instructions Recorded Confirmed Last Taken Type Lisdexamfetamine Dimesylate 40 mg PO DAILY 02/07/20 09/10/21 02/20/20 07:00 History [Vyvanse] Blood Sugar Diagnostic [Freestyle 1 each MC QID #100 strip 05/05/21 09/10/21 Unknown Rx Lite Test Strip] Butalb/Acetamin/Caff 50-325-40 1 - 2 tab PO Q6HR PRN #15 tab 05/05/21 09/10/21 Unknown Rx [Fioricet 50-325-40] Dicyclomine [Bentyl] 20 mg PO Q6H PRN #20 tablet 05/05/21 09/10/21 Unknown Rx Famotidine [Pepcid] 20 mg PO BID #30 tablet 05/05/21 09/10/21 Unknown Rx Gabapentin 300 mg PO BID #20 capsule 05/05/21 09/10/21 Unknown Rx Insulin Glargine [Lantus VIAL] 44 units SUB-Q QHS #2 vial 05/05/21 09/10/21 U nknown Rx Insulin Regular, Human [HumuLIN R] 0 unit SQ AC #1 vial 05/05/21 09/10/21 Unknown Rx Sucralfate [Carafate] 1 gm PO ACHS 7 Days #21 tablet 05/05/21 09/10/21 Unknown Rx levETIRAcetam [Keppra TAB] 500 mg PO BID #60 tablet 05/05/21 09/10/21 Unknown Rx lisinopriL [Zestril TAB] 5 mg PO DAILY #30 05/05/21 09/10/21 Unknown Rx Miconazole Nitrate 1 inch TP BID 14 Days #1 cream..g. 06/23/21 09/10/21 Unknown Rx Ondansetron [Zofran ODT TAB] 4 mg PO Q8HR PRN 5 Days #15 09/11/21 Unknown Rx tab.rapdis Nitrofurantoin Davison/M-Cryst 100 mg PO Q12HR #14 capsule 10/11/21 Unknown Rx [Macrobid CAP] Ondansetron [Zofran Odt] 4 mg PO Q8HR #10 tab.rapdis 10/11/21 Unknown Rx Albuterol Mdi (or & Nicu Only) 2 puff IH QID PRN #1 inha 10/16/21 Unknown Rx [ProAir HFA Inhaler] Benzonatate [Tessalon Perles] 100 mg PO Q8HR PRN #20 cap 10/20/21 Unknown Rx Cetirizine HCl [Zyrtec 10mg tab] 10 mg PO DAILY #30 10/20/21 Unknown Rx Metoclopramide [Reglan] 10 mg PO Q6HR PRN #20 tab 11/09/21 Unknown Rx Insulin Glargine [Lantus VIAL] 50 unit SUB-Q QHS #3 vial 12/04/21 Unknown Rx Insulin Lispro [Humalog] 7 unit SQ AC #3 vial 12/04/21 Unknown Rx levETIRAcetam [Keppra TAB] 500 mg PO BID #60 tablet 12/04/21 Unknown Rx Famotidine [Pepcid] 20 mg PO BID #30 tablet 01/13/22 Unknown Rx HYDROcodone/APAP 5-325 [[place] 1 each PO Q6HR PRN #15 tablet 01/13/22 Unknown Rx 5/325] Nitrofurantoin Davison/M-Cryst 100 mg PO Q12HR #14 capsule 01/13/22 Unknown Rx [Macrobid CAP] Ondansetron [Zofran Odt] 4 mg PO Q8HR PRN #20 tab.rapdis 01/13/22 Unknown Rx cephALEXin [Keflex] 500 mg PO BID 7 Days #14 cap 01/28/22 Unknown Rx Dicyclomine [Bentyl] 20 mg PO QID PRN #20 bottle 03/27/22 Unknown Rx Diphenoxylate/Atropine [Lomotil] 2 tab PO QID PRN #20 03/27/22 Unknown Rx Famotidine [Pepcid] 20 mg PO BID #20 tablet 03/27/22 Unknown Rx Promethazine [Phenergan] 25 mg PO Q6HR PRN #20 tab 03/27/22 Unknown Rx Promethazine [Phenergan] 25 mg CO Q6HR PRN #5 supp.rect 03/27/22 Unknown Rx traMADoL [Ultram] 50 mg PO Q6HR PRN #10 tablet 03/27/22 Unknown Rx Benzonatate [Tessalon Perles] 100 mg PO Q8HR PRN #30 cap 05/07/22 Unknown Rx guaiFENesin/CODEINE [Robitussin AC] 10 ml PO TID PRN #120 ml 05/07/22 Unknown Rx ED Physical Exam - General Limitations: No Limitations General appearance: alert, in no apparent distress - Head Head exam: Present: atraumatic, normocephalic - Eye Eye exam: Present: normal appearance. Absent: conjunctival injection, periorbital swelling, periorbital tenderness - ENT ENT exam: Present: normal exam, normal orophraynx - Neck Neck exam: Present: normal inspection, full ROM. Absent: tenderness, lymphadenopathy - Respiratory Respiratory exam: Present: normal lung sounds bilaterally, chest wall tenderness. Absent: respiratory distress, wheezes, rales, stridor - Cardiovascular Cardiovascular Exam: Present: regular rate, normal heart sounds - GI/Abdominal GI/Abdominal exam: Present: soft, normal bowel sounds. Absent: distended, tenderness, guarding, rebound, rigid - Extremities Exam Extremities exam: Present: normal inspection, normal capillary refill. Absent: full ROM, tenderness, pedal edema, joint swelling, calf tenderness - Back Exam Back exam: Present: normal inspection. Absent: CVA tenderness (R), CVA tenderness (L), vertebral tenderness - Neurological Exam Neurological exam: Present: alert, oriented X3, CN II-XII intact, normal gait - Psychiatric Psychiatric exam: Present: normal affect, normal mood - Skin Skin exam: Present: warm, dry, intact, normal color ED Course Vital Signs 05/09/22 05/09/22 05/09/22 12:44 14:10 14:11 Temperature 98.9 F 98.6 F Pulse Rate 81 80 80 Respiratory 24 16 Rate Blood Pressure 121/82 140/88 [Right] O2 Sat by Pulse 97 100 Oximetry 05/09/22 16:37 Temperature 98.7 F Pulse Rate 68 Respiratory 14 Rate Blood Pressure 136/68 [Right] O2 Sat by Pulse 100 Oximetry - Reevaluation(s) Reevaluation #1: 05/09/22 18:25 5 minutes after receiving Klonopin, patient states that she had increased shortness of breath and felt like her chest was so tight that she could not take a deep breath. Patient was able to swallow some water and juice but stated that she could not breathe. Patient was given one-time dose of Solu-Medrol 125 mg IM along with Benadryl 25 mg IM. Symptoms resolved after medications. BREANNA score - Breanna Score Age > 65: (0) No Aspirin use within the Past 7 Days: (0) No 3 or more CAD Risk Factors: (0) No 2 or more Angina events in past 24 hrs: (1) Yes Known CAD with more than 50% Stenosis: (0) No Elevated Cardiac Markers: (0) No ST Deviation Greater than 0.5mm: (0) No BREANNA Score: 1 ED Medical Decision Making - Lab Data Result diagrams: 05/09/22 13:04 05/09/22 13:04 - EKG Data Interpretation: no acute changes, normal EKG - Radiology Data Radiology results: report reviewed, image reviewed Chest x-ray: FINDINGS: SUPPORT DEVICES: None. HEART / MEDIASTINUM: No significant abnormality. LUNGS / PLEURA: No significant pulmonary abnormality. No significant pleural effusion. No pneumothorax. ADDITIONAL FINDINGS: No significant additional findings. IMPRESSION: 1. No acute abnormality of the chest. - Medical Decision Making 22-year-old black female with a past medical history of asthma presents emergency department for evaluation of 3-day history of chest pain and shortness of breath. She states that pain comes out of nowhere, is sharp, and in her midsternal chest and epigastric area. She states that pain is nonradiating and nonreproducible. She states that pain when it happens is 10 out of 10. She denies nausea, vomiting, dizziness, and diaphoresis but states that she has severe shortness of breath when his pain comes. Physical exam unremarkable work-up unremarkable. Patient states that chest pain has resolved. She is advised to follow-up with her primary care provider or cardiology for further evaluation and management. She is advised to return to the emergency department as needed. She verbalizes understanding of and agreem ent with plan of care. Critical care attestation.: If time is entered above; I have spent that time in minutes in the direct care of this critically ill patient, excluding procedure time. ED Disposition Clinical Impression: Epigastric abdominal pain Chest pain Qualifiers: Chest pain type: unspecified Qualified Code(s): R07.9 - Chest pain, unspecified Disposition: HOME / SELF CARE / HOMELESS Is pt being admited?: No Does the pt Need Aspirin: No Condition: Stable Instructions: Nonspecific Chest Pain, Adult, [id number], Chest Wall Pain, [id number], Abdominal Pain, Adult, [id number] Additional Instructions: Use Tylenol and ibuprofen as needed for pain. Follow-up with your primary care provider or telegraph dispatcher for further evaluation and management. Return to the emergency department as needed. Referrals: LONDON RODRIGUEZ MD [Staff Physician] - 3-5 Days TRELL GARG MD [Staff Physician] - 3-5 Days Forms: Work/School Release Form(ED) Time of Disposition: 18:34
[2022-05-09 18:45] VITALS: BP 124/86
--- NOTE | 2022-05-10 13:59 | Electrocardiograph Report ---
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
== END 2022-05-09 18:45 | disposition home or self-care (01) ==
LOC: ED 12:07
DX: R06.02 Shortness of breath (principal); R10.13 Epigastric pain; R07.9 Chest pain, unspecified; I10 Essential (primary) hypertension; E11.9 Type 2 diabetes mellitus without complications; J45.909 Unspecified asthma, uncomplicated
CPT/HCPCS: 36415; 71046; 80053; 84484; 84703; 85007; 85025; 85610; 85730; 93005; 96372; 99284; J1200; J2930

== ENCOUNTER 2022-05-30 10:44 | Emergency (ER) | payer MEDICAID ==
[2022-05-30] MEDS ORDERED: MORPHINE 4 MG/1 ML INJ IV ONE (14:03)
[2022-05-30] MEDS ORDERED: ONDANSETRON 4 MG/2 ML INJ IV ONE (14:03)
[2022-05-30] MEDS ORDERED: SODIUM CHLORIDE 0.9% 1000 ML 1,000 ML IV ONE ×2 (14:03→18:00)
--- NOTE | 2022-05-30 14:22 | Emergency Department Report ---
ED Abdominal Pain HPI - General Chief Complaint: Abdominal Pain Stated Complaint: STOMACH PAIN/NAUSEA Time Seen by Provider: 05/30/22 13:48 Source: patient Mode of arrival: Ambulatory Limitations: No Limitations - History of Present Illness Initial Comments: This is a 22-year-old female nontoxic, well nourished in appearance, no acute signs of distress presents to the ED with c/o of nausea and vomiting and abdominal pain 1 day. Patient describes vomiting as food content and yellow gastric acid. Patient describes abdominal pain as cramping and aching with level of 8/10 diffuse. Patient denies chest pain, short of breath, fever, hemoptysis, blood in stool, chills, headache, stiff neck, numbness or tingling. Patient denies any diarrhea or constipation. Denies any blood in stool. Patient denies any recent travels. Patient denies any allergies. MD Complaint: abdominal pain -: days(s) Location: diffuse Radiation: none Migration to: no migration Severity: mild Severity scale (0 -10): 8 Quality: cramping, aching Consistency: constant Improves With: nothing Worsens With: nothing Associated Symptoms: nausea, vomiting. denies: diarrhea, fever, chills, constipation, dysuria, hematemesis, hematochezia, melena, hematuria, anorexia, syncope - Related Data Home Medications Medication Instructions Recorded Confirmed Last Taken Lisdexamfetamine Dimesylate 40 mg PO DAILY 02/07/20 09/10/21 02/20/20 07:00 [Vyvanse] Previous Rx's Medication Instructions Recorded Last Taken Type Blood Sugar Diagnostic [Freestyle 1 each MC QID #100 strip 05/05/21 Unknown Rx Lite Test Strip] Butalb/Acetamin/Caff 50-325-40 1 - 2 tab PO Q6HR PRN #15 tab 05/05/21 Unknown Rx [Fioricet 50-325-40] Dicyclomine [Bentyl] 20 mg PO Q6H PRN #20 tablet 05/05/21 Unknown Rx Famotidine [Pepcid] 20 mg PO BID #30 tablet 05/05/21 Unknown Rx Gabapentin 300 mg PO BID #20 capsule 05/05/21 Unknown Rx Insulin Glargine [Lantus VIAL] 44 units SUB-Q QHS #2 vial 05/05/21 Unknown Rx Insulin Regular, Human [HumuLIN R] 0 unit SQ AC #1 vial 05/05/21 Unknown Rx Sucralfate [Carafate] 1 gm PO ACHS 7 Days #21 tablet 05/05/21 Unknown Rx levETIRAcetam [Keppra TAB] 500 mg PO BID #60 tablet 05/05/21 Unknown Rx lisinopriL [Zestril TAB] 5 mg PO DAILY #30 05/05/21 Unknown Rx Miconazole Nitrate 1 inch TP BID 14 Days #1 cream..g. 06/23/21 Unknown Rx Ondansetron [Zofran ODT TAB] 4 mg PO Q8HR PRN 5 Days #15 09/11/21 Unknown Rx tab.rapdis Nitrofurantoin Bryan/M-Cryst 100 mg PO Q12HR #14 capsule 10/11/21 Unknown Rx [Macrobid CAP] Ondansetron [Zofran Odt] 4 mg PO Q8HR #10 tab.rapdis 10/11/21 Unknown Rx Albuterol Mdi (or & Nicu Only) 2 puff IH QID PRN #1 inha 10/16/21 Unknown Rx [ProAir HFA Inhaler] Benzonatate [Tessalon Perles] 100 mg PO Q8HR PRN #20 cap 10/20/21 Unknown Rx Cetirizine HCl [Zyrtec 10mg tab] 10 mg PO DAILY #30 10/20/21 Unknown Rx Metoclopramide [Reglan] 10 mg PO Q6HR PRN #20 tab 11/09/21 Unknown Rx Insulin Glargine [Lantus VIAL] 50 unit SUB-Q QHS #3 vial 12/04/21 Unknown Rx Insulin Lispro [Humalog] 7 unit SQ AC #3 vial 12/04/21 Unknown Rx levETIRAcetam [Keppra TAB] 500 mg PO BID #60 tablet 12/04/21 Unknown Rx Famotidine [Pepcid] 20 mg PO BID #30 tablet 01/13/22 Unknown Rx HYDROcodone/APAP 5-325 [[place] 1 each PO Q6HR PRN #15 tablet 01/13/22 Unknown Rx 5/325] Nitrofurantoin Bryan/M-Cryst 100 mg PO Q12HR #14 capsule 01/13/22 Unknown Rx [Macrobid CAP] Ondansetron [Zofran Odt] 4 mg PO Q8HR PRN #20 tab.rapdis 01/13/22 Unknown Rx cephALEXin [Keflex] 500 mg PO BID 7 Days #14 cap 01/28/22 Unknown Rx Dicyclomine [Bentyl] 20 mg PO QID PRN #20 bottle 03/27/22 Unknown Rx Diphenoxylate/Atropine [Lomotil] 2 tab PO QID PRN #20 03/27/22 Unknown Rx Famotidine [Pepcid] 20 mg PO BID #20 tablet 03/27/22 Unknown Rx Promethazine [Phenergan] 25 mg PO Q6HR PRN #20 tab 03/27/22 Unknown Rx Promethazine [Phenergan] 25 mg UT Q6HR PRN #5 supp.rect 03/27/22 Unknown Rx traMADoL [Ultram] 50 mg PO Q6HR PRN #10 tablet 03/27/22 Unknown Rx Benzonatate [Tessalon Perles] 100 mg PO Q8HR PRN #30 cap 05/07/22 Unknown Rx guaiFENesin/CODEINE [Robitussin AC] 10 ml PO TID PRN #120 ml 05/07/22 Unknown Rx Dicyclomine [Bentyl] 20 mg PO BID PRN #12 tablet 05/30/22 Unknown Rx Ondansetron [Zofran Odt] 4 mg PO Q8HR PRN #12 tab.rapdis 05/30/22 Unknown Rx Allergies Allergy/AdvReac Type Severity Reaction Status Date / Time No Known Allergies Allergy Verified 05/30/22 11:16 ED Review of Systems ROS: Stated complaint: STOMACH PAIN/NAUSEA Other details as noted in HPI Comment: All other systems reviewed and negative Constitutional: denies: chills, fever Eyes: denies: eye pain, eye discharge, vision change ENT: denies: ear pain, throat pain Respiratory: denies: cough, shortness of breath, wheezing Cardiovascular: denies: chest pain, palpitations Endocrine: no symptoms reported Gastrointestinal: abdominal pain, nausea, vomiting. denies: diarrhea, constipation, hematemesis, melena, hematochezia Genitourinary: denies: urgency, dysuria, discharge Musculoskeletal: denies: back pain, joint swelling, arthralgia Skin: denies: rash, lesions Neurological: denies: headache, weakness, paresthesias Psychiatric: denies: anxiety, depression Hematological/Lymphatic: denies: easy bleeding, easy bruising ED Past Medical Hx - Past Medical History Hx Hypertension: Yes Hx Heart Attack/AMI: No Hx Diabetes: Yes Hx GERD: Yes Hx Liver Disease: No Hx Renal Disease: Yes (no dialysis) Hx Sickle Cell Disease: No Hx Seizures: Yes Hx Asthma: Yes Hx COPD: No Hx Tuberculosis: No Hx HIV: No - Surgical History Hx Cholecystectomy: Yes - Social History Smoking Status: Never Smoker Substance Use Type: None (Denies illicit drug use) - Medications Home Medications: Home Medications Medication Instructions Recorded Confirmed Last Taken Type Lisdexamfetamine Dimesylate 40 mg PO DAILY 02/07/20 09/10/21 02/20/20 07:00 History [Mauricio] Blood Sugar Diagnostic [Freestyle 1 each MC QID #100 strip 05/05/21 09/10/21 Unknown Rx Lite Test Strip] Butalb/Acetamin/Caff 50-325-40 1 - 2 tab PO Q6HR PRN #15 tab 05/05/21 09/10/21 Unknown Rx [Fioricet 50-325-40] Dicyclomine [Bentyl] 20 mg PO Q6H PRN #20 tablet 05/05/21 09/10/21 Unknown Rx Famotidine [Pepcid] 20 mg PO BID #30 tablet 05/05/21 09/10/21 Unknown Rx Gabapentin 300 mg PO BID #20 capsule 05/05/21 09/10/21 Unknown Rx Insulin Glargine [Lantus VIAL] 44 units SUB-Q QHS #2 vial 05/05/21 09/10/21 Unknown Rx Insulin Regular, Human [HumuLIN R] 0 unit SQ AC #1 vial 05/05/21 09/10/21 Unknown Rx Sucralfate [Carafate] 1 gm PO ACHS 7 Days #21 tablet 05/05/21 09/10/21 Unknown Rx levETIRAcetam [Keppra TAB] 500 mg PO BID #60 tablet 05/05/21 09/10/21 Unknown Rx lisinopriL [Zestril TAB] 5 mg PO DAILY #30 05/05/21 09/10/21 Unknown Rx Miconazole Nitrate 1 inch TP BID 14 Days #1 cream..g. 06/23/21 09/10/21 Unknown Rx Ondansetron [Zofran ODT TAB] 4 mg PO Q8HR PRN 5 Days #15 09/11/21 Unknown Rx tab.rapdis Nitrofurantoin Bryan/M-Cryst 100 mg PO Q12HR #14 capsule 10/11/21 Unknown Rx [Macrobid CAP] Ondansetron [Zofran Odt] 4 mg PO Q8HR #10 tab.rapdis 10/11/21 Unknown Rx Albuterol Mdi (or & Nicu Only) 2 puff IH QID PRN #1 inha 10/16/21 Unknown Rx [ProAir HFA Inhaler] Benzonatate [Tessalon Perles] 100 mg PO Q8HR PRN #20 cap 10/20/21 Unknown Rx Cetirizine HCl [Zyrtec 10mg tab] 10 mg PO DAILY #30 10/20/21 Unknown Rx Metoclopramide [Reglan] 10 mg PO Q6HR PRN #20 tab 11/09/21 Unknown Rx Insulin Glargine [Lantus VIAL] 50 unit SUB-Q QHS #3 vial 12/04/21 Unknown Rx Insulin Lispro [Humalog] 7 unit SQ AC #3 vial 12/04/21 Unknown Rx levETIRAcetam [Keppra TAB] 500 mg PO BID #60 tablet 12/04/21 Unknown Rx Famotidine [Pepcid] 20 mg PO BID #30 tablet 01/13/22 Unknown Rx HYDROcodone/APAP 5-325 [[place] 1 each PO Q6HR PRN #15 tablet 01/13/22 Unknown Rx 5/325] Nitrofurantoin Bryan/M-Cryst 100 mg PO Q12HR #14 capsule 01/13/22 Unknown Rx [Macrobid CAP] Ondansetron [Zofran Odt] 4 mg PO Q8HR PRN #20 tab.rapdis 01/13/22 Unknown Rx cephALEXin [Keflex] 500 mg PO BID 7 Days #14 cap 01/28/22 Unknown Rx Dicyclomine [Bentyl] 20 mg PO QID PRN #20 bottle 03/27/22 Unknown Rx Diphenoxylate/Atropine [Lomotil] 2 tab PO QID PRN #20 03/27/22 Unknown Rx Famotidine [Pepcid] 20 mg PO BID #20 tablet 03/27/22 Unknown Rx Promethazine [Phenergan] 25 mg PO Q6HR PRN #20 tab 03/27/22 Unknown Rx Promethazine [Phenergan] 25 mg UT Q6HR PRN #5 supp.rect 03/27/22 Unknown Rx traMADoL [Ultram] 50 mg PO Q6HR PRN #10 tablet 03/27/22 Unknown Rx Benzonatate [Tessalon Perles] 100 mg PO Q8HR PRN #30 cap 05/07/22 Unknown Rx guaiFENesin/CODEINE [Robitussin AC] 10 ml PO TID PRN #120 ml 05/07/22 Unknown Rx Dicyclomine [Bentyl] 20 mg PO BID PRN #12 tablet 05/30/22 Unknown Rx Ondansetron [Zofran Odt] 4 mg PO Q8HR PRN #12 tab.rapdis 05/30/22 Unknown Rx ED Physical Exam - General Limitations: No Limitations General appearance: alert, in no apparent distress - Head Head exam: Present: atraumatic, normocephalic - Eye Eye exam: Present: normal appearance - Neck Neck exam: Present: normal inspection, full ROM. Absent: tenderness, meningismus, lymphadenopathy - Respiratory Respiratory exam: Present: normal lung sounds bilaterally. Absent: respiratory distress, wheezes, rales, rhonchi, stridor, chest wall tenderness, accessory muscle use, decreased breath sounds, prolonged expiratory - Cardiovascular Cardiovascular Exam: Present: regular rate, normal rhythm, normal heart sounds. Absent: bradycardia, tachycardia, irregular rhythm, systolic murmur, diastolic murmur, rubs, gallop - GI/Abdominal GI/Abdominal exam: Present: soft, tenderness (diffuse), normal bowel sounds. Absent: distended, guarding, rebound, rigid, diminished bowel sounds - Extremities Exam Extremities exam: Present: normal inspection, full ROM - Back Exam Back exam: Present: normal inspection, full ROM. Absent: tenderness, CVA tenderness (R), CVA tenderness (L), muscle spasm, paraspinal tenderness, vertebral tenderness, rash noted - Neurological Exam Neurological exam: Present: alert, oriented X3, normal gait - Psychiatric Psychiatric exam: Present: normal affect, normal mood - Skin Skin exam: Present: warm, dry, intact, normal color. Absent: rash ED Course Vital Signs 05/30/22 11:12 Temperature 98.6 F Pulse Rate 91 H Respiratory 18 Rate Blood Pressure 128/75 [Right] O2 Sat by Pulse 98 Oximetry - Reevaluation(s) Reevaluation #1: 05/30/22 14:22 Patient is speaking in full sentences with no signs of distress noted. ED Medical Decision Making - Lab Data Result diagrams: 05/30/22 15:58 05/30/22 15:58 Lab Results 05/30/22 05/30/22 05/30/22 Range/Units 13:13 15:58 15:58 WBC 7.1 (4.5-11.0) K/mm3 RBC 5.22 H (3.65-5.03) M/mm3 Hgb 15.4 H (10.1-14.3) gm/dl Hct 45.4 H (30.3-42.9) % MCV 87 (79-97) fl MCH 29 (28-32) pg MCHC 34 (30-34) % RDW 13.0 L (13.2-15.2) % Plt Count 256 (140-440) K/mm3 Lymph % (Auto) 36.4 H (13.4-35.0) % Bryan % (Auto) 5.8 (0.0-7.3) % Eos % (Auto) 0.6 (0.0-4.3) % Baso % (Auto) 0.4 (0.0-1.8) % Lymph # (Auto) 2.6 (1.2-5.4) K/mm3 Bryan # (Auto) 0.4 (0.0-0.8) K/mm3 Eos # (Auto) 0.0 (0.0-0.4) K/mm3 Baso # (Auto) 0.0 (0.0-0.1) K/mm3 Seg Neutrophils % 56.8 (40.0-70.0) % Seg Neutrophils # 4.0 (1.8-7.7) K/mm3 Sodium (137-145) mmol/L Potassium (3.6-5.0) mmol/L Chloride (98-107) mmol/L Carbon Dioxide (22-30) mmol/L Anion Gap mmol/L BUN (7-17) mg/dL Creatinine (0.6-1.2) mg/dL Estimated GFR ml/min BUN/Creatinine Ratio % Glucose (65-100) mg/dL Calcium (8.4-10.2) mg/dL Total Bilirubin (0.1-1.2) mg/dL AST (5-40) units/L ALT (7-56) units/L Alkaline Phosphatase (35-129) units/L Total Protein (6.3-8.2) g/dL Albumin (3.9-5) g/dL Albumin/Globulin Ratio % Lipase 41 (13-60) units/L HCG, Qual (Negative) Urine Color Straw (Yellow) Urine Turbidity Cloudy (Clear) Specific [place] (Man) 1.015 (1.003-1.030) Ur Protein (Man) 1+ (Negative) mg/dL Ur Ketones (Man) Negative (Negative) Ur Nitrite (Man) Negative (Negative) Ur Reducing Substances Not Reportable Urine Bilirubin (Man) Negative (Negative) Urine Ictotest Not Reportable Leukocyte Esterase (Man) Negative (Negative) Urine WBC (Auto) 2.0 (0.0-6.0) /HPF Urine RBC (Auto) 2.0 (0.0-6.0) /HPF U Epithel Cells (Auto) 1.0 (0-13.0) /HPF Urine RBC (Manual) Negative (Negative) Urine Yeast (Budding) Few /HPF 05/30/22 05/30/22 Range/Units 15:58 15:58 WBC (4.5-11.0) K/mm3 RBC (3.65-5.03) M/mm3 Hgb (10.1-14.3) gm/dl Hct (30.3-42.9) % MCV (79-97) fl MCH (28-32) pg MCHC (30-34) % RDW (13.2-15.2) % Plt Count (140-440) K/mm3 Lymph % (Auto) (13.4-35.0) % Bryan % (Auto) (0.0-7.3) % Eos % (Auto) (0.0-4.3) % Baso % (Auto) (0.0-1.8) % Lymph # (Auto) (1.2-5.4) K/mm3 Bryan # (Auto) (0.0-0.8) K/mm3 Eos # (Auto) (0.0-0.4) K/mm3 Baso # (Auto) (0.0-0.1) K/mm3 Seg Neutrophils % (40.0-70.0) % Seg Neutrophils # (1.8-7.7) K/mm3 Sodium 140 (137-145) mmol/L Potassium 4.3 (3.6-5.0) mmol/L Chloride 99.0 (98-107) mmol/L Carbon Dioxide 27 (22-30) mmol/L Anion Gap 18 mmol/L BUN 10 (7-17) mg/dL Creatinine 0.8 (0.6-1.2) mg/dL Estimated GFR > 60 ml/min BUN/Creatinine Ratio 13 % Glucose 333 H (65-100) mg/dL Calcium 10.0 (8.4-10.2) mg/dL Total Bilirubin 0.40 (0.1-1.2) mg/dL AST 36 (5-40) units/L ALT 90 H (7-56) units/L Alkaline Phosphatase 130 H (35-129) units/L Total Protein 7.2 (6.3-8.2) g/dL Albumin 5.0 (3.9-5) g/dL Albumin/Globulin Ratio 2.3 % Lipase (13-60) units/L HCG, Qual Negative (Negative) Urine Color (Yellow) Urine Turbidity (Clear) Specific [place] (Man) (1.003-1.030) Ur Protein (Man) (Negative) mg/dL Ur Ketones (Man) (Negative) Ur Nitrite (Man) (Negative) Ur Reducing Substances Urine Bilirubin (Man) (Negative) Urine Ictotest Leukocyte Esterase (Man) (Negative) Urine WBC (Auto) (0.0-6.0) /HPF Urine RBC (Auto) (0.0-6.0) /HPF U Epithel Cells (Auto) (0-13.0) /HPF Urine RBC (Manual) (Negative) Urine Yeast (Budding) /HPF - Radiology Data [facility] [address] [place] [address] Cat Scan Report Signed Patient: LYNN CHANDLER MR#: [id number] : 2000 Acct:[id number] Age/Sex: 22 / F ADM Date: 05/30/22 Loc: ED Attending Dr: Ordering Physician: JACINTO WALKER NP Date of Service: 05/30/22 Procedure(s): CT abdomen pelvis w con Accession Number(s): [id number] cc: JACINTO WALKER NP CT ABDOMEN AND PELVIS WITH CONTRAST HISTORY: abd pain with n/v 80ml of [id number]. COMPARISON: CT abdomen/pelvis from 03/27/2022 TECHNIQUE: CT images of the abdomen and pelvis were obtained following administration of intravenous contrast. All CT scans at this location are performed using CT dose reduction for ALARA by means of automated exposure control. CONTRAST: 80 ml of intravenous contrast administered. FINDINGS: Lungs/bones: Lung bases are clear. No acute osseous abnormality identified. Abdomen/pelvis: Gallbladder surgically absent. No biliary ductal dilatation. The liver, spleen, pancreas, adrenals, kidneys, and proximal GI tract appear unremarkable. Urinary bladder and reproductive organs are unremarkable with no pelvic free fluid. No acute colonic abnormality identified. Terminal ileum and appendix appear normal. IMPRESSION: 1. No acute abnormality. Signer Name: Alok Navarro MD Signed: 05/30/2022 7:03 PM Workstation Name: [id number] Transcribed By: DEE Dictated By: Alok Navarro MD Electronically Authenticated By: Alok Navarro MD Signed Date/Time: 05/30/221902 DD/ 01 TD/TT: - Medical Decision Making This is a 22-year-old male that presents with abdominal pain with nv. Patient is stable and was examined by me. Patient that she does have diabetes and following up with primary care doctor for this. Labs obtained. There is no signs of DKA. UA obtained. CT of abdomen obtained and dictated by the radiologist. Patient is notified of the report with no questions noted by the patient. Vital signs are stable prior to discharge. Patient received medical treatment in the ED which patient stated symptoms has resovled and subsided. Was instructed note to operate any machinery due to possible drowsiness and stated someone will drive the patient home. A by mouth challenge has been obtained and patient tolerated well with no nausea vomiting. Patient was also instructed to Follow-up with a primary care doctor in 3-5 days or if symptoms worsen and continue return to emergency room as soon as possible. At time of discharge, the patient does not seem toxic or ill in appearance. No acute signs of distress noted. Patient agrees to discharge treatment plan of care. No further questions noted by the patient. Critical care attestation.: If time is entered above; I have spent that time in minutes in the direct care of this critically ill patient, excluding procedure time. 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 Prescriptions: Dicyclomine [Bentyl] 20 mg PO BID PRN #12 tablet PRN Reason: abdominal pain Ondansetron [Zofran Odt] 4 mg PO Q8HR PRN #12 tab.rapdis PRN Reason: Nausea Referrals: PRIMARY CAREMD [Primary Care Provider] - 3-5 Days LONDON RODRIGUEZ MD [Staff Physician] - 3-5 Days [facility] [Provider Group] - 3-5 Days Forms: Work/School Release Form(ED) Time of Disposition: 19:17
[2022-05-30 15:40] LABS: Color,Urine Straw (Yellow)
[2022-05-30 16:25] LABS: Basophils % (Auto) 0.4 % (0.0-1.8); Eosinophils % (Auto) 0.6 % (0.0-4.3); Hematocrit 45.4 % (30.3-42.9); Hemoglobin 15.4 gm/dl (10.1-14.3); Lymphocytes # (Auto) 2.6 K/mm3 (1.2-5.4); Lymphocytes % (Auto) 36.4 % (13.4-35.0); Mean Corpuscular HGB Conc 34 % (30-34); Mean Corpuscular Volume 87 fl (79-97); Monocytes # (Auto) 0.4 K/mm3 (0.0-0.8); Monocytes % (Auto) 5.8 % (0.0-7.3); Platelet Count 256 K/mm3 (140-440); Red Blood Count 5.22 M/mm3 (3.65-5.03)
[2022-05-30 16:47] LABS: Alanine Aminotransferase 90 units/L (7-56); BUN/Creatinine Ratio 13; Blood Urea Nitrogen 10 mg/dL (7-17); Hemolysis Index 10
[2022-05-30] MEDS ORDERED: ONDANSETRON 4 MG/2 ML INJ IV NR (18:00)
[2022-05-30] MEDS ORDERED: MORPHINE 4 MG/1 ML INJ IV NR (18:00)
--- NOTE | 2022-05-30 19:08 | Cat Scan Report ---
CT ABDOMEN AND PELVIS WITH CONTRAST HISTORY: abd pain with n/v 80ml of [id number]. COMPARISON: CT abdomen/pelvis from 03/27/2022 TECHNIQUE: CT images of the abdomen and pelvis were obtained following administration of intravenous contrast. All CT scans at this location are performed using CT dose reduction for ALARA by means of automated exposure control. CONTRAST: 80 ml of intravenous contrast administered. FINDINGS: Lungs/bones: Lung bases are clear. No acute osseous abnormality identified. Abdomen/pelvis: Gallbladder surgically absent. No biliary ductal dilatation. The liver, spleen, panc reas, adrenals, kidneys, and proximal GI tract appear unremarkable. Urinary bladder and reproductive organs are unremarkable with no pelvic free fluid. No acute colonic abnormality identified. Terminal ileum and appendix appear normal. IMPRESSION: 1. No acute abnormality. Signer Name: Alok Navarro MD Signed: 05/30/2022 7:03 PM Workstation Name: [id number]
[2022-05-30 20:30] VITALS: BP 123/78
== END 2022-05-30 20:30 | disposition home or self-care (01) ==
LOC: ED 10:44
DX: R10.9 Unspecified abdominal pain (principal); R11.2 Nausea with vomiting, unspecified; I10 Essential (primary) hypertension; E11.9 Type 2 diabetes mellitus without complications; K21.9 Gastro-esophageal reflux disease without esophagitis; R56.9 Unspecified convulsions; J45.909 Unspecified asthma, uncomplicated; N28.9 Disorder of kidney and ureter, unspecified; Z90.49 Acquired absence of other specified parts of digestive tract; Z79.899 Other long term (current) drug therapy
CPT/HCPCS: 36415; 74177; 80053; 81001; 83690; 84703; 85025; 96361; 96374; 96375; 99284; J2270; J2405; J7030; Q9967

== ENCOUNTER → 2022-06-17 | Emergency (ER) | payer MEDICAID ==
[2022-06-17 21:30] VITALS: BP 117/78
== END ==
LOC: ED 21:24
DX: R73.9 Hyperglycemia, unspecified (principal); Z53.21 Procedure and treatment not carried out due to patient leaving prior to being seen by health care provider